=== PATIENT | female | born 1950 | race Hispanic/Latino ===

== ENCOUNTER 2017-12-08 22:44 | Observation (INO) | payer MEDICARE ==
--- OUTSIDE RECORDS SUMMARY | 2017-12-08 22:46 | XMS REPORT ---
:1950 Author Organization [employer] Care Team Providers Name Role Phone LamMathew Provider Role Unavailable Allergies, Adverse Reactions, Alerts Substance Reaction Event Type N.K.D.A. Info Not Available Non Drug Allergy Problems Problem Type Condition Code Onset Dates Condition Status Assessment Primary osteoarthritis of left knee M17.12 Active Assessment Primary osteoarthritis of right M17.11 Active knee Problem Pain, joint, knee, left M25.562 Active Problem Pain, joint, knee, right M25.561 Active Problem Sciatica of left side M54.32 Active Problem Primary osteoarthritis of right M17.11 Active knee Problem Body mass index (BMI) of 40.0-44.9 Z68.41 Active in adult Problem Morbid (severe) obesity due to E66.01 Active excess calories Problem Primary osteoarthritis of left knee M17.12 Active Assessment Morbid (severe) obesity due to E66.01 Active excess calories Assessment Pain, joint, knee, left M25.562 Active Assessment Pain, joint, knee, right M25.561 Active Assessment Body mass index (BMI) of 40.0-44.9 Z68.41 Active in adult Assessment Sciatica of left side M54.32 Active Medications Medication Code Code Instructions Start End Status Dosage System Date Date atorvastatin [facility] 75309716368 20mg Active 1 tablet by mouth at bedtime Metoprolol [facility] 07072266307 50 MG Orally Active 1 tablet Tartrate Twice a day with food Lisinopril [facility] 89594184055 20 MG Orally Active 1 tablet Once a day Co Q 10 [facility] 15703343976 100 MG Orally Active 1 capsule Once a day with a meal Metformin HCl [facility] 16229118949 500 MG Orally Active 1 tablet Once a day with a meal Y26-Hbxeay [facility] 25661425998 1 MG Orally Active as directed Results No Known Results Summary Purpose eClinicalWorks Submission
[2017-12-08] MEDS ORDERED: cloNIDine HCl 0.1 MG TAB ONE (23:18)
[2017-12-08 23:46] LABS: Absolute Monocytes 0.1 K/uL (0.1-1.3); Absolute Neutrophil 9.7 K/uL (1.8-8.0); Basophils % 0.6 % (0-1.3); Hematocrit 40.5 % (36.0-45.0); Lymphocytes % 16.7 % (15.3-44.8); MCH 29.6 pg (27.0-35.0); MCV 88.9 fL (80-100); MPV 9.4 fL (7.6-11.3); Monocytes % 0.6 % (3.3-12.3); RBC Red Blood Cell Count 4.56 M/uL (3.86-4.86)
[2017-12-08 23:55] LABS: BUN Blood Urea Nitrogen 23 mg/dL (7-18); Bicarbonate 25 mmol/L (21-32); Glucose Level 198 mg/dL (74-106); NT PRO-BNP 827 pg/mL (<125); Potassium 3.9 mmol/L (3.5-5.1); Sodium Level 135 mmol/L (136-145); Troponin (Emerg Dept Use Only) < 0.02 ng/mL (0.0-0.045)
[2017-12-09 00:10] LABS: Protime INR 0.94
--- NOTE | 2017-12-09 00:36 | EDPHYS ---
Physician Documentation [facility] Name: Josette Pimentel Age: 67 yrs Sex: Female : 1950 Arrival Date: 12/08/2017 Time: 22:50 Bed 17 Private MD: Fredrick Torres ED Physician Alex Mae HPI: 12/08 23:35 This 67 yrs old Female presents to ER via Wheelchair with complaints of rn Breathing Difficulty, Palpitations. 23:35 The patient has shortness of breath at rest. rn 23:35 Onset: The symptoms/episode began/occurred 1 hour(s) ago. Duration: The symptoms are rn continuous, but are steadily getting better. The patient's shortness of breath is aggravated by nothing, is alleviated by nothing. Associated signs and symptoms: Pertinent positives: chest pain, Pertinent negatives: non-productive cough, productive cough, diaphoresis, dizziness, fever, hemoptysis, loss of consciousness, vomiting. Severity of symptoms: At their worst the symptoms were moderate in the emergency department the symptoms have improved. The patient has not experienced similar symptoms in the past. Reports going to sleep, felt heart pounding, + chest pain that radiates to back, + headache, reports feeling chest tight like can't take deep breath, no cough, felt fine prior to going to sleep.. Historical: - Allergies: 23:29 Bees; lp1 - Home Meds: 23:29 metformin 500 mg Oral tab 1 tab 2 times per day [Active]; atorvastatin 20 mg oral tab 1 lp1 tab once daily [Active]; lisinopril-hydrochlorothiazide 20-12.5 mg Oral tab twice a day [Active]; metoprolol tartrate 50 mg Oral tab 1 tab 2 times per day [Active]; - PMHx: 23:29 Diabetes - NIDDM; Hypertension; lp1 - PSHx: 23:29 Tubal ligation; lp1 - Immunization history:: Adult Immunizations up to date. - Social history:: Smoking status: Patient/guardian denies using tobacco. - Ebola Screening: : No symptoms or risks identified at this time. - Family history:: not pertinent. - Hospitalizations: : No recent hospitalization is reported. ROS: 23:35 Constitutional: Negative for fever, chills, and weight loss, Eyes: Negative for injury, rn pain, redness, and discharge, Neck: Negative for injury, pain, and swelling, Cardiovascular: Negative for edema Respiratory: Negative for cough, wheezing Abdomen/GI: Negative for abdominal pain, nausea, vomiting, diarrhea, and constipation, MS/Extremity: Negative for injury and deformity, Skin: Negative for injury, rash, and discoloration, Neuro: Negative for weakness, numbness, tingling, and seizure. Exam: 23:35 Constitutional: This is a well developed, well nourished patient who is awake, alert, rn appears anxious Head/Face: Normocephalic, atraumatic. Eyes: Pupils equal round and reactive to light, extra-ocular motions intact. Lids and lashes normal. Conjunctiva and sclera are non-icteric and not injected. Cornea within normal limits. Periorbital areas with no swelling, redness, or edema. Neck: Trachea midline, no thyromegaly or masses palpated, and no cervical lymphadenopathy. Supple, full range of motion without nuchal rigidity, or vertebral point tenderness. No Meningismus. Cardiovascular: Regular rate and rhythm with a normal S1 and S2. No gallops, murmurs, or rubs. Normal PMI, no JVD. No pulse deficits. Respiratory: Lungs have equal breath sounds bilaterally, clear to auscultation and percussion. No rales, rhonchi or wheezes noted. No increased work of breathing, no retractions or nasal flaring. Abdomen/GI: Soft, non-tender MS/ Extremity: Pulses equal, no cyanosis. Neurovascular intact. Full, normal range of motion. Equal circumference. Neuro: Awake and alert, GCS 15, oriented to person, place, time, and situation. Cranial nerves II-XII grossly intact. Motor strength 5/5 in all extremities. Sensory grossly intact. Cerebellar exam normal. Normal gait. Vital Signs: 23:11 BP 217 / 90; Pulse 97; Resp 18; Temp 98.3(O); Pulse Ox 97% on R/A; Weight 99.79 kg; lp1 Height 5 ft. 1 in. (154.94 cm); Pain 4/10; 23:25 BP 183 / 78; Pulse 87; Resp 18; Pulse Ox 95% on R/A; lp1 23:53 BP 172 / 64; Pulse 82; Resp 20; Pulse Ox 95% on R/A; lp1 09/05 00:11 BP 141 / 54; Pulse 74; Resp 21; Pulse Ox 95% on R/A; lp1 01:05 BP 131 / 50; Pulse 72; Resp 19; Pulse Ox 97% on R/A; lp1 01:27 BP 126 / 48; Pulse 75; Resp 21; Pulse Ox 95% on R/A; lp1 12/08 23:11 Body Mass Index 41.57 (99.79 kg, 154.94 cm) lp1 MDM: 12/08 22:52 Patient medically screened. rn 12/09 00:34 Differential diagnosis: CHF exacerbation, Myocardial Infarction pneumonia, Pneumothorax rn pulmonary edema. Data reviewed: vital signs, nurses notes, lab test result(s), EKG, radiologic studies, plain films, and as a result, I will admit patient. Counseling: I had a detailed discussion with the patient and/or guardian regarding: the historical points, exam findings, and any diagnostic results supporting the discharge/admit diagnosis, the presence of at least one elevated blood pressure reading (>120/80) during this emergency department visit, lab results, radiology results, the need for further work-up and treatment in the hospital. Admission orders: after a detailed discussion of the patient's condition and case, the admit orders are written by me. 00:34 ED course: Admitted to Dr. Carrillo for chest pain/sob of acute onset and unclear rn etiology, improved with clonidine and BP control. . 12/08 23:08 Order name: Blood Culture Adult (2) rn 12/08 23:08 Order name: BMP rn 12/08 23:08 Order name: CBC with Diff; Complete Time: 00:09 rn 12/08 23:08 Order name: NT PRO-BNP; Complete Time: 23:58 rn 12/08 23:08 Order name: PT-INR; Complete Time: 00:24 rn 12/08 23:08 Order name: Ptt, Activated; Complete Time: 00:24 rn 12/08 23:08 Order name: XRAY Chest Pa And Lat (2 Views) rn 12/08 23:08 Order name: Troponin (emerg Dept Use Only); Complete Time: 23:58 rn 12/08 23:08 Order name: EKG; Complete Time: 23:09 rn 12/08 23:08 Order name: Cardiac monitoring; Complete Time: 23:33 rn 12/08 23:08 Order name: EKG - Nurse/Tech; Complete Time: 23:33 rn 12/08 23:08 Order name: Blood Culture EDPA 12/08 23:08 Order name: Basic Metabolic Panel; Complete Time: 23:58 EDPA 12/08 23:08 Order name: IV Saline Lock; Complete Time: 23:32 rn 12/08 23:08 Order name: Labs collected and sent; Complete Time: 23:33 rn 12/08 23:08 Order name: O2 Per Protocol; Complete Time: 23:33 rn 12/08 23:08 Order name: O2 Sat Monitoring; Complete Time: 23:33 rn Administered Medications: 12/08 23:19 Drug: cloNIDine 0.1 mg Route: PO; lp1 12/09 00:30 Follow up: Response: Blood pressure is lowered lp1 Disposition: 12/09/17 00:36 Hospitalization ordered by Nisreen Negro for Observation. Preliminary diagnosis are Chest pain, unspecified, Dyspnea, unspecified. - Bed requested for Telemetry/MedSurg (observation). - Status is Observation. lp1 - Condition is Stable. - Problem is new. - Symptoms have improved. UTI on Admission? No Signatures: Dispatcher [employer] [facility] Little Barrientos RN RN Alex Mae MD MD rn Pena, Laura, RN RN lp1 Corrections: (The following items were deleted from the chart) 01:22 00:36 Hospitalization Ordered by Nisreen Negro MD for Observation. Preliminary mw diagnosis is Chest pain, unspecified; Dyspnea, unspecified. Bed requested for Telemetry/MedSurg (observation). Status is Observation. Condition is Stable. Problem is new. Symptoms have improved. UTI on Admission? No. rn 01:42 01:22 12/09/2017 00:36 Hospitalization Ordered by Nisreen Negro MD for Observation. lp1 Preliminary diagnosis is Chest pain, unspecified; Dyspnea, unspecified. Bed requested for Telemetry/MedSurg (observation). Status is Observation. Condition is Stable. Problem is new. Symptoms have improved. UTI on Admission? No. mw
--- NOTE | 2017-12-09 00:36 | ER ---
Nurse's Notes [facility] Name: Josette Pimentel Age: 67 yrs Sex: Female : 1950 Arrival Date: 12/08/2017 Time: 22:50 Bed 17 Private MD: Fredrick Torres Diagnosis: Chest pain, unspecified;Dyspnea, unspecified Presentation: 12/08 23:10 Presenting complaint: Patient states: Mid sternal chest pain that began an hour ago, lp1 patient states she has had a headache since 1330 today; Has began to feel palpitations and like she can't take a deep breath. Transition of care: patient was not received from another setting of care. Onset of symptoms was December 08, 2017. Risk Assessment: Do you want to hurt yourself or someone else? Patient reports no desire to harm self or others. Initial Sepsis Screen: Does the patient meet any 2 criteria? No. Patient's initial sepsis screen is negative. Does the patient have a suspected source of infection? No. Patient's initial sepsis screen is negative. Care prior to arrival: None. 23:10 Method Of Arrival: Wheelchair lp1 23:10 Acuity: BARAK 3 lp1 Historical: - Allergies: 23:29 Bees; lp1 - Home Meds: 23:29 metformin 500 mg Oral tab 1 tab 2 times per day [Active]; atorvastatin 20 mg oral tab 1 lp1 tab once daily [Active]; lisinopril-hydrochlorothiazide 20-12.5 mg Oral tab twice a day [Active]; metoprolol tartrate 50 mg Oral tab 1 tab 2 times per day [Active]; - PMHx: 23:29 Diabetes - NIDDM; Hypertension; lp1 - PSHx: 23:29 Tubal ligation; lp1 - Immunization history:: Adult Immunizations up to date. - Social history:: Smoking status: Patient/guardian denies using tobacco. - Ebola Screening: : No symptoms or risks identified at this time. - Family history:: not pertinent. - Hospitalizations: : No recent hospitalization is reported. Screenin:27 Abuse screen: Denies threats or abuse. Denies injuries from another. Nutritional lp1 screening: No deficits noted. Tuberculosis screening: No symptoms or risk factors identified. Fall Risk None identified. Assessment: 23:25 General: Appears uncomfortable, Behavior is calm, cooperative, appropriate for age. lp1 Pain: Complains of pain in chest Pain currently is 4 out of 10 on a pain scale. Quality of pain is described as "heaviness". Neuro: Level of Consciousness is awake, alert, obeys commands, Oriented to person, place, time, situation, Gait is steady. Cardiovascular: Patient's skin is warm and dry. Rhythm is sinus rhythm. Respiratory: Reports pain with respiration Airway is patent Respiratory effort is even, unlabored, Respiratory pattern is regular, Breath sounds are clear bilaterally. Onset: The symptoms/episode began/occurred just prior to arrival, the patient has mild shortness of breath. GI: Abdomen is non-distended. : No deficits noted. EENT: No deficits noted. Derm: Skin is pink, warm \\T\\ dry. Musculoskeletal: Circulation, motion, and sensation intact. 12/09 00:30 Reassessment: Patient is alert, oriented x 3, equal unlabored respirations, skin lp1 warm/dry/pink. patient states headache continued, but better Patient states feeling better. 01:06 Reassessment: Dr. Carrillo at bedside. lp1 Vital Signs: 12/08 23:11 BP 217 / 90; Pulse 97; Resp 18; Temp 98.3(O); Pulse Ox 97% on R/A; Weight 99.79 kg; lp1 Height 5 ft. 1 in. (154.94 cm); Pain 4/10; 23:25 BP 183 / 78; Pulse 87; Resp 18; Pulse Ox 95% on R/A; lp1 23:53 BP 172 / 64; Pulse 82; Resp 20; Pulse Ox 95% on R/A; lp1 12/09 00:11 BP 141 / 54; Pulse 74; Resp 21; Pulse Ox 95% on R/A; lp1 01:05 BP 131 / 50; Pulse 72; Resp 19; Pulse Ox 97% on R/A; lp1 01:27 BP 126 / 48; Pulse 75; Resp 21; Pulse Ox 95% on R/A; lp1 12/08 23:11 Body Mass Index 41.57 (99.79 kg, 154.94 cm) lp1 ED Course: 12/08 22:50 Patient arrived in ED. es 22:51 Fredrick Torres MD is Private Physician. es 22:52 Alex Mae MD is Attending Physician. rn 23:09 Amara Aquino, RN is Primary Nurse. lp1 23:11 Triage completed. lp1 23:11 Arm band placed on right wrist. lp1 23:15 Inserted saline lock: 20 gauge in right forearm, using aseptic technique. Blood lp1 collected. By Sindhu Mai. 23:30 Patient has correct armband on for positive identification. Placed in gown. Bed in low lp1 position. Call light in reach. carbide tool die maker on. Pulse ox on. NIBP on. 12/09 00:18 X-ray completed. Patient tolerated procedure well. az 00:20 XRAY Chest Pa And Lat (2 Views) In Process Unspecified. EDMS 00:35 Nisreen Negro MD is Hospitalizing Provider. rn 01:07 No provider procedures requiring assistance completed. Patient admitted, IV remains in lp1 place. Administered Medications: 12/08 23:19 Drug: cloNIDine 0.1 mg Route: PO; lp1 12/09 00:30 Follow up: Response: Blood pressure is lowered lp1 Outcome: 00:36 Decision to Hospitalize by Provider. rn 01:07 Condition: stable lp1 01:07 Instructed on the need for admit. 01:33 Admitted to Tele accompanied by sindhu, via wheelchair, room 410, with chart, Report lp1 called to Bonnie Benitez RN 01:42 Patient left the ED. lp1 Signatures: Dispatcher [employer] Varsha Edwards Roman, MD MD rn Pena, Laura, RN RN lp1 Lisa Stroud Corrections: (The following items were deleted from the chart) 12/08 23:30 23:11 BP 217 / 90; Pulse 97bpm; Resp 18bpm; Pulse Ox 97% RA; 99.79 kg; Height 5 ft. 1 lp1 in.; BMI: 41.5; Pain 4/10; lp1 23:30 23:25 Respiratory: Airway is patent Respiratory effort is even, unlabored, Respiratory lp1 pattern is regular, Breath sounds are clear bilaterally. lp1 23:31 23:25 Respiratory: Airway is patent Respiratory effort is even, unlabored, Respiratory lp1 pattern is regular, Breath sounds are clear bilaterally. the patient has mild shortness of breath lp1
[2017-12-09] MEDS ORDERED: FUROSEMIDE 40 MG/4 ML VIAL IV ONE (01:18)
[2017-12-09] MEDS ORDERED: HYDRALAZINE HCL 20 MG/ML VIAL IV PRN (01:37)
[2017-12-09] MEDS ORDERED: ACETAMINOPHEN 500 MG TAB PO PRN (01:37)
[2017-12-09] MEDS ORDERED: ONDANSETRON 4 MG/2 ML VIAL IV PRN (01:37)
--- NOTE | 2017-12-09 01:46 | P.HP ---
Certification for Inpatient Patient admitted to: Observation With expected LOS: <2 Midnights Practitioner: I am a practitioner with admitting privileges, knowledge of patient current condition, hospital course, and medical plan of care. Services: Services provided to patient in accordance with Admission requirements found in Title 42 Section 412.3 of the Code of Federal Regulations Patient History Date of Service: 12/09/17 Reason for admission: Chest pain History of Present Illness: ms Pimentel is a 67-year-old woman with history of diabetes mellitus, hypertension , chronic diastolic CHF, last echocardiogram done in April of 2016 showing normal LV function with EF about 72%, abnormal relaxation pattern. The patient came to the ER complaining of chest pain. Today the patient had shot in both of her knees, I believe steroids, after she started complaining of headache. Then she started feeling a pressure-like chest pain, substernal, without radiation, lasting for a few min, associated with palpitation and shortness of breath. She denied any nausea, vomiting, dizziness or diaphoresis episode. At arrival, the patient was hypertensive, 217 / 90, she was treated with clonidine , and gradually her blood pressure decreased. At the time of my examination, she was pain free. Laboratory work remarkable for elevated BNP, troponin I is negative, chest-x-ray venous congestion, EKG sinus rhythm with nonspecific ST depression. Allergies No Known Allergies Allergy (Verified 04/19/16 07:58) Home medications list reviewed: Yes Home Medications: Lisinopril/Hydrochlorothiazide [Lisinopril-Hctz 20-12.5 mg Tab] 1 each PO BID Metoprolol Succinate [Toprol Xl*] 50 mg PO BID 04/18/16 Atorvastatin Calcium [Lipitor] 20 mg PO DAILY 12/09/17 Metformin ER [Glucophage ER] 500 mg PO BID 12/09/17 - Past Medical/Surgical History Diabetic: Yes -: Diabetes -: Hypertension -: Hypothyroidism -: VTL - Family History Father -: Cancer - Social History Smoking Status: Never smoker Alcohol use: No CD- Drugs: No Caffeine use: No Place of Residence: Home Review of Systems 10-point ROS is otherwise unremarkable Physical Examination - Physical Exam General: Alert, In no apparent distress HEENT: Atraumatic, PERRLA, Mucous membr. moist/pink, EOMI, Sclerae nonicteric Neck: Supple, 2+ carotid pulse no bruit, No LAD, Without JVD or thyroid abnormality Respiratory: Clear to auscultation bilaterally, Normal air movement Cardiovascular: Regular rate/rhythm, Normal S1 S2 Gastrointestinal: Normal bowel sounds, No tenderness Musculoskeletal: No tenderness, Swelling (Bilateral lower extremity edema 1+) Integumentary: No rashes Neurological: Normal speech, Normal strength at 5/5 x4 extr, Normal tone, Normal affect Lymphatics: No axilla or inguinal lymphadenopathy - Studies Laboratory Data (last 24 hrs) 12/08/17 23:15: PT 11.1, INR 0.94, APTT 34.5 12/08/17 23:15: WBC 11.8 H, Hgb 13.5, Hct 40.5, Plt Count 224 12/08/17 23:15: Sodium 135 L, Potassium 3.9, BUN 23 H, Creatinine 1.10, Glucose 198 H Assessment and Plan - Problems (Diagnosis) (1) Chest pain Current Visit: Yes Status: Acute Qualifiers: Chest pain type: precordial pain Qualified Code(s): R07.2 - Precordial pain (2) Hypertension Onset Date: 04/21/16 Current Visit: No Status: Acute Qualifiers: Hypertension type: essential hypertension Qualified Code(s): I10 - Essential (primary) hypertension (3) Non-insulin dependent type 2 diabetes mellitus Onset Date: 04/21/16 Current Visit: No Status: Acute (4) SOB (shortness of breath) Onset Date: 04/21/16 Current Visit: No Status: Acute (5) Acute on chronic diastolic CHF (congestive heart failure) Current Visit: Yes Status: Acute - Plan Patient will be admitted to the hospital due to chest pain. Initial troponin I is negative, EKG shows nonspecific ST depression, in context of elevated blood pressure. Her BP right now is better controlled and her symptoms resolved. Will monitor serial cardiac enzymes and EKG. Consult Cardiology team, will repeat echo in a.m. S the last was done more than 1 year ago. - Advance Directives Does patient have a Living Will: No Does patient have a Durable POA for Healthcare: No - Code Status/Comfort Care Code Status Assessed: Yes Code Status: Full Code
[2017-12-09 02:06] VITALS: O2SAT 95
[2017-12-09 03:18] VITALS: BMI 41.5
[2017-12-09] MEDS ORDERED: METOPROLOL TAR 25 MG TAB PO SCH (06:00)
[2017-12-09] MEDS: INSULIN -REGULAR HUMAN 50 UNIT/0.5 ML ML SQ SCH ×3 (06:00→18:00)
[2017-12-09] MEDS ORDERED: REGADENOSON 0.4 MG/5 ML SYR IV ONE (07:58)
--- NOTE | 2017-12-09 08:39 | RAD REPORT ---
EXAM DESCRIPTION: Taiwo Xiao (2 Views)12/09/2017 12:20 am CLINICAL HISTORY: Chest pain COMPARISON: April 2016 FINDINGS: The lungs appear clear of acute infiltrate. The heart is normal size IMPRESSION: No acute abnormalities displayed
[2017-12-09] MEDS ORDERED: ENOXAPARIN 40 MG/0.4 ML SQ SCH (09:00)
[2017-12-09 12:44] VITALS: TEMP 97
--- NOTE | 2017-12-09 14:06 | RAD REPORT ---
EXAM DESCRIPTION: NM - Rest Stress Cardiac Imaging - 12/09/2017 2:00 pm CLINICAL HISTORY: CP Chest pain. COMPARISON: No comparisons TECHNIQUE: The patient was administered approximately 10mCi of Tc 99m Sestamibi prior to resting SPE CT imaging of the heart. The patient was then administered approximately 30 mCi of Tc 99m Sestamibi f ollowing exercise or pharmacologic stress. Multiplanar SPECT images were reviewed. FINDINGS: No stress induced ischemic defect is seen to suggest stress induced ischemia. No fixed def ect is seen to suggest hibernating myocardium or scarred myocardium. The end diastolic volume is 72 ml, the end systolic volume is 15 ml, and the ejection fraction is 79 %. IMPRESSION: No stress induced ischemia.
--- NOTE | 2017-12-09 17:54 | EKG ---
Test Date: 2017-12-08 Test Time: 23:02:59 Airworthiness Safety Inspector: ANNALISE MEASUREMENT RESULTS: Intervals: Rate: 93 CA: 196 QRSD: 94 QT: 366 QTc: 455 [place]: P: 75 CA: 196 QRS: 70 T: 47 INTERPRETIVE STATEMENTS: Normal sinus rhythm Nonspecific ST abnormality Abnormal ECG Compared to ECG 04/18/2016 10:44:46 No significant changes Electronically Signed On 12-09-17 17:51:02 CDT by Jovany Sweet
[2017-12-09 18:12] VITALS: BP 164/70
[2017-12-09] MEDS ORDERED: hydroCHLOROthiazide 12.5 MG CAP PO SCH (21:00)
[2017-12-09] MEDS ORDERED: ATORVASTATIN 40 MG TAB PO SCH (21:00)
[2017-12-09] MEDS ORDERED: LISINOPRIL 20 MG TAB PO SCH (21:00)
[2017-12-09] MEDS ORDERED: METOPROLOL TAR 50 MG TAB PO SCH (21:00)
[2017-12-09] MEDS ORDERED: HOME MED 1 EA UNK (Lisinopril/Hydrochlorothiazide [Lisinopril-Hctz 20-12.5 Mg Tab] 1 EACH) PO SCH (21:00)
--- NOTE | 2017-12-10 05:20 | CON ---
Date of Consultation: 12/09/2017 Reason For Consultation: Palpitation, chest pain, and shortness of breath. History Of Present Illness: The patient is a 67-year-old woman who has a history of diabetes and hyp ertension. No previous cardiac history, really came in mostly with palpitation than anything else. She has what she describes as very little chest pain in the left lateral chest that was sharp, worse with breathing. No nausea, vomiting, diaphoresis, PND, orthopnea, pedal edema, or syncope. Allergies: SHE IS ALLERGIC TO BEES. Past Medical History: Includes hypertension and diabetes. Review of Systems: Negative. Social History: Negative. Family History: Negative. Medications: At home include Lipitor, metformin, metoprolol, CoQ10, lisinopril with hydrochlorothiaz rufino. Physical Examination: Vital Signs: She was hypertensive at 187/71. HEENT: Negative. Neck: Supple. No bruit. Chest: Clear. Cardiac: Examination revealed regular rhythm and rate without any murmurs, gallops, or rubs. Abdomen: Benign. Extremities: Revealed no clubbing, cyanosis, or edema. Diagnostic Data: Showed white count of 11.8. Glucose 198. BNP is 827. She has an HDL of 79. EKG was normal. Chest x-ray was normal. Impression And Plan: The patient's symptoms are more secondary to palpation than actual chest pain. Chest pain appears to be more pleuritic. She does have some dyspnea on exertion. Hypertension that is poorly controlled. Diabetes that is well controlled. She is now having a lot of leg cramps prob ably because of the Lasix. I would definitely discontinue her Lasix. I do not think she has congest aguilar heart failure. I would continue her present regimen, maybe increase her metoprolol to control he r blood pressure and palpitation. I will get an echocardiogram and a Lexiscan before she leaves. NB/MODL Voice ID: [id number] Report ID: [id number]
--- NOTE | 2017-12-10 08:50 | ECHO ---
HEIGHT: 5 ft 1 in WEIGHT: 219 lb 12.8 oz DATE OF STUDY: 12/09/[address]: Nisreen Carrillo MD 2-DIMENSIONAL: YES M.MODE: YES DOPPLER: YES COLOR FLOW: YES TDS: NO PORTABLE: NO DEFINITY: NO BUBBLE STUDY: NO DIAGNOSIS: CHEST PAIN CARDIAC HISTORY: CATHERIZATION: NO SURGERY: NO PROSTHETIC VALVE: NO PACEMAKER: NO MEASUREMENTS (cm) DIASTOLIC (NORMALS) SYSTOLIC (NORMALS) IVSd 1.3 (0.6-1.2) LA Diam 3.5 (1.9-4.0) LVEF 71% LVIDd 3.5 (3.5-5.7) LVIDs 2.1 (2.0-3.5) %FS 40% LVPWd 1.3 (0.6-1.2) Ao Diam 2.5 (2.0-3.7) 2 DIMENSIONAL ASSESSMENT: RIGHT ATRIUM: NORMAL LEFT ATRIUM: NORMAL RIGHT VENTRICLE: NORMAL LEFT VENTRICLE: LEFT VENTRICULAR HYPERTROPHY TRICUSPID VALVE: NORMAL MITRAL VALVE: NORMAL PULMONIC VALVE: NORMAL AORTIC VALVE: NORMAL PERICARDIAL EFFUSION: NONE AORTIC ROOT: NORMAL LEFT VENTRICULAR WALL MOTION: NORMAL DOPPLER/COLOR FLOW: MILD TRICUSPID REGURGITATION. COMMENTS: MILD TRICUSPID REGURGITATION. NORMAL RIGHT VENTRICULAR SYSTOLIC PRESSURE. MILD CONCENTRIC LEFT VENTRICULAR HYPERTROPHY. NORMAL LEFT VENTRICULAR EJECTION FRACTION. NO WALL MOTIONABNORMALITY. TECHNOLOGIST: Tashi BURKS
[2017-12-10] MEDS ORDERED: CYANOCOBALAMIN 1,000 MCG TAB PO SCH (09:00)
--- NOTE | 2017-12-10 09:35 | TREADPHA ---
DX: CHEST PAIN Date of Study: Ht: 5 1 Wt: 219 lb 12.8 oz Consulting Physician: NICOLE MEDICATIONS: TYLENOL, LIPITOR, LOVENOX, APRESOLINE, NOVOLIN-R, LOPRESSOR, ZOFRAN HISTORY: 67 YEAR OLD FEMALE WITH COMPLAINTS OF CHEST PAIN. HISOTRY OF DIABETES MELLITUS, HYPERTENSION PHYSICIAL EXAMINATION: RESTING B.P.: 167/56 RESTING H.R.: 78 RESTING EKG: NORMAL PROTOCOL: LEXISCAN EXERCISE TIME: 3:30 B.P. AT PEAK STRESS: 141/47 IMPRESSION: LEXISCAN INJECTED, CARDIOLITE INJECTED PER PROTOCOL. SEE NUCLEAR MEDICINE REPORT. NO CHEST PAIN. PREMATURE VENTRICULAR COMPLEXES NOTED DURING TEST AND RECOVERY. NO VENTRICULAR TACHYCARDIA. NO SUPRA VENTRICULAR TACHCYARDIA.
== END 2017-12-09 17:57 | disposition home or self-care (01) ==
LOC: ER 22:44 → ERHOLD 12-09 00:37 → 4TH 12-09 01:34
PROVIDERS: ADMIT Internal Medicine; ATTEND Internal Medicine
DX: R07.9 Chest pain, unspecified (principal); E11.9 Type 2 diabetes mellitus without complications; E03.9 Hypothyroidism, unspecified; I11.0 Hypertensive heart disease with heart failure; I50.32 Chronic diastolic (congestive) heart failure; Z91.030 Bee allergy status
CPT/HCPCS: 36415; 71046; 78452; 80048; 80061; 82962 ×2; 83880; 84484 ×3; 85025; 85610; 85730; 87040 ×2; 93005; 93017; 93306; 99285; A9500; G0378 ×2; J0360; J2785

== ENCOUNTER 2018-11-10 20:11 | Emergency (ER) | payer OTHER, MEDICARE ==
--- OUTSIDE RECORDS SUMMARY | 2018-11-10 20:14 | XMS REPORT ---
:1950 Author Organization eClinicalWorks Care Team Providers Name Role Phone Mathew Lam Provider Role Unavailable Allergies, Adverse Reactions, Alerts Substance Reaction Event Type N.K.D.A. Info Not Available Non Drug Allergy Problems Problem Type Condition Code Onset Dates Condition Status Assessment Pain, joint, knee, left M25.562 Active Assessment Pain, joint, knee, right M25.561 Active Assessment Sciatica of left side M54.32 Active Assessment Primary osteoarthritis of right M17.11 Active knee Assessment Primary osteoarthritis of left knee M17.12 Active Problem Pain, joint, knee, left M25.562 Active Problem Pain, joint, knee, right M25.561 Active Problem Sciatica of left side M54.32 Active Problem Primary osteoarthritis of right M17.11 Active knee Problem Body mass index (BMI) of 40.0-44.9 Z68.41 Active in adult Problem Morbid (severe) obesity due to E66.01 Active excess calories Problem Primary osteoarthritis of left knee M17.12 Active Medications Medication Code Code Instructions Start End Status Dosage System Date Date [id number]-[id number] [facility] 40681185387 1 MG Orally Active as directed Co Q [address] [facility] 79383993883 100 MG Orally Active 1 capsule Once a day with a meal Lisinopril ND 28400924188 20 MG Orally Active 1 tablet Once a day Metoprolol [facility] 08883035005 50 MG Orally Active 1 tablet Tartrate Twice a day with food atorvastatin [facility] 98394070457 20mg Active 1 tablet by mouth at bedtime Metformin HCl ND 70473449632 500 MG Orally Active 1 tablet Once a day with a meal Results No Known Results Summary Purpose eClinicalWorks Submission
--- OUTSIDE RECORDS SUMMARY | 2018-11-10 20:14 | XMS REPORT ---
[...] End Status Dosage System Date Date atorvastatin [facility] 66507131706 20mg Active 1 tablet by mouth at bedtime Metoprolol [facility] 65127063619 50 MG Orally Active 1 tablet Tartrate Twice a day with food Lisinopril [facility] 61036945643 20 MG Orally Active 1 tablet Once a day Co Q [address] [facility] 26412497652 100 MG Orally Active 1 capsule Once a day with a meal Metformin HCl [facility] 69024429771 500 MG Orally Active 1 tablet Once a day with a meal Q83-Qiwnqr [facility] 26866525326 1 MG Orally Active as directed Results No Known Results Summary Purpose eClinicalWorks Submission
--- OUTSIDE RECORDS SUMMARY | 2018-11-10 20:14 | XMS REPORT ---
:1950 Author Organization eClinicalWorks Care Team Providers Name Role Phone Lam Mathew Provider Role Unavailable Allergies, Adverse Reactions, Alerts Substance Reaction Event Type N.K.D.A. Info Not Available Non Drug Allergy Problems Problem Type Condition Code Onset Dates Condition Status Assessment Pain, joint, knee, left M25.562 Active Assessment Pain, joint, knee, right M25.561 Active Problem Pain, joint, knee, left M25.562 [...] due to E66.01 Active excess calories Assessment Sciatica of left side M54.32 Active Assessment Primary osteoarthritis of left knee M17.12 Active Assessment Body mass index (BMI) of 40.0-44.9 Z68.41 Active in adult Assessment Primary osteoarthritis of right M17.11 Active knee Medications Medication Code Code Instructions Start End Status Dosage System Date Date Co Q 10 [facility] 40631482158 100 MG Orally Active 1 capsule Once a day with a meal Lisinopril [facility] 64468194876 20 MG Orally Active 1 tablet Once a day [id number]-Djibio [facility] 77882503639 1 MG Orally Active as directed atorvastatin ND 06692729542 20mg Active 1 tablet by mouth at bedtime Metoprolol [facility] 13478318660 50 MG Orally Active 1 tablet Tartrate Twice a day with food Metformin HCl [facility] 89077089318 500 MG Orally Active 1 tablet Once a day with a meal Results No Known Results Summary Purpose eClinicalWorks Submission
--- OUTSIDE RECORDS SUMMARY | 2018-11-10 20:14 | XMS REPORT ---
:1950 [facility] Address [address] [place] [address] Dr. [address] [place] [id number] Care Team Providers Name Role Phone Unavailable Unavailable Unavailable Problems This patient has no known problems. Allergies, Adverse Reactions, Alerts This patient has no known allergies or adverse reactions. Medications This patient has no known medications.
[2018-11-10] MEDS ORDERED: NA CHLORIDE 0.9% 1,000 ML ONE (20:28)
[2018-11-10] MEDS ORDERED: ACETAMINOPHEN 325 MG TABLET ONE (21:40)
[2018-11-10 22:17] LABS: Absolute Lymphocytes (CBC) 2.2 K/uL (0.7-4.9); Basophils % 0.4 % (0-1.3); Hematocrit 41.7 % (36.0-45.0); Lymphocytes % 22.9 % (15.3-44.8); MPV 8.9 fL (7.6-11.3)
[2018-11-10 22:37] LABS: Albumin 3.6 g/dL (3.4-5.0); Bilirubin Direct 0.2 mg/dL (0-0.2); Bilirubin Total 0.6 mg/dL (0.2-1.0); Potassium 4.2 mmol/L (3.5-5.1)
[2018-11-10 23:26] LABS: Urine Culture Reflex Order NOT NEEDED
[2018-11-10 23:29] LABS: Urine Bacteria >50 /HPF (<20)
[2018-11-10 23:30] LABS: Urine Blood 1+ (NEG); Urine Glucose NEGATIVE (NEG); Urine Protein 1+ (NEG); Urine pH 6.5 (5.0-7.0)
[2018-11-10] MEDS ORDERED: CEFTRIAXONE/SWI 1gm 1 GM/10 ML SYR ONE (23:51)
--- NOTE | 2018-11-11 01:09 | ER ---
Nurse's Notes [facility] Name: Josette Pimentel Age: 68 yrs Sex: Female : 1950 Arrival Date: 11/10/2018 Time: 20:14 Bed 15 Private MD: Diagnosis: Urinary tract infection, site not specified;Dehydration Presentation: 11/10 20:16 Presenting complaint: Patient states: She is having on and off fever since Thursday wh accompanied by weakness, headache and nausea. Pt is also C/O pain R shoulder blade. Transition of care: patient was not received from another setting of care. Onset of symptoms was November 08, 2018. Risk Assessment: Do you want to hurt yourself or someone else? Patient reports no desire to harm self or others. Initial Sepsis Screen: Does the patient meet any 2 criteria? No. Patient's initial sepsis screen is negative. Does the patient have a suspected source of infection? Yes: Other: Unknown. Care prior to arrival: None. 20:16 Method Of Arrival: [facility] 20:16 Acuity: BARAK 3 Historical: - Allergies: 20:38 Bees; - Home Meds: 20:38 metoprolol tartrate 50 mg Oral tab 1 tab 2 times per day [Active]; metformin 500 mg wh Oral tab 1 tab 2 times per day [Active]; lisinopril-hydrochlorothiazide 20-12.5 mg Oral tab twice a day [Active]; levothyroxine 75 mcg tab 1 tab once daily [Active]; - PMHx: 20:38 Diabetes - NIDDM; Hypertension; - Immunization history:: Adult Immunizations up to date. - Social history:: Smoking status: Patient/guardian denies using tobacco, Smoking status: Patient/guardian denies using tobacco. - Ebola Screening: : Patient negative for fever greater than or equal to 101.5 degrees Fahrenheit, and additional compatible Ebola Virus Disease symptoms Patient denies exposure to infectious person. - Family history:: not pertinent. - Hospitalizations: : No recent hospitalization is reported. Screenin:20 Abuse screen: Denies threats or abuse. Denies injuries from another. Nutritional screening: No deficits noted. Tuberculosis screening: No symptoms or risk factors identified. Fall Risk None identified. Assessment: 20:32 General: Appears in no apparent distress. Behavior is calm, cooperative, appropriate wh for age. Pain: Complains of pain in right shoulder Pain does not radiate. Pain currently is 5 out of 10 on a pain scale. Quality of pain is described as burning, Pain began 3 hours ago. Neuro: Level of Consciousness is awake, alert, obeys commands, Oriented to person, place, time, situation, Appropriate for age Track Leader are equal bilaterally Reports headache since today. Cardiovascular: Heart tones S1 S2. Respiratory: Airway is patent Respiratory effort is even, unlabored, Respiratory pattern is regular, symmetrical. GI: Abdomen is flat, Abd is soft and non tender X 4 quads. Reports nausea. : No signs and/or symptoms were reported regarding the genitourinary system. EENT: No signs and/or symptoms were reported regarding the EENT system. Derm: Skin is intact, is healthy with good turgor, Skin is pink, warm \T\ dry. normal. Musculoskeletal: Range of motion: intact in all extremities. 21:25 Reassessment: Patient appears in no apparent distress at this time. Patient and/or wh family updated on plan of care and expected duration. Pain level reassessed. Patient is alert, oriented x 3, equal unlabored respirations, skin warm/dry/pink. 22:41 Reassessment: Patient appears in no apparent distress at this time. Patient and/or wh family updated on plan of care and expected duration. Pain level reassessed. Patient is alert, oriented x 3, equal unlabored respirations, skin warm/dry/pink. 23:47 Reassessment: Patient appears in no apparent distress at this time. Patient and/or wh family updated on plan of care and expected duration. Pain level reassessed. Patient is alert, oriented x 3, equal unlabored respirations, skin warm/dry/pink. Patient denies pain at this time. Patient states feeling better. 11/11 00:49 Reassessment: Patient appears in no apparent distress at this time. Patient and/or wh family updated on plan of care and expected duration. Pain level reassessed. Patient is alert, oriented x 3, equal unlabored respirations, skin warm/dry/pink. Patient denies pain at this time. Patient states feeling better. 01:38 Reassessment: Patient appears in no apparent distress at this time. Patient and/or wh family updated on plan of care and expected duration. Pain level reassessed. Patient is alert, oriented x 3, equal unlabored respirations, skin warm/dry/pink. Patient denies pain at this time. Patient states feeling better. Vital Signs: 11/10 20:22 BP 152 / 58; Pulse 82; Resp 18; Temp 101.7; Pulse Ox 100% 2 lpm ; 21:30 BP 131 / 51; Pulse 84; Resp 18; Pulse Ox 100% ; 22:30 BP 143 / 66; Pulse 83; Resp 18; Pulse Ox 100% on R/A; 23:30 BP 131 / 48; Pulse 81; Resp 18; Pulse Ox 100% on R/A; 11/11 00:30 BP 120 / 57; Pulse 78; Resp 18; Temp 99.1; Pulse Ox 100% on R/A; ED Course: 11/10 20:14 Patient arrived in ED. am2 20:15 Alex Mae MD is Attending Physician. rn 20:15 Erika Renee is Primary Nurse. 20:20 Triage completed. 20:20 Arm band placed on right wrist. 20:22 Patient has correct armband on for positive identification. Bed in low position. Call light in reach. Side rails up X 1. Pulse ox on. NIBP on. 20:29 Maintain EMS IV. Dressing intact. Good blood return noted. Site clean \T\ dry. 20:54 Radiology exam delayed due to IV insertion attempt and/or patient not having nj appropriate IV at this time. nurse to call when ready. 21:30 Missed attempt(s): 22 gauge in left forearm. Bleeding controlled, band aid applied, oe catheter tip intact. 21:32 Radiology exam delayed due to lab results not completed at this time. (BUN/Creatinine) 2 IV insertion attempt and/or patient not having appropriate IV at this time. 21:35 Missed attempt(s): 22 gauge in left hand. Bleeding controlled, band aid applied, oe catheter tip intact. 21:50 Inserted saline lock: 22 gauge in left hand, using aseptic technique. Blood collected. oe 21:54 Radiology exam delayed due to lab results not completed at this time. (BUN/Creatinine). vm2 22:14 Radiology exam delayed due to lab results not completed at this time. (BUN/Creatinine). 2 22:24 Radiology exam delayed due to lab results not completed at this time. (BUN/Creatinine). [facility] 22:37 Radiology exam delayed due to lab results not completed at this time. (BUN/Creatinine). 2 23:13 CT Head Brain wo Cont In Process Unspecified. EDMS 23:19 CT Abd/Pelvis - IV Contrast Only In Process Unspecified. EDUT 11/11 01:40 No provider procedures requiring assistance completed. IV discontinued, intact, bleeding controlled, No redness/swelling at site. Administered Medications: 11/10 21:46 Drug: NS 0.9% 1000 ml Route: IV; Rate: 1000 ml; Site: left wrist; 11/11 01:47 Follow up: IV Status: Completed infusion 01:48 Follow up: IV Status: Completed infusion 11/10 21:46 Drug: Tylenol 650 mg Route: PO; 11/11 01:40 Follow up: Response: No adverse reaction 11/10 23:57 Drug: Rocephin - (cefTRIAXone) 1 grams Route: IVPB; Infused Over: 30 mins; Site: left wrist; 11/11 01:39 Follow up: Response: No adverse reaction; IV Status: Completed infusion Outcome: 01:04 Discharge ordered by MD. rn 01:40 Discharged to home ambulatory, with family. 01:40 Condition: improved 01:40 Discharge instructions given to patient, family, Instructed on discharge instructions, follow up and referral plans. medication usage, POC UTI Demonstrated understanding of instructions, follow-up care, medications, POC Prescriptions given X 2. 01:46 Patient left the ED. Addendum: 11/14/2018 17:56 Addendum: Culture Results: Positive urine culture. No further action required. Bacteria i w sensitive to prescribed antibiotic. Signatures: Dispatcher [employer] EDUT Xiomy Perez RN RN iw Nieto, Roman, MD MD rn Jordan, Nathan ms Tian Vila Amanda am2 McGuire, Victoria [facility] Erika Renee Corrections: (The following items were deleted from the chart) 11/10 20:54 20:53 Patient moved to [facility] 21:55 21:54 Missed attempt(s): 22 gauge in left hand. Bleeding controlled, band aid applied, oe catheter tip intact. oe 21:57 21:30 Missed attempt(s): 22 gauge in left hand. Bleeding controlled, band aid applied, oe catheter tip intact. oe 11/11 01:44 11/10 22:30 BP 131 / 48; Pulse 81bpm; Resp 18bpm; Pulse Ox 100% RA; wh wh
--- NOTE | 2018-11-11 01:10 | EDPHYS ---
Physician Documentation [facility] Name: Josette Pimentel Age: 68 yrs Sex: Female : 1950 Arrival Date: 11/10/2018 Time: 20:14 Bed 15 Private MD: ED Physician Alex Mae HPI: 11/10 21:30 This 68 yrs old Female presents to ER via EMS with complaints of Nausea, fever.rn 21:30 This 68 yrs old Female presents to ER via EMS with complaints of Nausea. rn 21:30 The patient presents to the emergency department with nausea. Onset: The rn symptoms/episode began/occurred 3 day(s) ago. Possible causes: unknown. The symptoms are aggravated by nothing. The symptoms are alleviated by nothing. Severity of symptoms: At their worst the symptoms were mild in the emergency department the symptoms are unchanged. The patient has not experienced similar symptoms in the past. Reports fever for 3 days, nausea, headache, fatigue and general weakness. . Historical: - Allergies: 20:38 Bees; wh - Home Meds: 20:38 metoprolol tartrate 50 mg Oral tab 1 tab 2 times per day [Active]; metformin 500 mg wh Oral tab 1 tab 2 times per day [Active]; lisinopril-hydrochlorothiazide 20-12.5 mg Oral tab twice a day [Active]; levothyroxine 75 mcg tab 1 tab once daily [Active]; - PMHx: 20:38 Diabetes - NIDDM; Hypertension; wh - Immunization history:: Adult Immunizations up to date. - Social history:: Smoking status: Patient/guardian denies using tobacco, Smoking status: Patient/guardian denies using tobacco. - Ebola Screening: : Patient negative for fever greater than or equal to 101.5 degrees Fahrenheit, and additional compatible Ebola Virus Disease symptoms Patient denies exposure to infectious person. - Family history:: not pertinent. - Hospitalizations: : No recent hospitalization is reported. 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 Head/Face: Normocephalic, atraumatic. Eyes: Pupils equal round and reactive to light, extra-ocular motions intact. Lids and lashes normal. Conjunctiva and sclera are non-icteric and not injected. Cornea within normal limits. Periorbital areas with no swelling, redness, or edema. ENT: dry MM Neck: Trachea midline, no thyromegaly or masses palpated, and no cervical lymphadenopathy. Supple, full range of motion without nuchal rigidity, or vertebral point tenderness. No Meningismus. Cardiovascular: Regular rate and rhythm. No pulse deficits. Respiratory: Lungs have equal breath sounds bilaterally, clear to auscultation. No increased work of breathing, no retractions or nasal flaring. Abdomen/GI: soft, mild epigastric tenderness, no rebound Skin: Warm, dry, and no evidence of cellulitis. MS/ Extremity: Pulses equal, no cyanosis. Neurovascular intact. Full, normal range of motion. Equal circumference. Neuro: Awake and alert, GCS 15, oriented to person, place, time, and situation. Cranial nerves II-XII grossly intact. Motor strength 5/5 in all extremities. Sensory grossly intact. Cerebellar exam normal. Vital Signs: 20:22 BP 152 / 58; Pulse 82; Resp 18; Temp 101.7; Pulse Ox 100% 2 lpm ; wh 21:30 BP 131 / 51; Pulse 84; Resp 18; Pulse Ox 100% ; wh 22:30 BP 143 / 66; Pulse 83; Resp 18; Pulse Ox 100% on R/A; wh 23:30 BP 131 / 48; Pulse 81; Resp 18; Pulse Ox 100% on R/A; wh 11/11 00:30 BP 120 / 57; Pulse 78; Resp 18; Temp 99.1; Pulse Ox 100% on R/A; MDM: 11/10 20:15 Patient medically screened. rn 11/11 01:00 Differential diagnosis: UTI, dehydration, flu, strep, mono, viral syndrome, rn cholecystitis. Data reviewed: vital signs, nurses notes, lab test result(s), radiologic studies, CT scan, and as a result, I will discharge patient. Counseling: I had a detailed discussion with the patient and/or guardian regarding: the historical points, exam findings, and any diagnostic results supporting the discharge/admit diagnosis, lab results, radiology results, the need for outpatient follow up, to return to the emergency department if symptoms worsen or persist or if there are any questions or concerns that arise at home. Response to treatment: the patient's symptoms have markedly improved after treatment, and as a result, I will discharge patient. Special discussion: I discussed with the patient/guardian in detail that at this point there is no indication for admission to the hospital. It is understood, however, that if the symptoms persist or worsen the patient needs to return immediately for re-evaluation. ED course: Patient markedly improved, ct no acute findings, + UTI, rocephin given, now more alert and feels fine, wants to go home, will dc home with abx and Dr. Torres f/uSheryl . 11/10 20:18 Order name: CBC with Diff; Complete Time: 22:43 11/10 20:18 Order name: Urine Microscopic Only; Complete Time: 23:38 11/10 20:18 Order name: Flu; Complete Time: 23:38 11/10 20:18 Order name: Strep; Complete Time: 23:38 11/10 20:18 Order name: [place] Screen Profile; Complete Time: 22:43 11/10 20:18 Order name: Blood Culture Adult (2) 11/10 20:18 Order name: Procalcitonin; Complete Time: 23:38 11/10 20:18 Order name: Urine Culture 11/10 21:30 Order name: LFT's; Complete Time: 22:43 11/10 21:30 Order name: Lipase; Complete Time: 22:43 11/10 22:14 Order name: Basic Metabolic Panel; Complete Time: 22:43 [facility] 11/10 23:19 Order name: Urine Dipstick--Ancillary (enter results); Complete Time: 23:38 ag4 11/10 23:20 Order name: Throat Culture [facility] 11/10 20:18 Order name: IV Start; Complete Time: 20:39 11/10 20:18 Order name: Urine Dipstick-Ancillary (obtain specimen); Complete Time: 23:35 rn 11/10 20:18 Order name: CT Head Brain wo Cont rn 11/10 21:29 Order name: CT Abd/Pelvis - IV Contrast Only rn Administered Medications: 11/10 21:46 Drug: NS 0.9% 1000 ml Route: IV; Rate: 1000 ml; Site: left wrist; 11/11 01:47 Follow up: IV Status: Completed infusion 01:48 Follow up: IV Status: Completed infusion 11/10 21:46 Drug: Tylenol 650 mg Route: PO; 11/11 01:40 Follow up: Response: No adverse reaction 11/10 23:57 Drug: Rocephin - (cefTRIAXone) 1 grams Route: IVPB; Infused Over: 30 mins; Site: left wrist; 11/11 01:39 Follow up: Response: No adverse reaction; IV Status: Completed infusion Disposition: 11/11/18 01:04 Discharged to Home. Impression: Urinary tract infection, site not specified, Dehydration. - Condition is Stable. - Discharge Instructions: Dehydration, Adult, Urinary Tract Infection, Adult. - Prescriptions for Zofran ODT 4 mg Oral tablet,disintegrating - place 1 tablet by TRANSLINGUAL route every 8 hours As needed; 20 tablet. cefpodoxime 100 mg Oral Tablet - take 2 tablet by ORAL route every 12 hours for 10 days take with food; 40 tablet. - Medication Reconciliation Form, Thank You Letter, Antibiotic Education, Prescription Opioid Use form. - Follow up: Private Physician; When: As needed; Reason: Recheck today's complaints, Re-evaluation by your physician. - Problem is new. - Symptoms have improved. Signatures: Dispatcher [employer] [facility] Alex Mae MD MD rn Habalo, Winsy Corrections: (The following items were deleted from the chart) 11/10 22:14 20:19 BASIC METABOLIC PANEL+C.LAB.BRZ ordered. [facility] 11/11 01:46 01:04 11/11/2018 01:04 Discharged to Home. Impression: Urinary tract infection, site wh not specified; Dehydration. Condition is Stable. Forms are Medication Reconciliation Form, Thank You Letter, Antibiotic Education, Prescription Opioid Use. Follow up: Private Physician; When: As needed; Reason: Recheck today's complaints, Re-evaluation by your physician. Problem is new. Symptoms have improved. rn
[2018-11-11 03:04] VITALS: O2SAT 100
[2018-11-11 03:08] VITALS: BP 120/57; TEMP 99.1
--- NOTE | 2018-11-11 10:34 | RAD REPORT ---
EXAM DESCRIPTION: CT - Abdomen Pelvis W Contrast - 11/11/2018 5:38 am CLINICAL HISTORY: Nausea. Vomiting. Fever. FINDINGS: CT scan of the abdomen and pelvis was performed with intravenous contrast. 5 mm arterial phase axial images of the abdomen were obtained, 5 mm venous phase axial images of the abdomen and pelvis were obtained along with coronal and sagitta l reformatted images.. DOSE OPTIMIZATION: This facility uses dose optimization techniques as appropriate to perform exams, including at least one of the following techniques: 1. Automated exposure control. 2. Adjustment of the mA and/or kV according to patient size (this includes techniques or standardized protocols for targeted exams where dose is matched to the indication/reason for exam, i.e. extremiti es or head). 3. Use of iterative reconstructive technique. INTRAVENOUS CONTRAST: Not documented. Please refer to medical record. ORAL CONTRAST: None. COMPARISON: None. FINDINGS: Lung Bases: There are no active infiltrates. There are calcified granulomas in the lung bases bilaterally. Liver: Normal. Spleen: Normal. Pancreas: Normal. Gallbladder: Normal. Adrenal Glands: There are bilateral adrenal masses. On the right mass measures 1.8 x 1.6 cm. On the left the mass measures 1.1 x 1.6 cm. Kidneys: Normal. Retroperitoneal Structures: There is moderately severe atherosclerotic disease about the abdominal ao rta. Bowel Survey: There is a moderate amount residual stool within the ascending and transverse colon. There is severe diverticulosis of the descending and sigmoid colon. The distal ileum is unremarkable. The appendix is unremarkable. Uterus and Adnexa: Normal. Urinary Bladder: Normal. Peritoneal Cavity: Normal. Mesenteric Structures: Normal. Abdominal Wall: No hernia. Bony Structures: No suspicious lesions. IMPRESSION: 1. Moderate amount residual stool within the ascending and transverse colon. 2. Severe diverticulosis of the descending and sigmoid colon. 3. Small bilateral adrenal masses. Further assessment with a nonemergent CT Adrenal Washout examinati on recommended. Electronically signed by: Valeriano Pardo MD 11/10/2018 11:34 PM CDT Due to temporary technical issues with the PACS/Fluency reporting system, reports are being signed by the in house radiologist as a courtesy to ensure prompt reporting. The interpreting radiologist is f ully responsible for the content of the report.
--- NOTE | 2018-11-11 10:37 | RAD REPORT ---
EXAM DESCRIPTION: CT - Head Brain Wo Cont - 11/11/2018 5:38 am CLINICAL HISTORY: 68 years Female, HEADACHE TECHNIQUE: 5 mm axial images were obtained along with 3 mm reformatted coronal and sagittal images. This exam was performed according to our departmental dose-optimization program, which includes autom ated exposure control, adjustment of the mA and/or kV according to patient size and/or use of iterati ve reconstruction technique. COMPARISON: None. FINDINGS: No acute abnormal extracerebral fluid collections are demonstrated. The cortical sulci, ventricles, and cisterns are within normal limits. There are no areas of altered attenuation identified to suggest acute hemorrhage, infarction, or mass lesion. The visualized portions of the paranasal sinuses and mastoid air cells are clear. Note is made of an old left orbital floor blowout fracture which contains herniated intraorbital fat and a portion of inferior rectus muscle. IMPRESSION: 1. No acute intracranial abnormality. 2. Old left orbital floor blowout fracture which contains herniated fat and a portion of the inferior rectus muscle. Electronically signed by: Valeriano Pardo MD 11/10/2018 11:19 PM CDT Due to temporary technical issues with the PACS/Fluency reporting system, reports are being signed by the in house radiologist as a courtesy to ensure prompt reporting. The interpreting radiologist is f ully responsible for the content of the report.
== END 2018-11-11 01:46 | disposition home or self-care (01) ==
LOC: ER 20:11
DX: N39.0 Urinary tract infection, site not specified (principal); E86.0 Dehydration; I10 Essential (primary) hypertension; E11.9 Type 2 diabetes mellitus without complications; Z91.030 Bee allergy status
CPT/HCPCS: 96365; 96361; 87040 ×2; 87070; 87088; 85025; 87086; 80048; 36415; 86308; 87205 ×4; 80076; 87081; 87077 ×3; 87186 ×3; 83690; 84145; 87804 ×2; 70450; 74177; 99284; 96366; Q9967; J0696; J7030; 81003; 81015

== ENCOUNTER 2019-03-18 12:09 | Emergency (ER) | payer OTHER ==
--- OUTSIDE RECORDS SUMMARY | 2019-03-18 12:11 | XMS REPORT ---
[...] Dosage System Date Date Co Q 10 [facility] 31635445582 100 MG Orally Active 1 capsule Once a day with a meal Lisinopril [facility] 21002305116 20 MG Orally Active 1 tablet Once a day [id number]-Xlknlw [facility] 19561366398 1 MG Orally Active as directed atorvastatin ND 89200718775 20mg Active 1 tablet by mouth at bedtime Metoprolol [facility] 04198646814 50 MG Orally Active 1 tablet Tartrate Twice a day with food Metformin HCl [facility] 22656259206 500 MG Orally Active 1 tablet Once a day with a meal Results No Known Results Summary Purpose eClinicalWorks Submission
--- OUTSIDE RECORDS SUMMARY | 2019-03-18 12:11 | XMS REPORT ---
[...] Start End Status Dosage System Date Date V83-Ckjeah [facility] 01899364432 1 MG Orally Active as directed Co Q [address] [facility] 42026157833 100 MG Orally Active 1 capsule Once a day with a meal Lisinopril ND 29662926962 20 MG Orally Active 1 tablet Once a day Metoprolol [facility] 60243216061 50 MG Orally Active 1 tablet Tartrate Twice a day with food atorvastatin [facility] 85429744202 20mg Active 1 tablet by mouth at bedtime Metformin HCl ND 63351562354 500 MG Orally Active 1 tablet Once a day with a meal Results No Known Results Summary Purpose eClinicalWorks Submission
--- OUTSIDE RECORDS SUMMARY | 2019-03-18 12:11 | XMS REPORT ---
:1950 [facility] Address [address] [place] [address] Dr. Villa [address] [place] [id number] Care Team Providers Name Role Phone Unavailable Unavailable Unavailable Problems This patient has no known problems. Allergies, Adverse Reactions, Alerts This patient has no known allergies or adverse reactions. Medications This patient has no known medications.
--- OUTSIDE RECORDS SUMMARY | 2019-03-18 12:11 | XMS REPORT ---
[...] End Status Dosage System Date Date atorvastatin [facility] 38883774422 20mg Active 1 tablet by mouth at bedtime Metoprolol [facility] 69163087876 50 MG Orally Active 1 tablet Tartrate Twice a day with food Lisinopril [facility] 52160349628 20 MG Orally Active 1 tablet Once a day Co Q 10 [facility] 52278383611 100 MG Orally Active 1 capsule Once a day with a meal Metformin HCl [facility] 54843974666 500 MG Orally Active 1 tablet Once a day with a meal P92-Bjgpub [facility] 84940496419 1 MG Orally Active as directed Results No Known Results Summary Purpose eClinicalWorks Submission
[2019-03-18] MEDS ORDERED: HYDROCODONE/APAP 7.5/325 MG TAB ONE (13:05)
--- NOTE | 2019-03-18 13:25 | RAD REPORT ---
EXAM DESCRIPTION: CT - Head C Spine Mpr Wo Con - 03/18/2019 1:09 pm CLINICAL HISTORY: Head and neck injury status post fall. Head and neck pain COMPARISON: None. TECHNIQUE: Computed axial tomography of the head and cervical spine was obtained. Sagittal and coronal reconstruction was performed. All CT scans are performed using dose optimization technique as appropriate and may include automated exposure control or mA/KV adjustment according to patient size. FINDINGS: An intracranial bleed is not seen. The ventricles are normal in caliber. An extra-axial fl uid collection is not noted.Fluid within the visualized sinuses and mastoids is not seen A cervical fracture is not visualized. No dislocation is noted. IMPRESSION: No acute intracranial abnormality is seen. A cervical fracture is not visualized. If the patient continues to have symptoms to suggest intracra nial /spinal cord pathology then MRI would be recommended
--- NOTE | 2019-03-18 13:28 | RAD REPORT ---
EXAM DESCRIPTION: CT - Thorax Wo Con - 03/18/2019 1:09 pm CLINICAL HISTORY: Chest pain status post fall COMPARISON: None TECHNIQUE: Computed axial tomography of the chest was obtained. Contrast was not requested. All CT scans are performed using dose optimization technique as appropriate and may include automated exposure control or mA/KV adjustment according to patient size. FINDINGS: The evaluation of mediastinum, yusra and vessels is limited secondary to lack of IV contras t administration. A mediastinal hematoma is not seen. A pulmonary contusion is not noted A pleural effusion is not present. A pericardial effusion is not seen IMPRESSION: No acute traumatic injury involving the chest seen
--- NOTE | 2019-03-18 14:06 | EDPHYS ---
Physician Documentation [facility] Name: Josette Pimentel Age: 68 yrs Sex: Female : 1950 Arrival Date: 03/18/2019 Time: 12:11 Bed 26 Private MD: ED Physician Yair Marinelli HPI: 03/18 12:50 This 68 yrs old Female presents to ER via Wheelchair with complaints of Fall pkl Injury, Neck and Upper Back Pain. 12:50 Details of fall: The patient fell from seated position, out of a chair. Onset: The pkl symptoms/episode began/occurred just prior to arrival. Associated injuries: The patient sustained injury to the head, neck injury, upper back injury, contusion. Historical: - Allergies: 12:27 Bees; jl7 - Home Meds: 12:27 levothyroxine 75 mcg tab 1 tab once daily [Active]; lisinopril-hydrochlorothiazide jl7 20-12.5 mg Oral tab twice a day [Active]; metformin 500 mg Oral tab 1 tab 2 times per day [Active]; metoprolol tartrate 50 mg Oral tab 1 tab 2 times per day [Active]; - PMHx: 12:27 Diabetes - NIDDM; Hypertension; jl7 - Immunization history:: Adult Immunizations not up to date. - Social history:: Smoking status: Patient/guardian denies using tobacco. - Ebola Screening: : No symptoms or risks identified at this time. ROS: 12:50 Eyes: Negative for injury, pain, redness, and discharge, ENT: Negative for injury, pkl pain, and discharge. 12:50 Neck: Positive for pain at rest. 12:50 Cardiovascular: Negative for chest pain. 12:50 Respiratory: Negative for shortness of breath. 12:50 Abdomen/GI: Negative for abdominal pain, nausea, vomiting, and diarrhea. 12:50 Back: Positive for pain with movement, of the upper back. 12:50 : Negative for urinary symptoms. 12:50 MS/extremity: Negative for acute changes. 12:50 Skin: Negative for rash. 12:50 Neuro: Positive for loss of consciousness, Negative for altered mental status. Exam: 12:50 Head/Face: Normocephalic, atraumatic. Eyes: Pupils equal round and reactive to light, pkl extra-ocular motions intact. Lids and lashes normal. Conjunctiva and sclera are non-icteric and not injected. Cornea within normal limits. Periorbital areas with no swelling, redness, or edema. ENT: Nares patent. No nasal discharge, no septal abnormalities noted. Tympanic membranes are normal and external auditory canals are clear. Oropharynx with no redness, swelling, or masses, exudates, or evidence of obstruction, uvula midline. Mucous membranes moist. 12:50 Neck: C-collar in place. 12:50 Chest/axilla: Exam negative for acute changes. 12:50 Cardiovascular: Rate: normal, Rhythm: regular. 12:50 ECG was reviewed by the Attending Physician. 12:50 Respiratory: the patient does not display signs of respiratory distress, Respirations: normal, Breath sounds: are clear throughout. 12:50 Abdomen/GI: Bowel sounds: normal, Palpation: abdomen is soft and non-tender, in all quadrants. 12:50 Back: Exam negative for acute changes. 12:50 : Exam negative for acute changes. 12:50 Musculoskeletal/extremity: Exam is negative for acute changes. 12:50 Skin: Exam negative for rash. 12:50 Neuro: Orientation: is normal, Mentation: is normal, Cranial nerves: grossly normal, Motor: is normal. Vital Signs: 12:27 BP 165 / 66; Pulse 67; Resp 18; Temp 98.6; Pulse Ox 95% ; Weight 97.52 kg; Height 5 ft. jl7 1 in. (154.94 cm); Pain 5/10; 13:28 BP 165 / 74; Pulse 65; Resp 18; Pulse Ox 97% on R/A; mg2 14:28 BP 155 / 80; Pulse 65; Resp 18; Temp 98; Pulse Ox 100% on R/A; Pain 1/10; mg2 12:27 Body Mass Index 40.62 (97.52 kg, 154.94 cm) jl7 MDM: 12:40 Patient medically screened. pkl 14:02 Data reviewed: vital signs, nurses notes, radiologic studies, CT scan. ED course: pkl Discussed CT scans results with patient. Advised to follow up with PCP next week. Patient understood instructions.. 03/18 12:49 Order name: CT Head C Spine; Complete Time: 13:58 pkl 03/18 12:49 Order name: CT Chest Wo Con; Complete Time: 13:58 pkl Administered Medications: 13:24 Drug: [place] (7.5 mg-325 mg) 1 tabs Route: PO; mg2 14:28 Follow up: Response: No adverse reaction; Marked relief of symptoms; RASS: Alert and mg2 Calm (0) Disposition: 03/18/19 14:05 Discharged to Home. Impression: Contusions head, neck and upper back. - Condition is Stable. - Prescriptions for Ultram 50 mg Oral Tablet - take 1 tablet by ORAL route every 8 hours As needed; 12 tablet. Cyclobenzaprine 10 mg Oral Tablet - take 1 tablet by ORAL route 2 times per day As needed; 14 tablet. - Work release form, Medication Reconciliation Form, Thank You Letter, Antibiotic Education, Prescription Opioid Use form. - Follow up: Private Physician; When: 2 - 3 days; Reason: Re-evaluation by your physician. - Problem is new. - Symptoms have improved. Signatures: Dispatcher [employer] EDMS Yair Marinelli MD MD pkl Kaleigh Murillo RN RN jl7 Saroj Womack RN RN mg2 Corrections: (The following items were deleted from the chart) 14:31 14:05 03/18/2019 14:05 Discharged to Home. Impression: Contusions head, neck and upper mg2 back. Condition is Stable. Forms are Medication Reconciliation Form, Thank You Letter, Antibiotic Education, Prescription Opioid Use. Follow up: Private Physician; When: 2 - 3 days; Reason: Re-evaluation by your physician. Problem is new. Symptoms have improved. pkl
--- NOTE | 2019-03-18 14:06 | ER ---
Nurse's Notes [facility] Name: Josette Pimentel Age: 68 yrs Sex: Female : 1950 Arrival Date: 03/18/2019 Time: 12:11 Bed 26 Private MD: Diagnosis: Contusions head, neck and upper back Presentation: 03/18 12:16 Presenting complaint: Child states: went to sit in rolling chair and it slipped from jl7 under her and she fell on her butt and hit the back of her head on the floor, denies LOC, does not take blood thinners. Care prior to arrival: None. Mechanism of Injury: Fall out of chair. Trauma event details: Injury occurred in the [facility], Injury occurred: at home. Injury occurred: March 18, 2019 Injury occurred at: 11:00. 12:16 Acuity: BARAK 3 jl7 12:16 Method Of Arrival: Wheelchair jl7 12:16 Presenting complaint: Patient states: Reports chest pressure started 30 minutes ago and jl7 pt appeared to grasp at chest during triage assessment, EKG done. 12:27 Transition of care: patient was not received from another setting of care. Onset of jl7 symptoms was March 18, 2019 at 11:00. Risk Assessment: Do you want to hurt yourself or someone else? Patient reports no desire to harm self or others. Initial Sepsis Screen: Does the patient meet any 2 criteria? No. Patient's initial sepsis screen is negative. Does the patient have a suspected source of infection? No. Patient's initial sepsis screen is negative. Trauma Activation: Not Applicable Physician: ED Physician; Name: ; Notified At: ; Arrived At: Physician: General Surgeon; Name: ; Notified At: ; Arrived At: Physician: Radiology; Name: ; Notified At: ; Arrived At: Physician: Respiratory; Name: ; Notified At: ; Arrived At: Physician: Lab; Name: ; Notified At: ; Arrived At: Historical: - Allergies: 12:27 Bees; jl7 - Home Meds: 12:27 levothyroxine 75 mcg tab 1 tab once daily [Active]; lisinopril-hydrochlorothiazide jl7 20-12.5 mg Oral tab twice a day [Active]; metformin 500 mg Oral tab 1 tab 2 times per day [Active]; metoprolol tartrate 50 mg Oral tab 1 tab 2 times per day [Active]; - PMHx: 12:27 Diabetes - NIDDM; Hypertension; jl7 - Immunization history:: Adult Immunizations not up to date. - Social history:: Smoking status: Patient/guardian denies using tobacco. - Ebola Screening: : No symptoms or risks identified at this time. Screenin:28 Abuse screen: Denies threats or abuse. Denies injuries from another. Nutritional mg2 screening: No deficits noted. Tuberculosis screening: No symptoms or risk factors identified. Fall Risk Fall in past 12 months (25 points). Primary Survey: 13:26 NO uncontrolled hemorrhage observed. A: A: The patient is alert. Breathing/Chest: mg2 Respiratory pattern: regular, Respiratory effort: spontaneous, unlabored. Circulation: Skin color: pink. Disability Alert. Assessment: 13:24 General: Appears in no apparent distress. comfortable, Behavior is calm, cooperative. mg2 Pain: Complains of pain in back of the neck and head. Neuro: Level of Consciousness is awake, alert, obeys commands, Oriented to person, place, time, situation. EENT: No signs and/or symptoms were reported regarding the EENT system. Cardiovascular: Capillary refill < 3 seconds Patient's skin is warm and dry. Respiratory: Airway is patent Respiratory effort is even, unlabored, Respiratory pattern is regular, symmetrical. GI: No signs and/or symptoms were reported involving the gastrointestinal system. : No signs and/or symptoms were reported regarding the genitourinary system. Derm: Skin is intact, is healthy with good turgor, Skin is pink, warm \T\ dry. normal. Musculoskeletal: Circulation, motion, and sensation intact. Capillary refill < 3 seconds. 14:27 Reassessment: pain decreased. c collar removed. mg2 Vital Signs: 12:27 BP 165 / 66; Pulse 67; Resp 18; Temp 98.6; Pulse Ox 95% ; Weight 97.52 kg; Height 5 ft. jl7 1 in. (154.94 cm); Pain 5/10; 13:28 BP 165 / 74; Pulse 65; Resp 18; Pulse Ox 97% on R/A; mg2 14:28 BP 155 / 80; Pulse 65; Resp 18; Temp 98; Pulse Ox 100% on R/A; Pain 1/10; mg2 12:27 Body Mass Index 40.62 (97.52 kg, 154.94 cm) jl7 ED Course: 12:11 Patient arrived in ED. as 12:18 Triage completed. jl7 12:27 Arm band placed on right wrist. jl7 12:29 EKG completed in triage. Results shown to MD. jl7 12:39 Yair Marinelli MD is Attending Physician. pkl 12:54 Saroj Womack, RN is Primary Nurse. mg2 13:11 CT Head C Spine In Process Unspecified. EDMS 13:11 CT Chest Wo Con In Process Unspecified. EDMS 13:28 Patient has correct armband on for positive identification. mg2 13:28 No provider procedures requiring assistance completed. Patient did not have IV access mg2 during this emergency room visit. Rigid cervical collar applied. Administered Medications: 13:24 Drug: [place] (7.5 mg-325 mg) 1 tabs Route: PO; mg2 14:28 Follow up: Response: No adverse reaction; Marked relief of symptoms; RASS: Alert and mg2 Calm (0) Outcome: 14:05 Discharge ordered by . pkl 14:29 Discharged to home via wheelchair, with family. mg2 14:29 Condition: stable 14:29 Discharge instructions given to patient, family, Instructed on discharge instructions, follow up and referral plans. Demonstrated understanding of instructions, follow-up care, medications, Prescriptions given X 2. 14:31 Patient left the ED. mg2 Signatures: Dispatcher [employer] Yair Rodriguez MD MD pkMaritza Alcala Jahala RN RN jl7 Saroj Womack, RN RN mg2
[2019-03-18 14:40] VITALS: BP 155/80; TEMP 98; O2SAT 100
--- NOTE | 2019-03-18 15:32 | EKG ---
Test Date: 2019-03-18 Test Time: 12:24:29 Communication Specialist: BRENDON MEASUREMENT RESULTS: Intervals: Rate: 67 RI: 184 QRSD: 92 QT: 402 QTc: 424 [place]: P: 21 RI: 184 QRS: 41 T: 23 INTERPRETIVE STATEMENTS: Normal sinus rhythm Normal ECG Compared to ECG 12/08/2017 23:02:59 ST (T wave) deviation no longer present Electronically Signed On 03-18-19 15:30:56 HUMAN [employer]CTORS ENGINEER by Jovany Sweet
== END 2019-03-18 14:31 | disposition home or self-care (01) ==
LOC: ER 12:09
DX: S20.229A Contusion of unspecified back wall of thorax, initial encounter (principal); S00.93XA Contusion of unspecified part of head, initial encounter; S10.93XA Contusion of unspecified part of neck, initial encounter; W07.XXXA Fall from chair, initial encounter; Y93.9 Activity, unspecified; Y92.9 Unspecified place or not applicable; I10 Essential (primary) hypertension; E11.9 Type 2 diabetes mellitus without complications; Z91.030 Bee allergy status
CPT/HCPCS: 70450; 71250; 72125; 93005; 99284

== ENCOUNTER 2019-05-23 22:56 | Emergency (ER) | payer OTHER ==
--- OUTSIDE RECORDS SUMMARY | 2019-05-23 22:58 | XMS REPORT ---
[...] End Status Dosage System Date Date atorvastatin [facility] 01485538760 20mg Active 1 tablet by mouth at bedtime Metoprolol [facility] 67612239550 50 MG Orally Active 1 tablet Tartrate Twice a day with food Lisinopril [facility] 40782061112 20 MG Orally Active 1 tablet Once a day Co Q 10 [facility] 11496464072 100 MG Orally Active 1 capsule Once a day with a meal Metformin HCl [facility] 82473676116 500 MG Orally Active 1 tablet Once a day with a meal V19-Xcurnt [facility] 13325219234 1 MG Orally Active as directed Results No Known Results Summary Purpose eClinicalWorks Submission
--- OUTSIDE RECORDS SUMMARY | 2019-05-23 22:58 | XMS REPORT ---
[...] Dosage System Date Date Co Q 10 [facility] 68684207243 100 MG Orally Active 1 capsule Once a day with a meal Lisinopril [facility] 35388076252 20 MG Orally Active 1 tablet Once a day J33-Oixrsa [facility] 09490435833 1 MG Orally Active as directed atorvastatin ND 92818727769 20mg Active 1 tablet by mouth at bedtime Metoprolol [facility] 00600526205 50 MG Orally Active 1 tablet Tartrate Twice a day with food Metformin HCl [facility] 39698394462 500 MG Orally Active 1 tablet Once a day with a meal Results No Known Results Summary Purpose eClinicalWorks Submission
--- OUTSIDE RECORDS SUMMARY | 2019-05-23 22:58 | XMS REPORT ---
[...] Start End Status Dosage System Date Date R96-Ebsoke [facility] 55932628383 1 MG Orally Active as directed Co Q [address] [facility] 01260743280 100 MG Orally Active 1 capsule Once a day with a meal Lisinopril ND 65261678456 20 MG Orally Active 1 tablet Once a day Metoprolol [facility] 61923706565 50 MG Orally Active 1 tablet Tartrate Twice a day with food atorvastatin [facility] 72695350403 20mg Active 1 tablet by mouth at bedtime Metformin HCl ND 66169201598 500 MG Orally Active 1 tablet Once a day with a meal Results No Known Results Summary Purpose eClinicalWorks Submission
--- OUTSIDE RECORDS SUMMARY | 2019-05-23 22:58 | XMS REPORT ---
:1950 [facility] Address [address] [place] [address] Dr. Villa [address] [place] [address] Care Team Providers Name Role Phone Unavailable Unavailable Unavailable Problems This patient has no known problems. Allergies, Adverse Reactions, Alerts This patient has no known allergies or adverse reactions. Medications This patient has no known medications.
[2019-05-24 00:55] LABS: Basophils % 1.3 % (0-1.3); Hematocrit 41.7 % (36.0-45.0); Lymphocytes % 42.4 % (15.3-44.8); MPV 8.6 fL (7.6-11.3); RBC Red Blood Cell Count 4.65 M/uL (3.86-4.86)
[2019-05-24 00:56] LABS: Protime INR 0.96
[2019-05-24] MEDS ORDERED: ONDANSETRON 4 MG/2 ML VIAL ONE (00:56)
[2019-05-24] MEDS ORDERED: MORPHINE 4 MG/ML SYR ONE (00:56)
[2019-05-24 02:06] LABS: ALT/SGPT 17 U/L (12-78); AST/SGOT 16 U/L (15-37); Albumin 3.6 g/dL (3.4-5.0); Alkaline Phosphatase 97 U/L (45-117); BUN Blood Urea Nitrogen 23 mg/dL (7-18); Bicarbonate 28 mmol/L (21-32); Bilirubin Direct 0.2 mg/dL (0-0.2); Bilirubin Total 0.7 mg/dL (0.2-1.0); Glucose Level 97 mg/dL (74-106); Magnesium 2.3 mg/dL (1.8-2.4); NT PRO-BNP 94 pg/mL (<125); Potassium 3.8 mmol/L (3.5-5.1); Protein, Total 7.7 g/dL (6.4-8.2); Sodium Level 131 mmol/L (136-145); Troponin (Emerg Dept Use Only) < 0.02 ng/mL (0.0-0.045)
--- NOTE | 2019-05-24 02:42 | ER ---
Nurse's Notes [facility] Name: Josette Pimentel Age: 68 yrs Sex: Female : 1950 Arrival Date: 05/23/2019 Time: 22:58 Bed 20 Private MD: Diagnosis: Cough;Chest pain, unspecified;Thoracic back pain Presentation: 05/23 23:18 Presenting complaint: Patient states: Reports back pain since yesterday, reports she ea saw her PCP and was diagnosed with upper respiratory infection. Pt states "the pain in my back has not gone away, it antonio and it feels like it's cramping". Transition of care: patient was not received from another setting of care. Onset of symptoms was May 23, 2019. Risk Assessment: Do you want to hurt yourself or someone else? Patient reports no desire to harm self or others. Initial Sepsis Screen: Does the patient meet any 2 criteria? No. Patient's initial sepsis screen is negative. Does the patient have a suspected source of infection? No. Patient's initial sepsis screen is negative. Care prior to arrival: None. 23:18 Method Of Arrival: Ambulatory ea 23:18 Acuity: BARAK 3 ea Triage Assessment: 23:24 General: Appears uncomfortable, Behavior is restless. Pain: Complains of pain in mid ea back area. Musculoskeletal: Circulation, motion, and sensation intact. Historical: - Allergies: 23:23 Bees; ea - Home Meds: 23:23 metoprolol tartrate 50 mg Oral tab 1 tab 2 times per day [Active]; metformin 500 mg ea Oral tab 1 tab 2 times per day [Active]; lisinopril-hydrochlorothiazide 20-12.5 mg Oral tab twice a day [Active]; levothyroxine 75 mcg tab 1 tab once daily [Active]; albuterol sulfate inhalation Inhl [Active]; Amoxicillin Oral [Active]; - PMHx: 23:23 Hypertension; Diabetes - NIDDM; ea - PSHx: 23:23 Tubal ligation; ea - Immunization history:: Adult Immunizations up to date. - Coronavirus screen:: The patient has NOT traveled to [place] in the past 14 days. - Social history:: Smoking status: Patient denies any tobacco usage or history of. - Ebola Screening: : No symptoms or risks identified at this time. Screenin:21 Abuse screen: Denies threats or abuse. Nutritional screening: No deficits noted. ea Tuberculosis screening: No symptoms or risk factors identified. Fall Risk None identified. Assessment: 23:30 General: Appears in no apparent distress. Behavior is calm, cooperative, appropriate wh for age. Pain: Complains of pain in mid back area Pain radiates to diaphragm Pain currently is 6 out of 10 on a pain scale. Quality of pain is described as crampy. Neuro: Level of Consciousness is awake, alert, obeys commands, Oriented to person, place, time, situation, Appropriate for age. Cardiovascular: Heart tones S1 S2 Rhythm is regular. Respiratory: Airway is patent Respiratory effort is even, unlabored, Respiratory pattern is regular, symmetrical, Breath sounds are clear bilaterally. GI: Abdomen is flat, non-distended, Abd is soft and non tender X 4 quads. : No signs and/or symptoms were reported regarding the genitourinary system. EENT: Throat is pink. Derm: Skin is intact, is healthy with good turgor, Skin is pink, warm \\T\\ dry. normal. Musculoskeletal: Circulation, motion, and sensation intact. 05/24 01:00 Reassessment: Patient appears in no apparent distress at this time. No changes from previously documented assessment. Patient and/or family updated on plan of care and expected duration. Pain level reassessed. Patient is alert, oriented x 3, equal unlabored respirations, skin warm/dry/pink. 02:34 Reassessment: Patient appears in no apparent distress at this time. No changes from previously documented assessment. Patient and/or family updated on plan of care and expected duration. Pain level reassessed. Patient is alert, oriented x 3, equal unlabored respirations, skin warm/dry/pink. Patient states feeling better. Patient states symptoms have improved. Vital Signs: 05/23 23:20 BP 163 / 58; Pulse 64; Resp 18; Temp 97.2; Pulse Ox 98% on R/A; Weight 97.52 kg; Height ea 5 ft. 1 in. (154.94 cm); Pain 10/10; 05/24 01:00 BP 156 / 62; Pulse 63; Resp 18; Pulse Ox 97% on R/A; wh 02:30 BP 129 / 50; Pulse 72; Resp 18; Pulse Ox 94% on R/A; wh 0217 23:20 Body Mass Index 40.62 (97.52 kg, 154.94 cm) ea ED Course: 05/23 22:58 Patient arrived in ED. ag3 23:20 Triage completed. ea 23:22 Arm band placed on right wrist. Patient placed in an exam room, on a stretcher, on ea pulse oximetry. 23:24 Patient has correct armband on for positive identification. Bed in low position. Call ea light in reach. 23:28 Sarmad Cooper NP is PHCP. pm1 23:28 Nettie Bermudez MD is Attending Physician. pm1 23:29 Erika Renee is Primary Nurse. 05/24 00:30 Inserted saline lock: 20 gauge in right forearm, using aseptic technique. Blood wh collected. 01:08 XRAY Chest (1 view) In Process Unspecified. EDMS 03:03 No provider procedures requiring assistance completed. IV discontinued, intact, wh bleeding controlled, No redness/swelling at site. Administered Medications: 00:54 Drug: morphine 4 mg Route: IVP; Site: right forearm; 02:14 Follow up: Response: No adverse reaction; Pain is decreased; RASS: Alert and Calm (0) 00:56 Drug: Zofran 4 mg Route: IVP; Site: right forearm; 02:14 Follow up: Response: No adverse reaction; Nausea is decreased 02:55 Drug: Rocephin 1 grams Route: IV; Rate: calculated rate; Site: right forearm; ea 03:04 Follow up: Response: No adverse reaction; IV Status: Completed infusion Outcome: 02:41 Discharge ordered by MD. pm1 03:04 Discharged to home ambulatory, with family. 03:04 Condition: stable 03:04 Discharge instructions given to patient, family, Instructed on discharge instructions, follow up and referral plans. medication usage, POC Demonstrated understanding of instructions, follow-up care, medications, POC Prescriptions given X 2. 03:04 Patient left the ED. Signatures: Dispatcher [employer] EDMS Sarmad Cooper NP ACTIVITIES COUNSELOR pm1 Melanie Gary RN RN Erika Rae Martha Aguilar ag3 Corrections: (The following items were deleted from the chart) 02:35 00:00 Inserted saline lock: 20 gauge in right forearm, using aseptic technique. Blood wh collected. wh
--- NOTE | 2019-05-24 02:43 | EDPHYS ---
Physician Documentation [facility] Name: Josette Pimentel Age: 68 yrs Sex: Female : 1950 Arrival Date: 05/23/2019 Time: 22:58 Bed 20 Private MD: ED Physician Nettie Bermudez HPI: 05/24 00:19 This 68 yrs old Female presents to ER via Ambulatory with complaints of Back pm1 Pain. 00:19 The patient presents with pain that is acute. The symptoms are located in the left pm1 subscapular area and right subscapular area. Onset: The symptoms/episode began/occurred yesterday. Location: radiation to both breasts. Associated signs and symptoms: Pertinent positives: cough, Pertinent negatives: fever, shortness of breath. The problem was sustained possibly from coughing. Modifying factors: The patient symptoms are alleviated by nothing, the patient symptoms are aggravated by coughing. Severity of symptoms: in the emergency department the symptoms are actually worse. The patient has been recently seen by a physician: the patient's primary care provider, with similar presenting complaints, and apparently given a diagnosis of URI and had chest X-ray about 6 days ago but her symptoms are worse with back pain. Historical: - Allergies: 05/23 23:23 Bees; ea - Home Meds: 23:23 metoprolol tartrate 50 mg Oral tab 1 tab 2 times per day [Active]; metformin 500 mg ea Oral tab 1 tab 2 times per day [Active]; lisinopril-hydrochlorothiazide 20-12.5 mg Oral tab twice a day [Active]; levothyroxine 75 mcg tab 1 tab once daily [Active]; albuterol sulfate inhalation Inhl [Active]; Amoxicillin Oral [Active]; - PMHx: 23:23 Hypertension; Diabetes - NIDDM; ea - PSHx: 23:23 Tubal ligation; ea - Immunization history:: Adult Immunizations up to date. - Coronavirus screen:: The patient has NOT traveled to [place] in the past 14 days. - Social history:: Smoking status: Patient denies any tobacco usage or history of. - Ebola Screening: : No symptoms or risks identified at this time. ROS: 05/24 00:19 Constitutional: Negative for fever, chills, and weight loss, Eyes: Negative for injury, pm1 pain, redness, and discharge, ENT: Negative for injury, pain, and discharge, Neck: Negative for injury, pain, and swelling. Abdomen/GI: Negative for abdominal pain, nausea, vomiting, diarrhea, and constipation. : Negative for injury, bleeding, discharge, and swelling, MS/Extremity: Negative for injury and deformity, Skin: Negative for injury, rash, and discoloration, Neuro: Negative for headache, weakness, numbness, tingling, and seizure. Cardiovascular: Positive for chest pain, Negative for edema, orthopnea, palpitations. Respiratory: Positive for cough, Negative for shortness of breath, sputum production, wheezing. Back: Positive for of the left subscapular area and right subscapular area, pain, Negative for injury or acute deformity. Exam: 00:19 Constitutional: This is a well developed, well nourished patient who is awake, alert, pm1 and in no acute distress. Head/Face: Normocephalic, atraumatic. Neck: Trachea midline, no thyromegaly or masses palpated, and no cervical lymphadenopathy. Supple, full range of motion without nuchal rigidity, or vertebral point tenderness. No Meningismus. Chest/axilla: Normal chest wall appearance and motion. Nontender with no deformity. No lesions are appreciated. Cardiovascular: Regular rate and rhythm with a normal S1 and S2. No gallops, murmurs, or rubs. Normal PMI, no JVD. No pulse deficits. Respiratory: Lungs have equal breath sounds bilaterally, clear to auscultation and percussion. No rales, rhonchi or wheezes noted. No increased work of breathing, no retractions or nasal flaring. Abdomen/GI: Soft, non-tender, with normal bowel sounds. No distension or tympany. No guarding or rebound. No evidence of tenderness throughout. 00:19 Skin: Warm, dry with normal turgor. Normal color with no rashes, no lesions, and no evidence of cellulitis. MS/ Extremity: Pulses equal, no cyanosis. Neurovascular intact. Full, normal range of motion. 00:19 Back: normal spinal alignment noted, vertebral tenderness, is not appreciated, muscle spasm, is appreciated in the left subscapular area and right subscapular area. 00:19 Neuro: Orientation: is normal, Mentation: is normal, Motor: is normal, moves all fours. Vital Signs: 05/23 23:20 BP 163 / 58; Pulse 64; Resp 18; Temp 97.2; Pulse Ox 98% on R/A; Weight 97.52 kg; Height ea 5 ft. 1 in. (154.94 cm); Pain 01/13; 05/24 01:00 BP 156 / 62; Pulse 63; Resp 18; Pulse Ox 97% on R/A; wh 02:30 BP 129 / 50; Pulse 72; Resp 18; Pulse Ox 94% on R/A; wh 05/23 23:20 Body Mass Index 40.62 (97.52 kg, 154.94 cm) ea MDM: 05/23 23:28 Patient medically screened. pm1 05/24 02:35 Data reviewed: vital signs. Data interpreted: Pulse oximetry: on room air is 98 %. pm1 Interpretation: normal. Counseling: I had a detailed discussion with the patient and/or guardian regarding: the historical points, exam findings, and any diagnostic results supporting the discharge/admit diagnosis, lab results, radiology results, the need for outpatient follow up, to return to the emergency department if symptoms worsen or persist or if there are any questions or concerns that arise at home. 05/24 00:10 Order name: Basic Metabolic Panel; Complete Time: 02:14 pm05/24 00:10 Order name: CBC with Diff; Complete Time: 01:12 pm05/24 00:10 Order name: LFT's; Complete Time: 02:14 pm05/24 00:10 Order name: Magnesium; Complete Time: 02:14 pm05/24 00:10 Order name: NT PRO-BNP; Complete Time: 02:14 pm05/24 00:10 Order name: PT-INR; Complete Time: 01:12 pm05/24 00:10 Order name: Troponin (emerg Dept Use Only); Complete Time: 02:14 pm05/24 00:10 Order name: XRAY Chest (1 view) pm1 05/24 00:10 Order name: Procalcitonin; Complete Time: :29 pm05/24 00:10 Order name: Lactate; Complete Time: :29 pm05/24 00:10 Order name: Flu; Complete Time: : pm05/24 00:10 Order name: EKG; Complete Time: 00:17 pm1 05/24 00:10 Order name: Cardiac monitoring; Complete Time: 00:39 pm1 05/24 00:10 Order name: EKG - Nurse/Tech; Complete Time: 00:39 pm1 05/24 00:10 Order name: IV Saline Lock; Complete Time: 00:39 pm1 05/24 00:10 Order name: Labs collected and sent; Complete Time: 00:40 pm1 05/24 00:10 Order name: O2 Per Protocol; Complete Time: 00:40 pm1 05/24 00:10 Order name: O2 Sat Monitoring; Complete Time: 00:40 pm1 Administered Medications: 00:54 Drug: morphine 4 mg Route: IVP; Site: right forearm; 02:14 Follow up: Response: No adverse reaction; Pain is decreased; RASS: Alert and Calm (0) 00:56 Drug: Zofran 4 mg Route: IVP; Site: right forearm; 02:14 Follow up: Response: No adverse reaction; Nausea is decreased 02:55 Drug: Rocephin 1 grams Route: IV; Rate: calculated rate; Site: right forearm; ea 03:04 Follow up: Response: No adverse reaction; IV Status: Completed infusion Disposition: 05/24/19 02:41 Discharged to Home. Impression: Cough, Chest pain, unspecified, Thoracic back pain. - Condition is Stable. - Discharge Instructions: Nonspecific Chest Pain, Chest Wall Pain, Cough, Adult. - Prescriptions for Zithromax Z- Abilio 250 mg Oral Tablet - take 1 tablet by ORAL route as directed for 5 days Day 1 - take two (2) tablets one time. Day 2, 3, 4 , 5 take one (1) tablet once daily.; 6 tablet. Guaifenesin AC 10- 100 mg/5 mL Oral Liquid - take 10 milliliter by ORAL route every 4 hours As needed; 240 milliliter. - Medication Reconciliation Form, Thank You Letter, Antibiotic Education, Prescription Opioid Use, Work release form form. - Follow up: Emergency Department; When: As needed; Reason: Worsening of condition. Follow up: Private Physician; When: 2 - 3 days; Reason: Recheck today's complaints, Continuance of care, Re-evaluation by your physician. - Problem is new. - Symptoms have improved. Addendum: 05/30/2019 16:31 Co-signature as Attending Physician, Nettie Bermudez MD. m a2 Signatures: Dispatcher [employer] EDSarmad Conti, HOMOGENIZER OPERATOR HOMOGENIZER OPERATOR pm1 Melanie Gary, RN RN Erika Rae, MD JUAN FRANCISCO [place] ma2 Corrections: (The following items were deleted from the chart) 05/24 03:04 02:41 05/24/2019 02:41 Discharged to Home. Impression: Cough; Chest pain, unspecified; wh Thoracic back pain. Condition is Stable. Forms are Medication Reconciliation Form, Thank You Letter, Antibiotic Education, Prescription Opioid Use. Follow up: Emergency Department; When: As needed; Reason: Worsening of condition. Follow up: Private Physician; When: 2 - 3 days; Reason: Recheck today's complaints, Continuance of care, Re-evaluation by your physician. Problem is new. Symptoms have improved. pm1
[2019-05-24] MEDS ORDERED: CEFTRIAXONE/SWI 1gm 1 GM/10 ML SYR ONE (02:53)
[2019-05-24 04:09] VITALS: TEMP 97.2
[2019-05-24 04:15] VITALS: BP 129/50; O2SAT 94
--- NOTE | 2019-05-24 06:49 | RAD REPORT ---
EXAM DESCRIPTION: RAD - Chest Single View - 05/24/2019 12:48 am CLINICAL HISTORY: COUGH Chest pain. COMPARISON: Chest Pa And Lat (2 Views) dated 05/18/2019; Chest Pa And Lat (2 Views) dated 12/08/2017; C hest Pa And Lat (2 Views) dated 04/19/2016; Chest Single View dated 04/18/2016 FINDINGS: Portable technique limits examination quality. The lungs are grossly clear. The heart is upper limit normal in size. No displaced fractures. IMPRESSION: No acute intrathoracic process suspected.
--- NOTE | 2019-05-24 10:00 | EKG ---
Test Date: 2019-05-24 Test Time: 00:33:17 Tire Adjuster: KAMILAH MEASUREMENT RESULTS: Intervals: Rate: 67 IN: 186 QRSD: 100 QT: 414 QTc: 437 Stuart: P: 73 IN: 186 QRS: 68 T: 37 INTERPRETIVE STATEMENTS: Normal sinus rhythm Normal ECG Compared to ECG 03/18/2019 12:24:29 No significant changes Electronically Signed On 05-24-19 10:00:20 BARYTES GRINDER by Jovany Sweet
== END 2019-05-24 03:04 | disposition home or self-care (01) ==
LOC: ER 22:56
DX: R05 Cough (principal); R07.9 Chest pain, unspecified; I10 Essential (primary) hypertension; E11.9 Type 2 diabetes mellitus without complications; Z91.030 Bee allergy status
CPT/HCPCS: 93005; 85025; 80048; 36415; 83735; 85610; 80076; 83605; 84484; 84145; 83880; 87804 ×2; 71045; 96375; 96374; 99284; J0696; J2405

== ENCOUNTER 2019-12-03 06:02 | Emergency (ER) | payer OTHER ==
--- OUTSIDE RECORDS SUMMARY | 2019-12-03 06:04 | XMS REPORT | Continuity of Care Document ---
:1950 Author Organization [facility] t Address [address] [place] [address] Care Team Providers Name Role Phone Unavailable Unavailable Unavailable Problems Condition Condition Condition Status Onset Resolution Last Treating Co mments Source Name Details Category Date Date Treatment Clinician Date Primary Primary Problem Active [facility] osteoarthr osteoarthr Priya kes - [facility] knee [facility] knee [facility] Primary Primary Problem Active [facility] osteoarthr osteoarthr Priya kes - [facility] right knee right knee l [facility] Pain, Pain, Problem Active [facility], left knee, left Me moria l [facility] Pain, Pain, Problem Active [facility], knee, [facility] right right l [facility] Sciatica Sciatica Problem [facility] left [facility] side side [facility] Body mass Body mass Problem Active [facility] index index [facility] - (BMI) of (BMI) of [facility] 40.0-44.9 40.0-44.9 l in adult in adult Outpat i ent Clinics Morbid Morbid Problem Active [facility] (severe) (severe) [facility] - obesity obesity [facility] due to due to l excess excess Outpati calories calories ent Clinics Allergies, Adverse Reactions, Alerts This patient has no known allergies or adverse reactions. Medications Ordered Filled Start Stop Current Ordering Indication Dosage Frequency Signature Comments Components Source Medication Medication Date Date Medication? Clinician (SIG) Name Name atorvastati atorvastati Yes Ashish [address] [facility] [place] by mouth [facility] - at bedtime [facility] [id number] Yes Ashish as [facility] [place] directed [facility] Co Q 10 Co Q 10 Yes Ashish [address] [place] with a [facility] - meal [facility] Lisinopril Lisinopril Yes Ashish [address] [facility] [place] [facility] Metoprolol Metoprolol Yes Ashish [address] [facility] Tartrate Tartrate [place] with food Priya kes - [facility] Metformin Metformin Yes Ashish [address] [facility] HCl HCl [place] with a [facility] - meal [facility] Procedures This patient has no known procedures. Encounters Start End Encounter Admission Attending Care Care Encounter Source Date/Time Date/Time Type Type Clinicians Facility Department ID 2019-08-23 2019-08-23 [facility] [id number] [facility] 13:26:00 13:26:00 [facility] 2019-06-15 2019-06-15 [facility] [id number] [facility] 12:32:00 12:32:00 [facility] 2019-05-19 2019-05-19 [facility] [id number] [facility] 11:00:00 11:00:00 t [facility] 2018-07-27 2018-07-27 [facility] [id number] [facility] 10:[facility]:00 10:00:00 [facility] 2017-12-08 2017-12-08 [facility] [id number] [facility] 08:30:00 08:30:00 t [facility] 2017-11-30 2017-11-30 [facility] [id number] [facility] 09:30:00 09:30:00 [facility] Results This patient has no known results.
[2019-12-03 06:48] LABS: Absolute Lymphocytes (CBC) 2.3 K/uL (0.7-4.9); Basophils % 1.2 % (0-1.3); Hematocrit 37.4 % (36.0-45.0); Lymphocytes % 36.5 % (15.3-44.8); MPV 9.2 fL (7.6-11.3); RBC Red Blood Cell Count 4.24 M/uL (3.86-4.86)
[2019-12-03] MEDS ORDERED: ONDANSETRON 4 MG/2 ML VIAL ONE (06:50)
[2019-12-03] MEDS ORDERED: FOLIC ACID 5 MG/ML VIAL ONE (06:50)
[2019-12-03 06:52] LABS: Protime INR 0.85
[2019-12-03 07:03] LABS: Potassium 3.8 mmol/L (3.5-5.1)
--- NOTE | 2019-12-03 08:06 | RAD REPORT ---
EXAM DESCRIPTION: CT - Head angio - 12/03/2019 7:52 am CLINICAL HISTORY: DIZZINESS, stroke-like symptoms, left arm weakness, headache TECHNIQUE: During dynamic enhancement using nonionic IV contrast, axial 1 millimeter thick images of the head were obtained. Sagittal and axial reconstruction images were generated using MIP technique and reviewed. All CT scans are performed using dose optimization technique as appropriate and may include automated exposure control or mA/KV adjustment according to patient size. FINDINGS: No aneurysm or vascular malformation identified. Major venous sinuses are patent. No significant stenosis, named branch occlusion, vasculitis or other significant vascular finding rufino ntifiable. IMPRESSION: Negative CT angio head examination.
--- NOTE | 2019-12-03 08:09 | RAD REPORT ---
EXAM DESCRIPTION: CT - Neck Angio - 12/03/2019 7:52 am CLINICAL HISTORY: NUMBNESS, left arm weakness, headache TECHNIQUE: During dynamic enhancement using nonionic IV contrast, axial 2 mm thick images of the nec k were obtained. Sagittal and axial reconstruction images were generated using MIP technique and revi ewed. All CT scans are performed using dose optimization technique as appropriate and may include automated exposure control or mA/KV adjustment according to patient size. COMPARISON: CT head same date, CT angio head same date FINDINGS: No aneurysm or vascular malformation identified. No carotid or vertebral dissection. No aortic arch or great vessel origin abnormality seen. Vertebral artery origins unremarkable as well . Left carotid atherosclerotic changes are seen as wall thickening in the left bulb and proximal ICA. This causes approximately 25% stenosis. No other significant carotid disease identifiable. No vascul itis findings. No focal abnormality of either vertebral artery. Basilar artery is normal. IMPRESSION: Atherosclerotic changes of the left carotid bulb and proximal left ICA cause approximat dahiana 25% stenosis. The remainder of the CTA neck examination shows no significant finding.
--- NOTE | 2019-12-03 08:11 | EDPHYS ---
Physician Documentation [facility] Name: Josette Pimentel Age: 69 yrs Sex: Female : 1950 Arrival Date: 12/03/2019 Time: 06:02 Bed 5 Private MD: MALCOM Physician Jc Lancaster HPI: 12/02 06:30 This 69 yrs old Female presents to ER via Wheelchair with complaints of Left cp Side Weakness. 06:30 The patient's problem is reported as weakness, in the left upper extremity, in the left cp lower extremity. Onset: The symptoms/episode began/occurred this morning, at 04:00, upon awakening. Duration: The episode is continuous. Associated signs and symptoms: Pertinent positives: dizziness, headache, nausea. 06:30 Patient reports she awoke this morning at approximately 0400 and felt dizzy. While cp walking to restroom, she felt unsteady and like she wanted to fall to her left. She returned to bed and noticed dizziness was worse and nausea. Patient reported she called her daughter, who arrived to her home around 0500, and noticed her left arm was weak. Historical: - Allergies: 06:25 Bees; bb - Home Meds: 06:25 metformin 500 mg Oral tab 1 tab 2 times per day [Active]; bb lisinopril-hydrochlorothiazide 20-12.5 mg Oral tab twice a day [Active]; metoprolol tartrate 50 mg Oral tab 1 tab 2 times per day [Active]; Livalo 2 mg oral tab 1 tab once daily [Active]; oxybutynin chloride 5 mg Oral tab 1 tab daily [Active]; - PMHx: 06:25 Diabetes - NIDDM; Hypertension; bb - PSHx: 06:25 Tubal ligation; bb - Immunization history:: Adult Immunizations up to date. - Social history:: Smoking status: Patient denies any tobacco usage or history of. Patient/guardian denies using alcohol, street drugs. ROS: 06:35 Constitutional: Negative for body aches, chills, fever, poor PO intake. cp 06:35 Eyes: Negative for injury, pain, redness, and discharge. cp 06:35 ENT: Negative for ear pain, sore throat, difficulty swallowing, difficulty handling secretions. 06:35 Cardiovascular: Negative for chest pain, palpitations. 06:35 Respiratory: Negative for cough, shortness of breath, wheezing. 06:35 Abdomen/GI: Negative for abdominal pain, nausea, vomiting, and diarrhea. 06:35 Neuro: Positive for dizziness, weakness, of the left arm and left leg, Negative for altered mental status, speech changes. 06:35 All other systems are negative. Exam: 06:36 Radiologist reports: no acute findings cp 06:36 Constitutional: The patient appears in no acute distress, alert, awake, cp non-diaphoretic, non-toxic, well developed, well nourished. 06:36 Head/Face: Normocephalic, atraumatic. cp 06:36 Eyes: Periorbital structures: appear normal, Pupils: equal, round, and reactive to light and accomodation, Extraocular movements: intact throughout, Conjunctiva: normal, no exudate, no injection, Sclera: no appreciated abnormality, Lids and lashes: appear normal, bilaterally. 06:36 ENT: External ear(s): are unremarkable, Nose: is normal, Mouth: Lips: moist, Oral mucosa: pink and intact, moist, Posterior pharynx: Airway: no evidence of obstruction, patent. 06:36 Neck: ROM/movement: is normal, is supple, without pain, no range of motions limitations, no nuchal rigidity. 06:36 Chest/axilla: Inspection: normal, Palpation: is normal, no crepitus, no tenderness. 06:36 Cardiovascular: Rate: normal, Rhythm: regular, Heart sounds: murmur, not appreciated, Edema: is not appreciated, JVD: is not appreciated. 06:36 Respiratory: the patient does not display signs of respiratory distress, Respirations: normal, no use of accessory muscles, no retractions, labored breathing, is not present, Breath sounds: are clear throughout, no decreased breath sounds. 06:36 Abdomen/GI: Inspection: abdomen appears normal, Palpation: abdomen is soft and non-tender, in all quadrants. 06:36 Skin: no rash present. 06:36 Neuro: Orientation: to person, place \T\ time. Mentation: is normal, Cerebellar function: Romberg testing is abnormal, mild drift noted left arm, dysmetria is noted on the left, noted difficulty performing left heel to right meeks, Motor: moves all fours, strength is 5/5 in the right arm and right leg, strength is 4/5 in the left arm and left leg, Sensation: no obvious gross deficits. 06:52 ECG was reviewed by the Attending Physician. Vital Signs: 06:21 BP 167 / 63; Pulse 75; Resp 16 S; Pulse Ox 98% on R/A; Weight 97.07 kg (R); Height 5 bb ft. 1 in. (154.94 cm) (R); Pain 4/10; 06:58 BP 140 / 69; Pulse 64; Resp 18; Temp 98; Pulse Ox 96% ; ea 08:38 BP 110 / 40; Pulse 66; Resp 16; Pulse Ox 97% ; sv 09:44 BP 127 / 63; Pulse 68; Resp 16; Pulse Ox 95% ; sv 10:15 BP 121 / 61; Pulse 66; Resp 17; Pulse Ox 97% on R/A; hb 06:21 Body Mass Index 40.43 (97.07 kg, 154.94 cm) bb NIH Stroke Scale Scores: 06:10 NIHSS Score: 7 ea 06:36 NIHSS Score: 5 cp MDM: 06:31 Patient medically screened. cp 06:38 ED course: Patient is not a candidate for tpa as symptoms were observed upon awakening cp this morning. 07:25 Physician consultation: was contacted at 07:20, regarding consult, patient's condition, would like further tests performed, CTA of head and neck, DR Martin, neurologist \T\[facility], does not recommend tpa at this time and request transfer to ED for reevaluation. 07:30 Data reviewed: vital signs, nurses notes, EKG, radiologic studies, CT scan, I have cp discussed the patient's presentation/case with the attending Emergency Department Physician;. 07:30 Test interpretation: by ED physician or midlevel provider: ECG. 08:15 Physician consultation: was contacted at 08:10, regarding regarding transfer, to [facility]. accepting physician is DR Pepe Argueta. 12/02 06:11 Order name: Basic Metabolic Panel; Complete Time: 07:11 bb 12/02 07:11 Interpretation: Normal except: GLUC 110; BUN 22; GFR 58. 12/02 06:11 Order name: CBC with Diff; Complete Time: 07:11 bb 12/02 06:11 Order name: Protime (+inr); Complete Time: 07:11 bb 12/02 06:11 Order name: Ptt, Activated; Complete Time: 07:11 bb 12/02 07:02 Order name: Glucose, Ancillary Testing; Complete Time: 07:11 EDMS 12/02 08:46 Order name: Troponin I; Complete Time: 09:47 cp 12/02 09:47 Interpretation: Reviewed. cp 12/02 06:11 Order name: CT Stroke Brain w/o Contrast bb 12/02 06:11 Order name: Stroke CXR 1 View; Complete Time: 09:47 bb 12/02 07:25 Order name: CT Head Angio; Complete Time: 08:09 eb 12/02 07:32 Order name: CT Neck Angio; Complete Time: 08:11 eb 12/02 06:11 Order name: EKG; Complete Time: 06:12 bb 12/02 06:11 Order name: Accucheck; Complete Time: 06:49 bb 12/02 06:11 Order name: Cardiac monitoring; Complete Time: 06:49 bb 12/02 06:11 Order name: EKG - Nurse/Tech; Complete Time: 06:49 bb 12/02 06:11 Order name: IV Saline Lock; Complete Time: 06:49 bb 12/02 06:11 Order name: Labs collected and sent; Complete Time: 06:49 bb 12/02 06:11 Order name: NPO; Complete Time: 06:49 bb 12/02 06:11 Order name: O2 Per Protocol; Complete Time: 06:50 bb 12/02 06:11 Order name: O2 Sat Monitoring; Complete Time: 06:50 bb 12/02 06:11 Order name: Stroke Swallow Screen; Complete Time: 06:50 bb EC:52 Rate is 69 beats/min. Rhythm is regular. DC interval is normal. QRS interval is normal. cp QT interval is normal. T waves are Inverted in lead III. Interpreted by me. Reviewed by me. Administered Medications: 06:34 Drug: Zofran (Ondansetron) 4 mg Route: IVP; Site: right antecubital; ea 07:30 Follow up: Response: No adverse reaction sv 06:34 Drug: foLIC Acid 1 mg Route: IVPB; Site: right antecubital; ea 06:47 Not Given (pt failed bedside swallow screening): Aspirin Chewable Tablet 324 mg PO bb once; 81 mg tablets x 4 08:25 Drug: Aspirin Suppository 300 mg Route: DC; sv 09:25 Follow up: Response: No adverse reaction sv Disposition: 12/03 08:46 Co-signature as Attending Physician, Jc Lancaster MD I agree with the assessment and heriberto plan of care. Disposition: 12/03/19 08:[address] [facility]. Diagnosis are Weakness - left arm and left leg, Dizziness and giddiness. - Reason for transfer: Higher level of care. - Accepting physician is DR Pepe Argueta. - Condition is Stable. - Problem is new. - Symptoms have improved. NIH Stroke Scale - NIH Stroke Score Date: 12/03/2019 Time: 06:10 Total Score = 7 1a. Level of Consciousness (LOC) - 0(Alert) 1b. Level of Consciousness (LOC) (Year \T\ Age) - 0(Both) 1c. LOC Commands (Open \T\ Closes Eyes/Global Logistics Manager) - 0(Both) 2. Best Gaze (Lateral Gaze Paresis) - 0(Normal) 3. Visual Field Loss - 0(No visual loss) 4. Facial Palsy - 1(Minor Paralysis) 5a. Left Arm: Motor (10-second hold) - 2(Drift, some effort against gravity) 5b. Right Arm: Motor (10-second hold) - 0(No drift) 6a. Left Leg: Motor (5-second hold - always test supine) - 2(Drift, some effort against gravity) 6b. Right Leg: Motor (5-second hold - always test supine) - 0(No drift) 7. Limb Ataxia (finger/nose \T\ heel/meeks - test with eyes open) - 1(Present in one limb) 8. Sensory Loss (pinprick arms/legs/face) - 1(Mild to moderate loss) 9. Best Language: Aphasia (description/naming/reading) - 0(No aphasia) 10. Dysarthria (speech clarity - read or repeat words) - 0(Normal) 11. Extinction and Inattention (visual/tactile/auditory/spatial/personal) - 0(No abnormality) Initials: ea NIH Stroke Scale - NIH Stroke Score Date: 12/03/2019 Time: 06:36 Total Score = 5 1a. Level of Consciousness (LOC) - 0(Alert) 1b. Level of Consciousness (LOC) (Year \T\ Age) - 0(Both) 1c. LOC Commands (Open \T\ Closes Eyes/Global Logistics Manager) - 0(Both) 2. Best Gaze (Lateral Gaze Paresis) - 0(Normal) 3. Visual Field Loss - 0(No visual loss) 4. Facial Palsy - 0(Normal) 5a. Left Arm: Motor (10-second hold) - 1(Drift) 5b. Right Arm: Motor (10-second hold) - 0(No drift) 6a. Left Leg: Motor (5-second hold - always test supine) - 1(Drift) 6b. Right Leg: Motor (5-second hold - always test supine) - 0(No drift) 7. Limb Ataxia (finger/nose \T\ heel/meeks - test with eyes open) - 2(Present in two limbs) 8. Sensory Loss (pinprick arms/legs/face) - 1(Mild to moderate loss) 9. Best Language: Aphasia (description/naming/reading) - 0(No aphasia) 10. Dysarthria (speech clarity - read or repeat words) - 0(Normal) 11. Extinction and Inattention (visual/tactile/auditory/spatial/personal) - 0(No abnormality) Initials: cp Signatures: Dispatcher [employer] EDOK Lacey Durán RN RN sv Anderson, Corey, MD MD cha Ballard, Brenda, RN RN Jc Mcintyre PA PA cp Melanie Gary RN RN ea Corrections: (The following items were deleted from the chart) 12/02 06:27 06:12 CT-STROKE BRAIN W/O CONTRAST+CT.RAD.BRZ ordered. [facility] EDOK 06:33 06:31 This 69 yrs old Female presents to ER via Wheelchair with cp complaints of Left Side Weakness. cp 08:24 08:10 12/03/2019 08:10 Transfer ordered to [facility]. Diagnosis is Weakness - left arm and left leg; Dizziness and giddiness. Reason for transfer: Higher level of care. Accepting physician is Doctor. Condition is Stable. Problem is new. Symptoms have improved. cp 08:36 08:24 12/03/2019 08:10 Transfer ordered to [facility]. Diagnosis is Weakness - left arm and left leg; Dizziness and giddiness. Reason for transfer: Higher level of care. Accepting physician is DR Argueta. Condition is Stable. Problem is new. Symptoms have improved. cp 10:20 08:36 12/03/2019 08:10 Transfer ordered to [facility]. Diagnosis is Weakness - left arm and left leg; Dizziness and giddiness. Reason for transfer: Higher level of care. Accepting physician is DR Pepe Argueta. Condition is Stable. Problem is new. Symptoms have improved. cp
--- NOTE | 2019-12-03 08:11 | ER ---
Nurse's Notes [facility] Name: Josette Pimentel Age: 69 yrs Sex: Female : 1950 Arrival Date: 12/03/2019 Time: 06:02 Bed 5 Private MD: Diagnosis: Weakness-left arm and left leg;Dizziness and giddiness Presentation: 12/02 06:12 Chief complaint: Patient states: Reports she started having weakness to the left arm, ea dizziness and headache that started at 4 AM. Ebola Screen: No symptoms or risks identified at this time. Onset of symptoms was December 03, 2019 at 04:00. 06:12 Method Of Arrival: Wheelchair ea 06:21 Coronavirus screen: At this time, the client does not indicate any symptoms associated bb with coronavirus-19. Initial Sepsis Screen: Does the patient meet any 2 criteria? No. Patient's initial sepsis screen is negative. Does the patient have a suspected source of infection? No. Patient's initial sepsis screen is negative. Risk Assessment: Do you want to hurt yourself or someone else? Patient reports no desire to harm self or others. 06:21 Acuity: BARAK 2 bb Triage Assessment: 06:10 General: Appears uncomfortable, Behavior is appropriate for age. Respiratory: Airway is ea patent Respiratory effort is even, unlabored, Respiratory pattern is regular, symmetrical. Derm: Skin is pink, warm \T\ dry. 06:26 Pain: Complains of pain in left arm Pain currently is 4 out of 10 on a pain scale. bb Historical: - Allergies: 06:25 Bees; bb - Home Meds: 06:25 metformin 500 mg Oral tab 1 tab 2 times per day [Active]; bb lisinopril-hydrochlorothiazide 20-12.5 mg Oral tab twice a day [Active]; metoprolol tartrate 50 mg Oral tab 1 tab 2 times per day [Active]; Livalo 2 mg oral tab 1 tab once daily [Active]; oxybutynin chloride 5 mg Oral tab 1 tab daily [Active]; - PMHx: 06:25 Diabetes - NIDDM; Hypertension; bb - PSHx: 06:25 Tubal ligation; bb - Immunization history:: Adult Immunizations up to date. - Social history:: Smoking status: Patient denies any tobacco usage or history of. Patient/guardian denies using alcohol, street drugs. Screenin:12 Abuse screen: Denies threats or abuse. Nutritional screening: No deficits noted. ea Tuberculosis screening: No symptoms or risk factors identified. 06:30 The patient has not been NPO before screening. The patient is alert, able to follow ea commands. The patient does not exhibit slurred or garbled speech The patient is not exhibiting difficulty speaking. The patient does not exhibit difficulty understanding words. The patient is able to swallow own secretions with no drooling or need for suction. Patient tolerated one teaspoon of water. No drooling, immediate coughing, gurgling, or clearing of the throat was noted. The patient did not tolerate 90mL of water. Drooling, immediate coughing, gurgling, or clearing of the throat was noted. Bedside swallow screening discontinued. Patient kept NPO until cleared by Speech Therapy or Physician. The patient failed the bedside swallow screening. The patient will be kept NPO until cleared by Speech Therapy or Physician. Provider notified of bedside swallow screening results: Jc BRYAN. 06:58 Fall Risk IV access (20 points). ea Assessment: 06:10 Neuro: Level of Consciousness is awake, alert, obeys commands, Oriented to person, ea place, time, situation, Agricultural Production Engineer are weak on left Weakness hand(s) leg(s) Speech is normal, Facial droop on left. 06:14 Reassessment: Pt at CT. ea 07:20 Reassessment: Patient appears in no apparent distress at this time. No changes from sv previously documented assessment. Patient and/or family updated on plan of care and expected duration. Pain level reassessed. Patient is alert, oriented x 3, equal unlabored respirations, skin warm/dry/pink. 08:56 Reassessment: Attempted to call report, nurse unavailable. Will call back. sv 09:25 Reassessment: Patient appears in no apparent distress at this time. No changes from sv previously documented assessment. Patient and/or family updated on plan of care and expected duration. Pain level reassessed. Patient is alert, oriented x 3, equal unlabored respirations, skin warm/dry/pink. 10:00 Reassessment: Patient appears in no apparent distress at this time. Patient and/or hb family updated on plan of care and expected duration. Pain level reassessed. Patient is alert, oriented x 3, equal unlabored respirations, skin warm/dry/pink. Awaiting transport at this time. 10:11 Reassessment: [facility] at bedside for transport. hb 10:20 Reassessment: Report given to Mary from EMS. sv Vital Signs: 06:21 BP 167 / 63; Pulse 75; Resp 16 S; Pulse Ox 98% on R/A; Weight 97.07 kg (R); Height 5 bb ft. 1 in. (154.94 cm) (R); Pain 4/10; 06:58 BP 140 / 69; Pulse 64; Resp 18; Temp 98; Pulse Ox 96% ; ea 08:38 BP 110 / 40; Pulse 66; Resp 16; Pulse Ox 97% ; sv 09:44 BP 127 / 63; Pulse 68; Resp 16; Pulse Ox 95% ; sv 10:15 BP 121 / 61; Pulse 66; Resp 17; Pulse Ox 97% on R/A; hb 06:21 Body Mass Index 40.43 (97.07 kg, 154.94 cm) bb NIH Stroke Scale Scores: 06:10 NIHSS Score: 7 ea 06:36 NIHSS Score: 5 cp ED Course: 06:02 Patient arrived in ED. cf2 06:10 Arm band placed on Patient placed in an exam room, on a stretcher, on pulse oximetry. bb 06:21 Jc Carver PA is PHCP. cp 06:21 Jc Lancaster MD is Attending Physician. cp 06:24 Triage completed. bb 06:25 CT Stroke Brain w/o Contrast In Process Unspecified. EDMS 06:27 Patient has correct armband on for positive identification. Bed in low position. Call bb light in reach. Side rails up X 1. Adult w/ patient. scada technician on. Pulse ox on. NIBP on. 06:30 Stroke CXR 1 View In Process Unspecified. EDMS 06:30 Inserted saline lock: 20 gauge in right antecubital area, using aseptic technique. ea Blood collected. 06:36 initiated a transfer with Tari from the [facility] [place]. eb 07:15 called to check on the status of the transfer / per Yunior Moyer is paging the neuro eb carbon lamp cleaner. 07:21 connected the neurologist carbon lamp cleaner for [facility] with Jc Bryan for patient transfer eb consultation. 07:31 per Comfort the neurologist from [facility] is requesting CTA of the neck and head eb and we are to call back once we got the results. 07:40 Lacey Durán, RN is Primary Nurse. sv 07:51 CT Neck Angio In Process Unspecified. EDMS 07:52 CT Head Angio In Process Unspecified. EDMS 08:09 notified Comfort from the [facility] that the CTA was negative. eb 08:[address] Argueta the emergency room doctor carbon lamp cleaner for [facility] with Jc narvaez for patient transfer consultation. 08:27 administrative approval given by Comfort Feldman Rn/ patient has been accepted to [facility] ER/ Dr. Pepe Argueta has accepted the patient in transfer/ Dr. Martin has accepted the patient in consult/ report to be called to [phone]. 08:57 No provider procedures requiring assistance completed. Patient transferred, IV remains sv in place. intact. 08:58 Troponin I Sent. dh3 09:42 transfer transportation to receiving facility. sv Administered Medications: 06:34 Drug: Zofran (Ondansetron) 4 mg Route: IVP; Site: right antecubital; ea 07:30 Follow up: Response: No adverse reaction sv 06:34 Drug: foLIC Acid 1 mg Route: IVPB; Site: right antecubital; ea 06:47 Not Given (pt failed bedside swallow screening): Aspirin Chewable Tablet 324 mg PO bb once; 81 mg tablets x 4 08:25 Drug: Aspirin Suppository 300 mg Route: [place]; sv 09:25 Follow up: Response: No adverse reaction sv Output: 10:00 Urine: 200ml (Voided); Total: 200ml. sv Outcome: 08:10 ER care complete, transfer ordered by MD. muro 09:20 Transferred by ground EMS to [facility], Transfer form completed. sv X-rays sent w/ patient. Note: Report given to Elaina at [facility] 09:20 Condition: stable 09:20 Instructed on the need for transfer. 10:20 Patient left the ED. sv NIH Stroke Scale - NIH Stroke Score Date: 12/03/2019 Time: 06:10 Total Score = 7 1a. Level of Consciousness (LOC) - 0(Alert) 1b. Level of Consciousness (LOC) (Year \T\ Age) - 0(Both) 1c. LOC Commands (Open \T\ Closes Eyes/Utilization Review Nurse) - 0(Both) 2. Best Gaze (Lateral Gaze Paresis) - 0(Normal) 3. Visual Field Loss - 0(No visual loss) 4. Facial Palsy - 1(Minor Paralysis) 5a. Left Arm: Motor (10-second hold) - 2(Drift, some effort against gravity) 5b. Right Arm: Motor (10-second hold) - 0(No drift) 6a. Left Leg: Motor (5-second hold - always test supine) - 2(Drift, some effort against gravity) 6b. Right Leg: Motor (5-second hold - always test supine) - 0(No drift) 7. Limb Ataxia (finger/nose \T\ heel/meeks - test with eyes open) - 1(Present in one limb) 8. Sensory Loss (pinprick arms/legs/face) - 1(Mild to moderate loss) 9. Best Language: Aphasia (description/naming/reading) - 0(No aphasia) 10. Dysarthria (speech clarity - read or repeat words) - 0(Normal) 11. Extinction and Inattention (visual/tactile/auditory/spatial/personal) - 0(No abnormality) Initials: NIH Stroke Scale - NIH Stroke Score Date: 12/03/2019 Time: 06:36 Total Score = 5 1a. Level of Consciousness (LOC) - 0(Alert) 1b. Level of Consciousness (LOC) (Year \T\ Age) - 0(Both) 1c. LOC Commands (Open \T\ Closes Eyes/Utilization Review Nurse) - 0(Both) 2. Best Gaze (Lateral Gaze Paresis) - 0(Normal) 3. Visual Field Loss - 0(No visual loss) 4. Facial Palsy - 0(Normal) 5a. Left Arm: Motor (10-second hold) - 1(Drift) 5b. Right Arm: Motor (10-second hold) - 0(No drift) 6a. Left Leg: Motor (5-second hold - always test supine) - 1(Drift) 6b. Right Leg: Motor (5-second hold - always test supine) - 0(No drift) 7. Limb Ataxia (finger/nose \T\ heel/meeks - test with eyes open) - 2(Present in two limbs) 8. Sensory Loss (pinprick arms/legs/face) - 1(Mild to moderate loss) 9. Best Language: Aphasia (description/naming/reading) - 0(No aphasia) 10. Dysarthria (speech clarity - read or repeat words) - 0(Normal) 11. Extinction and Inattention (visual/tactile/auditory/spatial/personal) - 0(No abnormality) Initials: cp Signatures: Dispatcher [employer] Lacey De Santiago, RN Jessica Liriano RN RN bb Page, Corey, RIVAS PA cp Megha Witt, RN RN Quin Goodman [facility] Melanie Gary RN Gina Jacobo ea, [place] 2
[2019-12-03] MEDS ORDERED: ASPIRIN 600 MG/SUPP PR ONE (08:27)
--- NOTE | 2019-12-03 09:46 | RAD REPORT ---
EXAM DESCRIPTION: RAD - Chest Single View - 12/03/2019 6:29 am CLINICAL HISTORY: weakness, shortness of breath COMPARISON: Portable May 2019 TECHNIQUE: AP portable chest image was obtained 12/03/2019 6:29 am . FINDINGS: Lung volumes are low. This accentuates a baseline interstitial pattern that is not clearly different from comparison. No peripheral mass or consolidation. Trachea is midline. Heart and vascul ature are normal. No measurable pleural effusion and no pneumothorax. No acute bony abnormality seen. No acute aortic findings suspected. IMPRESSION: No acute cardiopulmonary process. Limited study is not clearly different from comparison.
--- NOTE | 2019-12-03 13:29 | RAD REPORT ---
EXAM DESCRIPTION: CT - Ct Stroke Brain Wo Cont - 12/03/2019 6:43 am ARSENIO ESCALANTE [id number] - Ct Stroke Brain Wo Cont ADDENDUM #1 THIS REPORT CONTAINS FINDINGS THAT MAY BE CRITICAL TO PATIENT CARE: The findings were verbally discussed via telephone conference with PA. Jc Lancaster by Dr. Kristina Boland on 6:35 AM CDT .The results were acknowledged and understood. Recommend further evaluation with a CTA of the head and neck. Electronically signed by: Ember Boland MD 12/03/2019 6:36 AM CDT End of Addendum EXAM DESCRIPTION: CT Head Without Intravenous Contrast CLINICAL HISTORY: The patient is 69 years old and is Female; WEAKNESS TECHNIQUE: Axial computed tomography images of the head/brain without intravenous contrast. Sagitt al and coronal reformatted images were created and reviewed. This CT exam was performed using one o r more of the following dose reduction techniques: automated exposure control, adjustment of the mA and/or kV according to patient size, and/or use of iterative reconstruction technique. COMPARISON: No relevant prior studies available. FINDINGS: BRAIN: Unremarkable. The bolivar-white matter differentiation is preserved . No hemorrhag e. No significant white matter disease. No edema. No extra-axial fluid collections. VENTRICLES: Unremarkable. No ventriculomegaly. BONES/JOINTS: No acute fracture. SOFT TISSUES: Unremarkable. SINUSES: Unremarkable as visualized. No acute sinusitis. MASTOID AIR CELLS: Unremarkable as visualized. No mastoid effusion. ORBITS: Unremarkable as visualized. IMPRESSION: No acute intracranial findings. Electronically signed by: Ember Boland MD 12/03/2019 6:32 AM CDT Due to temporary technical issues with the PACS/Fluency reporting system, reports are being signed by the in house radiologist without review as a courtesy to ensure prompt reporting. The interpreting r adiologist is fully responsible for the content of the report.
[2019-12-06 22:06] VITALS: TEMP 98
[2019-12-06 22:10] VITALS: BP 121/61; O2SAT 97
== END 2019-12-03 10:20 | disposition short-term general hospital (02) ==
LOC: ER 06:02
DX: R53.1 Weakness (principal); I10 Essential (primary) hypertension; E11.9 Type 2 diabetes mellitus without complications; Z91.030 Bee allergy status
CPT/HCPCS: 93005; 85025; 80048; 36415; 85610; 82947; 85730; 84484; 70496; 70498; 70450; 71045; 96375; 96374; 99285; J2405

== ENCOUNTER 2020-03-07 08:17 | Inpatient (IN) | payer OTHER ==
[2020-02-29 09:24] LABS: Absolute Lymphocytes (CBC) 3.2 K/uL (0.7-4.9); Basophils % 1.4 % (0-1.3); Hematocrit 37.7 % (36.0-45.0); Lymphocytes % 44.8 % (15.3-44.8); MPV 9.1 fL (7.6-11.3); RBC Red Blood Cell Count 4.23 M/uL (3.86-4.86)
[2020-02-29 09:27] LABS: Protime INR 0.91
[2020-02-29 09:34] LABS: Potassium 4.4 mmol/L (3.5-5.1)
--- NOTE | 2020-02-29 09:51 | RAD REPORT ---
EXAM DESCRIPTION: Taiwo Xiao (2 Views)02/29/2020 9:38 am CLINICAL HISTORY: Preop COMPARISON: November 2019 FINDINGS: The lungs appear clear of acute infiltrate. The heart is normal size IMPRESSION: No acute abnormalities displayed
[~2020-03-07 08:17] MED LIST: TRANEXAMIC ACID 1,000 MG in NA CHLORIDE 0.9% 50 ML IV SCH
--- OUTSIDE RECORDS SUMMARY | 2020-03-07 08:42 | XMS REPORT | Clinical Summary ---
:1950 Author Organization [facility] Address [address] [place] [address] Care Team Providers Name Role Phone Unavailable Primary Care Provider Unavailable Allergies Active Allergy Reactions Severity Noted Date Comments Varicella-Zoster Swelling, Other (See 12/03/2019 Lui, FEVER, rash [id number] (Pf) Comments) Medications Medication Sig Dispensed Refills Start Date End Date Status coenzyme 1 capsule 0 Active [id number] (CO with a meal Q-10, WITH VIT E,) 100-5 mg-unit Cap oxybutynin Take 5 mg by 0 11/25/2019 Activ e (DITROPAN-XL) 5 MG mouth daily. 24 hr tablet metoprolol Take 50 mg by 0 09/15/2019 Acti ve tartrate mouth 2 (two) (LOPRESSOR) 50 MG times daily. tablet lisinopril-hydroCH Take 1 tablet 0 11/28/2019 Active LOROthiazide by mouth 2 (PRINZIDE,ZESTORET (two) times IC) 20-12.5 mg per daily. tablet metFORMIN Take 500 mg 0 09/20/2019 Active (GLUCOPHAGE) 500 by mouth 2 MG tablet (two) times daily. mecobalamin, as directed 0 Activ e vitamin B12, (B12 ACTIVE) 1,000 mcg Chew aspirin 81 MG Take 81 mg by 0 Ac tive chewable tablet mouth. albuterol HFA Inhale 2 0 Active (VENTOLIN HFA) 90 puffs by mcg/actuation mouth via inhaler inhaler. levothyroxine Take 75 mcg 0 09/15/2019 Act aguilar (SYNTHROID, by mouth LEVOTHROID) 75 MCG daily. tablet cholecalciferol, Take 2,100 0 Ac tive vitamin D3, 50 mcg Units by (2,000 unit) Cap mouth once every 2 weeks. ascorbic acid, Take 500 mg 0 Act aguilar vitamin C, by mouth (ASCORBIC ACID daily. WITH NITA HIPS) 500 MG tablet atorvastatin Take 1 tablet 30 tablet 11 12/04/2019 Ac tive (LIPITOR) 40 MG (40 mg total) 1 tablet by mouth nightly. LIVALO 2 mg Tab Take by mouth 0 09/19/2019 Discontinued tablet daily. 0 (Stop Taki ng at Discharge) ibuprofen Take 800 mg 0 08/26/2019 Discont inued (ADVIL,MOTRIN) 800 by mouth 3 0 (Stop Taking at MG tablet (three) times Discha rge) daily. Active Problems Problem Noted Date TIA (transient ischemic attack) 12/04/2019 Cerebral infarction, unspecified mechanism 12/03/2019 Encounters Date Type Specialty Care Team Description 12/03/2019 - Hospital Encounter General Internal Young, Pepe chun infarction, unspecified mechanism (HCC) (Primary Dx); 12/04/2019 Medicine José Luis IRENE, DO TIA (transient ischemic attack); Dwain Fernández Vertigo MD 12/03/2019 Travel after 03/07/2019 Family History Medical History Relation Name Comments Diabetes Father Hypertension Mother Stroke Sister Relation Name Status Comments Father Mother Sister Social History Tobacco Use Types Packs/Day Years Used Date Never Smoker Smokeless Tobacco: Never Used Alcohol Use Drinks/Week oz/Week Comments No Alcohol Habits Answer Date Recorded How often do you have a drink containing alcohol? Never 12/03/2019 How many drinks containing alcohol do you have on a typical Not asked day when you are drinking? How often do you have six or more drinks on one occasion? No t asked Sex Assigned at Date Recorded Not on file Last Filed Vital Signs Vital Sign Reading Time Taken Comments Blood Pressure 151/63 12/04/2019 10:38 AM CDT Pulse 62 12/04/2019 10:38 AM CDT Temperature 35.9 C (96.7 F) 12/04/2019 10:34 AM CDT Respiratory Rate 16 12/04/2019 10:34 AM CDT Oxygen Saturation 96% 12/04/2019 10:34 AM CDT Inhaled Oxygen Concentration - - Weight 97.1 kg (214 lb) 12/03/2019 11:49 AM CDT Height 154.9 cm (5' 1") 12/03/2019 11:49 AM CDT Body Mass Index 40.43 12/03/2019 11:49 AM CDT Plan of Treatment Health Maintenance Due Date Last Done Comments BREAST CANCER SCREENING 1950 COLON CANCER SCREENING COLONOSCOPY 1950 PNEUMOCOCCAL 65+ YRS (1 of 1 - [id number]) 09/26/2016 MEDICARE ANNUAL WELLNESS (YEAR 2 or FIRST YEAR if no 04/07/2019 IPPE) INFLUENZA VACCINE (#1) 2019 Procedures Procedure Name Priority Date/Time Associated Comments Diagnosis REPORT OF PROCEDURE - 12/16/2019 3:20 ENDOSCOPY SCAN PM CDT RHYTHM STRIP - SCAN 12/05/2019 2:04 PM CDT REPORT OF PROCEDURE - 12/05/2019 2:04 ENDOSCOPY SCAN PM CDT 2D ECHO W/ DOPPLER Routine 12/04/2019 9:07 Resul ts for this (CW/PW/COLOR) AM CDT procedure are in the results section. POCT-GLUCOSE METER Routine 12/04/2019 8:34 Resul ts for this AM CDT procedure are i n the results section. CBC W/PLT COUNT & AUTO Routine 12/04/2019 5:30 R esults for this DIFFERENTIAL AM CDT procedure are i n the results section. TSH/FREE T4 IF Routine 12/04/2019 5:30 Results f or this INDICATED AM CDT procedure are i n the results section. BASIC METABOLIC PANEL Routine 12/04/2019 5:30 Re sults for this (7) AM CDT procedure are i n the results section. HEMOGLOBIN A1C Routine 12/04/2019 5:30 Results f or this AM CDT procedure are i n the results section. CBC W/PLT COUNT & AUTO Routine 12/04/2019 5:30 R esults for this DIFFERENTIAL AM CDT procedure are i n the results section. LIPID PANEL Routine 12/04/2019 5:30 Results for this AM CDT procedure are i n the results section. POCT-GLUCOSE METER Routine 12/03/2019 9:38 Resul ts for this PM CDT procedure are i n the results section. MR BRAIN WITHOUT IV STAT 12/03/2019 6:50 Resu lts for this CONTRAST PM CDT procedure are i n the results section. CBC W/PLT COUNT & AUTO STAT 12/03/2019 12:23 R esults for this DIFFERENTIAL PM CDT procedure are i n the results section. COMPREHENSIVE STAT 12/03/2019 12:23 Results fo r this METABOLIC PANEL PM CDT procedure ar e in the results section. PT/APTT STAT 12/03/2019 12:23 Results for this PM CDT procedure are i n the results section. CBC W/PLT COUNT & AUTO STAT 12/03/2019 12:23 R esults for this DIFFERENTIAL PM CDT procedure are i n the results section. SARS-COV2/RT-PCR ([facility] STAT 12/03/2019 12:23 R esults for this & REF LABS) PM CDT procedure are i n the results section. after 03/07/2019 Results EKG-SCANNED (12/16/2019 3:20 PM CDT)Only the most recent of2 resultswithin the time period is included. Narrative Performed At This result has an attachment that is no t available. RHYTHM STRIP - SCAN (12/05/2019 2:04 PM CDT) Narrative Performed At This result has an attachment that is no t available. 2D Echo W/Doppler(CW/PW/Color) (12/04/2019 9:07 AM CDT) Pathologist Sig nature Ejection Fraction ssment is normal [facility] (55-60% [facility] Specimen Narrative Performed At Transthoracic Echocardiography Report (T TE) [facility] Demographics Patient Name PIMENTEL, Date of Study 12/04/2019 ARSENIO Gender Female Visit Number [id number] Race Unknown Room Number 2242 Number Date of 1950 Referring Physician Dwain Fernández Age 69 year(s) Multimedia Authoring Specialist Fredrick Carrasco [facility] Interpreting Lacey grullon Physician Procedure Type of Study TTE procedure:2DECHO W DOPPLER(CW/PW/COLOR) (Routine) Indications:Suspected cardiac source of emboli. Clinical History Diabetes Hyperlipidemia Hypertension Thyroid disease HGB 12 HCT 38.8 % Contrast Medium: Definity. Amount - 2 ml Height: 61 inches Weight: 97.07 kg (214 lbs) BSA: 1.94 m^2 BMI: 40.43 kg/m^2 HR: 57 bpm BP: 149/63 mmHg Summary 1. Normal LV size and function. All segments contract normally. LVEF 55-60% 2. The right ventricular chamber size and systolic function are within normal limits. 3. Estimated peak systolic PA pressure is 35-40 mmHg (borderline criteria for pulmonary hypertension) 4. Grade 1 diastolic dysfunction (impaired relaxation and low-normal LA pressure). 5. IV saline contrast injection was negative for, demostrates a PFO (patent foramen ovale) at rest and post Valsalva Previous Study No prior studies available for comparis on. Signature Findings Rhythm/BP Regular sinus rhythm during the exam. Left The left ventricle is chamber size (by vol index) is normal Ventricle (female - LVED vol - 29-61ml/m2). All of the LV segments contract normally . Global LV systolic function normal . Estimated LVEF by qualitative assessment is normal (55-60%) . Grade 1 diastolic dysfunction (impaired relaxation and low-normal LA press ure). Left Atrium LA size is normal (16-34 ml/m2) . Right The right ventricular chamber size and systolic function are Ventricle within normal limits. Right Atrium RA size is normal. Atrial IV saline contrast injection was negative for, demostrates a Septum PFO (patent foramen ovale) at rest and post Valsalva . Aortic Valve Normal AoV structure and f unction. Mild aortic regurgi tation. Mitral Valve Normal MV structure. Trace mitral regurg itation. Tricuspid TV structure is normal. Valve A trace of tricuspid regurgitation. Estimated peak systolic PA pressure is 35-40 mmHg (borderline criteria for pulmonary hypertension) . Pulmonic Normal PV structure and function by limited views and Valve Doppler. Aorta Aortic root size (SInus of Valsalva diameter) is normal . Proximal ascending aorta size is normal . Pericardium No significant pericardial effusion is visualized. Chambers/Structures Left Atrium LA Volume: 61 ml LA Vol. Index: 31 ml/m^2 Left Ventricle LVIDd: 4.18 cm LVEDV:77.89 m l LV Septum Diastolic: 1.01 cm LV PW Diastolic: 0.66 cm LVOT Diameter: 1.71 cm Doppler/Quantitative Measurements LVOT LVOT Diameter: 1.71 cm LVOT Area: 2.3 cm^2 Procedure Note Interface, External Ris In - 12/04/2019 4:50 PM CDT Transthoracic Echocardiography Report (TTE) Demographics Patient Name PIMENTEL, Date of S tudy 12/04/2019 ARSENIO Gender Female Visit Number [id number] Race Unknown Room Numb er 2242 Number Date of 1950 Referring Physician Dwain Fernández Age 69 year(s) Sonograph er Fredrick Carrasco [facility] Interpret ing Physician JUAN FRANCISCO Barakat Procedure Type of Study TTE procedure:2DECHO W DOPPLE R(CW/PW/COLOR) (Routine) Indications:Suspected cardiac source of emboli. Clinical History Diabetes Hyperlipidemia Hypertension Thyroid disease HGB 12 HCT 38.8 % Contrast Medium: Definity. Amount - 2 ml Height: 61 inches Weight: 97.07 kg (214 lbs) BSA: 1.94 m^2 BMI: 40.43 kg/m^2 HR: 57 bpm BP: 149/63 mmHg Summary 1. Normal LV size and function. All seg ments contract normally. LVEF 55-60% 2. The right ventricular chamber size a nd systolic function are within normal limits. 3. Estimated peak systolic PA pressure is 35-40 mmHg (borderline criteria for pulmonary hypertension) 4. Grade 1 diastolic dysfunction (impai red relaxation and low-normal LA pressure). 5. IV saline contrast injection was neg ative for, demostrates a PFO (patent foramen ovale) at rest and post Valsalva Previous Study No prior studies available for comparis on. Signature Findings Rhythm/BP Regular sinus rhythm durin g the exam. Left The left ventricle is teresa purvi size (by vol index) is normal Ventricle (female - LVED vol - 29-61 ml/m2). All of the LV segments contract normally . Global LV systolic function normal . Estimated LVEF by qualitat aguilar assessment is normal (55-60%) . Grade 1 diastolic dysfunct ion (impaired relaxation and low-normal LA pressure). Left Atrium LA size is normal (16-34 m l/m2) . Right The right ventricular teresa purvi size and systolic function are Ventricle within normal limits. Right Atrium RA size is normal. Atrial IV saline contrast injecti on was negative for, demostrates a Septum PFO (patent foramen ovale) at rest and post Valsalva . Aortic Valve Normal AoV structure and f unction. Mild aortic regurgitation. Mitral Valve Normal MV structure. Trace mitral regurgitation . Tricuspid TV structure is normal. Valve A trace of tricuspid regur gitation. Estimated peak systolic PA pressure is 35-40 mmHg (borderline criteria for pulmonary hyp ertension) . Pulmonic Normal PV structure and fu nction by limited views and Valve Doppler. Aorta Aortic root size (SInus of Valsalva diameter) is normal . Proximal ascending aorta s ize is normal . Pericardium No significant pericardial effusion is visualized. Chambers/Structures Left Atrium LA Volume: 61 ml LA Vol. Index: 31 ml/m^2 Left Ventricle LVIDd: 4.18 cm LVEDV:77.89 ml LV Septum Diastolic: 1.01 cm LV PW Diastolic: 0.66 cm LVOT Diameter: 1.71 cm Doppler/Quantitative Measurements LVOT LVOT Diameter: 1.71 cm LVOT Area: 2.3 cm^2 Performing Organization Address City/State/Zipcode Phone Number [facility] POC-Glucose meter (12/04/2019 8:34 AM CDT)Only the most recent of2 results within the time period is included. POC-Glucose Meter 113 (H)Comment: 70 - 110 mg/dL [facility] : TESTED AT [facility] [address] [facility], [address]: Red Leader/Technic marilu ID = [id number] for Yaquelin Hoyt Specimen Blood Performing Organization Address [facility]/Zipcode Phone Number [facility] [address], [place] [phone] CENTER TSH/Free T4 If Indicated (12/04/2019 5:30 AM CDT) Pathologist Sig nature TSH 0.547 0.350 - 4.940 uIU/mL [facility] Specimen Blood Narrative Performed At Red Leader ID - PIAYA L [facility] Performing Organization Address City/[facility]/Zipcode Phone Number [address] [address] CENTER CBC with platelet count + automated diff (12/04/2019 5:30 AM CDT)Only the most recent of2 resultswithin the time period is included. Pathologist Sig nature WBC 5.3 3.5 - 10.5 [facility] K/L [facility] RBC 4.17 3.93 - 5.22 [facility] M/L [facility] Hemoglobin 12.0 11.2 - 15.7 [facility] GM/DL [facility] Hematocrit 38.8 34.1 - 44.9 % [facility] MCV 93.0 79.4 - 94.8 fL [facility] MCH 28.8 25.6 - 32.2 pg [facility] MCHC 30.9 (L) 32.2 - 35.5 [facility] GM/DL [facility] RDW 13.9 11.7 - 14.4 % [facility] Platelets 165 150 - 450 K/CU [facility] MPV 10.9 9.4 - 12.3 fL [facility] nRBC 0 0 - 0 /100 WBC [facility] % Neutros 39 % [facility] % Lymphs 52 % [facility] % Monos 6 % [facility] % Eos 2 % [facility] % Baso 0 % [facility] # Neutros 2.09 1.56 - 6.13 [facility]/ON LICENSE OF [facility] # Lymphs 2.74 1.18 - 3.74 [facility]/ON LICENSE OF [facility] # Monos 0.32 0.24 - 0.36 [facility] # Eos 0.13 0.04 - 0.36 [facility]/ON LICENSE OF [facility] # Baso 0.02 0.01 - 0.08 [facility]/ON LICENSE OF [facility] Immature 0 0 - 1 % [facility] Specimen Blood Performing Organization Address City/[facility]/Zipcode Phone Number [address] [address] [place] Hemoglobin A1c - Fasting (12/04/2019 5:30 AM CDT) Pathologist Sig nature Hemoglobin A1C 6.1 4.3 - 6.1 % [facility] Specimen Blood Narrative Performed At Fasting [facility] Performing Organization Address City/[facility]/Zipcode Phone Number [address] [address] [place] Fasting lipid panel (12/04/2019 5:30 AM CDT) Pathologist Sig nature Triglycerides 77 mg/dL [facility] Cholesterol 162 mg/dL [facility] [place] HDL 48 mg/dL [facility] [place] LDL Calculated 99 mg/dL [facility] Specimen Blood Narrative Performed At Triglyceride Reference Range: [facility] Low Risk <150 Borderline 150-199 High Risk 200-499 Very High Risk >=500 Cholesterol Reference Range: Low Risk <200 Borderline 200-239 High Risk >240 HDL Cholesterol Reference Range: Low Risk >=60 High Risk <40 LDL Cholesterol Reference Range: Optimal <100 Near Optimal 100-129 Borderline 130-159 High 160-189 Very High >=190 Red Leader ID - ELEN L Performing Organization Address [facility] Phone Number [facility] [address] [place] [address] [place] Basic Metabolic Panel (12/04/2019 5:30 AM CDT) Sodium 136 136 - 145 [facility] meq/L [facility] Potassium 4.2 3.5 - 5.1 [facility] meq/ON LICENSE OF [facility] Chloride 102 98 - 107 meq/L [facility] CO2 27 22 - 29 meq/L [facility] BUN 15 7 - 21 mg/dL [facility] Creatinine 0.87 0.57 - 1.25 [facility] mg/dL [facility] Glucose 112 (H) 70 - 105 mg/dL [facility] Calcium 9.5 8.4 - 10.2 [facility] mg/dL [facility] EGFR Comment: INSUFFICIENT [facility] CLINICAL DATA TO [facility] ESTIMATED CENTER GFR. Specimen Blood Narrative Performed At Red Leader ID - PIAYA L [facility] Performing Organization Address City/[facility] Cliniccomo Phone Number [address] [address] [place] MR brain without IV contrast (12/03/2019 6:50 PM CDT) Specimen Narrative Performed At FINAL REPORT [facility] EXAM: MR, BRAIN, WITHOUT CONTRAST CLINICAL INDICATION: Stroke. TECHNIQUE: Sagittal and coronal T1-w and axial T2-FLAIR, GRE, fat-saturated T2-w, and diffusion-w imag es of the brain with ADC maps. COMPARISON: None. FINDINGS: Parenchyma: No infarction on DWI. No hem orrhage. No mass or mass effect. Scattered foci of T2 hyperintens ity are present in the cerebral white matter that are nonspecif ic but compatible with mild chronic microvascular ischemic changes. Extra-axial Collection: None Ventricular System: Normal Major Intracranial Flow Voids: Normal Osseous Structures: Expected marrow si gnal. Included Orbits: Normal Paranasal Sinuses: Predominantly clear Tympanomastoid Cavities: Normal IMPRESSION: 1. No acute intracranial infarction, hem orrhage, or mass. 2. Mild chronic small vessel ischemic ch anges. Signed: Khang Baron MD Report Verified Date/Time: 12/03/2019 19:10:12 Procedure Note Interface, External Ris In - 12/03/2019 7:13 PM CDT FINAL REPORT EXAM: MR, BRAIN, WITHOUT CONTRAST CLINICAL INDICATION: Stroke. TECHNIQUE: Sagittal and coronal T1-w and axial T2-FLAIR, GRE, fat-saturated T2-w, and diffusion-w imag es of the brain with ADC maps. COMPARISON: None. FINDINGS: Parenchyma: No infarction on DWI. No hem orrhage. No mass or mass effect. Scattered foci of T2 hyperintens ity are present in the cerebral white matter that are nonspecif ic but compatible with mild chronic microvascular ischemic changes. Extra-axial Collection: None Ventricular System: Normal Major Intracranial Flow Voids: Normal Osseous Structures: Expected marrow sig nal. Included Orbits: Normal Paranasal Sinuses: Predominantly clear Tympanomastoid Cavities: Normal IMPRESSION: 1. No acute intracranial infarction, hem orrhage, or mass. 2. Mild chronic small vessel ischemic ch anges. Signed: Khang Baron MD Report Verified Date/Time: 12/03/2019 1 9:10:12 Performing Organization Address City/State/Zipcode Phone Number [facility] SARS-CoV2/RT-PCR (Asymptomatic ONLY) (12/03/2019 12:23 PM CDT) SARS-COV2/RT-PCR Negative Not Detected, [facility] Negative, See [facility] external report CENTER for linked test SARS-COV-2 [facility] ADÁN [facility] PERFORMING LAB [facility] Specimen Other - Nasopharyngeal wall structure (b cyrus structure) Narrative Performed At Negative result for this test determines that [facility] SARS-CoV-2 RNA was not present in the specimen above the Limit of Detection (LOD). However, Negative results do not preclude SARS-CoV-2 infection and should not be used as the sole basis for treatment or patient management decisions. Negative results must be combined with clinical observations, patient history, and epidemiological information. A false negative result may occur if a specimen is improperly collected, transported or handled. A false negative result should be considered if patient's recent exposures or clinical presentation indicate that COVID-19 (SARS-CoV-2) is likely and diagnostic tests for other causes of illness are negative. Re-testing should be considered in cases of suspected false negatives. The limit of detection for this assay is 800 copies/mL. This SARS CoV-2 test is a real-time RT-PCR test intended for the qualitative detection of nucleic acid from SARS-CoV-2 in a nasopharyngeal swab specimen collected from individuals suspected of COVID-19 by their healthcare provider. This test has not been Food and Drug Administration (FDA) cleared or approved. This is a modified version of an approved Emergency Use Authorization (EUA) and is in the process of review by the FDA. Once authorized by the FDA, the issued EUA will be effective until the declaration that circumstances exist justifying the authorization of the emergency use of in vitro diagnostic tests for detection and/or diagnosis of COVID-19 is terminated under Section 564(b)(2) of the Act or the EUA is revoked under Section 564(g) of the Act. Fact Sheet for Healthcare Providers: https://www.mDialog.com/sites/default/files/pro duct/documents/Fact_Sheet_HC_Providers_Lyra_SA RS-CoV-2.pdf Fact Sheet for Healthcare Patients: https://www.mDialog.com/sites/default/files/pro duct/documents/Fact_Sheet_Patients_Lyra_SARS-C oV-2.pdf Performing Laboratory: [facility] [address] [place] [address] Performing Organization Address City/State/Zipcode Phone Number [facility] [address] [place] [address] CENTER PT/aPTT (12/03/2019 12:23 PM CDT) Pathologist Sig nature Protime 13.2 11.9 - 14.2 seconds [facility] INR 1.03 <=5.90 [facility] PTT 29.1 22.5 - 36.0 seconds [facility] Specimen Blood Narrative Performed At Effective 09/01/2018: PT Reference Range [facility] Change New: 11.9-14.2 Previous: 11.7-14.7 RECOMMENDED COUMADIN/WARFARIN INR THERAPY RANGES STANDARD DOSE: 2.0-3.0 Includes: PROPHYLAXIS for venous thrombosis, systemic embolization; TREATMENT for venous thrombosis and/or pulmonary embolus. HIGH RISK: Target INR is 2.5-3.5 for patients wiht mechanical heart valves. Performing Organization Address [facility]/Zipcode Phone Number [facility] [address] [place] [address] [place] Comprehensive metabolic panel (12/03/2019 12:23 PM CDT) Protein, Total 7.4 6.0 - 8.3 [facility] gm/dL [facility] Albumin 4.0 3.5 - 5.0 [facility] g/dL [facility] Alkaline 96 40 - 150 U/L [facility] Phosphatase [facility] Total Bilirubin 0.5 0.2 - 1.2 [facility] mg/dL [facility] Sodium 136 136 - 145 [facility] meq/L [facility] Potassium 4.0 3.5 - 5.1 [facility] meq/L [facility] Chloride 102 98 - 107 [facility] meq/L [facility] CO2 27 22 - 29 [facility] meq/L [facility] BUN 17 7 - 21 mg/dL [facility] Creatinine 0.83 0.57 - 1.25 [facility] mg/dL [facility] Glucose 96 70 - 105 [facility] mg/dL [facility] Calcium 9.5 8.4 - 10.2 [facility] mg/dL [facility] AST 12 5 - 34 U/L [facility] ALT 13 6 - 55 U/L [facility] EGFR Comment: [facility] CLINICAL DATA TO MEDICAL CENTER CALCULATE ESTIMATED GFR. Specimen Blood Narrative Performed At [facility] Performing Organization Address City/State/Zipcode Phone Number [facility] [address] [place] [address] CENTER after 03/07/2019 Insurance Payer Benefit Plan / Subscriber ID Effective Phone Address T ype Group Dates CIGNA CIGNA [id number] 2018-Pre [facility] ALL sent Contracted Advance Directives For more information, please contact: [phone] Code Status Date Activated Date Inactivated Comments Full Code 12/03/2019 12:21 PM 12/04/2019 3:35 PM This code status was determined by: Patient
--- OUTSIDE RECORDS SUMMARY | 2020-03-07 08:42 | XMS REPORT ---
:1950 Author Organization [facility] Address [address] [place] [address] Care Team Providers Name Role Phone Ashish Del Angel Unavailable [phone] PROBLEMS Type Condition ICD9-CM [id number] Onset Condition SNOMED Code Notes Code Code Dates Status Problem Body mass index Z68.41 Active 819177423 (BMI) of 40.0-44.9 in adult Problem Pain, joint, M25.562 Active 02240436 knee, left Problem Sciatica of left M54.32 Active 83293375 side Problem Primary M17.11 Active 652465952000589 osteoarthritis of right knee Problem Primary M17.12 Active 695670619327952 osteoarthritis of left knee Problem Morbid (severe) E66.01 Active 071555687 obesity due to excess calories Problem Pain, joint, M25.561 Active 27055657 knee, right ALLERGIES No Known Allergies ENCOUNTERS from 1950 to 2020-01-18 Encounter Location Date Provider Diagnosis [facility] [address] Jan, [place] [facility] [place] [address] IMMUNIZATIONS Vaccine Route Administration Date Status Hyalgan 20 mg Unknown September 09, 2018 Administered Hyalgan 20 mg Unknown September 09, 2018 Administered Bupivicaine [place] Unknown Dec 08, 2017 Administered Bupivicaine [place] Unknown Dec 08, 2017 Administered Hyalgan 20 mg Unknown August 26, 2018 Administered Hyalgan 20 mg Unknown September 02, 2018 Administered Hyalgan 20 mg Unknown September 02, 2018 Administered LIDOCAINE HCL 10MG/ML Unknown August 26, 2018 Administer ed Hyalgan 20 mg Unknown August 26, 2018 Administered Depo Medrol (40mg) Unknown Dec 08, 2017 Administered Depo Medrol (40mg) Unknown Dec 08, 2017 Administered LIDOCAINE HCL 10MG/ML Unknown September 09, 2018 Administer ed LIDOCAINE HCL 10MG/ML Unknown September 09, 2018 Administer ed LIDOCAINE HCL 10MG/ML Unknown September 02, 2018 Administer ed LIDOCAINE HCL 10MG/ML Unknown September 02, 2018 Administer ed LIDOCAINE HCL 10MG/ML Unknown August 26, 2018 Administer ed SOCIAL HISTORY Tobacco Use: Social History Observation Description Date Details (start date - stop date) Never Smoker Sex Assigned At : Social History Observation Description Sex Assigned At Unknown Alcohol Screen Question Answer Notes Did you have a drink containing alcohol in the past year? No Points 0 Interpretation Negative Tobacco Use/Smoking Question Answer Notes Are you a never smoker Additional Findings: Tobacco Non-User Current non-smoker REASON FOR REFERRAL No Information VITAL SIGNS No information MEDICATIONS Medication SIG (Take, Route, Frequency, Start Date End Date Status Duration) Co Q 10 100 MG 1 capsule with a meal Orally Active Once a day for 30 day(s) Metformin HCl 500 MG 1 tablet with a meal Orally Once Active a day for 30 day(s) Metoprolol Tartrate 50 MG 1 tablet with food Orally Twice Active a day for 30 day(s) atorvastatin 20mg 1 tablet by mouth at bedtime Active L76-Klzhfu 1 MG as directed Orally Active Lisinopril 20 MG 1 tablet Orally Once a day for Active 30 day(s) PROCEDURES No Information RESULTS No Results REASON FOR VISIT MRI-TKA MEDICAL (GENERAL) HISTORY Type Description Date Medical History blood thinner Medical History diabetes Medical History HBP Surgical History hand Surgical History tubal Surgical History wrist-cyst removed Hospitalization History No Hospitalization history informati on Goals Section No Information Health Concerns No Information MEDICAL EQUIPMENT No Information MENTAL STATUS No Information FUNCTIONAL STATUS No Information ASSESSMENTS No Information PLAN OF TREATMENT No Information Insurance Providers Payer Name Payer Payer Insured Patient Coverage Coverage End Address Phone Name Relationship to Start Date [place] e Insured [employer] [phone] [place] [id number] [employer] [facility] [place] Replace [id number]
--- OUTSIDE RECORDS SUMMARY | 2020-03-07 08:42 | XMS REPORT | Continuity of Care Document ---
:1950 Author Organization [facility] t Address [address] [place] [address] Care Team Providers Name Role Phone Marybeth Argueta DO Attending Clinician Prerna CHICAS Attending Clinician MARYBETH ARGUETA Attending Clinician Unavailable PRERNA Admitting Clinician Unavailable Payers Payer Name Policy Type Policy Effective Date Expiration Date Sour ce Number CIGNA [id number] 2018 [facility] FargoSPRINGCIGNA 00:00:00 - Medic [facility] [id number] 2018-Pr esentMaps Contracted Problems Condition Condition Condition Status Onset Resolution Last Treating Co mments Source Name Details Category Date Date Treatment Clinician Date TIA TIA Disease Active [facility] (transient (transient 12-03 Priya kes - ischemic ischemic 00:00: Medica l attack) attack) 00 Center Cerebral Cerebral Disease Active [facility] infarction infarction 8 Priya kes - , , 00:00: Medical unspecifie unspecifie 00 Ce nter d d mechanism mechanism Allergies, Adverse Reactions, Alerts Allergy Allergy Status Severity Reaction(s) Onset Inactive Treating Comm ents Source Name Type Date Date Clinician Varicell Propensi Active Swelling, Lui, [facility] a-Zoster ty to Other (See 12-02 FEVER, [place] s - Ge-As01b adverse Comments) 00:00: rash Medi isaías (Pf) reaction 00 Center s Family History Family Member Diagnosis Comments Start Date Stop Date Source Natural father Diabetes [facility] Natural [facility] Natural sister Stroke [facility] Social History Social Habit Start Date Stop Date Quantity Comments Source History SDOH [facility] - Alcohol Std Drinks Medica l Center History SDOH [facility] - Alcohol Binge Medical Luis ter Sex Assigned At [facility] [place] Tobacco use and 2019-12-03 2019-12-03 Never used [facility] kes - exposure 00:00:00 00:00:00 Medical Center Alcohol intake 2019-12-03 2019-12-03 Current [facility] - 00:00:00 00:00:00 non-drinker of Medical Ce nter alcohol (finding) History SDCA 2019-12-03 2019-12-[address] [facility] - Alcohol Frequency 00:00:00 00:00:00 [facility] Smoking Status Start Date Stop Date Source Never smoker [facility] M edical [place] Medications Ordered Filled Start Stop Current Ordering Indication Dosage Frequency Signature Comments Components Source Medication Medication Date Date Medication? Clinician (SIG) Name Name coenzyme 2020-0 Yes [address] [address] [id number] 8-30 with a [facility]ukes - E (CO Q-10, 13:35: meal Medica l WITH VIT 53 Center E,) 100-5 mg-unit Cap mecobalamin 2020-[address] , vitamin 8-30 directed Lukes - B12, (B12 13:35: Medical ACTIVE) 53 Center 1,000 mcg Chew aspirin 81 2020-0 Yes 81mg Take [address] MG chewable 8-30 by mouth. Norbert es - tablet 13:35: Medical 53 Center albuterol 2020-0 Yes 2{puff} Inhale [address] HFA 8-30 puffs by [facility]ukes - (VENTOLIN 13:35: mouth via Med ical HFA) 90 53 inhaler. Center mcg/actuati on inhaler cholecalcif 2020-0 Yes 2100U Take 2,[address] barber, 8-30 Units by Lukes - vitamin D3, 13:35: mouth once Medical 50 mcg 53 every 2 Center (2,000 weeks. unit) Cap ascorbic 2020-0 Yes 500mg QD Take [address] acid, 8-30 mg by Lukes - vitamin C, 13:35: mouth Medica l (ASCORBIC 53 daily. Center ACID WITH NITA HIPS) 500 MG tablet atorvastati 2020- No 40mg QD Take [address] n (LIPITOR) 8-30 08-30 tablet (40 L ukes - 40 MG 00:00: 23:59 mg total) Medica l tablet 00 :00 by mouth Center nightly. lisinopril- Yes 1{tbl} Q.5D Take [address] hydroCHLORO 8-24 tablet by Norbert es - thiazide 00:00: mouth 2 Medica l (PRINZIDE,Z 00 (two) Center ESTORETIC) times 20-12.5 mg daily. per tablet oxybutynin Yes 5mg QD Take [address] (DITROPAN-X 8-21 by mouth Luke s - L) 5 MG 24 00:00: daily. Medic al hr tablet 00 Center metFORMIN Yes 500mg Q.5D Take [address] (GLUCOPHAGE 6-16 mg by Lukes - ) 500 MG 00:00: mouth 2 Medica l tablet 00 (two) Center times daily. LIVALO 2 mg 2019- No QD Take by [facility] Tab tablet 6-15 -30 mouth Lukes - 00:00: 00:00 daily. Medical 00 :00 Center metoprolol Yes 50mg Q.5D Take [address] tartrate 6-11 by mouth 2 Lukes - (LOPRESSOR) 00:00: (two) Medic al 50 MG 00 times Center tablet daily. levothyroxi 0 Yes 75ug QD Take [address] ne 6-11 mcg by Lukes - (SYNTHROID, 00:00: mouth Medic al LEVOTHROID) 00 daily. Center 75 MCG tablet ibuprofen 2019- No 800mg Q.[id number] Take [address] (ADVIL,MOTR 5-22 08-30 [id number] mg by Lukes - IN) 800 MG 00:00: 00:00 3D mouth 3 Med ical tablet 00 :00 (three) Center times daily. atorvastati atorvastati Yes Ashish [address] [facility] n [place] by mouth [facility] - at bedtime [facility] [id number] Yes Ashish as [facility] [place] directed [facility] Co Q 10 Co Q 10 Yes Ashish [address] [place] with a [facility]ukes - meal [facility] Lisinopril Lisinopril Yes Ashish [address] [facility] [place] [facility] Metoprolol Metoprolol Yes Ashish [address] Tartrate Tartrate [place] with food Priya s [facility] Metformin Metformin Yes Ashish [address] HCl HCl [place] with a [facility]ukes - meal [facility] Vital Signs Vital Name Observation Time Observation Value Comments Source Systolic blood 2019-12-04 10:38:00 151 mm[Hg] [facility] Diastolic blood 2019-12-04 10:38:00 63 mm[Hg] [facility] Heart rate 2019-12-04 10:38:00 62 /min [facility] Body temperature 2019-12-04 10:34:00 35.94 Yara [facility] Respiratory rate 2019-12-04 10:34:00 16 /min [facility] Oxygen saturation in 2019-12-04 10:34:00 96 /min [facility] Arterial blood by Medical Ce nter Pulse oximetry Body height 2019-12-03 11:49:00 154.9 cm [facility] Body weight 2019-12-03 11:49:00 97.07 kg [facility] BMI 2019-12-03 11:49:00 40.43 kg/m2 [facility] Procedures Procedure Date / Time Performed Performing Clinician [facility] REPORT OF PROCEDURE - 2019-12-16 15:20:14 Provider, Default [facility] ENDOSCOPY SCAN Scanning [facility] RHYTHM STRIP - SCAN 2019-12-05 14:04:10 Provider, Default [facility] REPORT OF PROCEDURE - 2019-12-05 14:04:07 Provider, Default [facility] ENDOSCOPY SCAN [facility] 2D ECHO W/ DOPPLER 2019-12-04 09:07:19 Dwain Fernández [facility] (CW/PW/COLOR) [facility] POCT-GLUCOSE METER 2019-12-04 08:34:00 Prerna [facility] LIPID PANEL 2019-12-04 05:30:00 Prerna [facility] HEMOGLOBIN A1C 2019-12-04 05:30:00 Prerna [facility] BASIC METABOLIC PANEL (7) 2019-12-04 05:30:00 Dwain Fernández I [facility] TSH/FREE T4 IF INDICATED 2019-12-04 05:30:00 Prerna [facility] CBC W/PLT COUNT & AUTO 2019-12-04 05:30:00 Prerna [facility] POCT-GLUCOSE METER 2019-12-03 21:38:00 Prerna [facility] MR BRAIN WITHOUT IV 2019-12-03 18:50:00 Prerna [facility] SARS-COV2/RT-PCR ([facility] & 2019-12-03 12:23:00 Pepe Argueta [facility] - REF LABS) [facility] PT/APTT 2019-12-03 12:23:00 [place] [facility] COMPREHENSIVE METABOLIC 2019-12-03 12:23:00 Pepe Argueta [facility] CBC W/PLT COUNT & AUTO 2019-12-03 12:23:00 [place] [facility] Plan of Care Planned Activity Planned Date Details Comments Source Future Scheduled 2019-12-06 INFLUENZA VACCINE (#1) [facility] 00:00:00 [code = INFLUENZA Medical Ce nter VACCINE (#1)] Future Scheduled 2019-04-[address] [facility] - Test 00:00:00 WELLNESS (YEAR 2 or Medical Center FIRST YEAR if no IPPE) [code = MEDICARE ANNUAL WELLNESS (YEAR 2 or FIRST YEAR if no IPPE)] Future Scheduled 2016-09-26 PNEUMOCOCCAL 65+ [facility] - Test 00:00:00 (1 of 1 - Medical Center [id number] PCV13) [code = PNEUMOCOCCAL 65+ YRS (1 of 1 - [id number] PCV13)] Future Scheduled [address] [facility] - Test 00:00:00 malignant [facility] breast (procedure) [code = 513615426] Future Scheduled [address] [facility] - Test 00:00:00 malignant neoplasm of [facility] colon (procedure) [code = 165872793] Encounters Start End Encounter Admission Attending Care Care Encounter Source Date/Time Date/Time Type Type Clinicians Facility Department ID 2020-02-28 2020-02-28 Outpatient [facility] [id number] [facility] 2020-01-12 2020-01-12 Outpatient [facility] [id number] [facility] 2019-08-23 2019-08-23 [facility] [id number] 13:26:00 13:26:00 [facility] 2019-06-15 2019-06-15 [facility] [id number] 12:32:00 12:32:00 [facility] 2019-05-19 2019-05-19 [facility] [id number] 11:00:00 11:00:00 [facility] 2018-07-27 2018-07-27 [facility] [id number] 10:00:00 10:00:00 [facility] 2017-12-08 2017-12-08 [facility] [id number] 08:30:00 08:30:00 [facility] 2017-11-30 2017-11-30 [facility] [id number] 09:30:00 09:30:00 t [facility] Clinics Results Test Description Test Time Test Comments Results Result Comments Source 2D Echo W/Doppler(CW/PW/Color) 2019-12-04 16:49:51 Test Item Value Reference Range Interpretation Comme nts Ejection Fraction (test code = ssment is normal (55-60% 2574) PXN (test code = PXN) Interface, External Ris In - 12/04/2019 4:50 PM CDTTransthoracic Echocardiography Report (TTE) Demographics Patient Name ESCALANTE, Date of Study 12/04/2019 ARSENIO Gender Female Visit Number [id number] Race Unknown Room Number 2242 Number Date of 1950 Referring Physician Dwain Fernández Age 69 year(s) [employer] Supervisor Fredrick Carrasco [facility] Interpreting Lacey Pitt Physician Procedure Type of Study TTE procedure:2DECHO W DOPPLER(CW/PW/COLOR) (Routine) Indications:Suspected cardiac source of emboli.Clinical HistoryDiabetesHyperlipidemiaHypertensionThyroid diseaseHGB 12HCT 38.8 %Contrast Medium: Definity. Amount - 2 mlHeight: 61 inches Weight: 97.07 kg (214 lbs) BSA: 1.94 m^2 BMI: 40.43 kg/m^2HR: 57 bpm BP: 149/63 mmHg Summary 1. [...] Previous Study No prior studies available for comparison. Signature Findings Rhythm/BP Regular sinus rhythm during the exam. Left The left ventricle is chamber size (by vol index) is normal Ventricle (female - LVED vol - 29-61ml/m2). All of the LV segments contract normally . Global LV systolic function normal . Estimated LVEF by qualitative assessment is normal (55-60%) . Grade 1 diastolic dysfunction (impaired relaxation and low-normal LA pressure). Left Atrium LA size is normal (16-34 ml/m2) . Right The right ventricular chamber size and systolic function are Ventricle within normal limits. Right Atrium RA size is normal. Atrial IV saline contrast injection was negative for, demostrates a Septum PFO (patent foramen ovale) at rest and post Valsalva . Aortic Valve Normal AoV structure and function. Mild aortic regurgitation. Mitral Valve Normal MV structure. Trace mitral regurgitation. Tricuspid TV structure is normal. Valve A [...] Diameter: 1.71 cm LVOT Area: 2.3 cm^2 [facility]-Glucose [id number] 08:45:00 Test Item Value Reference Range Interpretation Comments POC-Glucose Meter (test 113 mg/dL 70-110 H : TE STED AT [facility] code = 1538) [address] [facility], 770 30: [employer]ile[employer] Cr[employer] Operator/Techni krista ID = [id number] for Yaquelin Hoyt Lab Interpretation (test Abnormal code = 85652-6) [facility] [id number] 08:45:00 Test Item Value Reference Range Interpretation Comments POC-GLUCOSE METER 113 mg/dL 70-110 H : [facility] (BEAKER) (test code = CHRISQUENTIN R [facility], 1538) [address]: [employer] Cr[employer] Operator/Techni krista ID = [id number] for Sm Yaquelin lai Hemoglobin A1c - [id number] 07:52:00 Test Item Value Reference Range Interpretation Comments Hemoglobin A1C (test code = 4548-4) 6.1 % 4.3-6.1 REJI (test code = REJI) Fasting Lab Interpretation (test code = Normal 20030-5) [facility]MO[facility] [id number] 07:52:00 Test Item Value Reference Range Interpretation Comments HEMOGLOBIN A1C (BEAKER) (test code = 6.1 % 4.3-6.1 368) FastingTSH/Free T4 If [id number] 06:43:00 Test Item Value Reference Range Interpretation Comments TSH (test code = 0.547 0.350- 4.940 uIU/mL 20776-7) REJI (test code = REJI) [employer] Operator ID - CARLOSAYA L Lab Interpretation (test Normal code = 61468-6) [facility]/FREE T4 IF [id number] 06:43:00 Test Item Value Reference Range Interpretation Comments THYROID STIMULATING HORMONE 0.547 uIU/mL 0.350-4.940 (BEAKER) (test code = 772) [employer] Operator ID - PIAYA LBasic Metabolic [id number] 06:33:00 Test Item Value Reference Range Interpretation Comments Sodium (test code = 136 meq/L 785-848 4584-2) Potassium (test code 4.2 meq/L 3.5-5.1 = 2823-3) Chloride (test code = 102 meq/L 98-107 2075-0) CO2 (test code = 27 meq/L 22-29 8-9) BUN (test code = 15 mg/dL 7-21 3094-0) Creatinine (test code 0.87 mg/dL 0.57-1.25 = 2160-0) Glucose (test code = 112 mg/dL 70-105 H 2345-7) Calcium (test code = 9.5 mg/dL 8.4-10.2 45690-8) EGFR (test code = [place] [address]-7) CLINICAL DATA T O CALCULATE ESTIMATED GFR. REJI (test code = REJI) [employer] Operator ID - PIAYA L Lab Interpretation Abnormal (test code = 09540-9) [facility] METABOLIC [id number] 06:33:00 Test Item Value Reference Range Interpretation Comments SODIUM (BEAKER) (test 136 meq/L 136-145 code = 381) POTASSIUM (BEAKER) 4.2 meq/L 3.5-5.1 (test code = 379) CHLORIDE (BEAKER) 102 meq/L 98-107 (test code = 382) CO2 (BEAKER) (test 27 meq/L 22-29 code = 355) BLOOD UREA NITROGEN 15 mg/dL 7-21 (BEAKER) (test code = 354) CREATININE (BEAKER) 0.87 mg/dL 0.57-1.25 (test code = 358) GLUCOSE RANDOM 112 mg/dL 70-105 H (BEAKER) (test code = 652) CALCIUM (BEAKER) 9.5 mg/dL 8.4-10.2 (test code = 697) EGFR (BEAKER) (test INSUFFIC IENT CLINICAL code = 1092) DATA TO CALCULA TE ESTIMATED GFR. [employer] Operator ID - PIAYA LFasting lipid [id number] 06:31:00 Test Item Value Reference Range Interpretation Comments Triglycerides (test 77 mg/dL code = 2571-8) Cholesterol (test code 162 mg/dL = 2093-3) HDL (test code = 48 mg/dL 5-9) LDL Calculated (test 99 mg/dL code = 50122-4) REJI (test code = REJI) Triglyceride Reference Range: Low Risk <150 Borderline 150-199 High Risk 200-499 Very High Risk >=500 Cholesterol Reference Range: Low Risk <200 Borderline 200-239 High Risk >240 HDL Cholesterol Reference Range: Low Risk >=60 High Risk <40 LDL Cholesterol Reference Range: Optimal <100 Near Optimal 100-129 Borderline 130-159 High 160-189 Very High >=190 [employer]ile[employer] Cr[employer] Operator ID - PIAYA L [facility] [id number] 06:31:00 Test Item Value Reference Range Interpretation Comments TRIGLYCERIDES (BEAKER) (test code = 77 mg/dL 540) CHOLESTEROL (BEAKER) (test code = 162 mg/dL 631) HDL CHOLESTEROL (BEAKER) (test code 48 mg/dL = 976) LDL CHOLESTEROL CALCULATED (BEAKER) 99 mg/dL (test code = 633) Triglyceride Reference Range: Low Risk <150 Borderline 150-199 High Risk 200-499 Very High Risk >=500Cholesterol Reference Range: Low Risk <200 Borderline 200-239 High Risk >240HDL Cholesterol Reference Range: Low Risk >=60 High Risk <40LDL Cholesterol Reference Range: Optimal <100 Near Optimal 100-129 Borderline 130-159 High 160-189 Very High >=190 Cantilever Cr[employer] Operator ID - PIAYALCBC with platelet count + automated diff 2019-12-04 06:25:00 Test Item Value Reference Range Interpretation Comments WBC (test code = 6690-2) 5.3 3.5- 10.5 K/L RBC (test code = 789-8) 4.17 3.93- 5.22 M/L MCHC (test code = 786-4) 30.9 32.2- 35.5 GM/DL L Hematocrit (test code = 4544-3) 38.8 % 34.1-44.9 MCV (test code = 787-2) 93.0 fL 79.4-94.8 MCH (test code = 785-6) 28.8 pg 25.6-32.2 RDW (test code = 788-0) 13.9 % 11.7-14.4 Platelets (test code = 777-3) 165 150- 450 K/CU MM MPV (test code = 83758-0) 10.9 fL 9.4-12.3 nRBC (test code = 413) 0 0- 0 /100 WBC % Neutros (test code = 429) 39 % % Lymphs (test code = 430) 52 % % Monos (test code = 431) 6 % % Eos (test code = 432) 2 % % Baso (test code = 437) 0 % # Neutros (test code = 670) 2.09 1.56- 6.13 K/L # Lymphs (test code = 414) 2.74 1.18- 3.74 K/L # Monos (test code = 415) 0.32 0.24- 0.36 K/L # Eos (test code = 416) 0.13 0.04- 0.36 K/L # Baso (test code = 417) 0.02 0.01- 0.08 K/L Immature Granulocytes-Relative 0 % 0-1 (test code = 2801) Lab Interpretation (test code = Abnormal 21409-9) [facility] W/PLT COUNT & AUTO [id number] 06:25:00 Test Item Value Reference Range Interpretation Comments WHITE BLOOD CELL COUNT (BEAKER) 5.3 K/ L 3.5-10.5 (test code = 775) RED BLOOD CELL COUNT (BEAKER) 4.17 M/ L 3.93-5.22 (test code = 761) HEMOGLOBIN (BEAKER) (test code = 12.0 GM/DL 11.2-15.7 410) HEMATOCRIT (BEAKER) (test code = 38.8 % 34.1-44.9 411) MEAN CORPUSCULAR VOLUME (BEAKER) 93.0 fL 79.4-94.8 (test code = 753) MEAN CORPUSCULAR HEMOGLOBIN 28.8 pg 25.6-32.2 (BEAKER) (test code = 751) MEAN CORPUSCULAR HEMOGLOBIN CONC 30.9 GM/DL 32.2-35.5 L (BEAKER) (test code = 752) RED CELL DISTRIBUTION WIDTH 13.9 % 11.7-14.4 (BEAKER) (test code = 412) PLATELET COUNT (BEAKER) (test 165 K/CU MM 150-450 code = 756) MEAN PLATELET VOLUME (BEAKER) 10.9 fL 9.4-12.3 (test code = 754) NUCLEATED RED BLOOD CELLS 0 /100 WBC 0-0 (BEAKER) (test code = 413) NEUTROPHILS RELATIVE PERCENT 39 % (BEAKER) (test code = 429) LYMPHOCYTES RELATIVE PERCENT 52 % (BEAKER) (test code = 430) MONOCYTES RELATIVE PERCENT 6 % (BEAKER) (test code = 431) EOSINOPHILS RELATIVE PERCENT 2 % (BEAKER) (test code = 432) BASOPHILS RELATIVE PERCENT 0 % (BEAKER) (test code = 437) NEUTROPHILS ABSOLUTE COUNT 2.09 K/ L 1.56-6.13 (BEAKER) (test code = 670) LYMPHOCYTES ABSOLUTE COUNT 2.74 K/ L 1.18-3.74 (BEAKER) (test code = 414) MONOCYTES ABSOLUTE COUNT (BEAKER) 0.32 K/ L 0.24-0.36 (test code = 415) EOSINOPHILS ABSOLUTE COUNT 0.13 K/ L 0.04-0.36 (BEAKER) (test code = 416) BASOPHILS ABSOLUTE COUNT (BEAKER) 0.02 K/ L 0.01-0.08 (test code = 417) IMMATURE GRANULOCYTES-RELATIVE 0 % 0-1 PERCENT (BEAKER) (test code = 2801) POCT-GLUCOSE [id number] 21:50:00 Test Item Value Reference Range Interpretation Comments POC-GLUCOSE METER 108 mg/dL 70-110 : TESTED A T [facility] 6720 (BEAKER) (test code = ANDRES Obrien [facility], 1538) [address]: [employer]ile[employer] Crane Operator/Techni krista ID = [id number] for DE NNIS, NITA MR, BRAIN, WITHOUT [id number] 19:10:00Unlisted Reason for Exam - Click Yes and Enter Reason Below->NoFINAL REPORT EXAM: MR, BRAIN, WITHOUT CONTRAST CLINICAL INDICATION: Stroke. TECHNIQUE: Sagittal and coronal T1-w and axial T2-FLAIR, GRE, fat-saturated T2-w, and diffusion-w images of the brain with ADC maps. COMPARISON: None. FINDINGS:Parenchyma: No infarction on DWI. No hemorrhage. No mass or mass effect. Scattered foci of T2 hyperintensity are present in the cerebral whitematter that are nonspecific but compatible with mild chronic microvascular ischemic changes. Extra-axial Collection: None Ventricular System: Normal Major Intracranial Flow Voids: Normal Osseous Structures: Expected marrow signal. Included Orbits: Normal Paranasal Sinuses: Predominantly clear Tympanomastoid Cavities: Normal IMPRESSION: 1. No acute intracranial infarction, hemorrhage, or mass. 2. Mild chronic small vessel ischemic changes. Signed: Khang Baron MDReport Verified Date/Time: 12/03/2019 19:10:12 MR brain without IV [id number] 19:10:00 Interface, External Ris In - 12/03/2019 7:13 PM CDTFINAL REPORT EXAM: MR, BRAIN, WITHOUT CONTRAST CLINICAL INDICATION: Stroke. TECHNIQUE: Sagittal and coronal T1-w and axial T2-FLAIR, GRE, fat-saturated T2- w, and diffusion-w images of the brain with ADC maps. COMPARISON: None. FINDINGS:Parenchyma: No infarction on DWI. No hemorrhage. No mass or mass effect. Scattered foci ofT2 hyperintensity are present in the cerebral white matter that are nonspecific but compatible with mild chronic microvascular ischemic changes. Extra-axial Collection: None Ventricular System: Normal Major Intracranial Flow Voids: Normal Osseous Structures: Expected marrow signal. Included Orbits:Normal Paranasal Sinuses: Predominantly clear Tympanomastoid Cavities: Normal IMPRESSION: 1. No acute intracranial infarction, hemorrhage, or mass. 2. Mild chronic small vessel ischemic changes. Signed: Khang Baron MDReport Verified Date/Time: 12/03/2019 19:10:[facility]2019-12-03 18:50:00 Test Item Value Reference Range Interpretation Comments SARS-COV2/RT-PCR Negative Not Detected, (test code = Negative, See 40845-2) external report for linked test SARS-COV-2 [facility] PERFORM[facility] (test code = 07435-2) REJI (test code = Negative result for this REJI) test determines that SARS-CoV-2 RNA was not present in the [...] of the Act. Fact Sheet for Healthcare Providers:https://www.[employer]/sites/default/f ender/product/documents/F act_Sheet_HC_Providers_L quo_AJPY-EfV-2.pdf Fact Sheet for Healthcare Patients:https://www.[employer]/sites/default/fi les/product/documents/Fa ct_Sheet_Patients_Lyra_S ARS-CoV-2.pdf Performing Laboratory:[place] [address] [address]/RT-PCR ([facility])2019-12-03 18:50:00 Test Item Value Reference Range Interpretation Comments SARS-COV2/RT-PCR (test Negative Not Detected, Negative, code = 0382542) See external report for linked test SARS-COV-[address] [facility] (test code = 0535908) Negative result for this test determines that SARS-CoV-2 RNA was not present in the specimen above the Limit of Detection (LOD). However, Negative results do not preclude SARS-CoV-2 infection and should not be used as the sole basis for treatment or patient management decisions. Negative results mustbe combined with clinical observations, patient history, and epidemiological information. A false negative result may occur if a specimen is improperly collected, transported or handled. A false negative result should be considered if patient's recent exposures or clinical presentation indicate that COVID-19 (SARS-CoV-2) is likely and diagnostic tests for other causes of illness are negative. Re-testing should be considered in cases of suspected false negatives.The limit of detection for this assay is 800 copies/mL.This SARS CoV-2 test is a real-time RT-PCR test intended for the qualitative detection of nucleic acid from SARS-CoV-2 in a nasopharyngeal swab specimen collected from individuals susp ected of COVID-19 by their healthcare provider.This test has not been Food and Drug [...] is revoked under Section 564(g) of the Act.Fact Sheet for Healthcare Providers:https://www.Priori Data/sites/default/files/product/documents/Fact_Shee z_KX_Xdsnooyqc_Zfgi_VPBD-WnU-4.pdfFact Sheet for Healthcare Patients:https://www.Priori Data/sites/default/files/product/ documents/Hlke_Utkbl_Wqdudbuc_Zbfl_GDHN-VlH-8.pdfPerforming Laboratory:[facility].[place], [place] [address]Cphnkgrolizgx metabolic [id number] 12:58:00 Test Item Value Reference Range Interpretation Comments Protein, Total 7.4 6.0- 8.3 gm/dL (test code = 2885-2) Albumin (test code 4.0 g/dL 3.5-5 = 40383-3) Alkaline 96 U/L 40-150 Phosphatase (test code = 6768-6) Total Bilirubin 0.5 mg/dL 0.2-1.2 (test code = 1975-2) Sodium (test code = 136 meq/L 875-027 1941-2) Potassium (test 4.0 meq/L 3.5-5.1 code = 2823-3) Chloride (test code 102 meq/L 98-107 = 2075-0) CO2 (test code = 27 meq/L -2027-9) BUN (test code = 17 mg/dL 7- 3094-0) Creatinine (test 0.83 mg/dL 0.57-1.25 code = 2160-0) Glucose (test code 96 mg/dL 70-105 = 2345-7) Calcium (test code 9.5 mg/dL 8.4-10.2 = 38929-0) AST (test code = 12 U/L 5-34 1920-8) ALT (test code = 13 U/L 6-55 1742-6) EGFR (test code = [place] [address]-3) CLINICAL DATA T O CALCULATE ESTIM ATED GFR. REJI (test code = Cantilever Crane Operator ID - REJI) ALEX Dinh [facility] VistaCOMPREHENSIVE METABOLIC [id number] 12:58:00 Test Item Value Reference Range Interpretation Comments TOTAL PROTEIN 7.4 gm/dL 6.0-8.3 (BEAKER) (test code = 770) ALBUMIN (BEAKER) 4.0 g/dL 3.5-5.0 (test code = 1145) ALKALINE PHOSPHATASE 96 U/L 40-150 (BEAKER) (test code = 346) BILIRUBIN TOTAL 0.5 mg/dL 0.2-1.2 (BEAKER) (test code = 377) SODIUM (BEAKER) (test 136 meq/L 136-145 code = 381) POTASSIUM (BEAKER) 4.0 meq/L 3.5-5.1 (test code = 379) CHLORIDE (BEAKER) 102 meq/L 98-107 (test code = 382) CO2 (BEAKER) (test 27 meq/L code = 355) BLOOD UREA NITROGEN 17 mg/dL - (BEAKER) (test code = 354) CREATININE (BEAKER) 0.83 mg/dL 0.57-1.25 (test code = 358) GLUCOSE RANDOM 96 mg/dL 70-105 (BEAKER) (test code = 652) CALCIUM (BEAKER) 9.5 mg/dL 8.4-10.2 (test code = 697) AST (SGOT) (BEAKER) 12 U/L 5-34 (test code = 353) ALT (SGPT) (BEAKER) 13 U/L 6-55 (test code = 347) EGFR (BEAKER) (test INSUFFIC IENT CLINICAL code = 1092) DATA TO CALCULA TE ESTIMATED GFR. Cantilever Crane Operator ID - APR CCBC W/PLT COUNT & AUTO [id number] 12:46:00 Test Item Value Reference Range Interpretation Comments WHITE BLOOD CELL COUNT (BEAKER) 7.0 K/ L 3.5-10.5 (test code = 775) RED BLOOD CELL COUNT (BEAKER) 4.16 M/ L 3.93-5.22 (test code = 761) HEMOGLOBIN (BEAKER) (test code = 12.0 GM/DL 11.2-15.7 410) HEMATOCRIT (BEAKER) (test code = 37.7 % 34.1-44.9 411) MEAN CORPUSCULAR VOLUME (BEAKER) 90.6 fL 79.4-94.8 (test code = 753) MEAN CORPUSCULAR HEMOGLOBIN 28.8 pg 25.6-32.2 (BEAKER) (test code = 751) MEAN CORPUSCULAR HEMOGLOBIN CONC 31.8 GM/DL 32.2-35.5 L (BEAKER) (test code = 752) RED CELL DISTRIBUTION WIDTH 13.8 % 11.7-14.4 (BEAKER) (test code = 412) PLATELET COUNT (BEAKER) (test 177 K/CU MM 150-450 code = 756) MEAN PLATELET VOLUME (BEAKER) 10.4 fL 9.4-12.3 (test code = 754) NUCLEATED RED BLOOD CELLS 0 /100 WBC 0-0 (BEAKER) (test code = 413) NEUTROPHILS RELATIVE PERCENT 47 % (BEAKER) (test code = 429) LYMPHOCYTES RELATIVE PERCENT 46 % (BEAKER) (test code = 430) MONOCYTES RELATIVE PERCENT 6 % (BEAKER) (test code = 431) EOSINOPHILS RELATIVE PERCENT 1 % (BEAKER) (test code = 432) BASOPHILS RELATIVE PERCENT 0 % (BEAKER) (test code = 437) NEUTROPHILS ABSOLUTE COUNT 3.24 K/ L 1.56-6.13 (BEAKER) (test code = 670) LYMPHOCYTES ABSOLUTE COUNT 3.23 K/ L 1.18-3.74 (BEAKER) (test code = 414) MONOCYTES ABSOLUTE COUNT (BEAKER) 0.39 K/ L 0.24-0.36 H (test code = 415) EOSINOPHILS ABSOLUTE COUNT 0.06 K/ L 0.04-0.36 (BEAKER) (test code = 416) BASOPHILS ABSOLUTE COUNT (BEAKER) 0.02 K/ L 0.01-0.08 (test code = 417) IMMATURE GRANULOCYTES-RELATIVE 0 % 0-1 PERCENT (BEAKER) (test code = 2801) [id number] 12:42:00 Test Item Value Reference Range Interpretation Comments Protime (test code = 13.2 11.9- 14.2 5902-2) seconds INR (test code = 1.03 <=5.90 6301-6) PTT (test code = 29.1 22.5- 36.0 39275-4) seconds REJI (test code = REJI) Effective 09/01/2018: PT Reference Range ChangeNew: 11.9-14.2 Previous: 11.7-14.7 RECOMMENDED COUMADIN/WARFARIN INR THERAPY RANGESSTANDARD DOSE: 2.0-3.0 Includes: PROPHYLAXIS for venous thrombosis, systemic embolization; TREATMENT for venous thrombosis and/or pulmonary embolus.HIGH RISK: Target INR is 2.5-3.5 for patients wiht mechanical heart valves. Lab Interpretation Normal (test code = 18137-2) [facility] VistaPT/[id number] 12:42:00 Test Item Value Reference Range Interpretation Comments PROTIME (BEAKER) (test code = 13.2 seconds 11.9-14.2 759) INR (BEAKER) (test code = 370) 1.03 <=5.90 PARTIAL THROMBOPLASTIN TIME 29.1 seconds 22.5-36.0 (BEAKER) (test code = 760) Effective 09/01/2018: PT Reference Range ChangeNew: 11.9-14.2 Previous: 11.7- 14.7RECOMMENDED COUMADIN/WARFARIN INR THERAPY RANGESSTANDARD DOSE: 2.0-3.0 Includes: PROPHYLAXIS for venous thrombosis, systemic embolization; TREATMENT for venous thrombosis and/or pulmonary embolus.HIGH RISK: Target INR is2.5-3.5 for patients wiht mechanical heart valves.
--- OUTSIDE RECORDS SUMMARY | 2020-03-07 08:42 | XMS REPORT ---
:1950 Author Organization [facility] Address [address] [place] [address] Care Team Providers Name Role Phone Ashish Del Angel Unavailable [phone] PROBLEMS Type Condition ICD9-CM [id number] Onset Condition SNOMED Code Notes Code Code Dates Status Problem Body mass index Z68.41 Active 185450054 (BMI) of 40.0-44.9 in adult Problem Pain, joint, M25.562 Active 08082507 knee, left Problem Sciatica of left M54.32 Active 02132045 side Problem Primary M17.11 Active 724298900668245 osteoarthritis of right knee Problem Primary M17.12 Active 330069524664108 osteoarthritis of left knee Problem Morbid (severe) E66.01 Active 707163326 obesity due to excess calories Problem Pain, joint, M25.561 Active 14521242 knee, right ALLERGIES No Known Allergies ENCOUNTERS from 1950 to 2020-03-05 Encounter Location Date Provider Diagnosis [facility] [address] Feb, Ashish Del Angel Pain in joint of left [facility] [address] knee M25.562 and [place], [place] Primary osteoar thritis [address] of left knee M1 7.12 IMMUNIZATIONS Vaccine Route Administration Date Status Hyalgan 20 mg Unknown September 09, 2018 Administered Hyalgan 20 mg Unknown September 09, 2018 Administered Bupivicaine [place] Unknown Dec 08, 2017 Administered Bupivicaine [place] Unknown Dec 08, 2017 Administered Hyalgan 20 [...] REASON FOR REFERRAL No Information VITAL SIGNS Height 60 in Feb, Weight 212 lbs Feb, Temperature 97.3 degrees Fahrenheit Feb, BMI 41.4 kg/m2 Feb, Blood pressure systolic 142 mm Hg Feb, Blood pressure diastolic 82 mm Hg Feb, MEDICATIONS Medication SIG (Take, Route, Notes Start Date End Date Status Frequency, Duration) Metoprolol Tartrate 50 MG 1 tablet with food Active Orally Twice a day for 30 day(s) Albuterol Sulfate HFA Not -Taking Metformin HCl 500 MG 1 tablet with a Active meal Orally Once a day for 30 day(s) [place] 7.5-325 MG 1 PO Q Orally 4-6 Feb, Active HRS PRN PAIN MethylPREDNISolone Not-Ta rad Tramadol HCl Not-Taking Fluticasone Propionate No t-Taking Co Q 10 100 MG 1 capsule with a Acti ve meal Orally Once a day for 30 day(s) Lisinopril 20 MG 1 tablet Orally Act aguilar Once a day for 30 day(s) T94-Watgty 1 MG as directed Orally A ctive Amoxicillin Not-Taking Euthyrox Not-Taking Livalo Not-Taking Eamtxzmzb-Ggtlipke-JM Not -Taking Ibuprofen Not-Taking Cyclobenzaprine HCl Not-T aking Levothyroxine Sodium Acti ve Xarelto 10 MG 1 tablet Orally Feb, Acti ve Once a day for 11 days Methocarbamol Not-Taking atorvastatin 20mg 1 tablet by mouth Active at bedtime Oxybutynin Chloride ER No t-Taking Amoxicillin-Pot Clavulanate Not-Taking PROCEDURES No Information RESULTS No Results REASON FOR VISIT f/u lt knee- discuss tka for 03/07/2020 MEDICAL (GENERAL) HISTORY Type Description Date Medical History blood thinner Medical History diabetes Medical History HBP Medical History hypothyroidism Surgical History hand Surgical History tubal Surgical History wrist-cyst removed Hospitalization History No know Hospitalization history Goals Section No Information Health Concerns No Information MEDICAL EQUIPMENT No Information MENTAL STATUS No Information FUNCTIONAL STATUS No Information ASSESSMENTS Encounter Date Diagnosis Assessment Notes Treatment Notes Treatm ent Clinical Notes Feb, Pain in joint of left knee (ICD-10 - M25.562) Feb, Primary I discussed with the osteoarthritis of patient at length left knee (ICD-10 - her diagnosis and M17.12) treatment plan and she expressed understanding. She has failed conservative treatment measures including corticosteroid/visco supplementation injections, NSAIDs, home exercise program and physical therapy. Her pain causes difficulty with ADLs. We will proceed with a left knee total arthroplasty. I discussed with the patient risks and benefits associated with the procedure at length as well as postoperative rehabilitation and she expressed understanding. PLAN OF TREATMENT Medication Medication Name Sig Start Date Stop Date Xarelto 10 MG 1 tablet Orally Once a day for 11 days Feb, [place] 7.5-325 MG 1 PO Q Orally 4-6 HRS PRN PAIN Feb, Treatment Notes Assessment Notes Clinical Notes Primary osteoarthritis of left knee I discussed with the pat ient at length her diagnosis and treatment plan and she expressed understanding. She has failed conservative treatment measures including corticosteroid/viscosupplementation injections, NSAIDs, home exercise program and physical therapy. Her pain causes difficulty with ADLs.We will proceed with a left knee total arthroplasty. I discussed with the patient risks and benefits associated with the procedure at length as well as postoperative rehabilitation and she expressed understanding. Next Appt Details 2 Weeks Reason:post op Provider Name:Ashish Del Angel, 2020-03-22 1 0:30:00 AM, [address], [place], [address], Follow Up:2 Weekspost op Insurance Providers Payer Name Payer Payer Insured Patient Coverage Coverage End Address Phone Name Relationship to Start Date [employer] [phone] MARION ESCALANTE self [id number] [facility] [place] Replace [phone]
[2020-03-07] MEDS ORDERED: CEFAZOLIN/SWI 2gm 2 GM/20 ML SYR ONE (08:57)
[2020-03-07] MEDS ORDERED: NA CHLORIDE 0.9% 1,000 ML ONE ×2 (08:57→13:44)
[2020-03-07] MEDS ORDERED: FENTANYL CITR 100 MCG/2 ML ONE (09:00)
[2020-03-07] MEDS ORDERED: KETOROLAC 30 MG/ML INJ ONE (09:00)
[2020-03-07] MEDS ORDERED: LIDOCAINE 2% MPF 5 ML VIAL ONE (09:00)
[2020-03-07] MEDS ORDERED: MIDAZOLAM HCL 2 MG/2 ML INJ ONE (09:00)
[2020-03-07] MEDS ORDERED: propofoL 200 MG/20 ML VIAL IV ONE (09:00)
[2020-03-07] MEDS ORDERED: dexAMETHasone 10 MG/ML VIAL ONE (09:00)
[2020-03-07] MEDS ORDERED: NS 0.9% VIAL 20 ML ONE (09:00)
[2020-03-07] MEDS ORDERED: KETAMINE HCL 500 MG/5 ML VIAL ONE (09:01)
[2020-03-07] MEDS ORDERED: ONDANSETRON 4 MG/2 ML VIAL ONE (09:01)
[2020-03-07] MEDS ORDERED: BUPIVACAINE 0.25% PF 10 ML VIAL ONE (09:01)
[2020-03-07] MEDS ORDERED: HYDROMORPHONE HCL 1 MG/ML INJ ONE (11:05)
[2020-03-07] MEDS ORDERED: dexAMETHasone 4 MG/ML VIAL ONE (11:32)
[2020-03-07] MEDS: BUPIVACA 0.5%/EPI 0.0005%/PF 30 ML VIAL ONE ×2 (11:32→13:15)
[2020-03-07] MEDS ORDERED: EPHEDRINE SULF 50 MG/ML VIAL ONE (11:44)
--- NOTE | 2020-03-07 13:55 | P.BOP ---
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
[2020-03-07] MEDS ORDERED: DOCUSATE NA 100 MG CAP PO PRN (13:56)
[2020-03-07] MEDS ORDERED: ONDANSETRON 4 MG/2 ML VIAL IV PRN (13:56)
[2020-03-07] MEDS ORDERED: TRAMADOL HCL 50 MG TAB PO PRN (13:59)
[2020-03-07 14:48] LABS: Hematocrit 37.5 % (36.0-45.0)
--- NOTE | 2020-03-07 14:54 | RAD REPORT ---
EXAM DESCRIPTION: RAD - Knee Left 2 View - 03/07/2020 2:38 pm CLINICAL HISTORY: Post Op, left total knee replacement COMPARISON: Knee MRI Left Wo Cont dated 01/27/2020 FINDINGS: Left total knee prosthesis has been placed. No bone or implant suspicious finding. Skin st aples are present anterior midline. No suspicious or unexpected finding. IMPRESSION: Postop left total knee replacement with no suspicious or unexpected finding.
[2020-03-07] MEDS ORDERED: MORPHINE 2 MG/ML SYR IV PRN (16:24)
[2020-03-07 17:11] VITALS: BMI 40.0
[2020-03-07] MEDS: METFORMIN HCL 500 MG TAB PO SCH (17:16)
[2020-03-07] MEDS: CEFAZOLIN/SWI 2gm 2 GM/20 ML SYR IVP SCH (17:16)
[2020-03-07] MEDS ORDERED: PNEUMOCOCCAL VACCINE 0.5 ML IMVAC ONE (18:00)
[2020-03-07] MEDS ORDERED: HOME MED 1 EA UNK (Lisinopril/Hydrochlorothiazide [Lisinopril-Hctz 20-12.5 Mg Tab] 1 EACH) PO SCH (21:00)
[2020-03-07] MEDS: HYDROCODONE/APAP 7.5/325 MG TAB PO PRN (21:41)
[2020-03-07] MEDS: METOPROLOL TAR 50 MG TAB PO SCH (21:42)
[2020-03-08] MEDS: CEFAZOLIN/SWI 2gm 2 GM/20 ML SYR IVP SCH ×2 (00:20→08:36)
[2020-03-08] MEDS: HYDROCODONE/APAP 7.5/325 MG TAB PO PRN ×4 (04:21→19:50)
[2020-03-08] MEDS: ENOXAPARIN 30 MG/0.3 ML SQ SCH ×3 (05:51→17:11)
[2020-03-08 06:01] LABS: Absolute Lymphocytes (CBC) 2.1 K/uL (0.7-4.9); Basophils % 0.4 % (0-1.3); Hematocrit 36.9 % (36.0-45.0); Lymphocytes % 15.1 % (15.3-44.8); MPV 9.2 fL (7.6-11.3)
[2020-03-08 06:04] LABS: Potassium 4.7 mmol/L (3.5-5.1)
[2020-03-08] MEDS: METFORMIN HCL 500 MG TAB PO SCH ×2 (08:36→16:51)
[2020-03-08] MEDS: ATORVASTATIN 20 MG TAB PO SCH (08:36)
[2020-03-08] MEDS: CELECOXIB 100 MG CAPSULE PO SCH (08:36)
[2020-03-08] MEDS: lisinopriL 20 MG TAB PO SCH (08:36)
[2020-03-08] MEDS: METOPROLOL TAR 50 MG TAB PO SCH ×2 (08:37→19:50)
[2020-03-08] MEDS: hydroCHLOROthiazide 12.5 MG CAP PO SCH (08:42)
[2020-03-08 09:00] LABS: Blood Morphology Comment NOT SEEN (NOT SEEN); Platelet Estimate ADEQ; White Blood Cell Scan OK (OK)
[2020-03-08 11:17] VITALS: O2SAT 95
--- NOTE | 2020-03-08 12:51 | P.PN ---
Subjective Date of Service: 03/08/20 Chief Complaint: s/p L TKA Subjective: Ambulating, Improving, Working w/ PT pain controlled; ambulated with PT Physical Examination - Vital Signs Temperature: 976 F Blood Pressure: 126/58 Pulse: 70 Respirations: 18 Pulse Ox (%): 98 - Physical Exam General: Alert Musculoskeletal: Other (LLE: dressing c/d/i; +EHL/FHL/GSC/TA; sensation grossly intact distally; no significant swelling) - Studies Laboratory Data (last 24 hrs) 03/08/20 05:13: Sodium 136, Potassium 4.7, BUN 22 H, Creatinine 1.16, Glucose 144 H 03/08/20 05:13: WBC 13.7 H D, Hgb 11.9 L, Hct 36.9, Plt Count 208 03/07/20 14:23: Hgb 12.1, Hct 37.5 Assessment And Plan - Plan Josette is a 69 yo female s/p L TKA POD#1 -continue to mobilize with PT; -WBAT LLE -lovenox for DVT prophylaxis -d/c bruna today -likely d/c home tomorrow
--- NOTE | 2020-03-08 16:40 | P.OP ---
Preoperative diagnosis: left knee osteoarthritis Postoperative diagnosis: same Primary procedure: left total knee arthroplasty Secondary procedure: none Anesthesia: general Estimated blood loss: 20 cc Specimen: left knee bone remnants Findings: see dictation Operative Technique: Indication For Procedure: Josette is a 69 year-old female presenting to my clinic with signs, symptoms and x-ray findings consistent with a severe left knee osteoarthritis. I discussed with the patient at length risks and benefits associated with operative and nonoperative treatment. She had failed conservative treatment measures and had significant difficulties with ADLs secondary to her pain. We discussed operative treatment and elected to proceed with left total knee arthroplasty. She expressed understanding and elected to proceed with operative treatment. Description Of Procedure: After informed consent was obtained, the patient was identified in the preoperative holding area. The left lower extremity was marked. The patient was then taken to the PACU where she underwent a left lower extremity adductor canal block performed by Anesthesia. She was then taken to the operating room, transferred to the operating table in supine fashion, and placed under general anesthesia. Her left lower extremity was then prepped and draped in usual sterile fashion. A time-out was initiated. The correct patient and procedure were confirmed and identified. The patient did receive her preoperative prophylactic antibiotics. The left lower extremity was then exsanguinated and tourniquet was inflated to 300 mmHg. Approximately 15 cm longitudinal incision was made centered over the anterior aspect of the left knee. Dissection was then taken to the extensor mechanism and a medial parapatellar arthrotomy was performed. The patella was everted and dislocated laterally and the knee was flexed in the fat pad. Medial lateral meniscus and ACL were all excised exposing the distal femur. Excess hypertrophic synovium was also excised within the suprapatellar pouch. The patient had an MRI of her left knee preoperatively for surgical planning and creation of cutting blocks. The cutting block was then placed over the distal femur and pins were then placed. The distal femoral cutting block was then placed over the pins. Knee joint was then used to ensure proper depth cut and the distal femur was then cut. The chamfer cutting guide was then placed over the distal end of the femur. Anterior, posterior cuts as well as anterior and posterior chamfer cuts were then made again confirming proper depth of the cut using an Camilo wing. Excess bone remnants were then sent to pathology for further evaluation. Next, attention was taken to the proximal tibia. A tibial jig and tibial cutting block was then placed on proximal aspect of the lef tibia and locked into position. Pins were then placed and alignment guide was then used to confirm p rian alignment of the cut and then coronal and sagittal planes. Once this was confirmed, the cutting jig was placed over the pins and the proximal tibia was cut. Sizing trays were then selected and size 10 mm spacer was used and there was good overall balance in flexion and extension. Next, the trial implants were then placed using the size 6 standard CR femur and a size E tibia with a 10 mm poly. There was overall good range of motion and mild instability with valgus stress. Trial implants were then removed. The wound was then irrigated thoroughly with normal saline and the knee was then injected with 30 cc of 0.5% Marcaine with epinephrine both in the posterior capsule and mediallateral gutters as well as quadriceps tendon and periosteum. The tibia was then punched. The femur was drilled. The cement was then prepared on the back table. Cement was then placed first on the tibial surface followed by size E tibia. Excess cement was removed with Sanford elevators. Size 6 standard CR femur was then placed on the distal femur after cement was placed on the distal femur. Excess cement was then removed and a size 11 mm trial MC poly was then placed. The knee was held in extension as the cement hardened. Undersurface of the patella was prepared debriding osteophytes using rongeurs as well as osteophytes had been debrided off the proximal tibia with rongeurs and osteoto mes to aid with the medial tightness. Cement was placed on the undersurface of the patella after it was cut and a size 29 patella was placed. Once the cement was hardened, the knee was ranged, there was good overall stability both in flexion, extension and as well as mild instability with varus and valgus stresses. Trial poly was then removed and a size 11 mm MC poly was then placed and locked into position. The knee was then ranged again. There was good overall range of motion both for flexion and extension with good stability. The wound was then irrigated again thoroughly with normal saline using pulse lavage. Tourniquet was let down. Hemostasis was achieved using Bovie electrocautery. Extensor mechanism was then approximated using a #1 Vicryl bothin interrupted and running fashion. The fascia was then approximated using 0 Vicryl. Subcutaneous tissue was approximated with a 2-0 Vicryl. Skin was approximated using tanika. Sterile dressings were applied. The patient was awakened and transferred back in stable condition Complications: None Drain(s): Urinary catheter Implants: Biomet Vladimir Persona 6 STD femur, E tibia, 29 patella, 11 mm MC poly Fluids & blood products: per anesthesia record; 90 mins @ 300 mmHg Condition: Good
[2020-03-09] MEDS: HYDROCODONE/APAP 7.5/325 MG TAB PO PRN ×3 (01:41→11:17)
[2020-03-09] MEDS: ENOXAPARIN 30 MG/0.3 ML SQ SCH (06:08)
[2020-03-09] MEDS: lisinopriL 20 MG TAB PO SCH (09:51)
[2020-03-09] MEDS: CELECOXIB 100 MG CAPSULE PO SCH (09:51)
[2020-03-09] MEDS: ATORVASTATIN 20 MG TAB PO SCH (09:51)
[2020-03-09] MEDS: hydroCHLOROthiazide 12.5 MG CAP PO SCH (09:52)
[2020-03-09] MEDS: METFORMIN HCL 500 MG TAB PO SCH (09:52)
[2020-03-09] MEDS: METOPROLOL TAR 50 MG TAB PO SCH (09:52)
[2020-03-09 13:08] VITALS: BP 164/73; TEMP 97.6
--- NOTE | 2020-04-19 16:43 | P.DS ---
Admission Date: 03/07/20 Discharge Date: 03/09/20 Disposition: DC HOME/HOME HEALTH CARE Discharge Condition: GOOD Reason for Admission: s/p L TKA Procedures: left total knee arthroplasty Brief History of Present Illness: Josette is a 69 yo female s/p left total knee arthroplasty on 03/07/2020 and admitted to the floor postoperatively in stable condition. Hospital Course: Josette was admitted on 03/07/20 in stable condition after left TKA. PT was consulted to aid with mobilization and the patient was started on lovenox for DVT prophylaxis. She was discharged on 03/09/2020 in stable condition and will followup in 2 weeks for wound check and staple removal. Vital Signs/Physical Exam: Temp Pulse Resp BP Pulse Ox 97.6 F 69 18 164/73 H 97 03/09/20 12:00 03/09/20 12:00 03/09/20 12:17 03/09/20 12:00 03/09/20 12:17 Laboratory Data at Discharge: WBC 13.7 K/uL (4.3-10.9) H D 03/08/20 05:13 Hgb 11.9 g/dL (12.0-15.0) L 03/08/20 05:13 Hct 36.9 % (36.0-45.0) 03/08/20 05:13 Plt Count 208 K/uL (152-406) 03/08/20 05:13 PT 10.8 SECONDS (9.5-12.5) 02/29/20 09:09 INR 0.91 02/29/20 09:09 APTT 30.9 SECONDS (24.3-36.9) 02/29/20 09:09 Sodium 136 mmol/L (136-145) 03/08/20 05:13 Potassium 4.7 mmol/L (3.5-5.1) 03/08/20 05:13 BUN 22 mg/dL (7-18) H 03/08/20 05:13 Creatinine 1.16 mg/dL (0.55-1.3) 03/08/20 05:13 Glucose 144 mg/dL (74-106) H 03/08/20 05:13 Home Medications: Lisinopril/Hydrochlorothiazide [Lisinopril-Hctz 20-12.5 mg Tab] 1 each PO BID 04/18/16 Atorvastatin Calcium [Lipitor*] 20 mg PO DAILY 12/09/17 Cyanocobalamin (Vitamin B-12) [Vitamin B-12] 1 tab PO DAILY 12/09/17 Metformin HCl 500 mg PO BID 12/09/17 Metoprolol Tartrate [Lopressor] 50 mg PO BID 12/09/17 Ubidecarenone [Co Q-10] 400 mg PO DAILY 12/09/17 Hydrocodone 7.5/APAP 325 [[place] 7.5/325 mg*] 1 tab PO Q4H PRN tab 03/09/20 Patient Discharge Instructions: keep dressing clean and dry; begin taking Xarelto tomorrow 03/10/2020 in the AM; f/u with Dr. Del Angel in 2 weeks for staple removal Diet: ADA Activity: Weight bearing as tolerated Followup: Ashish Del Angel MD [ACTIVE - CAN ADMIT] - 1-2 Weeks (Call to make an appointment. )
== END 2020-03-09 15:28 | disposition home health service (06) | DRG 470 ==
LOC: OR 08:17 → 2ND 13:56 → UNDOADMIN 16:14 → 2ND 16:14
PROVIDERS: ADMIT Orthopaedic Surgery Sports Medicine; ATTEND Orthopaedic Surgery Sports Medicine
PROC: 0SRD0J9 Replacement of Left Knee Joint with Synthetic Substitute, Cemented, Open Approach (ICD-10-PCS; principal; 2020-03-07 10:30)
DX: M17.12 Unilateral primary osteoarthritis, left knee (principal); Z68.41 Body mass index [BMI] 40.0-44.9, adult; E66.01 Morbid (severe) obesity due to excess calories; E03.9 Hypothyroidism, unspecified; E11.9 Type 2 diabetes mellitus without complications; Z79.84 Long term (current) use of oral hypoglycemic drugs; Z79.890 Hormone replacement therapy; Z79.899 Other long term (current) drug therapy; Z20.828 Contact with and (suspected) exposure to other viral communicable diseases
CPT/HCPCS: 36415; 71046; 80048; 82947; 85014; 85018; 85025; 85610; 85730; 88304; 88305; 88311; 93005; 94010; 97110; 97116; 97139; 97161; 97530; J0690; J1100; J1170; J1650; J2250; J2270; J2405; J2704; J3010; J7030; U0002

== ENCOUNTER 2020-10-10 05:52 | Observation (INO) | payer OTHER ==
[2020-10-05 09:41] LABS: Potassium 4.5 mmol/L (3.5-5.1)
[2020-10-05 10:07] LABS: Absolute Lymphocytes (CBC) 2.8 K/uL (0.7-4.9); Basophils % 0.6 % (0-1.3); Lymphocytes % 40.7 % (15.3-44.8); RBC Red Blood Cell Count 4.19 M/uL (3.86-4.86)
[2020-10-05 10:15] LABS: Protime INR 0.91
--- NOTE | 2020-10-05 10:16 | RAD REPORT ---
EXAM DESCRIPTION: RAD - Chest Pa And Lat (2 Views) - 10/05/2020 9:28 am CLINICAL HISTORY: preop Chest pain. COMPARISON: Chest Pa And Lat (2 Views) dated 02/29/2020; Chest Single View dated 12/03/2019; Chest Si ngle View dated 05/24/2019; Chest Pa And Lat (2 Views) dated 05/18/2019 FINDINGS: The lungs are clear. The heart is upper limit of normal in size. No displaced fractures.
[~2020-10-10 05:52] MED LIST changes: +CEFAZOLIN/SWI 2gm 2 GM/20 ML SYR IVP SCH; -TRANEXAMIC ACID 1,000 MG in NA CHLORIDE 0.9% 50 ML IV SCH
[2020-10-10] MEDS ORDERED: NA CHLORIDE 0.9% 1,000 ML ONE ×2 (06:28→07:45)
[2020-10-10] MEDS ORDERED: CEFAZOLIN/SWI 2gm 0 GM/0 ML SYR ONE (06:28)
[2020-10-10] MEDS ORDERED: MIDAZOLAM HCL 2 MG/2 ML INJ ONE (06:37)
[2020-10-10] MEDS ORDERED: FENTANYL CITR 100 MCG/2 ML ONE (06:37)
[2020-10-10] MEDS ORDERED: propofoL 200 MG/20 ML VIAL IV ONE (06:37)
[2020-10-10] MEDS ORDERED: LIDOCAINE 2% MPF 5 ML VIAL ONE (06:38)
[2020-10-10] MEDS ORDERED: methocarbamoL 500 MG TAB ONE (06:42)
[2020-10-10] MEDS ORDERED: CELECOXIB 100 MG CAPSULE ONE (06:42)
[2020-10-10] MEDS ORDERED: ACETAMINOPHEN 500 MG TAB ONE (06:42)
[2020-10-10] MEDS ORDERED: LIDOCAINE 1% MPF 5 ML VIAL ONE (06:45)
[2020-10-10] MEDS ORDERED: NS 0.9% VIAL 10 ML ONE (06:45)
[2020-10-10] MEDS ORDERED: dexAMETHasone 10 MG/ML VIAL ONE (06:45)
[2020-10-10] MEDS ORDERED: BUPIVACAINE 0.25% PF 30 ML VIAL ONE ×2 (06:46→07:23)
[2020-10-10] MEDS ORDERED: CEFAZOLIN/SWI 2gm 2 GM/20 ML SYR IVP SCH (07:00)
[2020-10-10] MEDS ORDERED: Ringers Lactate 0 ML IV ONE (07:23)
[2020-10-10] MEDS ORDERED: HYDROMORPHONE HCL 1 MG/ML INJ ONE (07:49)
[2020-10-10] MEDS ORDERED: TRANEXAMIC ACID 1,000 MG in NA CHLORIDE 0.9% 50 ML IV SCH (08:00)
[2020-10-10] MEDS ORDERED: EPHEDRINE SULF 50 MG/ML VIAL ONE (08:04)
[2020-10-10] MEDS ORDERED: KETAMINE HCL 500 MG/5 ML VIAL ONE (08:08)
[2020-10-10] MEDS ORDERED: ONDANSETRON 4 MG/2 ML VIAL ONE (09:20)
[2020-10-10] MEDS ORDERED: KETOROLAC 30 MG/ML INJ ONE (10:04)
--- NOTE | 2020-10-10 10:32 | P.BOP ---
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
[2020-10-10] MEDS ORDERED: DOCUSATE NA 100 MG CAP PO PRN (10:37)
[2020-10-10] MEDS ORDERED: TRAMADOL HCL 50 MG TAB PO PRN (10:40)
[2020-10-10] MEDS: MORPHINE 4 MG/ML SYR IV PRN ×2 (10:57→11:07)
[2020-10-10 11:23] LABS: Hematocrit 37.4 % (36.0-45.0)
--- NOTE | 2020-10-10 11:41 | RAD REPORT ---
EXAM DESCRIPTION: RAD - Knee Right 2 View - 10/10/2020 10:56 am CLINICAL HISTORY: Postop right knee COMPARISON: 05/17/2020 FINDINGS: Immediate postoperative changes from right knee arthroplasty. No definite evidence of imme diate hardware complications. A small osseous fragment is noted along the lateral tibial plateau whic h is likely postsurgical. Small volume of gas within the knee joint which is not unexpected. Nonaggre ssive appearing lesion in the distal femoral metadiaphysis is unchanged. IMPRESSION: Immediate postoperative changes from right knee arthroplasty. No hardware complications identified.
[2020-10-10 11:55] VITALS: BMI 40.4
[2020-10-10] MEDS ORDERED: MORPHINE 2 MG/ML SYR IV PRN (12:00)
[2020-10-10] MEDS: HYDROCODONE/APAP 7.5/325 MG TAB PO PRN ×2 (14:27→20:44)
--- OUTSIDE RECORDS SUMMARY | 2020-10-10 15:27 | XMS REPORT | Continuity of Care Document ---
:1950 Author Organization [facility] t Address [address] [place] [address] [place] [id number] Care Team Providers Name Role Phone Marybeth Argueta DO Attending Clinician Prerna CHICAS Attending Clinician MARYBETH ARGUETA Attending Clinician Unavailable PRERNA Admitting Clinician Unavailable Payers Payer Name Policy Type Policy Effective Date Expiration Date Sour ce Number [facility]IG[facility] [id number] [facility] TWMqjqc74320/04/2018-Pr esentMaps Contracted Problems Condition Condition Condition Status [...] a-Zoster ty to Other (See 12-02 FEVER, Luke s - Ge-As01b adverse Comments) 00:00: rash Medi isaías (Pf) reaction 00 Center s Family History Family Member Diagnosis Comments Start Date Stop Date Source Natural father Diabetes [facility] Natural mother Hypertension [facility] Natural sister Stroke [facility] Social History Social Habit Start Date Stop Date Quantity Comments Source History SDOH [facility] - Alcohol Std Drinks [facility] Center History SDOH [facility] St kes - Alcohol Binge Medical Luis ter Sex Assigned At [facility] Tobacco use and 2019-12-03 2019-12-03 Never used [facility] - exposure 00:00:00 00:00:00 [facility] Center Alcohol intake 2019-12-03 2019-12-03 Current [facility] 00:00:00 00:00:00 non-drinker of Medical Ce nter alcohol (finding) History SDOH 2019-12-03 2019-12-03 [address] [facility] [address] katie - Alcohol Frequency 00:00:00 00:00:00 [facility] Smoking Status Start Date Stop Date Source Never smoker [facility] Medications Ordered Filled Start Stop Current Ordering Indication Dosage Frequency Signature Comments Components Source Medication Medication Date Date Medication? Clinician (SIG) Name Name cholecalcif 2020-0 Yes 2100U Take 2,[address] barber, 8-30 Units by [facility] - vitamin D3, 13:35: mouth once Medical 50 mcg 53 every 2 Center (2,000 weeks. unit) Cap ascorbic 2020-0 Yes 500mg QD Take [address] acid, 8-30 mg by [facility] - vitamin C, 13:35: mouth Medica l (ASCORBIC 53 daily. Center ACID WITH NITA HIPS) 500 MG tablet coenzyme 2020-0 Yes [address] T63-jgjcozd 8-30 with a [facility] - E (CO [...] 90 53 inhaler. Center mcg/actuati on inhaler atorvastati 2020- No 40mg QD Take 1 [...] by [facility] I [facility] Tab tablet 6-15 08-30 mouth [facility] - 00:00: 00:00 daily. Medical 00 :00 Center metoprolol Yes 50mg Q.5D Take [address] tartrate 6-11 by mouth 2 [facility] - (LOPRESSOR) 00:00: (two) Medic al 50 MG 00 times Center tablet daily. levothyroxi Yes 75ug QD Take [address] ne 6-11 mcg by [facility]ukes - (SYNTHROID, 00:00: mouth Medic al LEVOTHROID) 00 daily. [facility] 75 MCG tablet ibuprofen 2019- No 800mg Q.[id number] Take [address] (ADVIL,MOTR 5-22 08-30 [id number] mg by [facility]ukes - IN) 800 MG 00:00: 00:00 3D mouth 3 Med ical tablet 00 :00 (three) Center times daily. atorvastati atorvastati Yes Ashish [address] [facility] n [place] by mouth [facility] - at bedtime [facility] F97-Guikoy K81-Qmwoaj Yes Ashish as [facility] [place] directed [facility] Co Q 10 Co Q 10 Yes Ashish [address] [place] with a [facility] - meal [facility] Lisinopril Lisinopril Yes Ashish [address] [place] [facility] Metoprolol Metoprolol Yes Ashish [address] Tartrate Tartrate [place] with food Priya kes - [facility] Metformin Metformin Yes Ashish [address] HCl HCl [place] with a [facility] - meal [facility] Vital Signs Vital Name Observation Time Observation Value Comments Source Systolic blood 2019-12-04 10:38:00 151 mm[Hg] [facility] Diastolic blood 2019-12-04 10:38:00 63 mm[Hg] [facility] Heart rate 2019-12-04 10:38:00 62 /min [facility] Body temperature 2019-12-04 10:34:00 35.94 Yara [facility] Respiratory rate 2019-12-04 10:34:00 16 /min [facility] Oxygen saturation in 2019-12-04 10:34:00 96 /min [facility] Arterial blood by Medical Ce nter Pulse oximetry Body height 2019-12-03 11:49:00 154.9 cm [facility] Body weight 2019-12-03 11:49:00 97.07 kg [facility] BMI 2019-12-03 11:49:00 40.43 kg/m2 [facility] Procedures Procedure Date / Time Performed Performing Clinician [facility] e REPORT OF PROCEDURE - 2019-12-16 15:20:14 Provider, Default [facility] ENDOSCOPY SCAN Scanning [facility] RHYTHM STRIP - SCAN 2019-12-05 14:04:10 Provider, Default [facility] REPORT OF PROCEDURE - 2019-12-05 14:04:07 Provider, Default [facility] ENDOSCOPY SCAN Scanning [facility] 2D ECHO W/ DOPPLER 2019-12-04 09:07:19 Prerna, [facility] (CW/PW/COLOR) [facility] POCT-GLUCOSE METER 2019-12-04 08:34:00 Prerna [facility] LIPID PANEL 2019-12-04 05:30:00 Prerna [facility] CBC W/PLT COUNT & AUTO 2019-12-04 05:30:00 Prerna [facility] HEMOGLOBIN A1C 2019-12-04 05:30:00 Prerna [facility] BASIC METABOLIC PANEL (7) 2019-12-04 05:30:00 Prerna [facility] TSH/FREE T4 IF INDICATED 2019-12-04 05:30:00 Prerna [facility] POCT-GLUCOSE METER 2019-12-03 21:38:00 Prerna [facility] MR BRAIN WITHOUT IV 2019-12-03 18:50:00 Prerna [facility] Satellite CONTRAST [facility] SARS-COV2/RT-PCR ([facility] & 2019-12-03 12:23:00 Pepe Argueta [facility] - REF LABS) [facility] CBC W/PLT COUNT & AUTO 2019-12-03 12:23:00 Pepe Argueta [facility] PT/APTT 2019-12-03 12:23:00 OnekamaPepe [facility] COMPREHENSIVE METABOLIC 2019-12-03 12:23:00 Pepe Argueta [facility] Plan [facility] Care Planned Activity Planned Date Details Comments Source Future Scheduled 2020-04-[address] [facility] - Test 00:00:00 (12+) [code = Medical Center DEPRESSION SCREENING (12+)] Future Scheduled 2019-12-06 INFLUENZA VACCINE (#1) C [...] 00:00:00 (1 of 1 - Medical Center [id number] PCV13) [code = PNEUMOCOCCAL 65+ YRS (1 of 1 - CFQI18_Kxhtrhi PCV13)] Future Scheduled 1969-09-26 HEPATITIS C SCREENING [facility] - Test 00:00:00 [code = HEPATITIS C Medical Center SCREENING] Future Scheduled 1958-09-26 DTAP/TDAP/TD VACCINES [facility] - Test 00:00:00 (1 - Tdap) [code = Medical C enter DTAP/TDAP/TD VACCINES (1 - Tdap)] Future Scheduled [address] [facility] - Test 00:00[facility]00 [facility] [code = 583504344] Future Scheduled [address] [facility] - Test 00:00:[facility] colon (procedure) [code = 037977951] Encounters Start End Encounter Admission Attending Care Care Encounter Source Date/Time Date/Time Type Type Clinicians Facility Department ID 2020-10-05 2020-10-[facility] [id number] 2020-10-04 2020-10-[facility] [id number] [facility] 2020-09-25 2020-09-[facility] [id number] [facility] 2020-09-05 2020-09-[facility] [id number] [facility] 2020-08-14 2020-08-14 [facility] [id number] [facility] 2020-08-10 2020-08-[facility] [id number] [facility] 2020-08-08 2020-08-08 Outpatient [facility] [id number] [facility] 2020-08-02 2020-08-02 Outpatient [facility] [id number] [facility] 2020-07-30 2020-07-30 Outpatient [facility] [id number] [facility] 2020-05-31 2020-05-31 Outpatient [facility] [id number] [facility] 2020-05-14 2020-05-14 Outpatient [facility] [id number] [facility] 2020-05-04 2020-05-04 Outpatient [facility] [id number] [facility] 2020-04-30 2020-04-30 Outpatient [facility] [id number] [facility] 2020-04-24 2020-04-24 Outpatient [facility] [id number] [facility] 2020-04-19 2020-04-19 Outpatient [facility] [id number] [facility] 2020-03-22 2020-03-22 Outpatient [facility] [id number] [facility] 2020-03-22 2020-03-22 Outpatient [facility] [id number] [facility] 2020-03-09 2020-03-[address] [id number] [facility] 2020-02-28 2020-02-28 [facility] [id number] [facility] 2020-01-12 2020-01-12 [facility] [id number] [facility] 2019-08-23 2019-08-23 [facility] [id number] 13:26:00 13:26:00 [facility] 2019-06-15 2019-06-15 [facility] [id number] 12:32:00 12:32:00 [facility] 2019-05-19 2019-05-19 [facility] [id number] 11:00:00 11:00:00 [facility] 2018-07-27 2018-07-27 [facility] [id number] 10:00:00 10:00:00 [facility] 2017-12-08 2017-12-08 [facility] [id number] 08:30:00 08:30:00 [facility] 2017-11-30 2017-11-30 [facility] [id number] 09:30:00 09:30:00 [facility] Results Test Description Test Time Test Comments Results Result Comments Source 2D Echo W/Doppler(CW/PW/Color) 2019-12-04 16:49:51 Test Item Value Reference Range Interpretation Comme nts Ejection Fraction (test code = ssment is normal (55-60% 2574) PXN (test code = PXN) Interface, External Ris In - 12/04/2019 4:50 PM CDTTransthoracic Echocardiography Report (TTE) Demographics Patient Name MARGARITO, Date of Study 12/04/2019 ARSENIO Gender Female Visit Number [id number] Race Unknown Room Number 2242 Number Date of 1950 Referring Physician Dwain Fernández Age 69 year(s) Personal Insurance Advisor Fredrick Carrasco [facility] Interpreting Physician JUAN FRANCISCO Barakat Procedure Type of [...] Diameter: 1.71 cm LVOT Area: 2.3 cm^2 [facility]-Glucose [id number] 08:45:00 Test Item Value Reference Range Interpretation Comments POC-Glucose Meter (test 113 mg/dL 70-110 H : TE STED AT [facility] code = 1538) [facility] [facility] 30: Vice President Process/Techni krista ID = [id number] for Yaquelin Hoyt Lab Interpretation (test Abnormal code = 48902-0) [facility]-GLUCOSE [id number] 08:45:00 Test Item Value Reference Range Interpretation Comments POC-GLUCOSE METER 113 mg/dL 70-110 H : TESTED A T [facility] 6720 (BEAKER) (test code = [place], 1538) [address]: Vice President Process/Techni krista ID = [id number] for Yaquelin Granados Hemoglobin A1c - [id number] 07:52:00 Test Item Value Reference Range Interpretation Comments Hemoglobin A1C (test code = 4548-4) 6.1 % 4.3-6.1 REJI (test code = REJI) Fasting Lab Interpretation (test code = Normal 61275-6) [facility] [id number] 07:52:00 Test Item Value Reference Range Interpretation Comments HEMOGLOBIN A1C (BEAKER) (test code = 6.1 % 4.3-6.1 368) FastingTSH/Free T4 If [id number] 06:43:00 Test Item Value Reference Range Interpretation Comments TSH (test code = 0.547 See_Comment [Automated 11400-3) message] The system which generated this result transmit briseida reference range : 0.350 - 4.940 uIU/mL. The reference range was not used to interpret this result as normal/abnormal . REJI (test code = REJI) Vice President Process ID - ELEN L Lab Interpretation Normal (test code = 59260-3) [facility] Center[facility]FREE T4 IF [id number] 06:43:00 Test Item Value Reference Range Interpretation Comments THYROID STIMULATING HORMONE 0.547 uIU/mL 0.350-4.940 (BEAKER) (test code = 772) Vice President Process ID - ELEN LBasic Metabolic [id number] 06:33:00 Test Item Value Reference Range Interpretation Comments Sodium (test code = 136 meq/L 089-061 4407-2) Potassium (test code 4.2 meq/L 3.5-5.1 = 2823-3) Chloride (test code = 102 meq/L 98-107 5-0) CO2 (test code = 27 meq/L -29 8-9) BUN (test code = 15 mg/dL 7- 3094-0) Creatinine (test code 0.87 mg/dL 0.57-1.25 = 2160-0) Glucose (test code = 112 mg/dL 70-105 H 2345-7) Calcium (test code = 9.5 mg/dL 8.4-10.2 52287-9) EGFR (test code = [place] [address]-6) CLINICAL DATA T O CALCULATE ESTIMATED GFR. REJI (test code = REJI) Vice President Process BERTO MYRICK Robbi Lab Interpretation Abnormal (test code = 50518-4) [facility] CenterBASIC METABOLIC [id number] 06:33:00 Test Item Value Reference Range Interpretation [...] 1092) DATA TO CALCULA TE ESTIMATED GFR. Vice President Process BERTO Norma MYRICK Mathieusting lipid [id number] 06:31:00 Test Item Value Reference Range Interpretation Comments Triglycerides (test 77 mg/dL code = 2571-8) Cholesterol (test code 162 mg/dL = 2093-3) HDL (test code = 48 mg/dL 5-9) LDL Calculated (test 99 mg/dL code = 52917-6) REJI (test code = REJI) Triglyceride Reference Range: Low Risk <150 Borderline 150-199 High Risk 200-499 Very High Risk >=500 Cholesterol Reference Range: Low Risk <200 Borderline 200-239 High Risk >240 HDL Cholesterol Reference Range: Low Risk >=60 High Risk <40 LDL Cholesterol Reference Range: Optimal <100 Near Optimal 100-129 Borderline 130-159 High 160-189 Very High >=190 Vice President Process BERTO Culp [facility] CenterLIPID [id number] 06:31:00 Test Item Value Reference Range Interpretation Comments TRIGLYCERIDES (BEAKER) (test code = 77 mg/dL 540) CHOLESTEROL (BEAKER) (test code = 162 mg/dL 631) HDL CHOLESTEROL (BEAKER) (test code 48 mg/dL = 976) LDL CHOLESTEROL CALCULATED (Double Blue Sports AnalyticsAKER) 99 mg/dL (test code = 633) Triglyceride Reference Range: Low Risk <150 Borderline 150-199 High Risk 200-499 Very High Risk >=500Cholesterol Reference Range: Low Risk <200 Borderline 200-239 High Risk >240HDL Cholesterol Reference Range: Low Risk >=60 High Risk <40LDL Cholesterol Reference Range: Optimal <100 Near Optimal 100-129 Borderline 130-159 High 160-189 Very High >=190 Vice President Process ID - PIAYALCBC with platelet count + automated diff 2019-12-04 06:25:00 Test Item Value Reference Range Interpretation Comments WBC (test code = 6690-2) 5.3 See_Comment [A utomated message] The system Nixon generated this result transmitted ref erence range: 3.5 - 10 .5 K/L. The refe rence range was not u sed to interpret this result as normal/abnor mal. RBC (test code = 789-8) 4.17 See_Comment [Au tomated message] The system Nixon generated this result transmitted ref erence range: 3.93 - 5 .22 M/L. The refe rence range was not u sed to interpret this result as normal/abnor mal. MCHC (test code = 786-4) 30.9 See_Comment L [A utomated message] The system Nixon generated this result transmitted ref erence range: 32.2 - 3 5.5 GM/DL. The refe rence range was not u sed to interpret this result as normal/abnor mal. Hematocrit (test code = 38.8 % 34.1-44.9 4544-3) MCV (test code = 787-2) 93.0 fL 79.4-94.8 MCH (test code = 785-6) 28.8 pg 25.6-32.2 RDW (test code = 788-0) 13.9 % 11.7-14.4 Platelets (test code = 165 See_Comment [Aut omated message] 807-3) The system Nixon generated this result transmitted ref erence range: 150 - 45 0 K/CU MM. The referen ce range was not u sed to interpret this result as normal/abnor mal. MPV (test code = 10.9 fL 9.4-12.3 05836-6) nRBC (test code = 413) 0 See_Comment [Aut omated message] The system Nixon generated this result transmitted ref erence range: 0 - 0 /1 00 WBC. The refere nce range was not u sed to interpret this result as normal/abnor mal. % Neutros (test code = 39 % 429) % Lymphs (test code = 52 % 430) % Monos (test code = 6 % 431) % Eos (test code = 432) 2 % % Baso (test code = 437) 0 % # Neutros (test code = 2.09 See_Comment [Aut omated message] 670) The system Nixon generated this result transmitted ref erence range: 1.56 - 6 .13 K/L. The refe rence range was not u sed to interpret this result as normal/abnor mal. # Lymphs (test code = 2.74 See_Comment [Auto mated message] 414) The system Nixon generated this result transmitted ref erence range: 1.18 - 3 .74 K/L. The refe rence range was not u sed to interpret this result as normal/abnor mal. # Monos (test code = 0.32 See_Comment [Autom ated message] 415) The system Nixon generated this result transmitted ref erence range: 0.24 - 0 .36 K/L. The refe rence range was not u sed to interpret this result as normal/abnor mal. # Eos (test code = 416) 0.13 See_Comment [Au tomated message] The system Nixon generated this result transmitted ref erence range: 0.04 - 0 .36 K/L. The refe rence range was not u sed to interpret this result as normal/abnor mal. # Baso (test code = 417) 0.02 See_Comment [A utomated message] The system Nixon generated this result transmitted ref erence range: 0.01 - 0 .08 K/L. The refe rence range was not u sed to interpret this result as normal/abnor mal. Immature 0 % 0-1 Granulocytes-Relative (test code = 2801) Lab Interpretation (test Abnormal code = 35197-1) [facility] W/PLT COUNT & AUTO [id number] 06:25:00 Test Item Value Reference Range Interpretation [...] PERCENT (BEAKER) (test code = 2801) POCT-GLUCOSE [id number] 21:50:00 Test Item Value Reference Range Interpretation Comments POC-GLUCOSE METER 108 mg/dL 70-110 : [facility] (BEAKER) (test code = [place], 1538) [address]: Vice President Process/Techni krista ID = [id number] for DE NNIS, NITA MR, BRAIN, WITHOUT [id number] 19:10:00Unlisted Reason for Exam - Click Yes [...] Date/Time: 12/03/2019 19:10:12 MR brain without IV [id number] 19:10:00 Interface, External Ris In - 12/03/2019 [...] Khang Baron MDReport Verified Date/Time: 12/03/2019 19:10:12 [facility]2019-12-03 18:50:00 Test Item Value Reference Range Interpretation Comments SARS-COV2/RT-PCR Negative Not Detected, (test code = Negative, See 78533-1) external report for linked test SARS-COV-2 [facility] PERFORMING LAB (test code = 68391-5) REJI (test code = Negative result for [...] of the Act. Fact Sheet for Healthcare Providers:https://www.[employer]/sites/default/f ender/product/documents/F act_Sheet_HC_Providers_L apy_ZIXO-FsY-2.pdf Fact Sheet for Healthcare Patients:https://www.c-LEcta/sites/default/fi les/product/documents/Fa ct_Sheet_Patients_Lyra_S ARS-CoV-2.pdf Performing Laboratory:[facility], [place] [address] [place], [place] [address]ARS-COV2/RT-PCR ([facility] & REF LABS)2019-12-03 18:50:00 Test Item Value Reference Range Interpretation Comments SARS-COV2/RT-PCR (test Negative Not Detected, Negative, code = 2907649) See external report for linked test SARS-COV-2 PERFORMING LAB [facility] (test code = 7450702) Negative result for this test determines that [...] 564(g) of the Act.Fact Sheet for Healthcare Providers:https://www.[employer]uba/sites/default/files/product/documents/Fact_Shee a_GN_Znvrfjnrj_Zutw_PAPL-FfE-9.pdfFact Sheet for Healthcare Patients:https://www.[employer]uba/sites/default/files/product/ documents/Ecxh_Waabv_[place]_Ktld_UTOX-TtU-8.pdfPerforming Laboratory:[facility] [facility].[place], [place] [address]Bmgyganaolrgg metabolic [id number] 12:58:00 Test Item Value Reference Range Interpretation Comments Protein, Total 7.4 See_Comment [Automated (test code = message] The sy stem 2885-2) which generated this result transmitted reference range : 6.0 - 8.3 gm/dL . The reference r dmitriy was not used to interpret this result as normal/abnormal . Albumin (test code 4.0 g/dL 3.5-5 = 62993-5) Alkaline 96 U/L 40-150 Phosphatase (test code = 6768-6) Total Bilirubin 0.5 mg/dL 0.2-1.2 (test code = 1975-2) Sodium (test code = 136 meq/L 040-391 4358-2) Potassium (test 4.0 meq/L 3.5-5.1 code = 2823-3) Chloride (test code 102 meq/L 98-107 = 2075-0) CO2 (test code = 27 meq/L -29 2027-9) BUN (test code = 17 mg/dL 7- 3094-0) Creatinine (test 0.83 mg/dL 0.57-1.25 code = 2160-0) Glucose (test code 96 mg/dL 70-105 = 2345-7) Calcium (test code 9.5 mg/dL 8.4-10.2 = 32074-7) AST (test code = 12 U/L 5-34 1920-8) ALT (test code = 13 U/L 6-55 1742-6) EGFR (test code = [place] [address]-4) CLINICAL DATA T O CALCULATE ESTIM ATED GFR. REJI (test code = Vice President Process ID - REJI) ALEX Dinh [facility] [id number] 12:58:00 Test Item Value Reference Range Interpretation [...] 22-29 code = 355) BLOOD UREA NITROGEN 17 mg/dL 7-21 (BEAKER) (test code = 354) [...] 1092) DATA TO CALCULA TE ESTIMATED GFR. Vice President Process ID - ALEX CCBC W/PLT COUNT & AUTO [id number] 12:46:00 Test Item Value Reference Range Interpretation [...] 0-1 PERCENT (BEAKER) (test code = 2801) [id number] 12:42:00 Test Item Value Reference Interpretation Comments Range Protime (test code = 13.2 See_Comment [Autom ated 5902-2) message] The system which generated this result transmitted reference range : 11.9 - 14.2 seconds. The reference range was not used to interpret this result as normal/abnormal . INR (test code = 1.03 See_Comment [Automated 0441-6) message] The system which generated this result transmitted reference range : <=5.90. The reference range was not used to interpret this result as normal/abnormal . PTT (test code = 29.1 See_Comment [Automated 92991-3) message] The system which generated this result transmitted reference range : 22.5 - 36.0 seconds. The reference range was not used to interpret this result as normal/abnormal . REJI (test code = Effective 09/01/2018: REJI) PT Reference Range ChangeNew: 11.9-14.2 Previous: 11.7-14.7 RECOMMENDED COUMADIN/WARFARIN INR THERAPY RANGESSTANDARD DOSE: 2.0-3.0 Includes: PROPHYLAXIS for venous thrombosis, systemic embolization; TREATMENT for venous thrombosis and/or pulmonary embolus.HIGH RISK: Target INR is 2.5-3.5 for patients wiht mechanical heart valves. Lab Interpretation Normal (test code = 19931-0) [id number] 12:42:00 Test Item Value Reference Range Interpretation [...]
[2020-10-10] MEDS ORDERED: CEFAZOLIN 2 GM in NA CHLORIDE 0.9% 100 ML IVPB SCH (17:00)
[2020-10-10] MEDS: ONDANSETRON 4 MG/2 ML VIAL IV PRN (17:17)
[2020-10-10] MEDS: METFORMIN HCL 500 MG TAB PO SCH (17:18)
[2020-10-10] MEDS: CEFAZOLIN/SWI 2gm 2 GM/20 ML SYR IV SCH (17:18)
[2020-10-10] MEDS: lisinopriL 20 MG TAB PO SCH ×2 (20:11→20:18)
[2020-10-10] MEDS: hydroCHLOROthiazide 12.5 MG CAP PO SCH ×2 (20:11→20:20)
[2020-10-10] MEDS: METOPROLOL TAR 50 MG TAB PO SCH (20:11)
[2020-10-10] MEDS ORDERED: HOME MED 1 EA UNK (Lisinopril/Hydrochlorothiazide [Lisinopril-Hctz 20-12.5 Mg Tab] Tablet) PO SCH (21:00)
[2020-10-11] MEDS: CEFAZOLIN/SWI 2gm 2 GM/20 ML SYR IV SCH ×2 (01:05→09:14)
[2020-10-11] MEDS: HYDROCODONE/APAP 7.5/325 MG TAB PO PRN (02:18)
[2020-10-11] MEDS ORDERED: ENOXAPARIN 30 MG/0.3 ML SQ SCH (06:00)
[2020-10-11] MEDS ORDERED: LEVOTHYROXINE SOD 0.075 MG TAB PO SCH (06:00)
[2020-10-11 06:11] LABS: Hematocrit 33.9 % (36.0-45.0)
[2020-10-11] MEDS ORDERED: CELECOXIB 100 MG CAPSULE PO SCH (09:00)
[2020-10-11] MEDS: lisinopriL 20 MG TAB PO SCH (09:14)
[2020-10-11] MEDS: METFORMIN HCL 500 MG TAB PO SCH (09:15)
[2020-10-11] MEDS: METOPROLOL TAR 50 MG TAB PO SCH (09:15)
[2020-10-11] MEDS: hydroCHLOROthiazide 12.5 MG CAP PO SCH (09:15)
[2020-10-11 10:10] VITALS: O2SAT 94
[2020-10-11] MEDS: ONDANSETRON 4 MG/2 ML VIAL IV PRN (11:27)
--- NOTE | 2020-10-11 12:29 | P.DS ---
Admission Date: 10/10/20 Discharge Date: 10/11/20 Disposition: DC HOME/HOME HEALTH CARE Discharge Condition: GOOD Reason for Admission: s/p right total knee arthroplasty Procedures: right total knee arthroplasty 10/10/2020 Brief History of Present Illness: Josette was admitted postop after right TKA on 10/10/20 Hospital Course: Josette was admitted postoperatively in stable condition. Physical therapy was consulted and the patient mobilized safely with a walker. She was given lovenox while admitted for DVT prophylaxis and was discharged with Xarelto. She will followup in 2 weeks for staple removal. Vital Signs/Physical Exam: Temp Pulse Resp BP Pulse Ox 97.0 F 67 15 147/65 H 96 10/11/20 08:00 10/11/20 09:15 10/11/20 10:14 10/11/20 09:15 10/11/20 10:14 Laboratory Data at Discharge: WBC 6.80 K/uL (4.3-10.9) 10/05/20 09:19 Hgb 10.9 g/dL (12.0-15.0) L 10/11/20 05:52 Hct 33.9 % (36.0-45.0) L 10/11/20 05:52 Plt Count 201 K/uL (152-406) 10/05/20 09:19 PT 10.5 SECONDS (9.5-12.5) 10/05/20 09:19 INR 0.91 10/05/20 09:19 APTT 30.3 SECONDS (24.3-36.9) 10/05/20 09:19 Sodium 137 mmol/L (136-145) 10/05/20 09:19 Potassium 4.5 mmol/L (3.5-5.1) 10/05/20 09:19 BUN 19 mg/dL (7-18) H 10/05/20 09:19 Creatinine 0.83 mg/dL (0.55-1.3) 10/05/20 09:19 Glucose 102 mg/dL (74-106) 10/05/20 09:19 Home Medications: Lisinopril/Hydrochlorothiazide [Lisinopril-Hctz 20-12.5 mg Tab] 1 each PO BID 04/18/16 Cyanocobalamin (Vitamin B-12) [Vitamin B-12] 1 tab PO DAILY 12/09/17 Metformin HCl 500 mg PO BID 12/09/17 Metoprolol Tartrate [Lopressor] 50 mg PO BID 12/09/17 Ascorbic Acid [Vitamin C*] 500 mg PO DAILY 10/05/20 Aspirin [Aspirin EC 81 MG] 81 mg PO DAILY 10/05/20 Cholecalciferol (Vitamin D3) [Vitamin D 5,000 IU Cap*] 5,000 unit PO DAILY 10/05/20 Levothyroxine [Synthroid*] 75 mcg PO [id number] 10/05/20 Zinc 50 mg PO DAILY 10/05/20 Hydrocodone 7.5/APAP 325 [[place] 7.5/325 mg*] 1 tab PO Q4H PRN tab 10/11/20 Physician Discharge Instructions: keep dressing clean and dry; use ZI hose for 2 weeks to aid with swelling; WBAT RLE; begin Xarelto tomorrow, 10/12/2020, with breakfast and take once daily Diet: ADA Activity: Weight bearing as tolerated Followup: Patricio Jones, [Primary Care Provider] - Ashish Del Angel MD [ACTIVE - CAN ADMIT] - 1-2 Weeks
[2020-10-11 13:56] VITALS: BP 171/73; TEMP 97.4
--- NOTE | 2020-10-11 17:17 | P.OP ---
Preoperative diagnosis: right knee osteoarthritis Postoperative diagnosis: same Primary procedure: right total knee arthroplasty Anesthesia: general Estimated blood loss: 20 cc Specimen: right knee bone remnants Findings: see dictation Operative Technique: Indication For Procedure: Josette is a 70 year-old female presenting to my clinic with signs, symptoms and x-ray findings consistent with severe right knee osteoarthritis. I discussed with the patient at length risks and benefits associated with operative and nonoperative treatment. She had failed conservative treatment measures and had significant difficulties with ADLs secondary to her pain. We discussed operative treatment and elected to proceed with right total knee arthroplasty. She expressed understanding and elected to proceed with operative treatment. Description Of Procedure: After informed consent was obtained, the patient was identified in the preoperative holding area. The right lower extremity was marked. The patient was then taken to the PACU where she underwent a right lower extremity adductor canal block performed by Anesthesia. She was then taken to the operating room, transferred to the operating table in supine fashion, and placed under general anesthesia. Her right lower extremity was then prepped and draped in usual sterile fashion. A time-out was initiated. The correct patient and procedure were confirmed and identified. The patient did receive her preoperative prophylactic antibiotics. The right lower extremity was then exsanguinated and tourniquet was inflated to 300 mmHg. Approximately 15 cm longitudinal incision was made centered over the anterior aspect of the right knee. Dissection was then taken to the extensor mechanism and a medial parapatellar arthrotomy was performed. The patella was everted and dislocated laterally and the knee was flexed in the fat pad. Medial meniscus, lateral meniscus and ACL were all excised exposing the distal femur. Excess hypertrophic synovium was also excised within the suprapatellar pouch. The patient had an MRI of her right knee preoperatively for surgical planning and creation of cutting blocks. The cutting block was then placed over the distal femur and pins were then placed. The distal femoral cutting block was then placed over the pins. Knee joint was then used to ensure proper depth cut and t he distal femur was then cut. The chamfer cutting guide was then placed over the distal end of the femur. Anterior, posterior cuts as well as anterior and posterior chamfer cuts were then made again confirming proper depth of the cut using an Camilo wing. Excess bone remnants were then sent to pathology for further evaluation. Next, attention was taken to the proximal tibia. A tibial jig and tibial cutting block was then placed on proximal aspect of the right tibia and locked into position. Pins were then placed and alignment guide was then used to confirm proper alignment of the cut and then coronal and sagittal planes. Once this was confirmed, the cutting jig was placed over the pins and the proximal tibia was cut. Sizing trays were then selected and size 10 mm spacer was used and there was good overall balance in flexion and extension and was just a little loose and a size 11 poly was selected. Next, the trial implants were then placed using the size 6 standard CR femur and a size D tibia with an 11 mm poly. There was overall good range of motion and good stability trial implants were then removed. The wound was then irrigated thoroughly with normal saline and the knee was then injected with 30 cc of 0.5% Marcaine both in the posterior capsule and medial and lateral gutters as well as quadriceps tendon and periosteum. The tibia was then punched. The femur was drilled. The cement was then prepared on the back table. Cement was then placed first on the tibial surface followed by size D tibia. Excess cement was removed with Norton elevators. Size 6 standard CR femur was then placed on the distal femur after cement was placed on the distal femur. Excess cement was then removed and a size 11 mm trial poly was then placed. The knee was held in extension as the cement hardened. Undersurface of the patella was prepared debriding osteophytes using rongeurs as well as osteophytes had been debrided off the proximal tibia with rongeurs and osteotomes to aid with the medial tightness. Cement was placed on the undersurface of the patella after it was cut and a size 29 patella was placed. Once the cement was hardened, the knee was ranged, there was good overall stability both in flexion, extension and as well as stability with varus and valgus stresses. Trial poly was then removed and a size 10 mm CR poly was then placed and locked into position. The knee was then ranged again. There was good overall range of motion both for flexion and extension with good stability. The wound was then irrigated again thoroughly with normal saline using pulse lavage. Tourniquet was let down. Hemostasis was achieved using Bovie electrocautery. Extensor mechanism was then approximated using a #1 Vicryl both in interrupted and running fashion. The fascia was then approximated using 0 Vicryl. Subcutaneous tissue was approximated with a 2-0 Vicryl. Skin was approximated using tanika. Sterile dressings were applied. The patient was awakened and transferred back in stable condition Complications: None Drain(s): Urinary catheter Implants: Biomet Vladimir Persona 6 CR femur, D tibia, 11 mm CR poly, 29 patella Fluids & blood products: per anesthesia record: TT: 79 mins @ 300 mmHg Transferred to: Recovery Room Condition: Good
== END 2020-10-11 13:18 | disposition home health service (06) ==
LOC: OR 05:52 → 2ND 10:37
PROVIDERS: ADMIT Orthopaedic Surgery Sports Medicine; ATTEND Orthopaedic Surgery Sports Medicine
PROC: 0SRC0J9 Replacement of Right Knee Joint with Synthetic Substitute, Cemented, Open Approach (ICD-10-PCS; principal; 2020-10-10 07:30)
DX: M17.11 Unilateral primary osteoarthritis, right knee (principal); Z96.652 Presence of left artificial knee joint; E11.9 Type 2 diabetes mellitus without complications; I10 Essential (primary) hypertension; E03.9 Hypothyroidism, unspecified; Z79.84 Long term (current) use of oral hypoglycemic drugs; E66.9 Obesity, unspecified
CPT/HCPCS: 27447; 85025; 80048; 36415 ×3; 85610; 82947 ×6; 88304; 88311; 85730; 85018 ×2; 85014 ×2; 71046; 73560; 97110; 97116 ×2; 97139; 97161; 97530; 94010; J2704; J1650; J2250; J3010; J1100; J1170; J0690 ×2; J7030 ×2; J2405 ×3; G0379; G0378 ×2; 88305; J7120

== ENCOUNTER 2021-01-08 12:11 | Emergency (ER) | payer OTHER ==
[2021-01-08 12:58] LABS: Absolute Lymphocytes (CBC) 2.4 K/uL (0.7-4.9); Hematocrit 37.8 % (36.0-45.0); Lymphocytes % 32.5 % (15.3-44.8); MPV 8.8 fL (7.6-11.3); RBC Red Blood Cell Count 4.26 M/uL (3.86-4.86)
[2021-01-08] MEDS ORDERED: MECLIZINE HCL 12.5 MG TAB ONE (12:58)
[2021-01-08] MEDS ORDERED: NA CHLORIDE 0.9% 1,000 ML ONE (12:58)
[2021-01-08 12:59] LABS: Protime INR 0.94
--- NOTE | 2021-01-08 12:59 | RAD REPORT ---
EXAM DESCRIPTION: CT - Head Brain Wo Cont - 01/08/2021 12:43 pm CLINICAL HISTORY: DIZZINESS COMPARISON: Head angio dated 12/03/2019; Ct Stroke Brain Wo Cont dated 12/03/2019 TECHNIQUE: Axial 5 mm thick images of the head were obtained without IV contrast. All CT scans are performed using dose optimization technique as appropriate and may include automated exposure control or mA/KV adjustment according to patient size. FINDINGS: No intracranial hemorrhage, mass, edema or shift of mid-line structures. No acute cortical infarction. No cortical edema or sulcal effacement. No measurable atrophy changes are present. Ventr icles are normal. Cerebral chronic ischemic changes are present but appear mild. Intracranial finding s are similar to the 2019 comparison. Mastoid air cells and visualized portions of the paranasal sinuses are clear. No acute bony findings. IMPRESSION: Negative non-contrast CT head examination for acute finding. No significant change from comparison.
--- NOTE | 2021-01-08 14:31 | RAD REPORT ---
EXAM DESCRIPTION: RAD - Chest Single View - 01/08/2021 2:08 pm CLINICAL HISTORY: CHEST PAIN COMPARISON: Two view chest October 2020 TECHNIQUE: AP portable chest image was obtained 01/08/2021 2:08 pm . FINDINGS: Lung volumes are low but not substantially different from comparison. Interstitial pattern is prominent mostly or entirely due to low lung volume, under penetrated portable technique and larg e body habitus. No peripheral mass or consolidations seen. Heart and vasculature are normal. No measurable pleural effusion and no pneumothorax. No acute bony abnormality seen. No acute aortic findings suspected. IMPRESSION: No peripheral mass or consolidation. Prominent interstitial pattern mostly due to large body habitus, under penetrated portable technique and shallow inspiration. Mild interstitial edema or infiltrate still possible.
[2021-01-08 15:19] LABS: BUN Blood Urea Nitrogen 17 mg/dL (7-18); Bicarbonate 25 mmol/L (21-32); Glucose Level 86 mg/dL (74-106); NT PRO-BNP 296 pg/mL (<125); Sodium Level 136 mmol/L (136-145); Troponin (Emerg Dept Use Only) < 0.02 ng/mL (0.0-0.045)
[2021-01-08 15:28] LABS: Potassium 3.7 mmol/L (3.5-5.1)
--- NOTE | 2021-01-08 17:31 | ER ---
Nurse's Notes [facility] Name: Josette Pimentel Age: 70 yrs Sex: Female : 1950 Arrival Date: 01/08/2021 Time: 12:13 Bed 18 Private MD: Diagnosis: Other peripheral vertigo;Chest pain, unspecified;Dizziness and giddiness Presentation: 01/08 12:13 Chief complaint: EMS states: Patient began having chest pain while she was getting a ap3 knee xray. Patient states she began feeling nauseous and dizzy, then her chest got tight. Coronavirus screen: At this time, the client does not indicate any symptoms associated with coronavirus-19. Ebola Screen: No symptoms or risks identified at this time. Initial Sepsis Screen: Does the patient meet any 2 criteria? No. Patient's initial sepsis screen is negative. Does the patient have a suspected source of infection? No. Patient's initial sepsis screen is negative. Risk Assessment: Do you want to hurt yourself or someone else? Patient reports no desire to harm self or others. Onset of symptoms was January 08, 2021. Care prior to arrival: Medication(s) given: ASA, 325 mg, Nitroglycerin, 0.4 mg SL IV initiated. 20 GA, in the right wrist. 12:13 Method Of Arrival: EMS: [facility] ap3 12:13 Acuity: BARAK 3 ap3 Triage Assessment: 12:17 General: Appears comfortable, Behavior is cooperative. Pain: Complains of pain in chest ap3 Pain does not radiate. Quality of pain is described as tightness Pain began suddenly, Also complains of nausea. EENT: No signs and/or symptoms were reported regarding the EENT system. Neuro: Level of Consciousness is awake, alert, obeys commands, Oriented to person, place, time, situation, Door Tender are equal bilaterally Speech is normal, Reports dizziness, headache. Cardiovascular: Reports chest pain, Capillary refill < 3 seconds Patient's skin is warm and dry. Respiratory: Airway is patent Respiratory effort is even, unlabored, Respiratory pattern is regular, symmetrical. GI: Reports nausea. Historical: - Allergies: 12:15 Bees; ap3 - Home Meds: 12:15 metformin 500 mg Oral tab 1 tab 2 times per day [Active]; metoprolol tartrate 50 mg ap3 Oral tab 1 tab 2 times per day [Active]; lisinopril-hydrochlorothiazide 20-12.5 mg Oral tab twice a day [Active]; - PMHx: 12:15 Diabetes - NIDDM; Hypertension; ap3 - Immunization history:: Client reports receiving the Vlad \T\ Vlad single-dose vaccine. Date received June 2020. - Social history:: Smoking status: Patient denies any tobacco usage or history of. Patient/guardian denies using alcohol, street drugs. - Family history:: not pertinent. - Hospitalizations: : No recent hospitalization is reported. Screenin:18 Abuse screen: Denies threats or abuse. Nutritional screening: No deficits noted. ap3 Tuberculosis screening: No symptoms or risk factors identified. Fall Risk No fall in past 12 months (0 pts). No secondary diagnosis (0 pts). IV access (20 points). Ambulatory Aid- None/Bed Rest/Nurse Assist (0 pts). Gait- Normal/Bed Rest/Wheelchair (0 pts) Mental Status- Oriented to own ability (0 pts). Total Mitchell Fall Scale indicates No Risk (0-24 pts). Assessment: 13:56 Reassessment: Patient and/or family updated on plan of care and expected duration. Pain ap3 level reassessed. Patient is alert, oriented x 3, equal unlabored respirations, skin warm/dry/pink. 16:11 Reassessment: Patient and/or family updated on plan of care and expected duration. Pain ap3 level reassessed. Patient is alert, oriented x 3, equal unlabored respirations, skin warm/dry/pink. 16:57 Reassessment: Patient and/or family updated on plan of care and expected duration. Pain ap3 level reassessed. Patient is alert, oriented x 3, equal unlabored respirations, skin warm/dry/pink. daughter left the patients bedside, left phone number with nurses. Stacy [phone]. 17:32 Reassessment: daughter notified of patients pending discharge. ap3 Vital Signs: 12:13 BP 161 / 65; Pulse 68; Resp 18; Pulse Ox 99% on R/A; Weight 97.07 kg; Height 5 ft. 4 ap3 in. (162.56 cm); 13:56 BP 167 / 57; Pulse 70; Resp 17; Pulse Ox 100% ; ap3 15:07 BP 164 / 53; Pulse 66; Pulse Ox 98% on R/A; ap3 16:11 BP 143 / 58; Pulse 70; Pulse Ox 98% on R/A; ap3 12:13 Body Mass Index 36.73 (97.07 kg, 162.56 cm) ap3 ED Course: 12:13 Patient arrived in ED. ap3 12:13 Benita Bourgeois, JAYLIN is Primary Nurse. ap3 12:15 Triage completed. ap3 12:19 Arm band placed on right wrist. EKG done per protocol. Performed by ED Staff. Shown to ap3 ED physician. 12:19 Bed in low position. Call light in reach. Side rails up X2. nuclear monitoring technician on. Pulse ap3 ox on. NIBP on. Door closed. Noise minimized. 12:21 Alex Mae MD is Attending Physician. rn 12:42 CT Head Brain wo Cont In Process Unspecified. EDMS 14:08 XRAY Chest (1 view) In Process Unspecified. EDMS 17:29 Ned Vallejo MD is Referral Physician. rn 17:38 No provider procedures requiring assistance completed. IV discontinued, intact, ap3 bleeding controlled, No redness/swelling at site. Pressure dressing applied. Administered Medications: 12:37 Drug: Meclizine 50 mg Route: PO; ap3 17:32 Follow up: Response: No adverse reaction ap3 12:47 Drug: NS 0.9% 1000 ml Route: IV; Rate: 1000 ml; Site: right hand; ap3 17:32 Follow up: IV Status: Completed infusion; IV Intake: 1000ml ap3 Intake: 17:32 IV: 1000ml; Total: 1000ml. ap3 Outcome: 17:30 Discharge ordered by . rn 17:38 Discharged to home ambulatory, with family. ap3 17:38 Condition: good 17:38 Discharge instructions given to patient, family, Instructed on discharge instructions, follow up and referral plans. medication usage, Demonstrated understanding of instructions, follow-up care, medications, Prescriptions given X 1. 17:56 Patient left the ED. ap3 Signatures: Dispatcher [employer] EDMS Alex Mae MD MD rn Prokisch, Amanda, RN RN ap3
--- NOTE | 2021-01-08 17:31 | EDPHYS ---
Physician Documentation [facility] Name: Josette Pimentel Age: 70 yrs Sex: Female : 1950 Arrival Date: 01/08/2021 Time: 12:13 Bed 18 Private MD: ED Physician Alex Mae HPI: 01/08 13:23 This 70 yrs old Female presents to ER via EMS with complaints of Dizziness, rn chest pain. 13:23 The patient or guardian reports chest pain that is located primarily in the substernal rn area. Onset: just prior to arrival. The pain does not radiate. Associated signs and symptoms: Pertinent positives: dizziness, nausea, Pertinent negatives: palpitations, shortness of breath, syncope, vomiting. The chest pain is described as aching, a heaviness. Duration: The patient or guardian reports a single episode, that is now resolved. Modifying factors: The symptoms are alleviated by nothing. the symptoms are aggravated by nothing. Severity of pain: At its worst the pain was moderate in the emergency department the pain has improved. The patient has not experienced similar symptoms in the past. Patient reports getting an x-ray of the knee when stood up, began to feel dizzy and lightheaded, felt like the room was spinning, then proceeded to have chest pain that felt heavy and squeezing. Denies any recent illness or fever. No cough or shortness of breath. Feels much better now. States had an episode of vertigo about a week ago but got better on its own.. Historical: - Allergies: 12:15 Bees; ap3 - Home Meds: 12:15 metformin 500 mg Oral tab 1 tab 2 times per day [Active]; metoprolol tartrate 50 mg ap3 Oral tab 1 tab 2 times per day [Active]; lisinopril-hydrochlorothiazide 20-12.5 mg Oral tab twice a day [Active]; - PMHx: 12:15 Diabetes - NIDDM; Hypertension; ap3 - Immunization history:: Client reports receiving the Vlad \T\ Vlad single-dose vaccine. Date received June 2020. - Social history:: Smoking status: Patient denies any tobacco usage or history of. Patient/guardian denies using alcohol, street drugs. - Family history:: not pertinent. - Hospitalizations: : No recent hospitalization is reported. ROS: 13:23 Constitutional: Negative for fever, chills, and weight loss, Eyes: Negative for injury, rn pain, redness, and discharge, ENT: Negative for injury, pain, and discharge, Neck: Negative for injury, pain, and swelling, Cardiovascular: Negative for palpitations, and edema, Respiratory: Negative for shortness of breath, cough, wheezing, and pleuritic chest pain, Abdomen/GI: Negative for abdominal pain, vomiting, diarrhea, and constipation, Back: Negative for injury and pain, : Negative for injury, bleeding, discharge, and swelling, MS/Extremity: Negative for injury and deformity, Skin: Negative for injury, rash, and discoloration, Neuro: Negative for headache, weakness, numbness, tingling, and seizure. Exam: 13:23 Constitutional: This is a well developed, well nourished patient who is awake, alert, rn and in no acute distress. Head/Face: Normocephalic, atraumatic. Eyes: Periorbital areas with no swelling, redness, or edema. Cardiovascular: Regular rate and rhythm. No pulse deficits. Respiratory: No increased work of breathing, no retractions or nasal flaring. Abdomen/GI: Soft, non-tender Skin: Warm, dry MS/ Extremity: Pulses equal, no cyanosis. Neurovascular intact. Full, normal range of motion. Equal circumference. Neuro: Awake and alert, GCS 15, oriented to person, place, time, and situation. Cranial nerves II-XII grossly intact. Motor strength 5/5 in all extremities. Sensory grossly intact. Cerebellar exam normal. 17:27 ECG was reviewed by the Attending Physician. rn Vital Signs: 12:13 BP 161 / 65; Pulse 68; Resp 18; Pulse Ox 99% on R/A; Weight 97.07 kg; Height 5 ft. 4 ap3 in. (162.56 cm); 13:56 BP 167 / 57; Pulse 70; Resp 17; Pulse Ox 100% ; ap3 15:07 BP 164 / 53; Pulse 66; Pulse Ox 98% on R/A; ap3 16:11 BP 143 / 58; Pulse 70; Pulse Ox 98% on R/A; ap3 12:13 Body Mass Index 36.73 (97.07 kg, 162.56 cm) ap3 MDM: 12:21 Patient medically screened. rn 17:27 Differential diagnosis: acute myocardial infarction, acute pericarditis, anxiety, rn coronary artery disease costochondritis, esophagitis, gastroesophageal reflux disease (GERD), pleurisy, pneumothorax, vertigo. Data reviewed: vital signs, nurses notes, lab test result(s), EKG, radiologic studies, CT scan, plain films, and as a result, I will discharge patient. Data interpreted: mailmaster: rate is 70 beats/min, rhythm is normal sinus rhythm, regular, with no ectopy, Interpretation: normal rate, normal rhythm, Pulse oximetry: on room air is 98 %. Interpretation: normal. Test interpretation: by ED physician or midlevel provider: ECG, plain radiologic studies, Chest x-ray negative for pneumonia or pneumothorax. Counseling: I had a detailed discussion with the patient and/or guardian regarding: the historical points, exam findings, and any diagnostic results supporting the discharge/admit diagnosis, lab results, radiology results, the need for outpatient follow up, to return to the emergency department if symptoms worsen or persist or if there are any questions or concerns that arise at home. 17:27 Response to treatment: the patient's symptoms have markedly improved after treatment, rn the patient's symptoms have resolved after treatment, the patient's condition has returned to base line, the patient is now symptom free, and as a result, I will discharge patient. Special discussion: Based on the patient's history, exam, and Dx evaluation, there is no indication for emergent intervention or inpatient Tx. It is understood by the patient/guardian that if the Sx's persist or worsen they need to return immediately for re-evaluation. I discussed with the patient/guardian in detail that at this point there is no indication for admission to the hospital. It is understood, however, that if the symptoms persist or worsen the patient needs to return immediately for re-evaluation. Based on the history and exam findings, there is no indication for further emergent testing or inpatient evaluation. I discussed with the patient/guardian the need to see the neurologist for further evaluation of the symptoms. ED course: Patient back to baseline. Resting comfortably. Able to turn head now without vertigo. CT head and chest x-ray no acute findings. Troponin and EKG normal. Patient mainly here for dizziness and vertigo symptoms which she has had in the past but worse today. Improved with meclizine. Will DC home with meclizine. 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 Also recommend cardiology follow-up.. 01/08 12:30 Order name: Basic Metabolic Panel rn 01/08 12:30 Order name: CBC with Diff rn 01/08 12:30 Order name: Magnesium; Complete Time: 17:00 rn 01/08 12:30 Order name: NT PRO-BNP; Complete Time: 17: rn 01/08 12:30 Order name: PT-INR; Complete Time: 15: rn 01/08 12:30 Order name: Troponin (emerg Dept Use Only); Complete Time: 17: rn 01/08 12:30 Order name: XRAY Chest (1 view); Complete Time: 15: rn 01/08 12:30 Order name: EKG; Complete Time: 12: rn 01/08 12:30 Order name: Cardiac monitoring; Complete Time: 12: rn 01/08 12:30 Order name: CT Head Brain wo Cont; Complete Time: 15: rn 01/08 12:31 Order name: Basic Metabolic Panel; Complete Time: 17:00 EDMS 01/08 12:31 Order name: CBC with Automated Diff; Complete Time: 15: EDMS 01/08 12:30 Order name: EKG - Nurse/Tech; Complete Time: 12: rn 01/08 12:30 Order name: IV Saline Lock; Complete Time: 12: rn 01/08 12:30 Order name: Labs collected and sent; Complete Time: 12: rn 01/08 12:30 Order name: O2 Per Protocol; Complete Time: 12: rn 01/08 12:30 Order name: O2 Sat Monitoring; Complete Time: 12: rn 01/08 13:58 Order name: Labs - recollect needed: recollect green tube; Complete Time: 14:23 bd EC:27 Rate is 70 beats/min. Rhythm is regular. QRS [place] is Normal. [place] interval is normal. QRS rn interval is normal. QT interval is normal. No Q waves. T waves are Normal. No ST changes noted. Clinical impression: Normal ECG. Interpreted by me. Reviewed by me. Administered Medications: 12:37 Drug: Meclizine 50 mg Route: PO; ap3 17:32 Follow up: Response: No adverse reaction ap3 12:47 Drug: NS 0.9% 1000 ml Route: IV; Rate: 1000 ml; Site: right hand; ap3 17:32 Follow up: IV Status: Completed infusion; IV Intake: 1000ml ap3 Disposition Summary: 01/08/21 17:30 Discharge Ordered Location: Home rn Problem: new rn Symptoms: have improved rn Condition: Stable rn Diagnosis - Other peripheral vertigo rn - Chest pain, unspecified rn - Dizziness and giddiness rn Followup: rn - With: Ned Vallejo MD - When: As needed - Reason: Recheck today's complaints, Re-evaluation by your physician Discharge Instructions: - Discharge Summary Sheet rn - Nonspecific Chest Pain, Adult rn - Dizziness rn - Vertigo rn Forms: - Medication Reconciliation Form rn - Thank You Letter rn - Antibiotic furniture finisher - Prescription Opioid Use rn Prescriptions: - Meclizine 25 mg Oral Tablet - take 1 tablet by ORAL route every 8 hours As needed; 30 tablet; Refills: 0, rn Product Selection Permitted Signatures: Dispatcher [employer] Michelle James Roman, MD MD rn Benita Bourgeois RN RN ap3
[2021-01-08 18:07] VITALS: O2SAT 98
[2021-01-08 18:08] VITALS: BP 143/58
--- NOTE | 2021-01-09 16:46 | EKG ---
Test Date: 2021-01-08 Test Time: 12:13:53 Rfid Systems Engineer: MEASUREMENT RESULTS: Intervals: Rate: 70 HI: 186 QRSD: 96 QT: 412 QTc: 444 [place]: P: 29 HI: 186 QRS: 54 T: 15 INTERPRETIVE STATEMENTS: Normal sinus rhythm Normal ECG Compared to ECG 02/29/2020 10:30:37 No significant changes Electronically Signed On 01-09-21 16:43:00 CDT by Jovany Sweet
== END 2021-01-08 17:56 | disposition home or self-care (01) ==
LOC: ER 12:11
DX: H81.399 Other peripheral vertigo, unspecified ear (principal); R07.9 Chest pain, unspecified; I10 Essential (primary) hypertension; E11.9 Type 2 diabetes mellitus without complications; Z91.030 Bee allergy status
CPT/HCPCS: 96361; 93005; 85025; 80048; 36415; 83735; 85610; 84484; 83880; 70450; 71045; 96360; 99284; J7030

== ENCOUNTER 2021-07-02 14:33 | Emergency (ER) | payer OTHER ==
[2021-07-02] MEDS ORDERED: MORPHINE 4 MG/ML SYR ONE (15:41)
[2021-07-02] MEDS ORDERED: ONDANSETRON 4 MG/2 ML VIAL ONE (15:41)
[2021-07-02] MEDS ORDERED: NA CHLORIDE 0.9% 500 ML ONE (15:41)
[2021-07-02 15:48] LABS: Hematocrit 39.4 % (36.0-45.0); Lymphocytes % 22.5 % (15.3-44.8); MPV 8.9 fL (7.6-11.3); RBC Red Blood Cell Count 4.58 M/uL (3.86-4.86)
[2021-07-02 16:03] LABS: Albumin 3.6 g/dL (3.4-5.0); Bilirubin Total 0.7 mg/dL (0.2-1.0); Potassium 3.6 mmol/L (3.5-5.1); Protein, Total 7.9 g/dL (6.4-8.2)
[2021-07-02] MEDS ORDERED: PROMETHAZINE INJ 25 MG/ML AMP ONE (16:33)
--- NOTE | 2021-07-02 17:03 | RAD REPORT ---
EXAM DESCRIPTION: CTAbdomen Pelvis W Contrast - 07/02/2021 4:52 pm CLINICAL HISTORY: Abdominal pain. ABD PAIN COMPARISON: Abdomen Pelvis W Contrast dated 11/10/2018 TECHNIQUE: Biphasic CT imaging of the abdomen and pelvis was performed with 100 ml non-ionic IV cont rast. All CT scans are performed using dose optimization technique as appropriate and may include automated exposure control or mA/KV adjustment according to patient size. FINDINGS: The lung bases are clear. Mild diffuse fatty liver is present. The spleen, pancreas and kidneys are within normal limits. Bilat eral adrenal nodules are present. No bowel obstruction, free air, intra-abdominal free fluid or abscess. Sigmoid diverticulosis is pres ent without diverticulitis. Mild pelvic free fluid is present with a thickened appearance to the endo metrium. The appendix is normal. No evidence of significant lymphadenopathy. Moderate lumbar degenerative changes. IMPRESSION: Thickened endometrial stripe may be present with mild pelvic free fluid. Recommend follo w-up pelvic ultrasound for further evaluation. Diffuse fatty liver infiltration is noted. Bilateral adrenal nodules are present, without suspicious interval change since 2019 comparative stud y.
--- NOTE | 2021-07-02 17:52 | EDPHYS ---
Physician Documentation [facility] Name: Josette Pimentel Age: 70 yrs Sex: Female : 1950 Arrival Date: 07/02/2021 Time: 14:36 Bed 5 Private MD: ED Physician Ever Ocampo HPI: 07/02 16:49 This 70 yrs old Female presents to ER via Wheelchair with complaints of jr8 Nausea, Abdominal Pain. 16:49 The patient presents to the emergency department with nausea, vomiting, abdominal pain, jr8 of the right upper quadrant and left upper quadrant. Onset: The symptoms/episode began/occurred gradually. Possible causes: unknown. The symptoms are aggravated by nothing. The symptoms are alleviated by nothing. Associated signs and symptoms: The patient has no apparent associated signs or symptoms. Severity of symptoms: At their worst the symptoms were moderate in the emergency department the symptoms are unchanged. The patient has experienced similar episodes in the past, a few times. The patient has been recently seen by a physician:. This is a 70-year-old female patient that presented to the emergency room with continued onset abdominal pain. Patient was seen at [facility] and admitted this past week and transferred for further evaluation in which she had a HIDA scan completed along with ultrasound of her gallbladder. Biliary studies were completed at that time although they did find mild elevation in her AST and ALT. Patient stated she was discharged home to follow-up with gastroenterology but pain has persisted and continues to vomit and not able to keep anything down. Patient was reseen at [facility] last night and discharged home. Patient came to emergency room here today for further evaluation.. Historical: - Allergies: 14:46 Bees; bp - Home Meds: 14:46 lisinopril-hydrochlorothiazide 20-12.5 mg Oral tab twice a day [Active]; metformin 500 bp mg Oral tab 1 tab 2 times per day [Active]; metoprolol tartrate 50 mg Oral tab 1 tab 2 times per day [Active]; - PMHx: 14:46 Diabetes - NIDDM; Hypertension; bp - Social history:: Smoking status: Patient denies any tobacco usage or history of. ROS: 16:49 Eyes: Negative for injury, pain, redness, and discharge, ENT: Negative for injury, jr8 pain, and discharge, Neck: Negative for injury, pain, and swelling, Cardiovascular: Negative for chest pain, palpitations, and edema, Respiratory: Negative for shortness of breath, cough, wheezing, and pleuritic chest pain, Back: Negative for injury and pain, MS/Extremity: Negative for injury and deformity, Skin: Negative for injury, rash, and discoloration, Neuro: Negative for headache, weakness, numbness, tingling, and seizure. 16:49 Abdomen/GI: Positive for abdominal pain, nausea and vomiting, Negative for diarrhea, hematemesis, black/tarry stool, rectal pain, rectal bleeding, bowel incontinence. Exam: 16:49 Constitutional: This is a well developed, well nourished patient who is awake, alert, jr8 and in no acute distress. Cardiovascular: Regular rate and rhythm with a normal S1 and S2. No gallops, murmurs, or rubs. Normal PMI, no JVD. No pulse deficits. Respiratory: Lungs have equal breath sounds bilaterally, clear to auscultation and percussion. No rales, rhonchi or wheezes noted. No increased work of breathing, no retractions or nasal flaring. Back: No spinal tenderness. No costovertebral tenderness. Full range of motion. Skin: Warm, dry with normal turgor. Normal color with no rashes, no lesions, and no evidence of cellulitis. MS/ Extremity: Pulses equal, no cyanosis. Neurovascular intact. Full, normal range of motion. Neuro: Awake and alert, GCS 15, oriented to person, place, time, and situation. Motor strength 5/5 in all extremities. Sensory grossly intact. 16:49 Abdomen/GI: Inspection: obese Bowel sounds: active, all quadrants, Palpation: soft, in all quadrants, moderate abdominal tenderness, in the right upper quadrant and left upper quadrant and mid abdomen, mass, is not appreciated, rebound tenderness, is not appreciated, voluntary guarding, is not appreciated, involuntary guarding, is not appreciated, no appreciated organomegaly, Indicators: McBurney's point is not tender, Braun's sign is negative, Rovsing's sign is negative, Liver: tenderness, is not appreciated. Vital Signs: 14:46 BP 142 / 56; Pulse 57; Resp 18; Temp 97.1; Pulse Ox 96% ; Weight 99.79 kg; Height 5 ft. bp 1 in. (154.94 cm); 16:34 BP 167 / 77; Pulse 57; Resp 19; Pulse Ox 99% on R/A; ww 18:17 BP 169 / 74; Pulse 51; Resp 16; Pulse Ox 98% ; ww 19:34 BP 158 / 62; Pulse 55; Resp 16 S; Temp 98(TE); Pulse Ox 96% on R/A; bb 14:46 Body Mass Index 41.57 (99.79 kg, 154.94 cm) bp MDM: 15:06 Patient medically screened. jr8 17:49 Data reviewed: vital signs, nurses notes, diagnostic data from outside facility, CBC, jr8 electrolytes, hepatic panel, radiologic studies, ultrasound, HIDA scan, lab test result(s), radiologic studies, CT scan. Data interpreted: Pulse oximetry: on room air is 99 %. Interpretation: normal. 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 Response to treatment: the patient's symptoms have markedly improved after treatment. ED course: Patient resting comfortably in exam room. No acute pain at this time. Labs stable and CT without acute findings pertaining to the bowel or upper abdominal organs. It was noted that patient has a thickened endometrial stripe which was relayed to the family and that she needs to follow-up for ultrasound and gynecology follow-up. Needs to also continue to see gastroenterology for endoscopy as this will be the next step as patient is already had CT with contrast, HIDA scan, ultrasound at this point with no acute findings. Family good with this and will continue to follow-up with gastroenterology and make her a gynecology appointment.. 07/02 15:20 Order name: CBC with Diff; Complete Time: 1607/02 15:20 Order name: CMP; Complete Time: :07/02 15:20 Order name: Lipase; Complete Time: 16:07/02 15:20 Order name: CT Abd/Pelvis - IV Contrast Only; Complete Time: 17:17 07/02 15:20 Order name: IV Saline Lock; Complete Time: 15:35 8 07/02 15:20 Order name: Labs collected and sent; Complete Time: 15:35 jr8 Administered Medications: 15:35 Drug: Zofran (Ondansetron) 4 mg Route: IVP; Site: right antecubital; jb4 16:30 Follow up: Response: No adverse reaction; No change in condition jb4 15:37 Drug: morphine 4 mg Route: IVP; Site: right antecubital; jb4 16:39 Follow up: Response: No adverse reaction; Marked relief of symptoms; Pain is decreased jb4 15:37 Drug: NS 0.9% 500 ml Route: IV; Rate: bolus; Site: right antecubital; jb4 16:38 Follow up: Response: No adverse reaction; IV Status: Completed infusion; IV Intake: jb4 500ml 16:38 Drug: Promethazine 12.5 mg Route: IVP; Site: right antecubital; jb4 Disposition: 21:56 Co-signature as Attending Physician, Ever Ocampo DO I was immediately available on-site ms3 in the Emergency Department for consultation in the care of the patient.. Disposition Summary: 07/02/21 17:51 Discharge Ordered Location: Home jr8 Problem: new jr8 Symptoms: have improved jr8 Condition: Stable jr8 Diagnosis - Upper abdominal pain, unspecified jr8 - Vomiting jr8 Followup: jr8 - With: Private Physician - When: 2 - 3 days - Reason: Recheck today's complaints, Continuance of care, Re-evaluation by your physician Discharge Instructions: - Discharge Summary Sheet jr8 - Abdominal Pain, Adult jr8 - Vomiting, Adult jr8 Forms: - Medication Reconciliation Form jr8 - Thank You Letter jr8 - Antibiotic Education jr8 - Prescription Opioid Use jr8 Signatures: Dispatcher [employer] EDMS Sanjiv Pineda PA PA jr8 Molina Reynoso RN RN jb4 Fredrick Guevara RN RN Ever Muniz DO DO ms3
--- NOTE | 2021-07-02 17:52 | ER ---
Nurse's Notes [facility] Name: Josette Pimentel Age: 70 yrs Sex: Female : 1950 Arrival Date: 07/02/2021 Time: 14:36 Bed 5 Private MD: Diagnosis: Upper abdominal pain, unspecified;Vomiting Presentation: 07/02 14:46 Chief complaint: Patient states: SEEN FOR SAME ON 06/23, TOLD "GALLBLADDER INFLAMED" AND bp ADMITTED, D/C ON 06/26. S/S OF ABDOMINAL DISTENSION, NAUSEA, VOMITING RETURNED ON 06/28. Coronavirus screen: At this time, the client does not indicate any symptoms associated with coronavirus-19. Ebola Screen: No symptoms or risks identified at this time. Initial Sepsis Screen: Does the patient meet any 2 criteria? No. Patient's initial sepsis screen is negative. Does the patient have a suspected source of infection? No. Patient's initial sepsis screen is negative. Risk Assessment: Do you want to hurt yourself or someone else? Patient reports no desire to harm self or others. Onset of symptoms was June 28, 2021. 14:46 Acuity: BARAK 3 bp 14:46 Method Of Arrival: Wheelchair bp Historical: - Allergies: 14:46 Bees; bp - Home Meds: 14:46 lisinopril-hydrochlorothiazide 20-12.5 mg Oral tab twice a day [Active]; metformin 500 bp mg Oral tab 1 tab 2 times per day [Active]; metoprolol tartrate 50 mg Oral tab 1 tab 2 times per day [Active]; - PMHx: 14:46 Diabetes - NIDDM; Hypertension; bp - Social history:: Smoking status: Patient denies any tobacco usage or history of. Screenin:38 Abuse screen: Denies threats or abuse. Denies injuries from another. Nutritional ww screening: No deficits noted. Tuberculosis screening: No symptoms or risk factors identified. Fall Risk None identified. Assessment: 16:31 General: Appears uncomfortable, Behavior is cooperative. Pain: Complains of pain in ww abdomen. Neuro: Level of Consciousness is awake, alert, obeys commands, Oriented to person, time, situation, Speech is slurred. Cardiovascular: Patient's skin is warm and dry. Chest pain is denied. Respiratory: Airway is patent Respiratory effort is even, unlabored, Respiratory pattern is regular, symmetrical. GI: Abdomen is round Abdomen is tender to palpation Reports lower abdominal pain, upper abdominal pain, nausea, vomiting. Derm: Skin is healthy with good turgor. 17:25 Reassessment: Patient appears in no apparent distress at this time. Patient and/or ww family updated on plan of care and expected duration. Pain level reassessed. 18:16 Reassessment: Patient appears in no apparent distress at this time. Patient and/or ww family updated on plan of care and expected duration. Pain level reassessed. patient snoring, family at bedside. 18:57 Reassessment: Pt remains lethargic, responds to repeated verbal stimuli, pt family jl7 requesting to give her a little more time before discharging since she is so tired. 19:34 Reassessment: Patient is alert, oriented x 3, equal unlabored respirations, skin bb warm/dry/pink. pt verbalized understanding of and agrees to plan of care discharge instructions given pt assisted to exit via wheelchair accompanied by family. Vital Signs: 14:46 BP 142 / 56; Pulse 57; Resp 18; Temp 97.1; Pulse Ox 96% ; Weight 99.79 kg; Height 5 ft. bp 1 in. (154.94 cm); 16:34 BP 167 / 77; Pulse 57; Resp 19; Pulse Ox 99% on R/A; ww 18:17 BP 169 / 74; Pulse 51; Resp 16; Pulse Ox 98% ; ww 19:34 BP 158 / 62; Pulse 55; Resp 16 S; Temp 98(TE); Pulse Ox 96% on R/A; bb 14:46 Body Mass Index 41.57 (99.79 kg, 154.94 cm) bp ED Course: 14:36 Patient arrived in ED. ds1 14:46 Arm band placed on right wrist. bp 14:50 Triage completed. bp 15:05 Sanjiv Pineda PA is PHCP. jr8 15:05 Ever Ocampo DO is Attending Physician. jr8 15:38 Patient has correct armband on for positive identification. Bed in low position. Call ww light in reach. Side rails up X2. Adult w/ patient. Pulse ox on. NIBP on. 15:38 Inserted saline lock: 20 gauge in right antecubital area, using aseptic technique. ww Blood collected. 16:31 Wood, Sophia, RN is Primary Nurse. ww 16:53 CT Abd/Pelvis - IV Contrast Only In Process Unspecified. EDMS 19:35 No provider procedures requiring assistance completed. IV discontinued, intact, bb bleeding controlled, No redness/swelling at site. Pressure dressing applied. Administered Medications: 15:35 Drug: Zofran (Ondansetron) 4 mg Route: IVP; Site: right antecubital; jb4 16:30 Follow up: Response: No adverse reaction; No change in condition jb4 15:37 Drug: morphine 4 mg Route: IVP; Site: right antecubital; jb4 16:39 Follow up: Response: No adverse reaction; Marked relief of symptoms; Pain is decreased jb4 15:37 Drug: NS 0.9% 500 ml Route: IV; Rate: bolus; Site: right antecubital; jb4 16:38 Follow up: Response: No adverse reaction; IV Status: Completed infusion; IV Intake: jb4 500ml 16:38 Drug: Promethazine 12.5 mg Route: IVP; Site: right antecubital; jb4 Intake: 16:38 IV: 500ml; Total: 500ml. jb4 Outcome: 17:51 Discharge ordered by . mirna 19:35 Discharged to home via wheelchair, with family. bb 19:35 Condition: stable 19:35 Discharge instructions given to patient, Instructed on discharge instructions, follow up and referral plans. Demonstrated understanding of instructions, follow-up care. 19:35 Patient left the ED. bb Signatures: Dispatcher [employer] EDKY Nataliya Valdez ds1 Jessica Quezada RN RN bb Sanjiv Pineda PA PA jr8 Molina Reynoso RN RN jb4 Kaleigh Murillo RN RN jl7 Fredrick Guevara RN RN bp Sophia Montoya, RN JAYLIN ww
[2021-07-02 19:43] VITALS: BP 158/62; TEMP 98; O2SAT 96
== END 2021-07-02 19:35 | disposition home or self-care (01) ==
LOC: ER 14:33
DX: R10.10 Upper abdominal pain, unspecified (principal); R11.2 Nausea with vomiting, unspecified; E11.9 Type 2 diabetes mellitus without complications; I10 Essential (primary) hypertension; Z91.030 Bee allergy status
CPT/HCPCS: 85025; 36415; 83690; 80053; 74177; Q9967; J2550; J7040; J2405; 96361; 96374; 96375; 99284

== ENCOUNTER 2021-08-18 12:06 | Emergency (ER) | payer OTHER ==
--- OUTSIDE RECORDS SUMMARY | 2021-08-18 12:12 | XMS REPORT | Continuity of Care Document ---
:1950 Author Organization [facility] t Address [address] [place] [address] [address] [place] [address] Care Team Providers Name Role Phone Radha JONES Primary Care Physician Unavailable Radha Jones Attending Clinician Unavailable MARYBETH JAMA Attending Clinician Unavailable HUDSON Attending Clinician Unavailable Mata CANTU Attending Clinician Unavailable Pepe CHICAS S Attending Clinician Aníbal MOSQUEDA, B Attending Clinician Unavailable MARY Attending Clinician Unavailable Pob, Lab Main Attending Clinician Unavailable Hudson CHICAS Attending Clinician Doctor Unassigned, Name Attending Clinician Unavailable Malka PLUNKETT Attending Clinician Unavailable Malka Aranda Attending Clinician Maryan Torres Admitting Clinician Unavailable EVITA HEART Admitting Clinician Unavailable MARY Admitting Clinician Unavailable Malka PLUNKETT Admitting Clinician Unavailable PRERNA Admitting Clinician Unavailable Payers Payer Name Policy Type Policy Number Effective Date Expiration Date Mata [place] [facility] [id number] 2018 ALL 00:00:[address] [facility] [id number] 2021 00:00:00 Problems Condition Condition Condition Status Onset Resolution Last Treating Co mments Source Name Details Category Date Date Treatment Clinician Date Cholecysti Cholecysti Disease Active U nivers tis tis 3-21 ity of 00:00: [place] 00 Medical Branch Diverticul Diverticul Disease Active U nivers itis large itis large 6- it y of intestine intestine 00[place] Morbid Morbid Disease Active [facility] obesity obesity 602 ity of with body with body [place] mass index mass index 00 Me dical of of Branch 40.0-49.9 40.0-49.9 Morbid Morbid Disease Active Univers obesity obesity 09-05 ity of with body with body 00:[place] mass index mass index 00 Me dical of 50 or of 50 or Branch higher higher Allergies, Adverse Reactions, Alerts Allergy Allergy Status Severity Reaction(s) Onset Inactive Treating Comm ents Source Name Type Date Date Clinician BEE DRUG Active Anaphylaxis Unive rs STING / INGREDI 3-08 ity of VENOM 00:00: [place] [facility] Bee Propensi Active Anaphylaxis Uni vers Sting / ty to 3-08 ity of [place] adverse 00:00: [place] reaction 00 [facility] VARICELL Allergy Active Swelling [facility] [id number]-[id number] 00:00: Medical (PF) 00 Center NO KNOWN Drug Active Univers ALLERGIE Class ity of S [facility] NO KNOWN Allergy Active [facility] ALLERGIE S Social History Social Habit Start Date Stop Date Quantity Comments Source Exposure to Yes [facility] SARS-CoV-2 [place] Medical (event) Branch Alcohol intake 2021-07-02 2021-07-02 Current University of 00:00:00 00:00:00 non-drinker of [facility] alcohol Branch (finding) Tobacco use and 2016-09-05 2016-09-05 Never used Universit y of exposure 00:00:00 00:00:00 [facility] Sex [birth year] Universit y of 00:00:00 00:00:00 [facility] Smoking Status Start Date Stop Date Source Never smoker [facility] Medical Branch Medications Ordered Filled Start Stop Current Ordering Indication Dosage Frequency Signature Comments Components Source Medication Medication Date Date Medication? Clinician (SIG) Name Name ketorolac 2021- No 15mg 15 mg, Unive rs (TORADOL) 07-02 Slow IV ity of injection 09:30: 08:41 Push, [place] 15 mg 00 :00 ONCE, 1 Medical dose, On Branch e 07/02/21 at 0430, Routine
human resources team member approving Restricted medication : MELIDA CANTU ondansetron 2021- No 4mg 4 mg, Slow Univers (ZOFRAN 07-02 IV Push, ity of (PF)) 08:00: 07:04 ONCE, 1 [place] injection 4 00 :00 dose, On Medi isaías mg e Branch 07/02/21 at 0300, PINA morpHINE 2021- No 4mg 4 mg, Slow Un bryce injection 4 07-02 IV Push, ity of mg 08:00: 07:04 ONCE, 1 [place] 00 :00 dose, On Medical Tue Branch 07/02/21 at 0300, STAT pantoprazol 2021- No 40mg 40 mg, Uni vers e 07-02 Slow IV ity of (PROTONIX) 08:00: 07:02 Push, [place] injection 00 :00 ONCE, 1 Medical 40 mg dose, On Branch 07/02/21 at 0300 traMADoL 2021- Yes [id number] 50mg Take 1 Univers (ULTRAM) 50 3-29 tablet by ity of mg tablet 00:00: mouth [place] 00 every 6 Medical (six) Branch hours as needed for Pain (scale 7-10). Indication s: acute pain ondansetron Yes [id number] 4mg Take 1 Univers (ZOFRAN) 4 3-29 tablet by ity of mg tablet 00:00: mouth [place] 00 every 8 Medical (eight) Branch hours as needed for Nausea and Vomiting (N/V). UBIDECARENO Yes Take by Un bryce NE (COQ-10 3-23 mouth. ity of ORAL) 16:32: [place] 50 Medical Branch metFORMIN 0 Yes 500mg Take 500 Uni vers 500 mg 3-23 mg by ity of tablet 16:32: mouth [place] 50 daily. Medical Branch albuterol Yes 2{puff} Inhale 2 U nivers 90 3-23 Puffs ity of mcg/actuati 16:32: every 6 [place] as on inhaler 50 (six) Medical hours as Branch needed for Wheezing or Shortness of Breath. aspirin 81 0 Yes 81mg Take 81 mg U nivers mg chewable 3-23 by mouth ity of tablet 16:32: daily. [place] [address] Medical Branch lisinopril- Yes 1{tbl} Take 1 Un bryce hydrochloro 3-23 tablet by ity of thiazide 16:32: mouth [place] 20-12.5 mg 50 before Medical per tablet meals and Bran ch at bedtime. metoprolol 0 Yes 50mg Take 50 mg U nivers succinate 3-23 by mouth 2 ity of XL 50 mg 24 16:32: (two) [place] hr tablet 50 times Medical daily. Branch levothyroxi Yes 521 75ug Take 75 Uni vers ne 75 mcg 3-23 mcg by ity of tablet 16:32: mouth [place] 50 every Medical morning. Branch Indication s: HYPOTHYROI DISM UBIDECARENO Yes Take by Un bryce NE (COQ-10 3-23 mouth. ity of ORAL) 16:32: [place] 50 Medical Branch metFORMIN 0 Yes 500mg Take 500 Uni vers 500 mg 3-23 mg by ity of tablet 16:32: mouth [place] 50 daily. Medical Branch albuterol Yes 2{puff} Inhale 2 U nivers 90 3-23 Puffs ity of mcg/actuati 16:32: every 6 [place] on inhaler 50 (six) Medical hours as Branch needed for Wheezing or Shortness of Breath. aspirin 81 0 Yes 81mg Take 81 mg U nivers mg chewable 3-23 by mouth ity of tablet 16:32: daily. [place] [address] Medical Branch lisinopril- 0 Yes 1{tbl} Take 1 Un bryce hydrochloro 3-23 tablet by ity of thiazide 16:32: mouth [place] 20-12.5 mg 50 before Medical per tablet meals and Bran ch at bedtime. metoprolol 2022-0 Yes 50mg Take 50 mg U nivers succinate 3-23 by mouth 2 ity of XL 50 mg 24 16:32: (two) [place] hr tablet 50 times Medical daily. Branch levothyroxi Yes 521 75ug Take 75 Uni vers ne 75 mcg 3-23 mcg by ity of tablet 16:32: mouth [place] 50 every Medical morning. Branch Indication s: HYPOTHYROI DISM UBIDECARENO Yes Take by Un bryce NE (COQ-10 3-23 mouth. ity of ORAL) 16:32: [place] 50 Medical Branch metFORMIN 0 Yes 500mg Take 500 Uni vers 500 mg 3-23 mg by ity of tablet 16:32: mouth [place] 50 daily. Medical Branch albuterol Yes 2{puff} Inhale 2 U nivers 90 3-23 Puffs ity of mcg/actuati 16:32: every 6 [place] on inhaler 50 (six) Medical hours as Branch needed for Wheezing or Shortness of Breath. aspirin 81 0 Yes 81mg Take 81 mg U nivers mg chewable 3-23 by mouth ity of tablet 16:32: daily. [place] [address] Medical Branch lisinopril- 0 Yes 1{tbl} Take 1 Un bryce hydrochloro 3-23 tablet by ity of thiazide 16:32: mouth [place] 20-12.5 mg 50 before Medical per tablet meals and Bran ch at bedtime. metoprolol Yes 50mg Take 50 mg U nivers succinate 3-23 by mouth 2 ity of XL 50 mg 24 16:32: (two) [place] hr tablet 50 times Medical daily. Branch levothyroxi Yes 521 75ug Take 75 Uni vers ne 75 mcg 3-23 mcg by ity of tablet 16:32: mouth [place] 50 every Medical morning. Branch Indication s: HYPOTHYROI DISM hydroCHLORO Yes 12.5mg 12.5 mg, Univers thiazide 3-23 Oral, ity of (ESIDRIX) 14:00: DAILY, [place] capsule 00 First dose Medica l 12.5 mg on Thu Branch 06/26/21 at 0900, Until Discontinu ed, Routine lisinopriL Yes 20mg 20 mg, Unive rs (PRINIVIL,Z 3-23 Oral, ity of ESTRIL) 14:00: DAILY, [place] tablet 20 00 First dose Medi isaías mg on Thu Branch 06/26/21 at 0900, Until Discontinu ed, Routine atorvastati 2021- No 20mg Take 20 mg Univers n 20 mg 06-26 by mouth ity of tablet 13:38: 00:00 at [place] 00 :00 bedtime. Medical Branch simvastatin 2021- No 10mg Take 10 mg Univers 10 mg 06-26 by mouth ity of tablet 13:38: 00:00 at [place] 00 :00 bedtime. Medical Branch acetaminoph 2022- Yes [id number] 650mg Take 2 Univers en 325 mg 06-26 tablets by ity of tablet 00:00: 04:59 mouth [place] 00 :00 every 6 Medical (six) Branch hours as needed for Pain (scale 1-3). acetaminoph 2022- Yes [id number] 650mg Take 2 Univers en 325 mg 06-26 tablets by ity of tablet 00:00: 04:59 mouth [place] 00 :00 every 6 Medical (six) Branch hours as needed for Pain (scale 1-3). acetaminoph 2022- Yes [id number] 650mg Take 2 Univers en 325 mg 06-26 tablets by ity of tablet 00:00: 04:59 mouth [place] 00 :00 every 6 Medical (six) Branch hours as needed for Pain (scale 1-3). D5W 0.45% 2021- No IV Univers NaCl 06-25 Infusion, ity of (1/2NS) 1 L 18:00: 14:14 at 100 [place] as + KCL 20 00 :21 mL/hr, Medical mEq CONTINUOUS Branch , Starting on Thu06/25/21 at 1300, Until Thu06/26/21 at 0914, Routine tc 2021- No [id number] 8.68mCi 8.68 Unive rs 99m-mebrofe 06-25 millicurie i ty of deidre 17:45: 17:54 , [place] injection 00 :00 Intravenou Medi isaías 8.68 s, ONCE, 1 Branch millicurie dose, On Thu06/25/21 at 1245, Routine hydrALAZINE 0 Yes 25mg 25 mg, Univ ers (APRESOLINE 06-25 Oral, ity of ) tablet 25 12:10: Q8HPRN, [place] mg 37 Starting Medical on Thu06/25/21 at 0710, Until Discontinu ed, Routine, BP >160/100 levothyroxi 0 Yes 521 75ug 75 mcg, Uni vers ne 06-25 Oral, ity of (SYNTHROID) 11:00: QAM-0600, [place] tablet 75 00 First dose Medi isaías mcg on Thu06/25/21 at 0600, Until Discontinu ed, Routine enoxaparin Yes 40mg 40 mg, Unive rs (LOVENOX) 06-24 Subcutaneo ity of injection 23:00: us, Q24H, [place] 40 mg 00 First dose Medical on Thu06/24/21 at 1800, Until Discontinu ed, Routine glucagon Yes 1mg 1 mg, Univers (GLUCAGEN 06-24 Intramuscu ity of DIAGNOSTIC 22:40: [place], PRN, [place] KIT) 03 Starting Medical injection 1 on Thu [facility] 06/24/21 at 1740, Until Discontinu ed, PINA, Blood Glucose < or = 70 mg/dL and patient is unable to swallow or has mental changes. ketorolac 2021- No 15mg 15 mg, Unive rs (TORADOL) 06-24 Slow IV ity of injection 19:00: 12:10 [place], Q8H, [place] 15 mg 00 :02 4 doses, Medical First dose Branch on Thu06/24/21 at 1400, Last dose on Thu06/25/21 at 1400, Routine metoprolol 2021- No 5mg 5 mg, Slow Univers (LOPRESSOR) 06-24 IV Push, ity of injection 5 17:00: 10:59 Q6H, 3 [place] mg 00 :00 doses, Medical First dose Branch on Thu06/24/21 at 1200, Last dose on Thu06/25/21 at 0000, Routine D5W 0.45% 2021- No 1000mL at 125 Uni vers NaCl 06-24 mL/hr, ity of (1/2NS) IV 14:15: 14:58 1,000 mL, [place] infusion 00 :34 IV Medical 1,000 mL Infusion, Branch CONTINUOUS , Starting on Thu06/24/21 at 0915, Until Thu06/25/21 at 0958, Routine HYDROcodone 2021-0 Yes 1{tbl} 1 tablet, Univers -acetaminop 06-24 Oral, ity of hen (NORCO 14:03: Q4HPRN, [place] 5) 5-325 mg 51 Starting Medi isaías tablet 1 on Thu Branch tablet 06/24/21 at 0903, Until Discontinu ed, Routine, Pain (scale 7-10) acetaminoph 2021-0 Yes 650mg 650 mg, Un bryce en 06-24 Oral, ity of (TYLENOL) 14:03: Q6HPRN, [place] tablet 650 39 Starting Medic al mg on Thu Branch 06/24/21 at 0903, Until Discontinu ed, Routine, Pain (scale 1-3) ondansetron 2021-0 Yes 4mg 4 mg, Slow Univers (ZOFRAN 06-24 IV Push, ity of (PF)) 14:03: Q6HPRN, [place] injection 4 29 Starting Medi isaías mg on Thu Branch 06/24/21 at 0903, Until Discontinu ed, Routine, Nausea and Vomiting (N/V) ondansetron 2021-0 2021- No 4mg 4 mg, Slow Univers (ZOFRAN 06-24 IV Push, ity of (PF)) 10:15: 09:13 ONCE, 1 [place] injection 4 00 :00 dose, On Medi isaías mg Thu Branch 06/24/21 at 0515, PINA FENTanyl PF 2021-0 202- No 50ug 50 mcg, Un bryce (SUBLIMAZE 06-24 Slow IV ity o f (PF)) 10:15: 09:13 Push, [place] injection 00 :00 ONCE, 1 Medical 50 mcg dose, On Branch Thu06/24/21 at 0515, Routine proMETHazin 2021-0 202- No 25mg 25 mg, IV Univers e 06-24 Piggyback, ity of (PHENERGAN) 10:13: 10:17 ONCE, 1 [place] 25 mg in 00 :00 dose, On Medical NaCl 0.9% Mon Branch (NS) 50 mL 06/24/21 at IV 0515, PINA piggyback piperacilli 2021- No 3.375g 3.375 g, Univers n-tazobacta 06-24 IV ity of m (ZOSYN) 10:00: 09:32 Piggyback, [place] 3.375 g in 00 :00 ONCE, 1 Medica l NaCl 0.9% dose, On Branch (NS) 50 mL Mon MINI-BAG 06/24/21 at 0500, Administer over 30 Minutes, 50 mL
R gerry for Anti-Infec tive: Documented Infection< br>Documen briseida Infection Site: Abdominal< br>Duratio n of Therapy: Other (see Comments) iohexol 2021- No [id number] 120mL 120 mL, U nivers (OMNIPAQUE 06-24 Intravenou it y of 350 08:00: 07:52 s, ONCE, 1 [place] BULK-100 00 :00 dose, On Medical mL) Mon Branch injection 06/24/21 at 120 mL 0300, Routine ondansetron 2021- No 4mg 4 mg, Slow Univers (ZOFRAN 06-24 IV Push, ity of (PF)) 07:45: 06:44 ONCE, 1 [place] injection 4 00 :00 dose, On Medi isaías mg Mon Branch 06/24/21 at 0245, PINA FENTanyl PF 2021- No 50ug 50 mcg, Un bryce (SUBLIMAZE 06-24 Slow IV ity o f (PF)) 07:45: 06:44 Push, [place] injection 00 :00 ONCE, 1 Medical 50 mcg dose, On Branch 06/24/21 at 0245, Routine ketorolac 2021- No 30mg 30 mg, Unive rs (TORADOL) 06-12 Slow IV ity of injection 04:45: 03:43 Push, [place] 30 mg 00 :00 ONCE, 1 Medical dose, On Branch 06/11/21 at 2245, PINA metoclopram 2021- No 10mg 10 mg, Uni vers rufino HCl 3-09 03-09 Slow IV ity of (REGLAN) 04:45: 03:44 Push, [place] injection 00 :00 ONCE, 1 Medical 10 mg dose, On Branch 06/11/21 at 2245, PINA metFORMIN 2021-0 Yes 500mg Take 500 Uni vers 500 mg 3-08 mg by ity of tablet 16:19: mouth [place] 17 daily. Medical Branch aspirin 81 0 Yes 81mg Take 81 mg U nivers mg chewable 3-08 by mouth ity of tablet 16:19: daily. [place] [address] Medical Branch atorvastati 0 Yes 20mg Take 20 mg Univers n 20 mg 3-08 by mouth ity of tablet 16:19: at [place] [address] bedtime. Medical Branch lisinopril- Yes 1{tbl} Take 1 Un bryce hydrochloro 3-08 tablet by ity of thiazide 16:19: mouth [place] 20-12.5 mg 17 before Medical per tablet meals and Bran ch at bedtime. metoprolol Yes 50mg Take 50 mg U nivers succinate 3-08 by mouth 2 ity of XL 50 mg 24 16:19: (two) [place] hr tablet 17 times Medical daily. Branch levothyroxi 0 Yes 521 75ug Take 75 Uni vers ne 75 mcg 3-08 mcg by ity of tablet 16:19: mouth [place] 17 every Medical morning. Branch Indication s: HYPOTHYROI DISM simvastatin Yes 10mg Take 10 mg Univers 10 mg 3-08 by mouth ity of tablet 16:19: at [place] [address] bedtime. Medical Branch metFORMIN 0 Yes 500mg Take 500 Uni vers 500 mg 3-08 mg by ity of tablet 16:19: mouth [place] 17 daily. Medical Branch aspirin 81 0 Yes 81mg Take 81 mg U nivers mg chewable 3-08 by mouth ity of tablet 16:19: daily. [place] [address] Medical Branch atorvastati 0 Yes 20mg Take 20 mg Univers n 20 mg 3-08 by mouth ity of tablet 16:19: at [place] [address] bedtime. Medical Branch lisinopril- 2021-0 Yes 1{tbl} Take 1 Un [place] hydrochloro 3-08 tablet by ity of thiazide 16:19: mouth [place] 20-12.5 mg 17 before Medical per tablet meals and Bran ch at bedtime. metoprolol Yes 50mg Take 50 mg U nivers succinate 3-08 by mouth 2 ity of XL 50 mg 24 16:19: (two) [place] hr tablet 17 times Medical daily. Branch levothyroxi Yes 521 75ug Take 75 Uni vers ne 75 mcg 3-08 mcg by ity of tablet 16:19: mouth [place] 17 every Medical morning. Branch Indication s: HYPOTHYROI DISM simvastatin Yes 10mg Take 10 mg Univers 10 mg 3-08 by mouth ity of tablet 16:19: at [place] 17 bedtime. Medical Branch metFORMIN Yes 500mg Take 500 Uni vers 500 mg 3-08 mg by ity of tablet 16:19: mouth [place] 17 daily. Medical Branch aspirin 81 Yes 81mg Take 81 mg U nivers mg chewable 3-08 by mouth ity of tablet 16:19: daily. [place] [address] Medical Branch atorvastati Yes 20mg Take 20 mg Univers n 20 mg 3-08 by mouth ity of tablet 16:19: at [place] 17 bedtime. Medical Branch lisinopril- Yes 1{tbl} Take 1 Un b[place] hydrochloro 3-08 tablet by ity of thiazide 16:19: mouth [place] 20-12.5 mg 17 before Medical per tablet meals and Bran ch at bedtime. metoprolol Yes 50mg Take 50 mg U nivers succinate 3-08 by mouth 2 ity of XL 50 mg 24 16:19: (two) [place] hr tablet 17 times Medical daily. Branch levothyroxi Yes 521 75ug Take 75 Uni vers ne 75 mcg 3-08 mcg by ity of tablet 16:19: mouth [place] 17 every Medical morning. Branch Indication s: HYPOTHYROI DISM simvastatin Yes 10mg Take 10 mg Univers 10 mg 3-08 by mouth ity of tablet 16:19: at [place] 17 bedtime. Medical Branch furosemide 2021- Yes [id number] 40mg Take 2 Univers 20 mg 3-08 03-16 tablets by ity of tablet 00:00: 04:59 mouth [place] 00 :00 daily for Medical 7 days. Branch cephALEXin 2021- Yes [id number] 500mg Take 2 Univers 250 mg 3- 03-07 capsules ity of capsule 00:00: 05:59 by mouth [place] 00 :00 every 12 Medical (twelve) Branch hours for 5 days. cephALEXin 2021- Yes [id number] 500mg Take 2 Univers 250 mg 3- 03-07 capsules ity of capsule 00:00: 05:59 by mouth [place] 00 :00 every 12 Medical (twelve) Branch hours for 5 days. conjugated Yes [id number] .5g Insert 0.5 Univers estrogens 2-01 g into ity of 0.625 00:00: vagina [place] mg/gram 00 SEE-INSTRU Medica l vaginal CTIONS. Branch cream Apply small amount to vaginal opening 2 times a week conjugated Yes [id number] .5g Insert 0.5 Univers estrogens 2-01 g into ity of 0.625 00:00: vagina [place] mg/gram 00 SEE-INSTRU Medica l vaginal CTIONS. Branch cream Apply small amount to vaginal opening 2 times a week conjugated Yes [id number] .5g Insert 0.5 Univers estrogens 2-01 g into ity of 0.625 00:00: vagina [place] mg/gram 00 SEE-INSTRU Medica l vaginal CTIONS. Branch cream Apply small amount to vaginal opening 2 times a week conjugated Yes [id number] .5g Insert 0.5 Univers estrogens 2-01 g into ity of 0.625 00:00: vagina [place] mg/gram 00 SEE-INSTRU Medica l vaginal CTIONS. Branch cream Apply small amount to vaginal opening 2 times a week conjugated Yes [id number] .5g Insert 0.5 Univers estrogens 2-01 g into ity of 0.625 00:00: vagina [place] mg/gram 00 SEE-INSTRU Medica l vaginal CTIONS. Branch cream Apply small amount to vaginal opening 2 times a week conjugated Yes [id number] .5g Insert 0.5 Univers estrogens 2-01 g into ity of 0.625 00:00: vagina [place] mg/gram 00 SEE-INSTRU Medica l vaginal CTIONS. Branch cream Apply small amount to vaginal opening 2 times a week conjugated Yes [id number] .5g Insert 0.5 Univers estrogens 2-01 g into ity of 0.625 00:00: vagina [place] mg/gram 00 SEE-INSTRU Medica l vaginal CTIONS. Branch cream Apply small amount to vaginal opening 2 times a week conjugated 2021-0 Yes [id number] .5g Insert 0.5 Univers estrogens 2-01 g into ity of 0.625 00:00: vagina [place] mg/gram 00 SEE-INSTRU Medica l vaginal CTIONS. Branch cream Apply small amount to vaginal opening 2 times a week conjugated 2021-0 Yes [id number] .5g Insert 0.5 Univers estrogens 2-01 g into ity of 0.625 00:00: vagina [place] mg/gram 00 SEE-INSTRU Medica l vaginal CTIONS. Branch cream Apply small amount to vaginal opening 2 times a week UBIDECARENO 2020-04 Yes Take by Un bryce NE (COQ-10 1-22 mouth. ity of ORAL) 10:30: [place] Medical Branch metFORMIN 2020-04 Yes 500mg Take 500 Uni vers 500 mg 1-22 mg by ity of tablet 10:30: mouth 2 [place] 48 (two) Medical times Branch daily with meals. aspirin 81 2020-04 Yes 81mg Take 81 mg U nivers mg chewable 1-22 by mouth ity of tablet 10:30: daily. [place] [address] Medical Branch atorvastati 2020-04 Yes 20mg Take 20 mg Univers n 20 mg 1-22 by mouth ity of tablet 10:30: at [place] 48 bedtime. Medical Branch lisinopril- 2020-04 Yes 1{tbl} Take 1 Un bryce hydrochloro 1-22 tablet by ity of thiazide 10:30: mouth [place] 20-12.5 mg 48 before Medical per tablet meals and Bran ch at bedtime. metoprolol 2020-04 Yes 50mg Take 50 mg U nivers succinate 1-22 by mouth 2 ity of XL 50 mg 24 10:30: (two) [place] hr tablet 48 times Medical daily. Branch levothyroxi 2020-04 Yes 521 75ug Take 75 Uni vers ne 75 mcg 1-22 mcg by ity of tablet 10:30: mouth [place] 48 every Medical morning. Branch Indication s: HYPOTHYROI DISM simvastatin 2020-04 Yes 10mg Take 10 mg Univers 10 mg 1-22 by mouth ity of tablet 10:30: at [place] [address] bedtime. Medical Branch UBIDECARENO 2020-04 Yes Take by Un bryce NE (COQ-10 1-22 mouth. ity of ORAL) 10:30: [place] [address] Medical Branch metFORMIN 2020-04 Yes 500mg Take 500 Uni vers 500 mg 1-22 mg by ity of tablet 10:30: mouth 2 [place] [address] (two) Medical times Branch daily with meals. aspirin 81 2020-04 Yes 81mg Take 81 mg U nivers mg chewable 1-22 by mouth ity of tablet 10:30: daily. [place] [address] Medical Branch atorvastati 2020-04 Yes 20mg Take 20 mg Univers n 20 mg 1-22 by mouth ity of tablet 10:30: at [place] [address] bedtime. Medical Branch lisinopril- 2020-04 Yes 1{tbl} Take 1 Un bryce hydrochloro 1-22 tablet by ity of thiazide 10:30: mouth [place] 20-12.5 mg 48 before Medical per tablet meals and Bran ch at bedtime. metoprolol 2020-04 Yes 50mg Take 50 mg U nivers succinate 1-22 by mouth 2 ity of XL 50 mg 24 10:30: (two) [facility] tablet 48 times Medical daily. Branch levothyroxi 2020-04 Yes 521 75ug Take 75 Uni vers ne 75 mcg 1-22 mcg by ity of tablet 10:30: mouth [place] 48 every Medical morning. Branch Indication s: HYPOTHYROI DISM simvastatin 2020-04 Yes 10mg Take 10 mg Univers 10 mg 1-22 by mouth ity of tablet 10:30: at [place] [address] bedtime. Medical Branch UBIDECARENO 2020-04 Yes Take by Un bryce NE (COQ-10 1-22 mouth. ity of ORAL) 10:30: [place] [address] Medical Branch metFORMIN 2020-04 Yes 500mg Take 500 Uni vers 500 mg 1-22 mg by ity of tablet 10:30: mouth 2 [place] [address] (two) Medical times Branch daily with meals. aspirin 81 2020-04 Yes 81mg Take 81 mg U nivers mg chewable 1-22 by mouth ity of tablet 10:30: daily. [place] [address] Medical Branch atorvastati 2020-04 Yes 20mg Take 20 mg Univers n 20 mg 1-22 by mouth ity of tablet 10:30: at [place] [address] bedtime. Medical Branch lisinopril- 2020-04 Yes 1{tbl} Take 1 Un [place] hydrochloro 1-22 tablet by ity of thiazide 10:30: mouth [place] 20-12.5 mg 48 before Medical per tablet meals and Bran ch at bedtime. metoprolol 2020-04 Yes 50mg Take 50 mg U nivers succinate 1-22 by mouth 2 ity of XL 50 mg 24 10:30: (two) [place] hr tablet 48 times Medical daily. Branch levothyroxi 2020-04 Yes 521 75ug Take 75 Uni vers ne 75 mcg 1-22 mcg by ity of tablet 10:30: mouth [place] 48 every Medical morning. Branch Indication s: HYPOTHYROI DISM simvastatin 2020-04 Yes 10mg Take 10 mg Univers 10 mg 1-22 by mouth ity of tablet 10:30: at [place] 48 bedtime. Medical Branch UBIDECARENO 2020-04 Yes Take by Un bry[place] NE (COQ-10 1-22 mouth. ity of ORAL) 10:30: [place] [address] Medical Branch UBIDECARENO 2020-04 Yes Take by Un bry[place] NE (COQ-10 1-22 mouth. ity of ORAL) 10:30: [place] [address] Medical Branch UBIDECARENO 2020-04 Yes Take by Un b[place] NE (COQ-10 1-22 mouth. ity of ORAL) 10:30: [place] [address] Medical Branch erythromyci 2020-04 Yes [id number] .5[in_u Place 0.5 Univers n 5 mg/gram 1-22 [id number] s] Inches in i ty of (0.5 %) 00:00: right eye [place] ophthalmic 00 4 (four) Medic al ointment times Branch daily. neomycin-po 2020-04 [address] [id number] 3[drp] Place 3 Univers lymyxin-hyd 1-22 Drops in ity of rocortisone 00:00: right ear [place] otic 00 4 (four) Medical solution times Branch daily. erythromyci 2020-04 Yes [id number] .5[in_u Place 0.5 Univers n 5 mg/gram 1-22 [id number] s] Inches in i ty of (0.5 %) 00:00: right eye [place] ophthalmic 00 4 (four) Medic al ointment times Branch daily. neomycin-po 2020-04 Yes [id number] 3[drp] Place 3 Univers lymyxin-hyd 1-22 Drops in ity of rocortisone 00:00: right ear [place] otic 00 4 (four) Medical solution times Branch daily. erythromyci 2020-04 Yes [id number] .5[in_u Place 0.5 Univers n 5 mg/gram 1-22 [id number] s] Inches in i ty of (0.5 %) 00:00: right eye [place] ophthalmic 00 4 (four) Medic al ointment times Branch daily. neomycin-po 2020-04 Yes [id number] 3[drp] Place 3 Univers lymyxin-hyd 1-22 Drops in ity of rocortisone 00:00: right ear [place] otic 00 4 (four) Medical solution times Branch daily. erythromyci 2020-04 Yes [id number] .5[in_u Place 0.5 Univers n 5 mg/gram 1-22 [id number] s] Inches in i ty of (0.5 %) 00:00: right eye [place] [facility] 00 4 (four) Medic al ointment times Branch daily. neomycin-po 2020-04 Yes [id number] 3[drp] Place 3 Univers lymyxin-hyd 1-22 Drops in ity of rocortisone 00:00: [place] otic 00 4 (four) Medical solution times Branch daily. erythromyci 2020-04 Yes [id number] .5[in_u Place 0.5 Univers n 5 mg/gram 1-22 [id number] s] Inches in i ty of (0.5 %) 00:00: right eye [place] [facility] 00 4 (four) Medic al ointment times Branch daily. neomycin-po 2020-04 Yes [id number] 3[drp] Place 3 Univers lymyxin-hyd 1-22 Drops in ity of rocortisone 00:00: [place] ear [place] otic 00 4 (four) Medical solution times Branch daily. erythromyci 2020-04 Yes [id number] .5[in_u Place 0.5 Univers n 5 mg/gram 1-22 [id number] s] Inches in i ty of (0.5 %) 00:00: right eye [place] [facility] 00 4 (four) Medic al ointment times Branch daily. neomycin-po 2020-04 Yes [id number] 3[drp] Place 3 Univers lymyxin-hyd 1-22 Drops in ity of rocortisone 00:00: right ear [place] otic 00 4 (four) Medical solution times Branch daily. erythromyci 2020-04 Yes [id number] .5[in_u Place 0.5 Univers n 5 mg/gram 1-22 [id number] s] Inches in i ty of (0.5 %) 00:00: right eye [place] [facility] 00 4 (four) Medic al ointment times Branch daily. neomycin-po 2020-04 Yes [id number] 3[drp] Place 3 Univers lymyxin-hyd 1-22 Drops in ity of rocortisone 00:00: right ear [place] otic 00 4 (four) Medical solution times Branch daily. erythromyci 2020-04 Yes [id number] .5[in_u Place 0.5 Univers n 5 mg/gram 1-22 249922 s] Inches in i ty of (0.5 %) 00:00: right eye [place] [facility] 00 4 (four) Medic al ointment times Branch daily. neomycin-po 2020-04 Yes [id number] 3[drp] Place 3 Univers lymyxin-hyd 1-22 Drops in ity of rocortisone 00:00: right [place] otic 00 4 (four) Medical solution times Branch daily. erythromyci 2020-04 Yes [id number] .5[in_u Place 0.5 Univers n 5 mg/gram 1-22 [id number] s] Inches in i ty of (0.5 %) 00:00: right eye [place] [facility] 00 4 (four) Medic al ointment times Branch daily. neomycin-po 2020-04 Yes [id number] 3[drp] Place 3 Univers lymyxin-hyd 1-22 Drops in ity of rocortisone 00:00: [place] otic 00 4 (four) Medical solution times Branch daily. albuterol Yes 2{puff} Inhale 2 U nivers 90 6-04 Puffs ity of mcg/actuati 12:06: every 6 [place] as on inhaler 53 (six) Medical hours as Branch needed for Wheezing or Shortness of Breath. albuterol Yes 2{puff} Inhale 2 U nivers 90 6-04 Puffs ity of mcg/actuati 12:06: every 6 [place] as on inhaler 53 (six) Medical hours as Branch needed for Wheezing or Shortness of Breath. albuterol 2017-0 Yes 2{puff} Inhale 2 U nivers 90 6-04 Puffs ity of mcg/actuati 12:06: every 6 [place] as on inhaler 53 (six) Medical hours as Branch needed for Wheezing or Shortness of Breath. albuterol 2017-0 Yes 2{puff} Inhale 2 U nivers 90 6-04 Puffs ity of mcg/actuati 12:06: every 6 [place] as on inhaler 53 (six) Medical hours as Branch needed for Wheezing or Shortness of Breath. albuterol 2017-0 Yes 2{puff} Inhale 2 U nivers 90 6-04 Puffs ity of mcg/actuati 12:06: every 6 [place] as on inhaler 53 (six) Medical hours as Branch needed for Wheezing or Shortness of Breath. albuterol 2017-0 Yes 2{puff} Inhale 2 U nivers 90 6-04 Puffs ity of mcg/actuati 12:06: every 6 [place] as on inhaler 53 (six) Medical hours as Branch needed for Wheezing or Shortness of Breath. ibuprofen 2016-0 Yes 600mg Take 1 Tab U nivers (MOTRIN) 2-23 by mouth ity of 600 mg 00:00: every 6 [place] tablet 00 (six) Medical hours as Branch needed for Pain (scale 4-6). ibuprofen 2016-0 Yes 600mg Take 1 Tab U nivers (MOTRIN) 2-23 by mouth ity of 600 mg 00:00: every 6 [place] tablet 00 (six) Medical hours as Branch needed for Pain (scale 4-6). ibuprofen 2016-0 Yes 600mg Take 1 Tab U nivers (MOTRIN) 2-23 by mouth ity of 600 mg 00:00: every 6 [place] tablet 00 (six) Medical hours as Branch needed for Pain (scale 4-6). ibuprofen 2016-0 Yes 600mg Take 1 Tab U nivers (MOTRIN) 2-23 by mouth ity of 600 mg 00:00: every 6 [place] tablet 00 (six) Medical hours as Branch needed for Pain (scale 4-6). ibuprofen 2016-0 Yes 600mg Take 1 Tab U nivers (MOTRIN) 2-23 by mouth ity of 600 mg 00:00: every 6 [place] tablet 00 (six) Medical hours as Branch needed for Pain (scale 4-6). ibuprofen 2015-0 Yes 600mg Take 1 Tab U nivers (MOTRIN) 2-23 by mouth ity of 600 mg 00:00: every 6 [place] tablet 00 (six) Medical hours as Branch needed for Pain (scale 4-6). ibuprofen 0 Yes 600mg Take 1 Tab U nivers (MOTRIN) 2-23 by mouth ity of 600 mg 00:00: every 6 [place] tablet 00 (six) Medical hours as Branch needed for Pain (scale 4-6). ibuprofen 2015-0 Yes 600mg Take 1 Tab U nivers (MOTRIN) 2-23 by mouth ity of 600 mg 00:00: every 6 [place] tablet 00 (six) Medical hours as Branch needed for Pain (scale 4-6). ibuprofen 0 Yes 600mg Take 1 Tab U nivers (MOTRIN) 2-23 by mouth ity of 600 mg 00:00: every 6 [place] tablet 00 (six) Medical hours as Branch needed for Pain (scale 4-6). atorvastati atorvastati Yes Ashish 1 tablet Common n n [place] by mouth [facility] at bedtime [facility] [id number]-[id number] Y24-Pzqsgf Yes Ashish as Common [place] directed [facility] Co Q 10 Co Q 10 Yes Ashish 1 capsule C ommon [place] with a [facility] Lisinopril Lisinopril Yes Ashish 1 tablet Common [place] [facility] Metoprolol Metoprolol Yes Ashish 1 tablet Common Tartrate Tartrate [place] with food Sp yasir [facility] Metformin Metformin Yes Ashish 1 tablet Common HCl HCl [place] with a [facility] Immunizations Ordered Filled Immunization Date Status Comments Sour e Immunization Name Name Influenza Virus 2020-01-04 Completed Universit y of Vaccine 00:00:00 [facility] Influenza Virus 2020-01-04 Completed Universit y of Vaccine 00:00:00 [facility] Influenza Virus 2020-01-04 Completed Universit y of Vaccine 00:00:00 [facility] Vital Signs Vital Name Observation Time Observation Value Comments Source HEIGHT 2019-12-03 00:00:00 154.9 cm WEIGHT 2019-12-03 00:00:00 97.07 kg Systolic blood 2021-07-02 08:00:00 153 mm[Hg] Univer sity of pressure [place] [facility] Diastolic blood 2021-07-02 08:00:00 62 mm[Hg] Unive rsity of pressure [place] [facility] [place] Heart rate 2021-07-02 08:00:00 57 /min [facility]i ty [facility] [place] [facility] Respiratory rate 2021-07-02 08:00:00 18 /min Univ ersity of [place] [facility] Oxygen saturation in 2021-07-02 08:00:00 93 /min University of Arterial blood by [place] [employer] isaías Pulse oximetry Branch Body temperature 2021-07-02 06:39:00 36.61 Yara Univ ersity [facility] [place] [facility] Body height 2021-07-02 06:39:00 157.5 cm Universi ty of [place] [facility] [place] Body weight 2021-07-02 06:39:00 103.42 kg [facility] [place] [facility] BMI 2021-07-02 06:39:00 41.70 kg/m2 [facility] [place] [facility] Systolic blood 2021-06-26 17:41:00 166 mm[Hg] Univer sity of pressure [place] [facility] Diastolic blood 2021-06-26 17:41:00 51 mm[Hg] Unive rsity of pressure [place] [facility] Heart rate 2021-06-26 17:41:00 77 /min [facility] [place] [facility] Body temperature 2021-06-26 17:41:00 36.67 Yara Univ ersity [facility] [place] [facility] Respiratory rate 2021-06-26 17:41:00 18 /min Univ ers[facility] [place] [facility] Oxygen saturation in 2021-06-26 17:41:00 100 /min University of Arterial blood by [employer] isaías Pulse oximetry Branch Body weight 2021-06-26 08:20:00 103.5 kg [facility] [place] [facility] BMI 2021-06-26 08:20:00 43.11 kg/m2 [facility] [place] [facility] Body height 2021-06-24 06:08:00 154.9 cm [facility] [place] [facility] Systolic blood 2021-06-12 04:05:00 160 mm[Hg] Univer sity of pressure [facility] Diastolic blood 2021-06-12 04:05:00 76 mm[Hg] [facility] Heart rate 2021-06-12 04:05:00 62 /min [facility] Respiratory rate 2021-06-12 04:05:00 17 /min [facility] Oxygen saturation in 2021-06-12 04:05:00 96 /min [facility] Arterial blood by [facility] Pulse oximetry [place] Body temperature 2021-06-11 22:19:00 36.61 Yara [facility] Body weight 2021-06-11 22:19:00 100.245 kg [facility] BMI 2021-06-11 22:19:00 41.76 kg/m2 [facility] HEIGHT 2019-12-03 00:00:00 154.9 cm WEIGHT 2019-12-03 00:00:00 97.07 kg Procedures Procedure Date / Time Performing Clinician Source Performed COVID-19 (ID NOW RAPID 2021-07-02 07:06:00 Melida Cantu [facility] TESTING) [facility] Branch LIPASE 2021-07-02 06:57:00 Melida Cantu [facility] TROPONIN I 2021-07-02 06:57:00 Melida Cantu [facility] COMP. METABOLIC PANEL 2021-07-02 06:57:00 [facility] ([id number]) [facility] CBC WITH DIFF 2021-07-02 06:57:00 Melida Cantu [facility] NOTICE OF PRIVACY 2021-07-02 06:27:44 Doctor Unassigned, [facility] PRACTICES [place] [facility] CONSENT/REFUSAL FOR 2021-07-02 06:27:00 [facility] DI[facility]IS [facility] TREATMENT [place] [facility] POCT GLUCOSE (AUTOMATED) 2021-06-26 17:43:00 Maegan Treadwell [facility] POCT GLUCOSE (AUTOMATED) 2021-06-26 13:41:00 Maegan Treadwell [facility] COMP. METABOLIC PANEL 2021-06-26 08:54:00 [facility] ([id number]) [facility] POCT GLUCOSE (AUTOMATED) 2021-06-26 01:32:00 Maegan Treadwell [facility] POCT GLUCOSE (AUTOMATED) 2021-06-25 20:27:00 Maeagn Treadwell [facility] NM HEPATOBILIARY 2021-06-25 19:24:33 Shekhar [facility] POCT GLUCOSE (AUTOMATED) 2021-06-25 16:06:00 Maegan Treadwell [facility] XR CHEST 2 VW 2021-06-25 14:13:[address] [facility] PROTHROMBIN TIME / INR 2021-06-25 13:39:00 Candace Hooper [facility] POCT GLUCOSE (AUTOMATED) 2021-06-25 13:07:00 Maegan Treadwell [facility] PHOSPHORUS 2021-06-25 09:20:[address] [facility] MAGNESIUM 2021-06-25 09:20:00 Hicks, [facility] HEPATIC FUNCTION PANEL 2021-06-25 09:20:00 [id number] (ALB,T.PRO,BILI [facility] T,BU/BC,ALT,AST,ALK PHOS) COMP. METABOLIC PANEL 2021-06-25 09:20:00 [facility]eni [facility] ([id number]) [facility] CBC WITH DIFF 2021-06-25 09:20:[address] [facility] GLYCOSYLATED HEMOGLOBIN 2021-06-25 09:20:00 [facility] (A1C) [facility] BASIC METABOLIC PANEL 2021-06-24 14:57:00 [facility] (NA, K, CL, CO2, GLUCOSE, Medica l Branch BUN, CREATININE, CA) HEPATITIS B SURFACE 2021-06-24 14:57:00 [facility] HCV ANTIBODY 2021-06-24 14:57:00 Gwendolyn Hicks [facility] HBC ANTIBODY (IGM & IGG) 2021-06-24 14:57:00 Gwendolyn Hicks [facility] HEPATITIS A VIRUS 2021-06-24 14:57:00 Jaswinder Rios [facility] ANTIBODY IGM [facility] HAV ANTIBODY (IGG AND 2021-06-24 14:57:00 Gwendolyn Hicks [facility] IGM) [facility] HEPATITIS C VIRUS (HCV) 2021-06-24 14:57:00 Gwendolyn Hicks [facility] BY QUANTITATIVE NAAT [facility] US GALL BLADDER 2021-06-24 14:48:50 Gwendolyn Hicks [facility] COVID-19 (ID NOW RAPID 2021-06-24 08:52:00 Melida Cantu [facility] TESTING) Medical Branch LAB ONLY COVID 2021-06-24 08:52:00 Melida Cantu [facility] INTERPRETATION [facility] CT ABDOMEN PELVIS W 2021-06-24 07:58:08 Melida Cantu [facility] CONTRAST [facility] URINALYSIS 2021-06-24 07:03:00 Melida Cantu [facility] HB ECG ROUTINE & RHYTHM 2021-06-24 06:49:42 Melida Cantu [facility] STRIP [facility] LIPASE 2021-06-24 06:47:00 Melida Cantu [facility] BILI UNCONJUGATED/BILI 2021-06-24 06:47:00 Gwendolyn Hicks [facility] TROPONIN I 2021-06-24 06:47:00 Melida Cantu [facility] COMP. METABOLIC PANEL 2021-06-24 06:47:00 [facility] ([id number]) [facility] [place] CBC WITH DIFF 2021-06-24 06:47:00 Melida Cantu [facility] NOTICE OF PRIVACY 2021-06-24 06:04:18 Doctor Unassigned, [facility] PRACTICES [place] [facility] CONSENT/REFUSAL FOR 2021-06-24 06:03:05 Doctor Ray [facility] [place] [facility] DIAGNOSIS AND TREATMENT [place] [facility] [place] ASSIGNMENT OF BENEFITS 2021-06-19 14:04:45 Doctor Meghanssdeborah, Mate[facility] [place] [facility] URINALYSIS 2021-06-12 03:17:00 Karo Plunkett [facility] TROPONIN I 2021-06-12 01:36:00 Karo Plunkett [facility] COMP. METABOLIC PANEL 2021-06-12 01:36:00 Karo Plunkett Un [facility] ([id number]) [facility] CBC WITH DIFF 2021-06-12 01:36:00 Karo Plunkett [facility] N-TERMINAL PRO-BNP 2021-06-12 01:36:00 [facility] (ID NOW RAPID 2021-06-12 01:36:00 [facility] [place] XR CHEST 1 VW 2021-06-12 01:26:00 Karo Plunkett [facility] NOTICE OF PRIVACY 2021-06-11 22:07:40 Doctor Ray, [facility] PRACTICES [place] [facility] CONSENT/REFUSAL FOR 2021-06-11 22:05:21 Doctor Ray [facility] [place] [facility] DIAGNOSIS AND TREATMENT [place] [facility] [place] Encounters Start End Encounter Admission Attending Care Care Encounter Source Date/Time Date/Time Type Type Clinicians Facility Department ID 2021-07-04 Outpatient Jones, S[facility]ELC [facility] [id number] Common 09:55:00 Patricio [facility] 2021-05-27 Outpatient Jones, [facility]C [facility] [id number] Common 08:55:00 Patricio [facility] 2021-05-01 Outpatient Jones, [facility] [id number] Common 14:37:08 Patricio [facility] 2021-05-01 Outpatient Jones, STLMLC STLMLC [id number] Common 14:28:55 Patricio [id number] [facility] 2021-05-01 Outpatient Jones, STLMLC STLMLC [id number] Common 14:18:36 Patricio [id number] [facility] 2021-05-01 Outpatient Jones, STLMLC STLMLC [id number] Common 14:00:23 Patricio [id number] [facility] 2021-05-01 Outpatient Jones, STLMLC STLMLC [id number] Common 13:57:45 Patricio [id number] [facility] 2021-05-01 Outpatient Jones, STLMLC STLMLC [id number] Common 13:34:28 Patricio [id number] [facility] 2021-05-01 Outpatient Jones, STLMLC STLMLC [id number] Common 13:29:12 Patricio 26508 [facility] 2021-05-01 Outpatient Jones, STLMLC STLMLC [id number] Common 12:57:31 Patricio 21486 [facility] 2021-05-01 Outpatient STLMLC STLMLC [id number] Common 12:54:35 [id number] [facility] 2021-05-01 Outpatient STLMLC STLMLC [id number] Common 12:49:25 [id number] [facility] 2021-05-01 Outpatient STLMLC STLMLC [id number] Common 12:48:28 [id number] [facility] 2021-05-01 Outpatient STLMLC STLMLC [id number] Common 12:08:39 [id number] [facility] 2021-01-09 Inpatient ER YOUNG, SLE Neurology [id number] SLE 05:06:57 RADHA 2021-08-29 2021-08-29 Outpatient Micah BRANDT [facility] [id number] Q-[id number] [facility] 11:00:00 11:00:00 DG [id number] [facility] 2021-08-26 2021-08-26 Outpatient Micah BRANDT [facility] [id number] Univers 10:30:00 10:30:00 DG [id number] ity [facility] 2021-08-20 2021-08-20 Outpatient R [facility] [id number] Univers 09:00:00 09:00:00 [id number] ity [facility] 2021-08-20 2021-08-20 Outpatient R [facility] [id number] Univers 09:00:00 09:00:00 ity [facility] 2021-08-19 2021-08-19 Outpatient R [facility] [id number] Univers 09:00:00 09:00:00 [id number] ity [facility] 2021-07-08 2021-07-08 ambulatory STLMLC STLMLC [id number] Common 00:00:00 00:00:00 [facility] 2021-07-04 2021-07-04 ambulatory STLMLC STLMLC [id number] Common 00:00:00 00:00:00 [facility] 2021-07-03 2021-07-03 ambulatory STLMLC STLMLC [id number] Common 00:00:00 00:00:00 [facility] 2021-07-02 2021-07-02 Emergency X LEXIEME [facility] ERT [id number] Univers 01:30:00 04:17:00 WYAMELIE [facility] 2021-07-02 2021-07-02 Emergency [facility] [id number] Univers 01:30:00 04:17:00 Melida August [place] [id number] [facility] [id number] [facility] [phone] [place] [id number] Branch 2021-06-27 2021-06-27 Outpatient R HUDSON [facility] [id number] Univers 09:30:00 09:30:00 DG [id number] ity [facility] 2021-06-27 2021-06-27 [facility] [id number] Univers 09:30:00 09:30:00 DG ity [facility] 2021-06-27 2021-06-27 Transition BARBARA Spangler [id number] Univers 00:00:00 00:00:00 of Care Gladys DIALLO [id number] it y [id number] [phone] [facility] 403 Branch 2021-06-27 2021-06-27 ambulatory STLMLC STLMLC [id number] Common 00:00:00 00:00:00 [facility] 2021-06-24 2021-06-26 [facility] [id number] Univers 01:14:00 16:32:00 MAEGAN lindquist [facility] 2021-06-24 2021-06-26 Emergency Melida Cantu [facility] [id number] [id number] [id number] Univers 01:14:00 16:32:[address] 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 Pamela, [facility] Main [facility] 1.2.8 40.114 [id number] Univers 09:15:00 09:30:00 Visit Dg Brandt [id number] ity [id number] [phone] [address] 2021-06-19 2021-06-19 Outpatient R [facility] [id number] Univers 09:15:00 09:15:00 [id number] ity [facility] 2021-06-19 2021-06-19 [facility] [id number] Univers 09:00:00 09:00:00 DG ity [facility] 2021-06-19 2021-06-19 Orders Doctor RAMIRO [id number] Univers 00:00:00 00:00:00 Only Unassigned, CL[place] [id number] ity of [place] [facility] [id number] Manuel as [phone] [facility] 009 [place] 2021-06-12 2021-06-12 ambulatory STLMLC STLMLC [id number] Common 00:00:00 00:00:00 [facility] 2021-06-11 2021-06-11 Emergency X [facility] ERT [id number] Univers 16:28:00 22:15:00 FOLUSHO ity [facility] 2021-06-11 2021-06-11 Emergency [facility] [id number] Univers 16:28:00 22:15:00 Ricao F JAQUI [id number] ity of [id number] [phone] [facility] 084 Branch 2021-06-11 2021-06-11 Orders Doctor RAMIRO 1.2.840.114 [id number] Univers 00:00:00 00:00:00 Only Unassigned, CL[place] [id number] [facility] [id number] Manuel as [phone] [facility] 009 [place] 2021-06-10 2021-06-10 [facility] [id number] Univers 09:15:00 09:15:00 DG ity [facility] 2021-06-04 2021-06-04 Telephone [facility] [id number] [id number] Univers 00:00:00 00:00:00 Dg [place] [id number] i ty [facility] [id number] [facility] [id number] [address] 2021-05-30 2021-05-30 Telephone [place] [facility] [id number] [id number] Univers 00:00:00 00:00:00 Dg NAILS [id number] i [place] [id number] Edgar COVARRUBIAS [phone] Wa dical [facility] 204 [facility] 2021-05-27 2021-05-27 ambulatory STLMLC STLMLC [id number] Common 00:00:00 00:00:00 [facility] 2021-05-21 2021-05-21 ambulatory STLMLC STLMLC [id number] Common 00:00:00 00:00:00 [facility] 2021-04-23 2021-04-23 ambulatory STLMLC STLMLC [id number] Common 00:00:00 00:00:00 [facility] 2021-04-02 2021-04-02 ambulatory STLMLC STLMLC [id number] Common 00:00:00 00:00:00 [facility] 2021-03-21 2021-03-21 ambulatory STLMLC STLMLC [id number] Common 00:00:00 00:00:00 [facility] 2021-03-18 2021-03-18 ambulatory STLMLC STLMLC [id number] Common 00:00:00 00:00:00 [facility] 2021-02-25 2021-02-25 ambulatory STLMLC STLMLC [id number] Common 00:00:00 00:00:00 [facility] 2021-02-25 2021-02-25 ambulatory STLMLC STLMLC [id number] Common 00:00:00 00:00:00 [facility] 2021-02-18 2021-02-18 ambulatory STLMLC STLMLC [id number] Common 00:00:00 00:00:00 [facility] 2021-02-04 2021-02-04 ambulatory STLMLC STLMLC [id number] Common 00:00:00 00:00:00 [facility] 2021-01-16 2021-01-16 Outpatient STLMLC STLMLC [id number] Common 00:00:00 00:00:00 [facility] 2021-01-08 2021-01-08 Outpatient STLMLC STLMLC [id number] Common 00:00:00 00:00:00 [facility] 2020-12-26 2020-12-26 Outpatient STLMLC STLMLC [id number] Common 00:00:00 00:00:00 [facility] 2020-11-26 2020-11-26 Outpatient STLMLC STLMLC [id number] Common 00:00:00 00:00:00 [facility] 2020-11-08 2020-11-08 Outpatient STLMLC STLMLC [id number] Common 00:00:00 00:00:00 [facility] 2020-11-08 2020-11-08 Outpatient STLMLC STLMLC [id number] Common 00:00:00 00:00:00 [facility] 2020-10-25 2020-10-25 Outpatient STLMLC STLMLC [id number] Common 00:00:00 00:00:00 [facility] 2020-10-25 2020-10-25 Outpatient STLMLC STLMLC [id number] Common 00:00:00 00:00:00 [facility] 2020-10-17 2020-10-17 Outpatient STLMLC STLMLC [id number] Common 00:00:00 00:00:00 [facility] 2020-10-11 2020-10-11 Outpatient STLMLC STLMLC [id number] Common 00:00:00 00:00:00 [facility] 2020-10-05 2020-10-05 Outpatient STLMLC STLMLC [id number] Common 00:00:00 00:00:00 [facility] 2020-10-04 2020-10-04 Outpatient STLMLC STLMLC [id number] Common 00:00:00 00:00:00 [facility] 2020-09-25 2020-09-25 Outpatient STLMLC STLMLC [id number] Common 00:00:00 00:00:00 [facility] 2020-09-05 2020-09-05 Outpatient STLMLC STLMLC [id number] Common 00:00:00 00:00:00 [facility] 2020-08-14 2020-08-14 Outpatient STLMLC STLMLC [id number] Common 00:00:00 00:00:00 [facility] 2020-08-10 2020-08-10 Outpatient STLMLC STLMLC [id number] Common 00:00:00 00:00:00 [facility] 2020-08-08 2020-08-08 Outpatient STLMLC STLMLC [id number] Common 00:00:00 00:00:00 [facility] 2020-08-02 2020-08-02 Outpatient STLMLC STLMLC [id number] Common 00:00:00 00:00:00 [facility] 2020-07-30 2020-07-30 Outpatient STLMLC STLMLC [id number] Common 00:00:00 00:00:00 [facility] 2020-05-31 2020-05-31 Outpatient STLMLC STLMLC [id number] Common 00:00:00 00:00:00 [facility] 2020-05-14 2020-05-14 Outpatient STLMLC STLMLC [id number] Common 00:00:00 00:00:00 [facility] 2020-05-04 2020-05-04 Outpatient STLMLC STLMLC [id number] Common 00:00:00 00:00:00 [facility] 2020-04-30 2020-04-30 Outpatient STLMLC STLMLC [id number] Common 00:00:00 00:00:00 [facility] 2020-04-24 2020-04-24 Outpatient STLMLC STLMLC [id number] Common 00:00:00 00:00:00 [facility] 2020-04-19 2020-04-19 Outpatient STLMLC STLMLC [id number] Common 00:00:00 00:00:00 [facility] 2020-03-22 2020-03-22 Outpatient STLMLC STLMLC [id number] Common 00:00:00 00:00:00 [facility] 2020-03-22 2020-03-22 Outpatient STLMLC STLMLC [id number] Common 00:00:00 00:00:00 [facility] 2020-03-09 2020-03-09 Outpatient STLMLC STLMLC [id number] Common 00:00:00 00:00:00 [facility] 2020-02-28 2020-02-28 Outpatient STLMLC STLMLC [id number] Common 00:00:00 00:00:00 [facility] 2020-01-12 2020-01-12 Outpatient STLMLC STLMLC [id number] Common 00:00:00 00:00:00 [facility] 2019-08-23 2019-08-23 [facility] [id number] Common 13:26:00 13:26:00 [facility] 2019-06-15 2019-06-15 [facility] [id number] Common 12:32:00 12:32:00 [facility] 2019-05-19 2019-05-19 [facility] [id number] Common 11:00:00 11:00:00 t [facility] 2018-07-27 2018-07-27 [facility] [id number] Common 10:00:00 10:00:00 t [facility] Sp[facility] and Joint [facility] 2017-12-08 2017-12-08 [facility] [id number] Common 08:30:00 08:30:00 t [facility] 2017-11-30 2017-11-30 [facility] [id number] Common 09:30:00 09:30:00 t Bone Bone [facility] Spiri t and Joint [facility] Results Test Description Test Time Test Comments Results Result Comments Source TROPONIN I 2021-07-02 07:49:08 Test Item Value Reference Range Interpretation Comme nts TROPONIN I (test code = 0.006 ng/mL See_Comment [Au tomated message] The [id number]) system which ge nerated this result tra nsmitted reference range : <=0.034. The reference r dmitriy was not used to int erpret this result as normal/abnormal . REJI (test code = REJI) Reference (Normal) Range (defined by the 99th percentile reference limit): <= 0.034 ng/mL Note: Cardiac troponin begins to rise 3-4 hours after the onset of ischemia. Repeat in 4-6 hours if the sample was drawn within 3-4 hours of the onset of the symptom and found normal. Diagnosis of myocardial injury is made with acute changes in cTn concentrations with at least one serial sample above the 99th percentile upper reference limit (URL), taken together with the patient's clinical presentation. Biotin has been reported to cause a negative bias, interpret results relative to patient's use of biotin. Lab Interpretation Normal (test code = 85208-7) [facility] [id number] 07:38:06 Test Item Value Reference Range Interpretation Comments NA (test code = 134 mmol/L 135-145 L 3170920019) K (test code = 3.9 mmol/L 3.5-5.0 2928051524) CL (test code = 97 mmol/L 98-108 L 0716958703) CO2 TOTAL (test code = 27 mmol/L 23-31 5304520178) AGAP (test code = 2-16 1663700410) BUN (test code = 22 mg/dL 7-23 5706152936) GLUCOSE (test code = 110 mg/dL 70-110 2600972830) CREATININE (test code = 0.91 mg/dL 0.50-1.04 0991121801) TOTAL BILI (test code = 0.9 mg/dL 0.1-1.1 7181529173) CALCIUM (test code = 9.1 mg/dL 8.6-10.6 2226730238) T PROTEIN (test code = 7.8 g/dL 6.3-8.2 4997485588) ALBUMIN (test code = 4.3 g/dL 3.5-5.0 4213458046) ALK PHOS (test code = 183 U/L 34-122 H 3801842524) ALTv (test code = 28 U/L 5-35 1742-6) AST(SGOT) (test code = 33 U/L 13-40 6950076612) eGFR (test code = mL/min/1.73m2 2924857201) REJI (test code = REJI) Association of Glomerular Filtration Rate (GFR) and Staging of Kidney Disease* + --+ --+ ------+| GFR (mL/min/1.73 m2) ?| With Kidney Damage ?| ?Without Kidney Damage+ --------+ --------+ +| ?>90 ?| ?Stage one ?| ? Normal ?+ ---+ ---+ -------+| ?60-89 ?| ?Stage two ?| ? Decreased GFR ? + --+ --+ ------+| ?30-59 ?| ?Stage three ?| ? Stage three ? + --+ --+ ------+| ?15-29 ?| ?Stage four ? | ? Stage four ?+ ---+ ---+ -------+| ?<15 (or dialysis) ? ?| ?Stage five ? | ? Stage five ?+ ---+ ---+ -------+ *Each stage assumes the associated GFR level has been in effect for at least three months. ?Stages 1 to 5, with or without kidney disease, indicate chronic kidney disease. Notes: Determination of stages one and two (with eGFR >59mL/min/1.73 m2) requires estimation of kidney damage for at least three months as defined by structural or functional abnormalities of the kidney, manifested by either:Pathological abnormalities or Markers of kidney damage (including abnormalities in the composition of the blood or urine or abnormalities in imaging tests). Lab Interpretation Abnormal (test code = 32171-7) [facility] Branch[facility], [id number] 07:37:26 Test Item Value Reference Range Interpretation Comments LIPASE (test code = 5442816866) 66 U/L 0-220 Lab Interpretation (test code = Normal 31135-3) [facility] with [id number] 07:20:43 Test Item Value Reference Range Interpretation Comments WBC (test code = See_Comment [Automated 6690-2) message] The sy stem which generated this result transmitted reference range : 4.30 - 11.10 10*3/?L. The reference range was not used to interpret this result as normal/abnormal . RBC (test code = See_Comment [Automated 789-8) message] The sy stem which generated this result transmitted reference range : 3.93 - 5.25 10*6/?L. The reference range was not used to interpret this result as normal/abnormal . HGB (test code = 12.8 g/dL 11.6-15.0 718-7) HCT (test code = 40.0 % 35.7-45.2 4544-3) MCV (test code = 85.7 fL 80.6-95.5 787-2) MCH (test code = 27.4 pg 25.9-32.8 785-6) MCHC (test code = 32.0 g/dL 31.6-35.1 786-4) RDW-SD (test code = 46.4 fL 39.0-49.9 85259-6) RDW-CV (test code = 14.9 % 12.0-15.5 788-0) PLT (test code = See_Comment [Automated 777-3) message] The sy stem which generated this result transmitted reference range : 166 - 358 10*3/ ?L. The reference r dmitriy was not used to interpret this result as normal/abnormal . MPV (test code = 10.4 fL 9.5-12.9 96323-3) NRBC/100 WBC (test See_Comment [Automat ed code = 9988283576) message] The system which generated this result transmitted reference range : 0.0 - 10.0 /100 WBCs. The refer ence range was not u sed to interpret th is result as normal/abnormal . NRBC x10^3 (test code <0.01 See_Comment [Auto mated = 6307385871) message] The s ystem which generated this result transmitted reference range : 10*3/?L. The reference range was not used to interpret this result as normal/abnormal . GRAN MAT (NEUT) % 64.4 % (test code = 770-8) IMM GRAN % (test code 0.40 % = 6846353526) LYMPH % (test code = 25.0 % 736-9) MONO % (test code = 8.8 % 5905-5) EOS % (test code = 1.2 % 713-8) BASO % (test code = 0.2 % 706-2) GRAN MAT x10^3(ANC) 3.36 10*3/uL 1.88-7.09 (test code = 6887403523) IMM GRAN x10^3 (test <0.03 0.00-0.06 code = 7369871048) LYMPH x10^3 (test code 1.30 10*3/uL 1.32-3.29 L = 731-0) MONO x10^3 (test code 0.46 10*3/uL 0.33-0.92 = 742-7) EOS x10^3 (test code = 0.06 10*3/uL 0.03-0.39 711-2) BASO x10^3 (test code <0.03 0.01-0.07 = 704-7) Lab Interpretation Abnormal (test code = 08860-8) [facility] GLUCOSE (AUTOMATED)2021-06-26 18:24:31 Test Item Value Reference Range Interpretation Comments POCT GLU (test code = 2086086620) 81 mg/dL 70-110 Lab Interpretation (test code = Normal 59482-9) [facility] GLUCOSE (AUTOMATED)2021-06-26 13:49:33 Test Item Value Reference Range Interpretation Comments POCT GLU (test code = 9366831696) 124 mg/dL 70-110 H Lab Interpretation (test code = Abnormal 26127-4) [facility]. METABOLIC PANEL (05910)2021-06-26 09:26:40 Test Item Value Reference Range Interpretation Comments NA (test code = 135 mmol/L 135-145 3992136622) K (test code = 3.8 mmol/L 3.5-5.0 0060623881) CL (test code = 103 mmol/L 98-108 0695918374) CO2 TOTAL (test code = 25 mmol/L 23-31 0758823549) AGAP (test code = 2-16 4064552624) BUN (test code = 18 mg/dL 7-23 2625759071) GLUCOSE (test code = 110 mg/dL 70-110 3563831874) CREATININE (test code = 0.87 mg/dL 0.50-1.04 4429400145) TOTAL BILI (test code = 1.1 mg/dL 0.1-1.8 4428529967) CALCIUM (test code = 9.1 mg/dL 8.6-10.6 2889325751) T PROTEIN (test code = 7.5 g/dL 6.3-8.2 4154914613) ALBUMIN (test code = 4.1 g/dL 3.5-5.0 2483620345) ALK PHOS (test code = 147 U/L 34-122 H 6709260410) ALTv (test code = 51 U/L 5-35 H 1742-6) AST(SGOT) (test code = 37 U/L 13-40 7916508313) eGFR (test code = mL/min/1.73m2 0692967735) REJI (test code = REJI) Association of Glomerular Filtration Rate (GFR) and Staging of Kidney Disease* + --+ --+ ------+| GFR (mL/min/1.73 m2) ?| With Kidney Damage ?| ?Without Kidney Damage+ --------+ --------+ +| ?>90 ?| ?Stage one ?| ? Normal ?+ ---+ ---+ -------+| ?60-89 ?| ?Stage two ?| ? Decreased GFR ? + --+ --+ ------+| ?30-59 ?| ?Stage three ?| ? Stage three ? + --+ --+ ------+| ?15-29 ?| ?Stage four ? | ? Stage four ?+ ---+ ---+ -------+| ?<15 (or dialysis) ? ?| ?Stage five ? | ? Stage five ?+ ---+ ---+ -------+ *Each stage assumes the associated GFR level has been in effect for at least three months. ?Stages 1 to 5, with or without kidney disease, indicate chronic kidney disease. Notes: Determination of stages one and two (with eGFR >59mL/min/1.73 m2) requires estimation of kidney damage for at least three months as defined by structural or functional abnormalities of the kidney, manifested by either:Pathological abnormalities or Markers of kidney damage (including abnormalities in the composition of the blood or urine or abnormalities in imaging tests). Lab Interpretation Abnormal (test code = 31120-5) [facility] GLUCOSE (AUTOMATED)2021-06-26 01:33:48 Test Item Value Reference Range Interpretation Comments POCT GLU (test code = 5903711897) 110 mg/dL 70-110 Lab Interpretation (test code = Normal 70348-7) [facility] (HCV[facility] BY QUANTITATIVE NAAT 2021-06-25 21:33:04 Test Item Value Reference Range Interpretation Comments HCV Quantitative Not Detected Not Detected Interpretation (test code = 5761746162) REJI (test code = REJI) The Aptima HCV Quant Dx assay is an FDA-approved real-time data capture clerk-mediated amplification (TMA) test used for both detection and quantitation of hepatitis C virus (HCV) RNA in human serum and plasma from HCV-infected individuals. ?It is intended for use as an aid in the diagnosis of active HCV infection and the management of HCV-infected patients undergoing HCV antiviral drug therapy. ?It is not approved for use as a screening test for the presence of HCV RNA in blood or blood products. The quantitative range of this assay is 1.00 - 8.00 log IU/mL or 10 - 100,000,000 IU/mL. An interpretation of "Not Detected" does not rule out the presence of inhibitors in the patient specimen or HCV RNA concentration below the level of detection of the test. ?Care should be taken when interpreting any single viral load determination. Detected, not Quantifiable: HCV RNA detected, but at a level below 10 IU/mL (1.0 log IU/mL). ?HCV RNA concentration is below the lower limit of quantitation of the assay. Indeterminate: Error indicated in the generation of the result. ?Please submit a new specimen for repeat testing if clinically indicated. Lab Interpretation Normal (test code = 52148-0) [facility] GLUCOSE (AUTOMATED)2021-06-25 20:35:27 Test Item Value Reference Range Interpretation Comments POCT GLU (test code = 4349646421) 97 mg/dL 70-110 Lab Interpretation (test code = Normal 60359-5) [facility] GLUCOSE (AUTOMATED)2021-06-25 16:25:39 Test Item Value Reference Range Interpretation Comments POCT GLU (test code = 1507456452) 110 mg/dL 70-110 Lab Interpretation (test code = Normal 12334-8) [facility] CenterPROTHROMBIN TIME / [id number] 14:04:17 Test Item Value Reference Range Interpretation Comments PROTIME PATIENT (test See_Comment [Auto mated message] code = 5964-2) The system wh ich generated this result transmitted ref erence range: 10.1 - 1 2.6 Seconds. The re ference range was not u sed to interpret this result as normal/abnor mal. INR (test code = 6301-6) Nor mal INR <1.1; Warfarin Therap eutic range 2.0 to 3. 0 or 2.5 to 3.5, dep ending upon the indica tions. Lab Interpretation (test Normal code = 19200-6) [facility] GLUCOSE (AUTOMATED)2021-06-25 13:11:32 Test Item Value Reference Range Interpretation Comments POCT GLU (test code = 7371713947) 111 mg/dL 70-110 H Lab Interpretation (test code = Abnormal 99767-4) [facility] CenterGLYCOSYLATED HEMOGLOBIN (A1C)2021-06-25 11:50:52 Test Item Value Reference Range Interpretation Comments HGB A1C (test code = 5.9 % 4.0-5.7 H 4548-4) REJI (test code = REJI) Reference RangesNormal: <5.7%Prediabetes: 5.7 - 6.4%Diabetes: > 6.5% Lab Interpretation (test Abnormal code = 57028-5) [facility] CenterCBC with Zjgbhqnglujq6343-88-49 10:55:17 Test Item Value Reference Range Interpretation Comments WBC (test code = See_Comment L [Automated 8815-2) message] The sy stem which generated this result transmitted reference range : 4.30 - 11.10 10*3/?L. The reference range was not used to interpret this result as normal/abnormal . RBC (test code = See_Comment [Automated 929-8) message] The sy stem which generated this result transmitted reference range : 3.93 - 5.25 10*6/?L. The reference range was not used to interpret this result as normal/abnormal . HGB (test code = 11.5 g/dL 11.6-15.0 L 718-7) HCT (test code = 34.7 % 35.7-45.2 L 4544-3) MCV (test code = 87.8 fL 80.6-95.5 787-2) MCH (test code = 29.1 pg 25.9-32.8 785-6) MCHC (test code = 33.1 g/dL 31.6-35.1 786-4) RDW-SD (test code = 49.4 fL 39.0-49.9 60430-7) RDW-CV (test code = 15.4 % 12.0-15.5 788-0) PLT (test code = See_Comment L [Automated 777-3) message] The sy stem which generated this result transmitted reference range : 166 - 358 10*3/ ?L. The reference r dmitriy was not used to interpret this result as normal/abnormal . MPV (test code = 11.2 fL 9.5-12.9 77839-1) NRBC/100 WBC (test See_Comment [Automat ed code = 9775528434) message] The system which generated this result transmitted reference range : 0.0 - 10.0 /100 WBCs. The refer ence range was not u sed to interpret th is result as normal/abnormal . NRBC x10^3 (test code <0.01 See_Comment [Auto mated = 4300909969) message] The s ystem which generated this result transmitted reference range : 10*3/?L. The reference range was not used to interpret this result as normal/abnormal . GRAN MAT (NEUT) % 53.4 % (test code = 770-8) IMM GRAN % (test code 0.30 % = 5955603421) LYMPH % (test code = 31.4 % 736-9) MONO % (test code = 10.8 % 5905-5) EOS % (test code = 3.8 % 713-8) BASO % (test code = 0.3 % 706-2) GRAN MAT x10^3(ANC) 1.97 10*3/uL 1.88-7.09 (test code = 6895593569) IMM GRAN x10^3 (test <0.03 0.00-0.06 code = 6183673112) LYMPH x10^3 (test code 1.16 10*3/uL 1.32-3.29 L = 731-0) MONO x10^3 (test code 0.40 10*3/uL 0.33-0.92 = 742-7) EOS x10^3 (test code = 0.14 10*3/uL 0.03-0.39 711-2) BASO x10^3 (test code <0.03 0.01-0.07 = 704-7) Lab Interpretation Abnormal (test code = 63819-6) [facility] CenterMagnesium [id number] 10:09:48 Test Item Value Reference Range Interpretation Comments MAGNESIUM (test code = 1889362941) 2.1 mg/dL 1.7-2.4 Lab Interpretation (test code = Normal 16379-9) [facility] CenterPhosphorus [id number] 10:09:48 Test Item Value Reference Range Interpretation Comments PHOSPHORUS (test code = 7079887223) 4.0 mg/dL 2.5-5.0 Lab Interpretation (test code = Normal 75838-8) [facility] CenterHepatic Function Panel (ALB, T.PRO, BILI T, BU/BC, ALT, AST, ALK PHOS)2021-06-25 10:09:48 Test Item Value Reference Range Interpretation Comments TOTAL BILI (test code = 1919789379) 1.1 mg/dL 0.1-1.1 BILI UNCON (test code = 3433116551) 0.5 mg/dL 0.1-1.1 BILI CONJ (test code = 0801053040) 0.0 mg/dL 0.0-0.3 T PROTEIN (test code = 2777547777) 7.0 g/dL 6.3-8.2 ALBUMIN (test code = 4573149834) 3.9 g/dL 3.5-5.0 ALK PHOS (test code = 7903883678) 127 U/L 34-122 H ALTv (test code = 1742-6) 61 U/L 5-35 H AST(SGOT) (test code = 4916690717) 53 U/L 13-40 H Lab Interpretation (test code = Abnormal 71089-9) [facility]. METABOLIC PANEL (39905)2021-06-25 10:09:48 Test Item Value Reference Range Interpretation Comments NA (test code = 133 mmol/L 135-145 L 6361397226) K (test code = 3.7 mmol/L 3.5-5.0 6570789411) CL (test code = 97 mmol/L 98-108 L 6069262357) CO2 TOTAL (test code = 28 mmol/L 23-31 4741097255) AGAP (test code = 2-16 9336711487) BUN (test code = 30 mg/dL 7-23 H 0401965046) GLUCOSE (test code = 122 mg/dL 70-110 H 3431335775) CREATININE (test code = 1.15 mg/dL 0.50-1.04 H 8131663541) TOTAL BILI (test code = 1.1 mg/dL 0.1-1.6 5906681153) CALCIUM (test code = 8.5 mg/dL 8.6-10.6 L 4186901685) T PROTEIN (test code = 7.0 g/dL 6.3-8.2 1454385991) ALBUMIN (test code = 3.9 g/dL 3.5-5.0 7718827374) ALK PHOS (test code = 127 U/L 34-122 H 0212892501) ALTv (test code = 61 U/L 5-35 H 1742-6) AST(SGOT) (test code = 53 U/L 13-40 H 5730885385) eGFR (test code = mL/min/1.73m2 5470470938) REJI (test code = REJI) Association of Glomerular Filtration Rate (GFR) and Staging of Kidney Disease* + --+ --+ ------+| GFR (mL/min/1.73 m2) ?| With Kidney Damage ?| ?Without Kidney Damage+ --------+ --------+ +| ?>90 ?| ?Stage one ?| ? Normal ?+ ---+ ---+ -------+| ?60-89 ?| ?Stage two ?| ? Decreased GFR ? + --+ --+ ------+| ?30-59 ?| ?Stage three ?| ? Stage three ? + --+ --+ ------+| ?15-29 ?| ?Stage four ? | ? Stage four ?+ ---+ ---+ -------+| ?<15 (or dialysis) ? ?| ?Stage five ? | ? Stage five ?+ ---+ ---+ -------+ *Each stage assumes the associated GFR level has been in effect for at least three months. ?Stages 1 to 5, with or without kidney disease, indicate chronic kidney disease. Notes: Determination of stages one and two (with eGFR >59mL/min/1.73 m2) requires estimation of kidney damage for at least three months as defined by structural or functional abnormalities of the kidney, manifested by either:Pathological abnormalities or Markers of kidney damage (including abnormalities in the composition of the blood or urine or abnormalities in imaging tests). Lab Interpretation Abnormal (test code = 05111-3) [facility] CenterHEPAT[facility] ANTIBODY [id number] 23:39:53 Test Item Value Reference Range Interpretation Comments HAVM Negative Semi-Quantitative (test code = 24498-8) REJI (test code = HAVAb IgM Interpretative REJI) Information: Reactive greater than or equal to 1.2 Biotin has been reported to cause a negative bias, interpret results relative to patient's use of biotin. [facility] Center[facility] ANTIBODY (IGG AND IGM)2021-06-24 20:51:19 Test Item Value Reference Range Interpretation Comments HAV Total (test code Positive = 1070558465) HAVT Semi-Quantitative (test code = 5946725314) REJI (test code = REJI) Indicates past or present infection with HAV or exposure to HAV due to vaccination. [facility] Center[facility]BC ANTIBODY (IGM & IGG)2021-06-24 20:50:08 Test Item Value Reference Range Interpretation Comments HBC (test code = 6733699111) Negative HBC Semi-Quantitative (test code = 8194268946) [facility] CenterHCV [id number] 20:50:08 Test Item Value Reference Range Interpretation Comments HCV Ab (test code = 42150-7) Negative HCV Semi-Quantitative (test code = 12397-8) [facility] METABOLIC PANEL (NA, K, CL, CO2, GLUCOSE, BUN, CREATININE, CA)2021-06-24 17:49:55 Test Item Value Reference Range Interpretation Comments NA (test code = 134 mmol/L 135-145 L 4584815750) K (test code = 4.7 mmol/L 3.5-5.0 Slight 6339753353) hemolysis CL (test code = 98 mmol/L 98-108 2569982651) CO2 TOTAL (test code 26 mmol/L 23-31 = 7884812487) AGAP (test code = 2-16 6038142152) BUN (test code = 37 mg/dL 7-23 H Slight 9637906428) hemolysis GLUCOSE (test code = 111 mg/dL 70-110 H 7222100569) CREATININE (test code 0.99 mg/dL 0.50-1.04 = 5288397681) CALCIUM (test code = 9.1 mg/dL 8.6-10.6 0722813865) eGFR (test code = mL/min/1.73m2 9375723132) REJI (test code = REJI) Association of Glomerular Filtration Rate (GFR) and Staging of Kidney Disease* + -----+ --------+ +| GFR (mL/min/1.73 m2) ?| With Kidney Damage ?| ?Without Kidney Damage+ +------- +---- --+| ?>90 ?| ?Stage one ?| ? Normal ?+ ------+ ---------+--------- +| ?60-89 ?| ?Stage two ?| ? Decreased GFR ? + -----+ --------+ +| ?30-59 ?| ?Stage three ?| ? Stage three ? + -----+ --------+ +| ?15-29 ?| ?Stage four ? | ? Stage four ?+ ------+ ---------+--------- +| ?<15 (or dialysis) ? ?| ?Stage five ? | ? Stage five ?+ ------+ ---------+--------- + *Each stage assumes the associated GFR level has been in effect for at least three months. ?Stages 1 to 5, with or without kidney disease, indicate chronic kidney disease. Notes: Determination of stages one and two (with eGFR >59mL/min/1.73 m2) requires estimation of kidney damage for at least three months as defined by structural or functional abnormalities of the kidney, manifested by either:Pathological abnormalities or Markers of kidney damage (including abnormalities in the composition of the blood or urine or abnormalities in imaging tests). Lab Interpretation Abnormal (test code = 40138-7) [facility] CenterHEPATITIS B SURFACE [id number] 16:19:24 Test Item Value Reference Range Interpretation Comments HBsAg Semi-Quantitative (test code = Negative Negative 5195-3) [facility] CenterBILI UNCONJUGATED/BILI [id number] 15:36:02 Test Item Value Reference Range Interpretation Comments BILI CONJ (test code = 4177003707) 0.0 mg/dL 0.0-0.3 BILI UNCON (test code = 0230302489) 0.7 mg/dL 0.1-1.1 Lab Interpretation (test code = Normal 05104-7) [facility] CenterTROPONIN [id number] 07:28:01 Test Item Value Reference Interpretation Comments Range TROPONIN I (test <0.012 See_Comment [Automated code = 6850378303) message] The system which generated this result transmitted reference range : <=0.034 ng/mL. The reference range was not used to interpret this result as normal/abnormal . REJI (test code = Reference (Normal) REJI) Range (defined by the 99th percentile reference limit): <= 0.034 ng/mL Note: Cardiac troponin begins to rise 3-4 hours after the onset of ischemia. Repeat in 4-6 hours if the sample was drawn within 3-4 hours of the onset of the symptom and found normal. Diagnosis of myocardial injury is made with acute changes in cTn concentrations with at least one serial sample above the 99th percentile upper reference limit (URL), taken together with the patient's clinical presentation. Biotin has been reported to cause a negative bias, interpret results relative to patient's use of biotin. Lab Interpretation Normal (test code = 44301-5) [facility] CenterLIPASE2022-03-[facility] 07:16:19 Test Item Value Reference Range Interpretation Comments LIPASE (test code = 7634612421) 73 U/L 0-220 Lab Interpretation (test code = Normal 84759-9) [facility] ([id number])2021-06-24 07:16:19 Test Item Value Reference Range Interpretation Comments NA (test code = 136 mmol/L 135-145 5674255657) K (test code = 5.2 mmol/L 3.5-5.0 H 1392712727) CL (test code = 98 mmol/L 98-108 5477057329) CO2 TOTAL (test code = 26 mmol/L 23-31 0993717738) AGAP (test code = 2-16 0353630437) BUN (test code = 38 mg/dL 7-23 H 4073429934) GLUCOSE (test code = 129 mg/dL 70-110 H 8927522730) CREATININE (test code = 1.01 mg/dL 0.50-1.04 6871009726) TOTAL BILI (test code = 1.4 mg/dL 0.1-1.1 H 8956516688) CALCIUM (test code = 9.7 mg/dL 8.6-10.6 3788768283) T PROTEIN (test code = 8.1 g/dL 6.3-8.2 0296716634) ALBUMIN (test code = 4.5 g/dL 3.5-5.0 4856928992) ALK PHOS (test code = 199 U/L 34-122 H 5615085723) ALTv (test code = 74 U/L 5-35 H 1742-6) AST(SGOT) (test code = 95 U/L 13-40 H 0933577287) eGFR (test code = mL/min/1.73m2 0866591201) REJI (test code = REJI) Association of Glomerular Filtration Rate (GFR) and Staging of Kidney Disease* + --+ --+ ------+| GFR (mL/min/1.73 m2) ?| With Kidney Damage ?| ?Without Kidney Damage+ --------+ --------+ +| ?>90 ?| ?Stage one ?| ? Normal ?+ ---+ ---+ -------+| ?60-89 ?| ?Stage two ?| ? Decreased GFR ? + --+ --+ ------+| ?30-59 ?| ?Stage three ?| ? Stage three ? + --+ --+ ------+| ?15-29 ?| ?Stage four ? | ? Stage four ?+ ---+ ---+ -------+| ?<15 (or dialysis) ? ?| ?Stage five ? | ? Stage five ?+ ---+ ---+ -------+ *Each stage assumes the associated GFR level has been in effect for at least three months. ?Stages 1 to 5, with or without kidney disease, indicate chronic kidney disease. Notes: Determination of stages one and two (with eGFR >59mL/min/1.73 m2) requires estimation of kidney damage for at least three months as defined by structural or functional abnormalities of the kidney, manifested by either:Pathological abnormalities or Markers of kidney damage (including abnormalities in the composition of the blood or urine or abnormalities in imaging tests). Lab Interpretation Abnormal (test code = 62186-3) [facility] WITH [id number] 07:02:38 Test Item Value Reference Range Interpretation Comments WBC (test code = See_Comment [Automated 0170-2) message] The sy stem which generated this result transmitted reference range : 4.30 - 11.10 10*3/?L. The reference range was not used to interpret this result as normal/abnormal . RBC (test code = See_Comment [Automated 389-8) message] The sy stem which generated this result transmitted reference range : 3.93 - 5.25 10*6/?L. The reference range was not used to interpret this result as normal/abnormal . HGB (test code = 12.8 g/dL 11.6-15.0 718-7) HCT (test code = 40.7 % 35.7-45.2 4544-3) MCV (test code = 87.3 fL 80.6-95.5 787-2) MCH (test code = 27.5 pg 25.9-32.8 785-6) MCHC (test code = 31.4 g/dL 31.6-35.1 L 786-4) RDW-SD (test code = 48.7 fL 39.0-49.9 45962-7) RDW-CV (test code = 15.5 % 12.0-15.5 788-0) PLT (test code = See_Comment [Automated 957-3) message] The sy stem which generated this result transmitted reference range : 166 - 358 10*3/ ?L. The reference r dmitriy was not used to interpret this result as normal/abnormal . MPV (test code = 11.6 fL 9.5-12.9 71367-2) NRBC/100 WBC (test See_Comment [Automat ed code = 2887580608) message] The system which generated this result transmitted reference range : 0.0 - 10.0 /100 WBCs. The refer ence range was not u sed to interpret th is result as normal/abnormal . NRBC x10^3 (test code <0.01 See_Comment [Auto mated = 2322697919) message] The s ystem which generated this result transmitted reference range : 10*3/?L. The reference range was not used to interpret this result as normal/abnormal . GRAN MAT (NEUT) % 79.8 % (test code = 770-8) IMM GRAN % (test code 0.20 % = 6908714335) LYMPH % (test code = 13.0 % 736-9) MONO % (test code = 6.5 % 5905-5) EOS % (test code = 0.4 % 713-8) BASO % (test code = 0.1 % 706-2) GRAN MAT x10^3(ANC) 6.61 10*3/uL 1.88-7.09 (test code = 6501800233) IMM GRAN x10^3 (test <0.03 0.00-0.06 code = 7526845025) LYMPH x10^3 (test code 1.08 10*3/uL 1.32-3.29 L = 731-0) MONO x10^3 (test code 0.54 10*3/uL 0.33-0.92 = 742-7) EOS x10^3 (test code = 0.03 10*3/uL 0.03-0.39 711-2) BASO x10^3 (test code <0.03 0.01-0.07 = 704-7) Lab Interpretation Abnormal (test code = 06636-5) [facility]. METABOLIC PANEL ([id number])2021-06-12 02:30:09 Test Item Value Reference Range Interpretation Comments NA (test code = 133 mmol/L 135-145 L 6200115568) K (test code = 4.2 mmol/L 3.5-5.0 0586937371) CL (test code = 96 mmol/L 98-108 L 5387589490) CO2 TOTAL (test code = 26 mmol/L 23-31 4494821066) AGAP (test code = 2-16 9317402897) BUN (test code = 26 mg/dL 7-23 H 6812838781) GLUCOSE (test code = 106 mg/dL 70-110 9483150708) CREATININE (test code = 0.91 mg/dL 0.50-1.04 5287793943) TOTAL BILI (test code = 0.8 mg/dL 0.1-1.1 0213015827) CALCIUM (test code = 9.3 mg/dL 8.6-10.6 5085230899) T PROTEIN (test code = 7.8 g/dL 6.3-8.2 0973592559) ALBUMIN (test code = 4.5 g/dL 3.5-5.0 1063504448) ALK PHOS (test code = 180 U/L 34-122 H 7487577582) ALTv (test code = 36 U/L 5-35 H 1742-6) AST(SGOT) (test code = 46 U/L 13-40 H 6046287043) eGFR (test code = mL/min/1.73m2 4589739209) REJI (test code = REJI) Association of Glomerular Filtration Rate (GFR) and Staging of Kidney Disease* + --+ --+ ------+| GFR (mL/min/1.73 m2) ?| With Kidney Damage ?| ?Without Kidney Damage+ --------+ --------+ +| ?>90 ?| ?Stage one ?| ? Normal ?+ ---+ ---+ -------+| ?60-89 ?| ?Stage two ?| ? Decreased GFR ? + --+ --+ ------+| ?30-59 ?| ?Stage three ?| ? Stage three ? + --+ --+ ------+| ?15-29 ?| ?Stage four ? | ? Stage four ?+ ---+ ---+ -------+| ?<15 (or dialysis) ? ?| ?Stage five ? | ? Stage five ?+ ---+ ---+ -------+ *Each stage assumes the associated GFR level has been in effect for at least three months. ?Stages 1 to 5, with or without kidney disease, indicate chronic kidney disease. Notes: Determination of stages one and two (with eGFR >59mL/min/1.73 m2) requires estimation of kidney damage for at least three months as defined by structural or functional abnormalities of the kidney, manifested by either:Pathological abnormalities or Markers of kidney damage (including abnormalities in the composition of the blood or urine or abnormalities in imaging tests). Lab Interpretation Abnormal (test code = 90032-5) [facility] [id number] 02:21:28 Test Item Value Reference Interpretation Comments Range TROPONIN I (test 0.027 ng/mL See_Comment [Automated code = 4727985060) message] The system which generated this result transmitted reference range : <=0.034. The reference range was not used to interpret this result as normal/abnormal . REJI (test code = Reference (Normal) REJI) Range (defined by the 99th percentile reference limit): <= 0.034 ng/mL Note: Cardiac troponin begins to rise 3-4 hours after the onset of ischemia. Repeat in 4-6 hours if the sample was drawn within 3-4 hours of the onset of the symptom and found normal. Diagnosis of myocardial injury is made with acute changes in cTn concentrations with at least one serial sample above the 99th percentile upper reference limit (URL), taken together with the patient's clinical presentation. Biotin has been reported to cause a negative bias, interpret results relative to patient's use of biotin. Lab Interpretation Normal (test code = 42653-7) [facility] [id number] 02:17:53 Test Item Value Reference Range Interpretation Comments NT-proBNP (test code 1700 pg/mL See_Comment H [Autom ated = 1975216328) message] The system which generated this result transmitted reference range : <=125. The reference range was not used to interpret this result as normal/abnormal . REJI (test code = REJI) Biotin has been reported to cause a negative bias, interpret results relative to patient's use of biotin. Lab Interpretation Abnormal (test code = 16915-6) [facility] WITH [id number] 01:55:28 Test Item Value Reference Range Interpretation Comments WBC (test code = See_Comment [Automated 6690-2) message] The sy stem which generated this result transmitted reference range : 4.30 - 11.10 10*3/?L. The reference range was not used to interpret this result as normal/abnormal . RBC (test code = See_Comment [Automated 789-8) message] The sy stem which generated this result transmitted reference range : 3.93 - 5.25 10*6/?L. The reference range was not used to interpret this result as normal/abnormal . HGB (test code = 12.2 g/dL 11.6-15.0 718-7) HCT (test code = 38.0 % 35.7-45.2 4544-3) MCV (test code = 85.6 fL 80.6-95.5 787-2) MCH (test code = 27.5 pg 25.9-32.8 785-6) MCHC (test code = 32.1 g/dL 31.6-35.1 786-4) RDW-SD (test code = 45.4 fL 39.0-49.9 07788-5) RDW-CV (test code = 14.6 % 12.0-15.5 788-0) PLT (test code = See_Comment L [Automated 777-3) message] The sy stem which generated this result transmitted reference range : 166 - 358 10*3/ ?L. The reference r dmitriy was not used to interpret this result as normal/abnormal . MPV (test code = 10.9 fL 9.5-12.9 26652-7) NRBC/100 WBC (test See_Comment [Automat ed code = 5343282242) message] The system which generated this result transmitted reference range : 0.0 - 10.0 /100 WBCs. The refer ence range was not u sed to interpret th is result as normal/abnormal . NRBC x10^3 (test code <0.01 See_Comment [Auto mated = 1133695429) message] The s ystem which generated this result transmitted reference range : 10*3/?L. The reference range was not used to interpret this result as normal/abnormal . GRAN MAT (NEUT) % 59.1 % (test code = 770-8) IMM GRAN % (test code 0.30 % = 9921462173) LYMPH % (test code = 30.5 % 736-9) MONO % (test code = 8.4 % 5905-5) EOS % (test code = 1.4 % 713-8) BASO % (test code = 0.3 % 706-2) GRAN MAT x10^3(ANC) 3.88 10*3/uL 1.88-7.09 (test code = 0082949576) IMM GRAN x10^3 (test <0.03 0.00-0.06 code = 0859947934) LYMPH x10^3 (test code 2.00 10*3/uL 1.32-3.29 = 731-0) MONO x10^3 (test code 0.55 10*3/uL 0.33-0.92 = 742-7) EOS x10^3 (test code = 0.09 10*3/uL 0.03-0.39 711-2) BASO x10^3 (test code <0.03 0.01-0.07 = 704-7) Lab Interpretation Abnormal (test code = 94279-9) [facility] [id number] 08:45:00 Test Item Value Reference Range Interpretation Comments POC-GLUCOSE METER 113 mg/dL 70-110 H : TESTED A T [facility] 6720 (BEAKER) (test code = ANDRES Obrien [facility], 1538) [address]: Auto Body Customizer/Techni krista ID = [id number] for Yaquelin Granados HEMOGLOBIN [id number] 07:52:00 Test Item Value Reference Range Interpretation Comments HEMOGLOBIN A1C (BEAKER) (test code = 6.1 % 4.3-6.1 368) FastingTSH/FREE T4 IF [id number] 06:43:00 Test Item Value Reference Range Interpretation Comments THYROID STIMULATING HORMONE 0.547 uIU/mL 0.350-4.940 (BEAKER) (test code = 772) Auto Body Customizer ID - PIAYA LBASIC METABOLIC [id number] 06:33:00 Test Item Value Reference Range Interpretation [...] 1092) DATA TO CALCULA TE ESTIMATED GFR. Auto Body Customizer ID - PIAYA LLIPID [id number] 06:31:00 Test Item Value Reference Range Interpretation [...] Borderline 130-159 High 160-189 Very High >=190 Auto Body Customizer ID - PIAYALCBC W/PLT COUNT & AUTO [id number] 06:25:00 Test Item Value Reference Range Interpretation [...] PERCENT (BEAKER) (test code = 2801) POCT-GLUCOSE [id number] 21:50:00 Test Item Value Reference Range Interpretation Comments POC-GLUCOSE METER 108 mg/dL 70-110 : TESTED A T [facility] 6720 (BEAKER) (test code = [place], 1538) [address]: Auto Body Customizer/Techni krista ID = [id number] for DE NNIS, NITA MR, BRAIN, WITHOUT [id number] 19:10:00Unlisted Reason for Exam - Click Yes [...] Khang Baron MDReport Verified Date/Time: 12/03/2019 19:10:12 SARS-COV2/RT-PCR ([facility])2019-12-03 18:50:00 Test Item Value Reference Range Interpretation Comments SARS-COV2/RT-PCR (test Negative Not Detected, Negative, code = 7443202) See external report for linked test SARS-COV-2 PERFORMING LAB [facility] (test code = 1326038) Negative result for this test determines that [...] 564(g) of the Act.Fact Sheet for Healthcare Providers:https://www.Hiveoo/sites/default/files/product/documents/Fact_Shee i_AI_Vcgrxttsd_Hhfv_FOSV-UaG-8.pdfFact Sheet for Healthcare Patients:https://www.Hiveoo/sites/default/files/product/ documents/Twup_Bksfd_Vftwdsfo_Xnno_ENFE-MbK-4.pdfPerforming Laboratory:[facility] [place] [address].[place], [place] [address]GTNMUHSSSMNID METABOLIC [id number] 12:58:00 Test Item Value Reference Range Interpretation [...] 1092) DATA TO CALCULA TE ESTIMATED GFR. Auto Body Customizer ID - APR CCBC W/PLT COUNT & AUTO [id number] 12:46:00 Test Item Value Reference Range Interpretation [...] 0-1 PERCENT (BEAKER) (test code = 2801) [id number] 12:42:00 Test Item Value Reference Range Interpretation [...]
[2021-08-18] MEDS ORDERED: IPRATROPIUM BROM 0.5MG/2.5ML ONE (12:47)
[2021-08-18] MEDS ORDERED: ALBUTEROL 2.5 MG/3 ML NEB SOL ONE (12:47)
[2021-08-18] MEDS ORDERED: HYDROCODONE/CHLORPHEN 5 ML/OSYR ONE (12:47)
--- NOTE | 2021-08-18 13:25 | RAD REPORT ---
EXAM DESCRIPTION: Taiwo Bryan And Gela (2 Views)08/18/2021 1:17 pm CLINICAL HISTORY: Cough COMPARISON: 2020 FINDINGS: The lungs appear clear of acute infiltrate. The heart is mildly enlarged IMPRESSION: No acute abnormalities displayed
[2021-08-18 14:30] LABS: Absolute Lymphocytes (CBC) 3.2 K/uL (0.7-4.9); Hematocrit 43.3 % (36.0-45.0); Lymphocytes % 38.8 % (15.3-44.8); MPV 8.7 fL (7.6-11.3); RBC Red Blood Cell Count 5.13 M/uL (3.86-4.86)
[2021-08-18] MEDS ORDERED: KETOROLAC 30 MG/ML INJ ONE (14:31)
[2021-08-18 14:33] LABS: Protime INR 0.96
[2021-08-18 14:44] LABS: Albumin 3.8 g/dL (3.4-5.0); Bilirubin Direct 0.3 mg/dL (0-0.2); Bilirubin Total 0.8 mg/dL (0.2-1.0); Potassium 3.5 mmol/L (3.5-5.1); Protein, Total 8.6 g/dL (6.4-8.2); Troponin High Sensitivity 14.2 pg/mL (<58.9)
[2021-08-18] MEDS ORDERED: ASPIRIN 81 MG CHEWABLE TABLET ONE (15:40)
--- NOTE | 2021-08-18 16:09 | RAD REPORT ---
EXAM DESCRIPTION: USExtrem Venous W Compress Bil08/18/2021 3:32 pm CLINICAL HISTORY: Leg swelling COMPARISON: none FINDINGS: The common femoral, superficial femoral, popliteal and posterior tibial veins bilaterally are compressible and demonstrate augmentation. Doppler demonstrates good flow. Grayscale, color and spectral analysis performed on all vessels IMPRESSION: No evidence of deep venous thrombosis involving either lower extremity.
--- NOTE | 2021-08-18 16:29 | RAD REPORT ---
EXAM DESCRIPTION: CT - Chest For Pe Angio - 08/18/2021 4:06 pm CLINICAL HISTORY: Shortness of breath COMPARISON: 2019 TECHNIQUE: Dynamically enhanced axial 3 mm thick images of the chest were obtained during administra tion of <100> mL Isovue 370 IV contrast. Coronal and oblique reconstruction images were generated and reviewed. Exam utilizes a protocol for optimal evaluation of pulmonary arterial tree. Maximum intensity projections 3D imaging was utilized All CT scans are performed using dose optimization technique as appropriate and may include automated exposure control or mA/KV adjustment according to patient size. FINDINGS: A pulmonary embolus is not seen. A thoracic aortic aneurysm is not noted. A pleural effusion is not seen. A pericardial effusion is not seen. A lung consolidation is not present. Small right adrenal adenoma IMPRESSION: Negative for a pulmonary embolism.
--- NOTE | 2021-08-18 16:50 | EDPHYS ---
Physician Documentation [facility] Name: Josette Pimentel Age: 70 yrs Sex: Female : 1950 Arrival Date: 08/18/2021 Time: 12:07 Bed 3 Private MD: [facility] ED Physician Nettie Bermudez HPI: 08/18 13:00 This 70 yrs old Female presents to ER via Wheelchair with complaints of cp Shortness Of Breath, Chest Pain, Cough, Chest Congestion. 13:00 The patient has shortness of breath at rest. cp 13:00 Onset: The symptoms/episode began/occurred yesterday. Associated signs and symptoms: cp Pertinent positives: chest pain, non-productive cough, Pertinent negatives: diaphoresis, fever, vomiting. Severity of symptoms: in the emergency department the symptoms are unchanged despite home interventions. Historical: - Allergies: 12:30 Bees; iw - Home Meds: 12:30 lisinopril-hydrochlorothiazide 20-25 mg oral tab twice a day [Active]; metoprolol iw tartrate 50 mg Oral tab 1 tab 2 times per day [Active]; metformin 500 mg Oral tab 1 tab daily [Active]; hydralazine 50 mg Oral tab 1 tab 2 times per day [Active]; simvastatin 10 mg Oral tab 1 tab once daily [Active]; levothyroxine oral once daily [Active]; - PMHx: 12:30 Diabetes - NIDDM; Hypertension; Hypercholesterolemia; iw - PSHx: 12:30 tubal ligation; right knee; left knee; Tonsillectomy; iw - Immunization history:: Adult Immunizations unknown. - Social history:: Smoking status: unknown. ROS: 13:05 Constitutional: Negative for fever, poor PO intake. cp 13:05 Cardiovascular: Positive for chest pain, with cough. cp Exam: 13:10 Constitutional: The patient appears in no acute distress, alert, awake, cp non-diaphoretic, non-toxic, well developed, well nourished, uncomfortable. 13:10 Head/Face: Normocephalic, atraumatic. cp 13:10 Eyes: Periorbital structures: appear normal, Conjunctiva: normal, no exudate, no injection, Sclera: no appreciated abnormality, Lids and lashes: appear normal, bilaterally. 13:10 ENT: External ear(s): are unremarkable, Ear canal(s): are normal, clear, TM's: dullness, bilaterally, Nose: is normal, Mouth: Lips: moist, Oral mucosa: pink and intact, moist, Posterior pharynx: Airway: no evidence of obstruction, patent, Tonsils: are normal in appearance, swelling, is not appreciated, erythema, is not appreciated. 13:10 Neck: ROM/movement: is normal, is supple, without pain, no range of motions limitations, no meningismus, Lymph nodes: no appreciated lymphadenopathy. 13:10 Chest/axilla: Inspection: normal. 13:10 Cardiovascular: Rate: normal, Rhythm: regular, Edema: is not appreciated, JVD: is not appreciated. 13:10 Respiratory: the patient does not display signs of respiratory distress, Respirations: labored breathing, is not present, intercostal retractions, are absent, Breath sounds: bronchial sounds, that are mild, are heard diffusely, stridor, is not appreciated, wheezing: is not appreciated. 13:10 Abdomen/GI: Inspection: abdomen appears normal, Palpation: abdomen is soft and non-tender, in all quadrants. 13:10 Back: CVA tenderness, is absent. 13:10 Neuro: Orientation: to person, place \\T\\ time. Mentation: is normal, Motor: moves all fours, strength is normal, Sensation: is normal. 13:57 ECG was reviewed by the Attending Physician. Vital Signs: 12:34 BP 156 / 62; Pulse 76; Resp 18 S; Pulse Ox 96% on R/A; Weight 95.25 kg; Height 5 ft. 1 iw in. (154.94 cm); 13:34 BP 150 / 58; Pulse 86; Resp 15; Pulse Ox 97% ; jl7 17:27 BP 149 / 60; Pulse 79; Resp 15; Pulse Ox 93% ; jl7 12:34 Body Mass Index 39.68 (95.25 kg, 154.94 cm) iw MDM: 12:20 Patient medically screened. cp 16:48 Data reviewed: vital signs, nurses notes, lab test result(s), EKG, radiologic studies, cp CT scan, plain films. 16:48 Antibiotic administration: Not indicated, the patient does not have an appreciated cp infiltrate, the patient has a suspected viral illness. Test interpretation: by ED physician or midlevel provider: ECG, plain radiologic studies. Counseling: I had a detailed discussion with the patient and/or guardian regarding: the historical points, exam findings, and any diagnostic results supporting the discharge/admit diagnosis, lab results, radiology results, to return to the emergency department if symptoms worsen or persist or if there are any questions or concerns that arise at home. 08/18 12:26 Order name: COVID-19 SARS RT PCR (Document "Date of Onset" if Symptomatic); Complete cp Time: 13:51 08/18 13:51 Interpretation: Reviewed. 08/18 12:26 Order name: Strep; Complete Time: 13:28 08/18 12:26 Order name: Influenza Screen (a \\T\\ B); Complete Time: 13:28 08/18 13:22 Order name: Throat Culture [facility] 08/18 13:54 Order name: Basic Metabolic Panel; Complete Time: 14:51 08/18 14:52 Interpretation: Normal except: NA 133; CL 97; GFR 64. 08/18 13:54 Order name: CBC with Diff; Complete Time: 14:41 08/18 14:41 Interpretation: Normal except: RBC 5.13. 08/18 12:26 Order name: XRAY Chest Pa And Lat (2 Views); Complete Time: 13:28 08/18 13:28 Interpretation: Report reviewed. 08/18 13:54 Order name: D-Dimer; Complete Time: 14:51 08/18 13:54 Order name: LFT's; Complete Time: 14:51 08/18 16:38 Interpretation: Normal except: ALK 163; BILID 0.3; TP 8.6; GLOB 4.8; A/G 0.8. 08/18 13:54 Order name: Magnesium; Complete Time: 14:51 08/18 13:54 Order name: NT PRO-BNP; Complete Time: 14:51 cp 08/18 13:54 Order name: PT-INR; Complete Time: 14:51 08/18 14:41 Interpretation: Reviewed. 08/18 13:54 Order name: Troponin HS; Complete Time: 14:51 cp 08/18 14:53 Order name: CT Chest For PE Angio; Complete Time: 16:38 cp 08/18 16:38 Interpretation: Report reviewed. 08/18 13:53 Order name: EKG; Complete Time: 13:53 08/18 13:53 Order name: EKG - Nurse/Tech; Complete Time: 14:18 08/18 13:54 Order name: Cardiac monitoring; Complete Time: 14:18 08/18 13:54 Order name: IV Saline Lock; Complete Time: 14:18 cp 08/18 13:54 Order name: Labs collected and sent; Complete Time: 14:18 08/18 13:54 Order name: O2 Per Protocol; Complete Time: 14:18 08/18 13:54 Order name: O2 Sat Monitoring; Complete Time: 14:18 08/18 14:53 Order name: US Extremity Venous W Compression Saurabh; Complete Time: 16:38 cp EC:57 Rate is 84 beats/min. Rhythm is regular. WA interval is normal. QRS interval is normal. cp QT interval is normal. T waves are Inverted in leads III, aVR, V2. Interpreted by me. Reviewed by me. Administered Medications: 12:46 Drug: Tussionex Pennkinetic ER (chlorpheniramine-hydrocodone) Suspension 5 ml Route: PO;jl7 12:46 Drug: Albuterol - atroVENT (ipratropium) (3:1) (2.5 mg - 0.5 mg) 3 ml Route: Nebulizer; jl7 13:54 CANCELLED (Patient ): fentaNYL (PF) 25 mcg IVP once cp 14:29 Drug: Ketorolac 15 mg Route: IVP; Site: right antecubital; jl7 15:37 Drug: Aspirin Chewable Tablet 324 mg Route: PO; aa5 Disposition Summary: 08/18/21 16:49 Discharge Ordered Location: Home cp Problem: new cp Symptoms: have improved cp Condition: Stable cp Diagnosis - Acute bronchitis, unspecified cp Followup: cp - With: Private Physician - When: 2 - 3 days - Reason: Recheck today's complaints Discharge Instructions: - Discharge Summary Sheet cp - Acute Bronchitis, Adult cp - Viral Respiratory Infection cp Forms: - Medication Reconciliation Form cp - Thank You Letter cp - Antibiotic Education cp - Prescription Opioid Use cp - Work release form jl7 Prescriptions: - Guaifenesin AC 10-100 mg/5 mL Oral Liquid - take 10 milliliters by ORAL route every 6 hours As needed; 200 milliliter; cp Refills: 0, Product Selection Permitted Signatures: Dispatcher [employer] Xiomy Flores RN RN iw Fanny Olson RN RN aa5 Jc Carver PA PA cp Leal, Jahala RN RN jl7 Corrections: (The following items were deleted from the chart) 13:54 13:54 fentaNYL (PF) 25 mcg IVP once ordered. cp cp
--- NOTE | 2021-08-18 16:50 | ER ---
Nurse's Notes [facility] Name: Josette Pimentel Age: 70 yrs Sex: Female : 1950 Arrival Date: 08/18/2021 Time: 12:07 Bed 3 Private MD: Patricio Jones Diagnosis: Acute bronchitis, unspecified Presentation: 08/18 12:28 Chief complaint: Patient states: chest tightness radiating to back, cough, congestion , iw no fever, had COVID in June 2021, s/s started . Coronavirus screen: Client presents with at least one sign or symptom that may indicate coronavirus-19. Ebola Screen: Patient negative for fever greater than or equal to 101.5 degrees Fahrenheit, and additional compatible Ebola Virus Disease symptoms Patient denies exposure to infectious person. Patient denies travel to an Ebola-affected area in the 21 days before illness onset. No symptoms or risks identified at this time. Initial Sepsis Screen: Does the patient meet any 2 criteria? No. Patient's initial sepsis screen is negative. Does the patient have a suspected source of infection? No. Patient's initial sepsis screen is negative. Risk Assessment: Do you want to hurt yourself or someone else? Patient reports no desire to harm self or others. Onset of symptoms was August 15, 2021. 12:28 Method Of Arrival: Wheelchair iw 12:28 Acuity: BARAK 3 iw Historical: - Allergies: 12:30 Bees; iw - Home Meds: 12:30 lisinopril-hydrochlorothiazide 20-25 mg oral tab twice a day [Active]; metoprolol iw tartrate 50 mg Oral tab 1 tab 2 times per day [Active]; metformin 500 mg Oral tab 1 tab daily [Active]; hydralazine 50 mg Oral tab 1 tab 2 times per day [Active]; simvastatin 10 mg Oral tab 1 tab once daily [Active]; levothyroxine oral once daily [Active]; - PMHx: 12:30 Diabetes - NIDDM; Hypertension; Hypercholesterolemia; iw - PSHx: 12:30 tubal ligation; right knee; left knee; Tonsillectomy; iw - Immunization history:: Adult Immunizations unknown. - Social history:: Smoking status: unknown. Screenin:40 Abuse screen: Denies threats or abuse. Denies injuries from another. Nutritional jl7 screening: No deficits noted. Tuberculosis screening: No symptoms or risk factors identified. Fall Risk None identified. Assessment: 12:30 General: Appears in no apparent distress. uncomfortable, Behavior is calm, cooperative, jl7 appropriate for age. Pain: Complains of pain in chest wall. Cardiovascular: Rhythm is regular. Respiratory: Airway is patent Respiratory effort is even, unlabored, Respiratory pattern is regular, symmetrical, Breath sounds with crackles in left posterior lower lobe. Derm: Skin is pink, warm \T\ dry. 13:40 Reassessment: Patient appears in no apparent distress at this time. No changes from jl7 previously documented assessment. Patient and/or family updated on plan of care and expected duration. Pain level reassessed. Patient is alert, oriented x 3, equal unlabored respirations, skin warm/dry/pink. 14:30 Reassessment: Patient appears in no apparent distress at this time. No changes from jl7 previously documented assessment. Patient and/or family updated on plan of care and expected duration. Pain level reassessed. Patient is alert, oriented x 3, equal unlabored respirations, skin warm/dry/pink. 15:37 Reassessment: Patient is alert, oriented x 3, equal unlabored respirations, skin aa5 warm/dry/pink. US completed, awaiting CT chest. Vital Signs: 12:34 BP 156 / 62; Pulse 76; Resp 18 S; Pulse Ox 96% on R/A; Weight 95.25 kg; Height 5 ft. 1 iw in. (154.94 cm); 13:34 BP 150 / 58; Pulse 86; Resp 15; Pulse Ox 97% ; jl7 17:27 BP 149 / 60; Pulse 79; Resp 15; Pulse Ox 93% ; jl7 12:34 Body Mass Index 39.68 (95.25 kg, 154.94 cm) iw ED Course: 12:07 Patient arrived in ED. am2 12:07 Patricio Jones DO is Private Physician. am2 12:17 Jc Carver PA is PHCP. cp 12:17 Nettie Bermudez MD is Attending Physician. cp 12:29 Triage completed. iw 12:30 Patient has correct armband on for positive identification. Placed in gown. Bed in low jl7 position. Call light in reach. Side rails up X 1. 12:30 Pulse ox on. NIBP on. Warm blanket given. jl7 12:31 Kaleigh Murillo, RN is Primary Nurse. jl7 12:33 Arm band placed on. iw 12:46 COVID swab sent to lab. Flu and/or RSV swab sent to lab. Strep swab sent to lab. jl7 13:17 XRAY Chest Pa And Lat (2 Views) In Process Unspecified. EDMS 15:33 US Extremity Venous W Compression Saurabh In Process Unspecified. EDMS 16:08 CT Chest For PE Angio In Process Unspecified. EDMS 17:27 No provider procedures requiring assistance completed. IV discontinued, intact, jl7 bleeding controlled, No redness/swelling at site. Pressure dressing applied. Administered Medications: 12:46 Drug: Tussionex Pennkinetic ER (chlorpheniramine-hydrocodone) Suspension 5 ml Route: PO;jl7 12:46 Drug: Albuterol - atroVENT (ipratropium) (3:1) (2.5 mg - 0.5 mg) 3 ml Route: Nebulizer; jl7 13:54 CANCELLED (Patient ): fentaNYL (PF) 25 mcg IVP once cp 14:29 Drug: Ketorolac 15 mg Route: IVP; Site: right antecubital; jl7 15:37 Drug: Aspirin Chewable Tablet 324 mg Route: PO; aa5 Medication: 13:40 VIS not applicable for this client. jl7 Outcome: 16:49 Discharge ordered by MD. cp 17:27 Discharged to home ambulatory. jl7 17:27 Condition: stable 17:27 Discharge instructions given to patient, family, Instructed on discharge instructions, follow up and referral plans. medication usage, Demonstrated understanding of instructions, follow-up care, medications, Prescriptions given X 1. 17:28 Patient left the ED. jl7 Signatures: Dispatcher [employer] EDMS Xiomy Perez RN RN iw Fanny Olson RN RN aa5 Jc Carver PA PA cp Kaleigh Murillo, JAYLIN RN jl7 Benita Ashby am2 Corrections: (The following items were deleted from the chart) 17:27 14:30 BP 149 / 60; Pulse 79bpm; Resp 15bpm; Pulse Ox 93%; jl7 jl7
[2021-08-18 17:36] VITALS: BP 149/60; O2SAT 93
--- NOTE | 2021-08-19 10:05 | EKG ---
Test Date: 2021-08-18 Test Time: 13:50:07 [employer]: RIANA MEASUREMENT RESULTS: Intervals: Rate: 84 NC: 154 QRSD: 90 QT: 388 QTc: 458 Alexander: P: 9 NC: 154 QRS: 53 T: 12 INTERPRETIVE STATEMENTS: Normal sinus rhythm Normal ECG Compared to ECG 01/08/2021 12:13:53 No significant changes Electronically Signed On 08-19-21 10:02:40 CDT by Jovany Sweet
== END 2021-08-18 17:28 | disposition home or self-care (01) ==
LOC: ER 12:06
DX: J20.9 Acute bronchitis, unspecified (principal); Z20.822 Contact with and (suspected) exposure to COVID-19; E11.9 Type 2 diabetes mellitus without complications; I10 Essential (primary) hypertension; E78.00 Pure hypercholesterolemia, unspecified; Z91.030 Bee allergy status
CPT/HCPCS: 93005; 87070; 85025; 80048; 36415; 83735; 85610; 85379; 80076; 87081; 84484; 83880; 87804 ×2; 71275; 71046; 93970; 94640; 96374; 99284; U0003; Q9967

== ENCOUNTER 2022-03-21 09:53 | Emergency (ER) | payer OTHER ==
[2022-03-21] MEDS ORDERED: METHYLPREDNISOLONE 125 MG INJ ONE (10:17)
[2022-03-21] MEDS ORDERED: ACETAMINOPHEN 500 MG TAB ONE (10:17)
[2022-03-21] MEDS ORDERED: KETOROLAC 30 MG/ML INJ ONE (10:18)
[2022-03-21] MEDS ORDERED: ALBUTEROL 2.5 MG/3 ML NEB SOL ONE (10:18)
[2022-03-21] MEDS ORDERED: IPRATROPIUM BROM 0.5MG/2.5ML ONE (10:18)
[2022-03-21 10:55] LABS: Absolute Lymphocytes (CBC) 1.3 K/uL (0.7-4.9); Hematocrit 39.5 % (36.0-45.0); Lymphocytes % 21.5 % (15.3-44.8); MCV 87.8 fL (80-100); MPV 9.2 fL (7.6-11.3)
[2022-03-21 11:05] LABS: Albumin 3.4 g/dL (3.4-5.0); Bilirubin Total 1.4 mg/dL (0.2-1.0); Potassium 3.7 mmol/L (3.5-5.1); Protein, Total 7.7 g/dL (6.4-8.2); Troponin High Sensitivity 14.7 pg/mL (<58.9)
--- NOTE | 2022-03-21 12:06 | RAD REPORT ---
EXAM DESCRIPTION: [place] Single View03/21/2022 11:42 am CLINICAL HISTORY: Cough COMPARISON: August 2021 FINDINGS: The lungs appear clear of acute infiltrate. The heart is mildly enlarged IMPRESSION: No acute abnormalities displayed
--- NOTE | 2022-03-21 12:52 | ER ---
Nurse's Notes [facility] Name: Josette Pimentel Age: 71 yrs Sex: Female : 1950 Arrival Date: 03/21/2022 Time: 09:57 Bed 3 Private MD: Patricio Jones Diagnosis: Acute upper respiratory infection, unspecified;Acute bronchospasm Presentation: 03/21 10:00 Chief complaint: Patient's son or daughter states: cough, chest pain, back pain since iw yesterday , she also lost her voice yesterday. 10:00 Coronavirus screen: Client presents with at least one sign or symptom that may indicate iw coronavirus-19. Ebola Screen: Patient negative for fever greater than or equal to 101.5 degrees Fahrenheit, and additional compatible Ebola Virus Disease symptoms Patient denies exposure to infectious person. Patient denies travel to an Ebola-affected area in the 21 days before illness onset. No symptoms or risks identified at this time. 10:00 Method Of Arrival: Wheelchair iw 10:45 Initial Sepsis Screen: Does the patient meet any 2 criteria? No. Patient's initial iw sepsis screen is negative. Does the patient have a suspected source of infection? No. Patient's initial sepsis screen is negative. Risk Assessment: Do you want to hurt yourself or someone else? Patient reports no desire to harm self or others. Onset of symptoms was March 20, 2022. 10:45 Acuity: BARAK 3 iw Historical: - Allergies: 11:59 Bees; iw - Home Meds: 11:59 hydralazine 50 mg Oral tab 1 tab 2 times per day [Active]; levothyroxine oral once iw daily [Active]; lisinopril-hydrochlorothiazide 20-25 mg Oral tab twice a day [Active]; metformin 500 mg Oral tab 1 tab daily [Active]; metoprolol tartrate 50 mg Oral tab 1 tab 2 times per day [Active]; simvastatin 10 mg Oral tab 1 tab once daily [Active]; - PMHx: 11:59 Diabetes - NIDDM; Hypercholesterolemia; Hypertension; iw - PSHx: 11:59 right knee; left knee; tubal ligation; Tonsillectomy; iw - Immunization history:: Adult Immunizations up to date. - Family history:: not pertinent. - Social history:: Smoking status: Patient denies any tobacco usage or history of. Screenin:00 [facility] ED Fall Risk Assessment (Adult) History of falling in the last 3 months, ko1 including since admission No falls in past 3 months (0 pts) Confusion or Disorientation No (0 pts) Intoxicated or Sedated No (0 pts) Impaired Gait No (0 pts) Mobility Assist Device Used No (0 pt) Altered Elimination No (0 pt) Score/Fall Risk Level 0 - 2 = Low Risk Oriented to surroundings, Maintained a safe environment, Educated pt \T\ family on fall prevention, incl call for assistance when getting out of bed, Provided non-skid footwear, Hourly rounding (assess needs \T\ fall precautionary measures) done, Used gait belt as appropriate. Humpty Dumpty Scale Fall Assessment Tool (age< 18yrs) Age 13 years and above (1 pt) Gender Female (1 pt) Diagnosis Alteration in oxygenation (respiratory diagnosis, dehydration, anemia, anorexia, syncope/dizziness, etc) (3 pts) Cognitive Impairments Oriented to own ability (1 pt) Environmental Factors Outpatient area (1 pt) Response to Surgery/Sedation/Anesthesia Medication Usage Other medications/ None (1 pt) Fall Risk Score/ Level Low Fall Risk: </= 11 points Oriented to surroundings, Maintained a safe environment: Age specific bed with railing, Bed in low position\T\ wheels locked, Assess need for siderail use, Locks on, Rm \T\ paths clutter \T\ obstacle free, Proper lighting, Call light, personal item w/in reach, Alarms as needed, Educated pt \T\ family on fall prevention, incl. call for assistance when getting out of bed, Assessed \T\ reinforced patient's understanding of fall precautions, Provided non-skid footwear, Hourly rounding (assess needs \T\ fall precautionary measures). 12:00 Abuse screen: Denies threats or abuse. Denies injuries from another. Nutritional ko1 screening: No deficits noted. Tuberculosis screening: No symptoms or risk factors identified. Fall Risk No fall in past 12 months (0 pts). Assessment: 10:15 General: Appears distressed, uncomfortable, ill, Behavior is calm, cooperative, ko1 appropriate for age. Pain: Complains of pain in chest Pain does not radiate. Pain began gradually, 1 day ago. Neuro: No deficits noted. Cardiovascular: Reports chest pain. Respiratory: Reports shortness of breath at rest on exertion cough that is productive, pain with cough pain with respiration Breath sounds are coarse bilaterally. Breath sounds are diminished bilaterally. GI: No deficits noted. : No deficits noted. EENT: No deficits noted. Derm: No deficits noted. Musculoskeletal: No deficits noted. Vital Signs: 11:57 BP 156 / 58; Pulse 60; Resp 16 S; Pulse Ox 94% on R/A; iw 12:15 BP 121 / 58; Pulse 58; Pulse Ox 99% on Nebulizer Mask; ko1 12:30 BP 140 / 59; Pulse 60; Pulse Ox 96% on R/A; ko1 12:45 BP 154 / 74; Pulse 63; Pulse Ox 96% on R/A; ko1 ED Course: 09:57 Patient arrived in ED. mr 09:57 Patricio Jones DO is Private Physician. mr 10:00 Orlando Whatley MD is Attending Physician. rt 10:01 Sandra Cortez, RN is Primary Nurse. ko1 10:25 EKG done, by ED staff, reviewed by Orlando Whatley MD. mm9 10:26 Patient has correct armband on for positive identification. Placed in gown. Bed in low mm9 position. Call light in reach. Side rails up X2. Adult w/ patient. Warm blanket given. teletypesetter monitor on. Pulse ox on. NIBP on. 10:45 Triage completed. iw 11:43 Chest Single View XRAY In Process Unspecified. EDMS 12:00 No provider procedures requiring assistance completed. Inserted saline lock: 20 gauge ko1 in right antecubital area, using aseptic technique. Blood collected. Oxygen administered via a nebulizer mask. Response to oxygen therapy: symptoms improved. 12:56 IV discontinued, intact, bleeding controlled, No redness/swelling at site. Pressure ko1 dressing applied. Administered Medications: 10:33 Drug: Tylenol 1000 mg Route: PO; ko1 10:51 Follow up: Response: No adverse reaction ko1 10:34 Drug: SOLU-Medrol (methylPrednisoLONE) 125 mg Route: IVP; Site: right forearm; ko1 10:52 Follow up: Response: No adverse reaction ko1 10:34 Drug: DuoNeb (albuterol 2.5 mg, ipratropium 0.5 mg) (3:1) (2.5 mg - 0.5 mg) 3 ml Route: ko1 Nebulizer; 10:52 Follow up: Response: No adverse reaction ko1 10:34 Drug: Ketorolac 15 mg Route: IVP; Site: right forearm; ko1 10:52 Follow up: Response: No adverse reaction; Pain is decreased ko1 Medication: 12:45 VIS not applicable for this client. ko1 Outcome: 12:51 Discharge ordered by MD. rt 12:56 Discharged to home via wheelchair, with family. ko1 12:56 Condition: improved 12:56 Discharge instructions given to patient, family, Instructed on discharge instructions, follow up and referral plans. medication usage, Demonstrated understanding of instructions, follow-up care, medications, Prescriptions given X 3. 13:12 Patient left the ED. ko1 Signatures: Dispatcher [employer] ARIELA GilbertNathalie Xiomy Perez, RN RN Sandra Villasenor RN RN ko1 Martinez, Maria mm9 Orlando Whatley MD MD rt Corrections: (The following items were deleted from the chart) 10:45 09:45 Chief complaint: Patient's son or daughter states: cough, chest pain, back pain iw since yesterday , she also lost her voice yesterday iw
--- NOTE | 2022-03-21 12:52 | EDPHYS ---
Physician Documentation [facility] Name: Josette Pimentel Age: 71 yrs Sex: Female : 1950 Arrival Date: 03/21/2022 Time: 09:57 Bed 3 Private MD: Patricio Jones ED Physician Orlando Whatley HPI: 03/21 10:46 This 71 yrs old Female presents to ER via Wheelchair with complaints of Chest rt Pain, Shortness Of Breath, Weakness. 10:46 The patient or guardian reports chest pain that is located primarily in the anterior rt chest wall. Onset: yesterday. The pain does not radiate. Associated signs and symptoms: Pertinent positives: cough, shortness of breath. The chest pain is described as aching. Duration: The patient or guardian reports a single episode. Modifying factors: The symptoms are alleviated by nothing. the symptoms are aggravated by nothing. To the ED with cough, sore throat, hoarse voice, chest pain, shortness of breath starting yesterday. Patient was seen at [place] yesterday, subsequently discharged. Symptoms have persisted to today. Denies other acute complaints at this time, symptoms are moderate in severity, no other aggravating alleviating factors.. Historical: - Allergies: 11:59 Bees; iw - Home Meds: 11:59 hydralazine 50 mg Oral tab 1 tab 2 times per day [Active]; levothyroxine oral once iw daily [Active]; lisinopril-hydrochlorothiazide 20-25 mg Oral tab twice a day [Active]; metformin 500 mg Oral tab 1 tab daily [Active]; metoprolol tartrate 50 mg Oral tab 1 tab 2 times per day [Active]; simvastatin 10 mg Oral tab 1 tab once daily [Active]; - PMHx: 11:59 Diabetes - NIDDM; Hypercholesterolemia; Hypertension; iw - PSHx: 11:59 right knee; left knee; tubal ligation; Tonsillectomy; iw - Immunization history:: Adult Immunizations up to date. - Family history:: not pertinent. - Social history:: Smoking status: Patient denies any tobacco usage or history of. ROS: 10:46 Constitutional: Negative for fever, chills, and weight loss, Eyes: Negative for injury, rt pain, redness, and discharge, Neck: Negative for injury, pain, and swelling, Abdomen/GI: Negative for abdominal pain, nausea, vomiting, diarrhea, and constipation, MS/Extremity: Negative for injury and deformity, Skin: Negative for injury, rash, and discoloration, Neuro: Negative for headache, weakness, numbness, tingling, and seizure, Psych: Negative for depression, anxiety, suicide ideation, homicidal ideation, and hallucinations. 10:46 ENT: Positive for rhinorrhea, sore throat. 10:46 Cardiovascular: Positive for chest pain, Negative for edema. 10:46 Respiratory: Positive for cough, shortness of breath. Exam: 10:46 Constitutional: This is a well developed, well nourished patient who is awake, alert, rt and in no acute distress. Head/Face: Normocephalic, atraumatic. Eyes: Pupils equal round and reactive to light, extra-ocular motions intact. Lids and lashes normal. Conjunctiva and sclera are non-icteric and not injected. Cornea within normal limits. Periorbital areas with no swelling, redness, or edema. ENT: Nares patent. No nasal discharge, no septal abnormalities noted. Tympanic membranes are normal and external auditory canals are clear. Oropharynx with no redness, swelling, or masses, exudates, or evidence of obstruction, uvula midline. Mucous membranes moist. Neck: Trachea midline, no thyromegaly or masses palpated, and no cervical lymphadenopathy. Supple, full range of motion without nuchal rigidity, or vertebral point tenderness. No Meningismus. Chest/axilla: Normal chest wall appearance and motion. Nontender with no deformity. No lesions are appreciated. Cardiovascular: Regular rate and rhythm with a normal S1 and S2. No gallops, murmurs, or rubs. Normal PMI, no JVD. No pulse deficits. Respiratory: Lungs have equal breath sounds bilaterally, clear to auscultation and percussion. No rales, rhonchi or wheezes noted. No increased work of breathing, no retractions or nasal flaring. Abdomen/GI: Soft, non-tender, with normal bowel sounds. No distension or tympany. No guarding or rebound. No evidence of tenderness throughout. Skin: Warm, dry with normal turgor. Normal color with no rashes, no lesions, and no evidence of cellulitis. MS/ Extremity: Pulses equal, no cyanosis. Neurovascular intact. Full, normal range of motion. Neuro: Awake and alert, GCS 15, oriented to person, place, time, and situation. Cranial nerves II-XII grossly intact. Motor strength 5/5 in all extremities. Sensory grossly intact. Cerebellar exam normal. Normal gait. Psych: Awake, alert, with orientation to person, place and time. Behavior, mood, and affect are within normal limits. 10:50 ECG was reviewed by the Attending Physician. rt Vital Signs: 11:57 BP 156 / 58; Pulse 60; Resp 16 S; Pulse Ox 94% on R/A; iw 12:15 BP 121 / 58; Pulse 58; Pulse Ox 99% on Nebulizer Mask; ko1 12:30 BP 140 / 59; Pulse 60; Pulse Ox 96% on R/A; ko1 12:45 BP 154 / 74; Pulse 63; Pulse Ox 96% on R/A; ko1 MDM: 10:12 Patient medically screened. rt 13:45 Differential diagnosis: pancreatitis, pericarditis, pleurisy, pneumonia, pneumothorax. rt HEART Score: History: Slightly Suspicious (0), ECG: Normal (0), Age: > or = 65 years (2), Risk Factors: 1 or 2 risk factors (1), Troponin: < or = 1 x Normal Limit (0), Total Score = 3. Data reviewed: vital signs, nurses notes. ED course: Patient presents to the ED with cough, dyspnea, pleuritic chest pain for several days. Given chronicity of symptoms, this is sufficient to rule out an acute coronary syndrome. Symptoms are improved with bronchodilators, NSAIDs in the ED. She has stable vital signs, do not suspect pulmonary embolism. Chest x-ray, labs are unremarkable, is stable for outpatient care, return precautions discussed.. 03/21 10:12 Order name: CBC with Diff; Complete Time: 11:52 rt 03/21 10:12 Order name: CMP; Complete Time: 11:52 rt 03/21 10:12 Order name: Troponin High Sensitivity; Complete Time: 11:52 rt 03/21 10:12 Order name: Chest Single View XRAY; Complete Time: 12:23 rt 03/21 10:12 Order name: EKG; Complete Time: 10:12 rt 03/21 10:12 Order name: EKG - Nurse/Tech; Complete Time: 10:12 rt EC:50 Rate is 60 beats/min. Rhythm is regular, Normal Sinus Rhythm with No ectopy. QRS [place] rt is Normal. OR interval is normal. QRS interval is normal. QT interval is normal. No Q waves. T waves are Inverted in lead III. No ST changes noted. Interpreted by me. Administered Medications: 10:33 Drug: Tylenol 1000 mg Route: PO; ko1 10:51 Follow up: Response: No adverse reaction ko1 10:34 Drug: SOLU-Medrol (methylPrednisoLONE) 125 mg Route: IVP; Site: right forearm; ko1 10:52 Follow up: Response: No adverse reaction ko1 10:34 Drug: DuoNeb (albuterol 2.5 mg, ipratropium 0.5 mg) (3:1) (2.5 mg - 0.5 mg) 3 ml Route: ko1 Nebulizer; 10:52 Follow up: Response: No adverse reaction ko1 10:34 Drug: Ketorolac 15 mg Route: IVP; Site: right forearm; ko1 10:52 Follow up: Response: No adverse reaction; Pain is decreased ko1 Disposition Summary: 03/21/22 12:51 Discharge Ordered Location: Home rt Problem: an ongoing problem rt Symptoms: have improved rt Condition: Stable rt Diagnosis - Acute upper respiratory infection, unspecified rt - Acute bronchospasm rt Followup: rt - With: Private Physician - When: 2 - 3 days - Reason: Discharge Instructions: - Discharge Summary Sheet rt - Upper Respiratory Infection, Adult rt Forms: - Medication Reconciliation Form rt - Thank You Letter rt - Antibiotic Education rt - Prescription Opioid Use rt Prescriptions: - Prednisone 20 mg Oral Tablet - take 2 tablets by ORAL route once daily for 5 days; 10 tablet; Refills: 0, rt Product Selection Permitted - albuterol sulfate 90 mcg/actuation Inhalation HFA aerosol inhaler - inhale 2 puff by INHALATION route every 4 hours; 1 Pump; Refills: 0, Product jmm Selection Permitted - ALBUTEROL-ipratropium 2.5-5 nebulize - inhale 1 ampule by NEBULIZATION route every 4 hours; 30 ampule; Refills: 0, rt Product Selection Permitted Signatures: Dispatcher [employer] Xiomy Flores RN RN iw Oliver, Kathy, RN RN ko1 Orlando Whatley MD MD rt
[2022-03-21 13:21] VITALS: O2SAT 96
[2022-03-21 13:22] VITALS: BP 154/74
== END 2022-03-21 13:12 | disposition home or self-care (01) ==
LOC: ER 09:53
DX: J98.01 Acute bronchospasm (principal); J06.9 Acute upper respiratory infection, unspecified; E11.9 Type 2 diabetes mellitus without complications; I10 Essential (primary) hypertension; Z91.030 Bee allergy status
CPT/HCPCS: 85025; 36415; 84484; 80053; 71045; 94640; 96375; 96374; 99285; J7613; J7644; J2930; 93005

== ENCOUNTER 2022-05-10 15:57 | Emergency (ER) | payer OTHER ==
--- OUTSIDE RECORDS SUMMARY | 2022-05-10 16:07 | XMS REPORT | Continuity of Care Document ---
:1950 Author Organization [facility] t Address [address] [place] [address] Care Team Providers Name Role Phone Patricio Jones Attending Clinician Unavailable Fredrick Torres Admitting Clinician Unavailable Payers Payer Name Policy Type Policy Number Effective Date Expiration Date S ourflaquita [employer] MEDICARE 53 [id number] 2021 Common Sp yasir 00:00:00 - [facility] MEDICARE MB [id number] [facility] MEDICARE MB [id number] [facility] MEDICARE MB [id number] [facility] MEDICARE MB [id number] [facility] MEDICARE MB [id number] [facility] [employer] MEDICARE C1 [id number] Common Sp yasir - [facility] Problems Condition Condition Condition Status Onset Resolution Last Treating Co mments Source Name Details Category Date Date Treatment Clinician Date Adrenal Adrenal Problem Common adenoma adenoma [facility] Essential Essential Problem Com mon hypertensi hypertensi Sp yasir on on [facility] 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 - [facility] [id number] Hypothyroi Problem Co mmon dism Spirit (acquired) - [facility] [id number] Mixed Problem Common hyperlipid Spirit emia - [facility] [id number] Pain, Problem Common joint, Spirit knee, left - [facility] [id number] Body mass Problem Com mon index [facility] [BMI] - [facility] 40.0-44.9, [facility] [id number] Sciatica Problem Commo n of left Spirit side - [facility] [id number] Primary Problem Comm on osteoarthr Spirit itis of - [facility] left knee [facility] [id number] Primary Problem Comm on osteoarthr Spirit itis of - [facility] right knee [facility] History of Aftercare Problem Co mmon musculoske following Spi rit letal joint - [facility] operation [facility] [id number] Type 2 Problem Common diabetes [facility] mellitus - [facility] with [facility] long-term current use of insulin Arthritis Arthritis Problem Com mon of right of knee, [facility] knee right - [facility] [id number] Status Problem Commo n 105 post total Spirit right knee - [facility] [id number] Type 2 [place] [id number] diabetes [facility] mellitus - [facility] with other [facility] kidney Medical complicati Center on Endometria Endometria Problem C ommon l l Spirit hyperplasi hyperplasi - [facility] a a [facility] Diverticul Diverticul Problem C ommon a of a of [facility] intestine intestine - [facility] Fatty Fatty Problem Common liver liver [facility] Disorder Adrenal Problem Common of adrenal nodule [facility] gland [facility] Allergies, Adverse Reactions, Alerts This patient has no known allergies or adverse reactions. Social History Social Habit Start Date Stop Date Quantity Comments Source History of Tobacco Use Co mmon [facility] Sex Assigned At Com mon [facility] Smoking Status Start Date Stop Date Source Never Smoker Common [facility] Medications Ordered Filled Start Stop Current Ordering Indication Dosage Frequency Signature Comments Components Source Medication Medication Date Date Medication? Clinician (SIG) Name Name hydrALAZINE hydrALAZINE 2020-04 No 1{table BID hydrALAZIN HCl 25 MG HCl 25 MG 04-09 t_with_ E HCl 25 00:00: food} MG 00 hydrALAZINE hydrALAZINE 2020-04 No 1{table BID HCl 25 MG HCl 25 MG 1-04 t_with_ 00:00: food} 00 hydrALAZINE hydrALAZINE 2020-04 No 1{table BID hydrALAZIN HCl 50 MG HCl 50 MG 1-04 t_with_ E HCl 50 00:00: food} MG 00 hydrALAZINE hydrALAZINE 2020-04 No 1{table BID hydrALAZIN HCl 50 MG HCl 50 MG 1-04 t_with_ E HCl 50 00:00: food} MG 00 hydrALAZINE hydrALAZINE 2020-04 No 1{table BID hydrALAZIN HCl 50 MG HCl 50 MG 1-04 t_with_ E HCl 50 00:00: food} MG 00 hydrALAZINE hydrALAZINE 2020-04 No 1{table BID hydrALAZIN HCl 50 MG HCl 50 MG 1-04 t_with_ E HCl 50 00:00: food} MG 00 hydrALAZINE hydrALAZINE 2020-04 No 1{table BID HCl 50 MG HCl 50 MG 1-04 t_with_ 00:00: food} 00 hydrALAZINE hydrALAZINE 2020-04 No 1{table BID HCl 50 MG HCl 50 MG 1-04 t_with_ 00:00: food} 00 amLODIPine amLODIPine 2020-04 No 1{table QD amLODIPine Besylate 5 Besylate 5 0-13 t} Besylate 5 MG MG 00:00: MG 00 Simvastatin Simvastatin 2020- No 1{table QD Simvastati 10 MG 10 MG 8-05 t_in_ n 10 MG 00:00: e_eveni 00 ng} Zofran 4 MG Zofran 4 MG 2020-0 No 1{table Zofran 4 7-08 t} MG 00:00: 00 Zofran 4 MG Zofran 4 MG 2020-0 No 1{table Zofran 4 7-08 t} MG 00:00: 00 Zofran 4 MG Zofran 4 MG 2020-0 No 1{table Zofran 4 7-08 t} MG 00:00: 00 Zofran 4 MG Zofran 4 MG 2020-0 No 1{table Zofran 4 7-08 t} MG 00:00: 00 Zofran 4 MG Zofran 4 MG 2021-0 No 1{table Zofran 4 7-08 t} MG 00:00: 00 Zofran 4 MG Zofran 4 MG 2021-0 No 1{table Zofran 4 7-08 t} MG 00:00: 00 Zofran 4 MG Zofran 4 MG 2021-0 No 1{table Zofran 4 7-08 t} MG 00:00: 00 Zofran 4 MG Zofran 4 MG 2021-0 No 1{table Zofran 4 7-08 t} MG 00:00: 00 Zofran 4 MG Zofran 4 MG 2021-0 No 1{table Zofran 4 7-08 t} MG 00:00: 00 Zofran 4 MG Zofran 4 MG 2021-0 No 1{table Zofran 4 7-08 t} MG 00:00: 00 Zofran 4 MG Zofran 4 MG 2021-0 No 1{table Zofran 4 7-08 t} MG 00:00: 00 Zofran 4 MG Zofran 4 MG 2021-0 No 1{table Zofran 4 7-08 t} MG 00:00: 00 Zofran 4 MG Zofran 4 MG 2021-0 No 1{table Zofran 4 7-08 t} MG 00:00: 00 Zofran 4 MG Zofran 4 MG 2021-0 No 1{table Zofran 4 7-08 t} MG 00:00: 00 Zofran 4 MG Zofran 4 MG 2021-0 No 1{table Zofran 4 7-08 t} MG 00:00: 00 Zofran 4 MG Zofran 4 MG 2021-0 No 1{table Zofran 4 7-08 t} MG 00:00: 00 Zofran 4 MG Zofran 4 MG 2021-0 No 1{table Zofran 4 7-08 t} MG 00:00: 00 Zofran 4 MG Zofran 4 MG 2021-0 No 1{table Zofran 4 7-08 t} MG 00:00: 00 Zofran 4 MG Zofran 4 MG 2021-0 No 1{table Zofran 4 7-08 t} MG 00:00: 00 Zofran 4 MG Zofran 4 MG 2021-0 No 1{table Zofran 4 7-08 t} MG 00:00: 00 Zofran 4 MG Zofran 4 MG 2021-0 No 1{table Zofran 4 7-08 t} MG 00:00: 00 Zofran 4 MG Zofran 4 MG 2021-0 No 1{table Zofran 4 7-08 t} MG 00:00: 00 Zofran 4 MG Zofran 4 MG 2021-0 No 1{table 7-08 t} 00:00: 00 Zofran 4 MG Zofran 4 MG 2021-0 No 1{table Zofran 4 7-08 t} MG 00:00: 00 Zofran 4 MG Zofran 4 MG 2021-0 No 1{table Zofran 4 7-08 t} MG 00:00: 00 Zofran 4 MG Zofran 4 MG 2021-0 No 1{table Zofran 4 7-08 t} MG 00:00: 00 Zofran 4 MG Zofran 4 MG 2021-0 No 1{table Zofran 4 7-08 t} MG 00:00: 00 Zofran 4 MG Zofran 4 MG 2021-0 No 1{table 7-08 t} 00:00: 00 Zofran 4 MG Zofran 4 MG 2021-0 No 1{table 7-08 t} 00:00: 00 Zofran 4 MG Zofran 4 MG 2021-0 No 1{table Zofran 4 7-08 t} MG 00:00: 00 Zofran 4 MG Zofran 4 MG 2021-0 No 1{table Zofran 4 7-08 t} MG 00:00: 00 Zofran 4 MG Zofran 4 MG 2021-0 No 1{table Zofran 4 7-08 t} MG 00:00: 00 Zofran 4 MG Zofran 4 MG 2021-0 No 1{table Zofran 4 7-08 t} MG 00:00: 00 Zofran 4 MG Zofran 4 MG 2021-0 No 1{table Zofran 4 7-08 t} MG 00:00: 00 Zofran 4 MG Zofran 4 MG 2021-0 No 1{table Zofran 4 7-08 t} MG 00:00: 00 Zofran 4 MG Zofran 4 MG 2021-0 No 1{table Zofran 4 7-08 t} MG 00:00: 00 Zofran 4 MG Zofran 4 MG 2021-0 No 1{table Zofran 4 7-08 t} MG 00:00: 00 Zofran 4 MG Zofran 4 MG 2021-0 No 1{table Zofran 4 7-08 t} MG 00:00: 00 Xarelto 10 Xarelto 10 2021-0 No 1{table QD Xarelto 10 MG MG 7-01 t} MG 00:00: 00 Xarelto 10 Xarelto 10 2021-0 No 1{table QD Xarelto 10 MG MG 7-01 t} MG 00:00: 00 Xarelto 10 Xarelto 10 2021-0 No 1{table QD Xarelto 10 MG MG 7-01 t} MG 00:00: 00 Xarelto 10 Xarelto 10 2021-0 No 1{table QD MG MG 7-01 t} 00:00: 00 Xarelto 10 Xarelto 10 2021-0 No 1{table QD Xarelto 10 MG MG 7-01 t} MG 00:00: 00 Xarelto 10 Xarelto 10 2021-0 No 1{table QD Xarelto 10 MG MG 7-01 t} MG 00:00: 00 Xarelto 10 Xarelto 10 2021-0 No 1{table QD Xarelto 10 MG MG 7-01 t} MG 00:00: 00 Xarelto 10 Xarelto 10 2021-0 No 1{table QD Xarelto 10 MG MG 7-01 t} MG 00:00: 00 Xarelto 10 Xarelto 10 2021-0 No 1{table QD MG MG 7-01 t} 00:00: 00 Xarelto 10 Xarelto 10 2021-0 No 1{table QD MG MG 7-01 t} 00:00: 00 traMADol traMADol 2019-1 No 1{table traMADol HCl 50 MG HCl 50 MG 2-17 t_as_ne HCl 50 MG 00:00: eded} 00 traMADol traMADol 2019-1 No 1{table traMADol HCl 50 MG HCl 50 MG 2-17 t_as_ne HCl 50 MG 00:00: eded} 00 traMADol traMADol 2019- No 1{table traMADol HCl 50 MG HCl 50 MG 2-17 t_as_ne HCl 50 MG 00:00: eded} 00 traMADol traMADol 2019- No 1{table HCl 50 MG HCl 50 MG 2-17 t_as_ne 00:00: eded} 00 traMADol traMADol 2019- No 1{table traMADol HCl 50 MG HCl 50 MG 2-17 t_as_ne HCl 50 MG 00:00: eded} 00 traMADol traMADol 2019- No 1{table traMADol HCl 50 MG HCl 50 MG 2-17 t_as_ne HCl 50 MG 00:00: eded} traMADol traMADol 2019- No 1{table traMADol HCl 50 MG HCl 50 MG 2-17 t_as_ne HCl 50 MG 00:00: eded} 00 traMADol traMADol 2019- No 1{table traMADol HCl 50 MG HCl 50 MG 2-17 t_as_ne HCl 50 MG 00:00: eded} 00 traMADol traMADol 2019- No 1{table HCl 50 MG HCl 50 MG 2-17 t_as_ne 00:00: eded} 00 traMADol traMADol 2019- No 1{table HCl 50 MG HCl 50 MG 2-17 t_as_ne 00:00: eded} 00 Provencal Provencal 2019-04 No Provencal 7.5-325 MG 7.5-325 MG 1-24 7.5-325 MG 00:00: 00 Xarelto 10 Xarelto 10 2019-04 No 1{table QD Xarelto 10 MG MG 1-24 t} MG 00:00: 00 Xarelto 10 Xarelto 10 2019- No 1{table QD Xarelto 10 MG MG 1-24 t} MG 00:00: 00 Provencal Provencal 2019-04 No Provencal 7.5-325 MG 7.5-325 MG 1-24 7.5-325 MG 00:00: 00 Xarelto 10 Xarelto 10 2019- No 1{table QD Xarelto 10 MG MG 1-24 t} MG 00:00: 00 Provencal Provencal 2019-04 No Provencal 7.5-325 MG 7.5-325 MG 1-24 7.5-325 MG 00:00: 00 Provencal Provencal 2019-1 No 7.5-325 MG 7.5-325 MG 1-24 00:00: 00 Xarelto 10 Xarelto 10 2019- No 1{table QD MG MG 1-24 t} 00:00: 00 Provencal Provencal 2019- No Provencal 7.5-325 MG 7.5-325 MG 1-24 7.5-325 MG 00:00: 00 Xarelto 10 Xarelto 10 2019- No 1{table QD Xarelto 10 MG MG 1-24 t} MG 00:00: 00 Provencal Provencal 2019- No Provencal 7.5-325 MG 7.5-325 MG 1-24 7.5-325 MG 00:00: 00 Xarelto 10 Xarelto 10 2019- No 1{table QD Xarelto 10 MG MG 1-24 t} MG 00:00: 00 Provencal Provencal 2019- No Provencal 7.5-325 MG 7.5-325 MG 1-24 7.5-325 MG 00:00: 00 Xarelto 10 Xarelto 10 2019- No 1{table QD Xarelto 10 MG MG 1-24 t} MG 00:00: 00 Xarelto 10 Xarelto 10 2019- No 1{table QD Xarelto 10 MG MG 1-24 t} MG 00:00: 00 Provencal Provencal 2019- No Provencal 7.5-325 MG 7.5-325 MG 1-24 7.5-325 MG 00:00: 00 Xarelto 10 Xarelto 10 2019- No 1{table QD MG MG 1-24 t} 00:00: 00 Provencal Provencal 2019- No 7.5-325 MG 7.5-325 MG 1-24 00:00: 00 Xarelto 10 Xarelto 10 2019- No 1{table QD MG MG 1-24 t} 00:00: 00 Provencal Provencal 2019- No 7.5-325 MG 7.5-325 MG 1-24 00:00: 00 Hyalgan 20 Hyalgan 20 2019-0 No 20mg C ommon mg mg 6-06 Spirit 00:00: - [facility] 00 [facility] Hyalgan 20 Hyalgan 20 2019-0 No 20mg C ommon mg mg 09-09 Spirit 00:00: - [facility] LIDOCAINE LIDOCAINE 2019-0 No 10mg Com mon HCL 10MG/ML HCL 10MG/ML 6 S pirit 00:00: - [facility] LIDOCAINE LIDOCAINE 2019-0 No 10mg Com mon HCL 10MG/ML HCL 10MG/ML 6 S pirit 00:00: - [facility] Hyalgan 20 Hyalgan 20 2019-0 No 20mg C ommon mg mg 09-09 Spirit 00:00: - [facility] Hyalgan 20 Hyalgan 20 2019-0 No 20mg C ommon mg mg 09-09 Spirit 00:00: - [facility] LIDOCAINE LIDOCAINE 2019-0 No 10mg Com mon HCL 10MG/ML HCL 10MG/ML 09-09 S pirit 00:00: - [facility] LIDOCAINE LIDOCAINE 2019-0 No 10mg Com mon HCL 10MG/ML HCL 10MG/ML 09-09 S pirit 00:00: - [facility] Hyalgan 20 Hyalgan 20 2019-0 No 20mg C ommon mg mg 09-09 Spirit 00:00: - [facility] Hyalgan 20 Hyalgan 20 2019-0 No 20mg C ommon mg mg 09-09 Spirit 00:00: - [facility] LIDOCAINE LIDOCAINE 2019-0 No 10mg Com mon HCL 10MG/ML HCL 10MG/ML 09-09 S pirit 00:00: - [facility] LIDOCAINE LIDOCAINE 2019-0 No 10mg Com mon HCL 10MG/ML HCL 10MG/ML 09-09 S pirit 00:00: - [facility] Hyalgan 20 Hyalgan 20 2019-0 No 20mg C ommon mg mg 09-09 Spirit 00:00: - [facility] Hyalgan 20 Hyalgan 20 2019-0 No 20mg C ommon mg mg 09-09 Spirit 00:00: - [facility] LIDOCAINE LIDOCAINE 2019-0 No 10mg Com mon HCL 10MG/ML HCL 10MG/ML 6-06 S pirit 00:00: - [facility] LIDOCAINE LIDOCAINE 2019-0 No 10mg Com mon HCL 10MG/ML HCL 10MG/ML 6- S pirit 00:00: - [facility] Hyalgan 20 Hyalgan 20 2019-0 No 20mg C ommon mg mg 09-09 Spirit 00:00: - [facility] Hyalgan 20 Hyalgan 20 2019-0 No 20mg C ommon mg mg 09-09 Spirit 00:00: - [facility] LIDOCAINE LIDOCAINE 2019-0 No 10mg Com mon HCL 10MG/ML HCL 10MG/ML 09-09 S pirit 00:00: - [facility] LIDOCAINE LIDOCAINE 2019-0 No 10mg Com mon HCL 10MG/ML HCL 10MG/ML 09-09 S pirit 00:00: - [facility] Hyalgan 20 Hyalgan 20 2019-0 No 20mg C ommon mg mg 09-09 Spirit 00:00: - [facility] Hyalgan 20 Hyalgan 20 2019-0 No 20mg C ommon mg mg 09-09 Spirit 00:00: - [facility] LIDOCAINE LIDOCAINE 2019-0 No 10mg Com mon HCL 10MG/ML HCL 10MG/ML 09-09 S pirit 00:00: - [facility] LIDOCAINE LIDOCAINE 2019-0 No 10mg Com mon HCL 10MG/ML HCL 10MG/ML 09-09 S pirit 00:00: - [facility] Hyalgan 20 Hyalgan 20 2019-0 No 20mg C ommon mg mg 09-09 Spirit 00:00: - [facility] Hyalgan 20 Hyalgan 20 2019-0 No 20mg C ommon mg mg 09-09 Spirit 00:00: - [facility] LIDOCAINE LIDOCAINE 2019-0 No 10mg Com mon HCL 10MG/ML HCL 10MG/ML 09-09 S pirit 00:00: - [facility] LIDOCAINE LIDOCAINE 2019-0 No 10mg Com mon HCL 10MG/ML HCL 10MG/ML 09-09 S pirit 00:00: - [facility] Hyalgan 20 Hyalgan 20 2019-0 No 20mg C ommon mg mg 09-09 Spirit 00:00: - [facility] Hyalgan 20 Hyalgan 20 2019-0 No 20mg C ommon mg mg 09-09 Spirit 00:00: - [facility] LIDOCAINE LIDOCAINE 2019-0 No 10mg Com mon HCL 10MG/ML HCL 10MG/ML 6 S pirit 00:00: - [facility] LIDOCAINE LIDOCAINE 2019-0 No 10mg Com mon HCL 10MG/ML HCL 10MG/ML 09-09 S pirit 00:00: - [facility] Hyalgan 20 Hyalgan 20 2019-0 No 20mg C ommon mg mg 09-09 Spirit 00:00: - [facility] Hyalgan 20 Hyalgan 20 2019-0 No 20mg C ommon mg mg 09-09 Spirit 00:00: - [facility] LIDOCAINE LIDOCAINE 2019-0 No 10mg Com mon HCL 10MG/ML HCL 10MG/ML 09-09 S pirit 00:00: - [facility] LIDOCAINE LIDOCAINE 2019-0 No 10mg Com mon HCL 10MG/ML HCL 10MG/ML 09-09 S pirit 00:00: - [facility] Hyalgan 20 Hyalgan 20 2019-0 No 20mg C ommon mg mg 09-09 Spirit 00:00: - [facility] Hyalgan 20 Hyalgan 20 2019-0 No 20mg C ommon mg mg 09-09 Spirit 00:00: - [facility] LIDOCAINE LIDOCAINE 2019-0 No 10mg Com mon HCL 10MG/ML HCL 10MG/ML 09-09 S pirit 00:00: - [facility] LIDOCAINE LIDOCAINE 2019-0 No 10mg Com mon HCL 10MG/ML HCL 10MG/ML 09-09 S pirit 00:00: - [facility] Hyalgan 20 Hyalgan 20 2019-0 No 20mg C ommon mg mg 09-09 Spirit 00:00: - [facility] Hyalgan 20 Hyalgan 20 2019-0 No 20mg C ommon mg mg 09-09 [facility] 00:00: - [facility] LIDOCAINE LIDOCAINE 2019-0 No 10mg Com mon HCL 10MG/ML HCL 10MG/ML 6- S pirit 00:00: - [facility] LIDOCAINE LIDOCAINE 2019-0 No 10mg Com mon HCL 10MG/ML HCL 10MG/ML 606 S pirit 00:00: - [facility] Hyalgan 20 Hyalgan 20 2019-0 No 20mg C ommon mg mg 09-09 Spirit 00:00: - [facility] Hyalgan 20 Hyalgan 20 2019-0 No 20mg C ommon mg mg 09-09 Spirit 00:00: - [facility] LIDOCAINE LIDOCAINE 2019-0 No 10mg Com mon HCL 10MG/ML HCL 10MG/ML 09-09 S pirit 00:00: - [facility] LIDOCAINE LIDOCAINE 2019-0 No 10mg Com mon HCL 10MG/ML HCL 10MG/ML 09-09 S pirit 00:00: - [facility] Hyalgan 20 Hyalgan 20 2019-0 No 20mg C ommon mg mg 09-09 Spirit 00:00: - [facility] Hyalgan 20 Hyalgan 20 2019-0 No 20mg C ommon mg mg 09-09 [facility] 00:00: - [facility] LIDOCAINE LIDOCAINE 2019-0 No 10mg Com mon HCL 10MG/ML HCL 10MG/ML 09-09 S pirit 00:00: - [facility] LIDOCAINE LIDOCAINE 2019-0 No 10mg Com mon HCL 10MG/ML HCL 10MG/ML 09-09 S pirit 00:00: - [facility] Hyalgan 20 Hyalgan 20 2019-0 No 20mg C ommon mg mg 09-09 Spirit 00:00: - [facility] Hyalgan 20 Hyalgan 20 2019-0 No 20mg C ommon mg mg 09-09 [facility] 00:00: - [facility] LIDOCAINE LIDOCAINE 2019-0 No 10mg Com mon HCL 10MG/ML HCL 10MG/ML 09-09 S pirit 00:00: - [facility] LIDOCAINE LIDOCAINE 2019-0 No 10mg Com mon HCL 10MG/ML HCL 10MG/ML 6 S pirit 00:00: - [facility] Hyalgan 20 Hyalgan 20 2019-0 No 20mg C ommon mg mg 09-09 Spirit 00:00: - [facility] LIDOCAINE LIDOCAINE 2019-0 No 10mg Com mon HCL 10MG/ML HCL 10MG/ML 09-09 S pirit 00:00: - [facility] Hyalgan 20 Hyalgan 20 2019-0 No 20mg C ommon mg mg 09-09 Spirit 00:00: - [facility] LIDOCAINE LIDOCAINE 2019-0 No 10mg Com mon HCL 10MG/ML HCL 10MG/ML 6 S pirit 00:00: - [facility] LIDOCAINE LIDOCAINE 2019-0 No 10mg Com mon HCL 10MG/ML HCL 10MG/ML 6 S pirit 00:00: - [facility] Hyalgan 20 Hyalgan 20 2019-0 No 20mg C ommon mg mg 09-09 [facility] 00:00: - [facility] Hyalgan 20 Hyalgan 20 2019-0 No 20mg C ommon mg mg 09-09 [facility] 00:00: - [facility] LIDOCAINE LIDOCAINE 2019-0 No 10mg Com mon HCL 10MG/ML HCL 10MG/ML 6 S pirit 00:00: - [facility] Hyalgan 20 Hyalgan 20 2019-0 No 20mg C ommon mg mg 09-09 [facility] 00:00: - [facility] LIDOCAINE LIDOCAINE 2019-0 No 10mg Com mon HCL 10MG/ML HCL 10MG/ML 6 S pirit 00:00: - [facility] Hyalgan 20 Hyalgan 20 2019-0 No 20mg C ommon mg mg 09-09 [facility] 00:00: - [facility] Hyalgan 20 Hyalgan 20 2019-0 No 20mg C ommon mg mg 09-09 [facility] 00:00: - [facility] Hyalgan 20 Hyalgan 20 2019-0 No 20mg C ommon mg mg 09-09 [facility] 00:00: - [facility] LIDOCAINE LIDOCAINE 2019-0 No 10mg Com mon HCL 10MG/ML HCL 10MG/ML 6- S pirit 00:00: - [facility] LIDOCAINE LIDOCAINE 2019-0 No 10mg Com mon HCL 10MG/ML HCL 10MG/ML 6- S pirit 00:00: - [facility] LIDOCAINE LIDOCAINE 2019-0 No 10mg Com mon HCL 10MG/ML HCL 10MG/ML 6- S pirit 00:00: - [facility] Hyalgan 20 Hyalgan 20 2019-0 No 20mg C ommon mg mg 09-09 [facility] 00:00: - [facility] Hyalgan 20 Hyalgan 20 2019-0 No 20mg C ommon mg mg 09-09 [facility] 00:00: - [facility] LIDOCAINE LIDOCAINE 2019-0 No 10mg Com mon HCL 10MG/ML HCL 10MG/ML 09-09 S pirit 00:00: - [facility] LIDOCAINE LIDOCAINE 2019-0 No 10mg Com mon HCL 10MG/ML HCL 10MG/ML 09-09 S pirit 00:00: - [facility] Hyalgan 20 Hyalgan 20 2019-0 No 20mg C ommon mg mg 09-09 [facility] 00:00: - [facility] Hyalgan 20 Hyalgan 20 2019-0 No 20mg C ommon mg mg 09-09 [facility] 00:00: - [facility] LIDOCAINE LIDOCAINE 2019-0 No 10mg Com mon HCL 10MG/ML HCL 10MG/ML 09-09 S pirit 00:00: - [facility] LIDOCAINE LIDOCAINE 2019-0 No 10mg Com mon HCL 10MG/ML HCL 10MG/ML 09-09 S pirit 00:00: - [facility] Hyalgan 20 Hyalgan 20 2019-0 No 20mg C ommon mg mg 09-09 [facility] 00:00: - [facility] Hyalgan 20 Hyalgan 20 2019-0 No 20mg C ommon mg mg 09-09 [facility] 00:00: - [facility] LIDOCAINE LIDOCAINE 2019-0 No 10mg Com mon HCL 10MG/ML HCL 10MG/ML 09-09 S pirit 00:00: - [facility] LIDOCAINE LIDOCAINE 2019-0 No 10mg Com mon HCL 10MG/ML HCL 10MG/ML 09-09 S pirit 00:00: - [facility] Hyalgan 20 Hyalgan 20 2019-0 No 20mg C ommon mg mg 09-09 [facility] 00:00: - [facility] Hyalgan 20 Hyalgan 20 2019-0 No 20mg C ommon mg mg 09-09 [facility] 00:00: - [facility] LIDOCAINE LIDOCAINE 2019-0 No 10mg Com mon HCL 10MG/ML HCL 10MG/ML 6- S pirit 00:00: - [facility] LIDOCAINE LIDOCAINE 2019-0 No 10mg Com mon HCL 10MG/ML HCL 10MG/ML 6 S pirit 00:00: - [facility] Hyalgan 20 Hyalgan 20 2019-0 No 20mg C ommon mg mg 09-09 [facility] 00:00: - [facility] Hyalgan 20 Hyalgan 20 2019-0 No 20mg C ommon mg mg 09-09 [facility] 00:00: - [facility] LIDOCAINE LIDOCAINE 2019-0 No 10mg Com mon HCL 10MG/ML HCL 10MG/ML 6 S pirit 00:00: - [facility] LIDOCAINE LIDOCAINE 2019-0 No 10mg Com mon HCL 10MG/ML HCL 10MG/ML 09-09 S pirit 00:00: - [facility] Hyalgan 20 Hyalgan 20 2019-0 No 20mg C ommon mg mg 09-09 [facility] 00:00: - [facility] Hyalgan 20 Hyalgan 20 2019-0 No 20mg C ommon mg mg 09-09 [facility] 00:00: - [facility] LIDOCAINE LIDOCAINE 2019-0 No 10mg Com mon HCL 10MG/ML HCL 10MG/ML 6 S pirit 00:00: - [facility] LIDOCAINE LIDOCAINE 2019-0 No 10mg Com mon HCL 10MG/ML HCL 10MG/ML 09-09 S pirit 00:00: - [facility] Hyalgan 20 Hyalgan 20 2019-0 No 20mg C ommon mg mg 09-09 [facility] 00:00: - [facility] Hyalgan 20 Hyalgan 20 2019-0 No 20mg C ommon mg mg 09-09 [facility] 00:00: - [facility] LIDOCAINE LIDOCAINE 2019-0 No 10mg Com mon HCL 10MG/ML HCL 10MG/ML 09-09 S pirit 00:00: - [facility] LIDOCAINE LIDOCAINE 2019-0 No 10mg Com mon HCL 10MG/ML HCL 10MG/ML 6-06 S pirit 00:00: - [facility] Hyalgan 20 Hyalgan 20 2019-0 No 20mg C ommon mg mg 6 [facility] 00:00: - [facility] Hyalgan 20 Hyalgan 20 2019-0 No 20mg C ommon mg mg 6 [facility] 00:00: - [facility] LIDOCAINE LIDOCAINE 2019-0 No 10mg Com mon HCL 10MG/ML HCL 10MG/ML 6-06 S pirit 00:00: - [facility] LIDOCAINE LIDOCAINE 2019-0 No 10mg Com mon HCL 10MG/ML HCL 10MG/ML 6- S pirit 00:00: - [facility] Hyalgan 20 Hyalgan 20 2019-0 No 20mg C ommon mg mg 6 Spirit 00:00: - [facility] Hyalgan 20 Hyalgan 20 2019-0 No 20mg C ommon mg mg 6 Spirit 00:00: - [facility] LIDOCAINE LIDOCAINE 2019-0 No 10mg Com mon HCL 10MG/ML HCL 10MG/ML 6-06 S pirit 00:00: - [facility] LIDOCAINE LIDOCAINE 2019-0 No 10mg Com mon HCL 10MG/ML HCL 10MG/ML 6-06 S pirit 00:00: - [facility] Hyalgan 20 Hyalgan 20 2019-0 No 20mg C ommon mg mg 5-30 Spirit 00:00: - [facility] [place] 20 Hyalgan 20 2019-0 No 20mg C ommon mg mg 5-30 Spirit 00:00: - [facility] LIDOCAINE LIDOCAINE 2019-0 No 10mg Com mon HCL 10MG/ML HCL 10MG/ML 5-30 S pirit 00:00: - [facility] LIDOCAINE LIDOCAINE 2019-0 No 10mg Com mon HCL 10MG/ML HCL 10MG/ML 5-30 S pirit 00:00: - [facility] 20 Hy[place]gan 20 2019-0 No 20mg C ommon mg mg 5-30 [facility] 00:00: - [facility] [place] 20 [place] 20 2019-0 No 20mg C ommon mg mg 5-30 [facility] 00:00: - [facility] LIDOCAINE LIDOCAINE 2019-0 No 10mg Com mon HCL 10MG/ML HCL 10MG/ML 5-30 S pirit 00:00: - [facility] LIDOCAINE LIDOCAINE 2019-0 No 10mg Com mon HCL 10MG/ML HCL 10MG/ML 5-30 S pirit 00:00: - [facility] [place] 20 [place] 20 2019-0 No 20mg C ommon mg mg 5-30 [facility] 00:00: - [facility] [place] 20 [place] 20 2019-0 No 20mg C ommon mg mg 5-30 [facility] 00:00: - [facility] LIDOCAINE LIDOCAINE 2019-0 No 10mg Com mon HCL 10MG/ML HCL 10MG/ML 5-30 S pirit 00:00: - [facility] LIDOCAINE LIDOCAINE 2019-0 No 10mg Com mon HCL 10MG/ML HCL 10MG/ML 5-30 S pirit 00:00: - [facility] [place] 20 [place] 20 2019-0 No 20mg C ommon mg mg 5-30 [facility] 00:00: - [facility] [place] 20 [place] 20 2019-0 No 20mg C ommon mg mg 5-30 [facility] 00:00: - [facility] LIDOCAINE LIDOCAINE 2019-0 No 10mg Com mon HCL 10MG/ML HCL 10MG/ML 5-30 S pirit 00:00: - [facility] LIDOCAINE LIDOCAINE 2019-0 No 10mg Com mon HCL 10MG/ML HCL 10MG/ML 5-30 S pirit 00:00: - [facility] [place] 20 [place] 20 2019-0 No 20mg C ommon mg mg 5-30 [facility] 00:00: - [facility] [place] 20 [place] 20 2019-0 No 20mg C ommon mg mg 5-30 [facility] 00:00: - [facility] LIDOCAINE LIDOCAINE 2019-0 No 10mg Com mon HCL 10MG/ML HCL 10MG/ML 5-30 S pirit 00:00: - [facility] LIDOCAINE LIDOCAINE 2019-0 No 10mg Com mon HCL 10MG/ML HCL 10MG/ML 5-30 S pirit 00:00: - [facility] [place] 20 [place] 20 2019-0 No 20mg C ommon mg mg 5-30 [facility] 00:00: - [facility] [place] 20 [place] 20 2019-0 No 20mg C ommon mg mg 5-30 [facility] 00:00: - [facility] LIDOCAINE LIDOCAINE 2019-0 No 10mg Com mon HCL 10MG/ML HCL 10MG/ML 5-30 S pirit 00:00: - [facility] LIDOCAINE LIDOCAINE 2019-0 No 10mg Com mon HCL 10MG/ML HCL 10MG/ML 5-30 S pirit 00:00: - [facility] [place] 20 [place] 20 2019-0 No 20mg C ommon mg mg 5-30 [facility] 00:00: - [facility] [place] 20 [place] 20 2019-0 No 20mg C ommon mg mg 5-30 [facility] 00:00: - [facility] LIDOCAINE LIDOCAINE 2019-0 No 10mg Com mon HCL 10MG/ML HCL 10MG/ML 5-30 S pirit 00:00: - [facility] LIDOCAINE LIDOCAINE 2019-0 No 10mg Com mon HCL 10MG/ML HCL 10MG/ML 5-30 S pirit 00:00: - [facility] [place] 20 [place] 20 2019-0 No 20mg C ommon mg mg 5-30 [facility] 00:00: - [facility] [place] 20 [place] 20 2019-0 No 20mg C ommon mg mg 5-30 [facility] 00:00: - [facility] LIDOCAINE LIDOCAINE 2019-0 No 10mg Com mon HCL 10MG/ML HCL 10MG/ML 5-30 S pirit 00:00: - [facility] LIDOCAINE LIDOCAINE 2019-0 No 10mg Com mon HCL 10MG/ML HCL 10MG/ML 5-30 S pirit 00:00: - [facility] [place] 20 [place] 20 2019-0 No 20mg C ommon mg mg 5-30 [facility] 00:00: - [facility] [place] 20 [place] 20 2019-0 No 20mg C ommon mg mg 5-30 [facility] 00:00: - [facility] LIDOCAINE LIDOCAINE 2019-0 No 10mg Com mon HCL 10MG/ML HCL 10MG/ML 5-30 S pirit 00:00: - [facility] LIDOCAINE LIDOCAINE 2019-0 No 10mg Com mon HCL 10MG/ML HCL 10MG/ML 5-30 S pirit 00:00: - [facility] [place] 20 [place] 20 2019-0 No 20mg C ommon mg mg 5-30 [facility] 00:00: - [facility] [place] 20 [place] 20 2019-0 No 20mg C ommon mg mg 5-30 [facility] 00:00: - [facility] LIDOCAINE LIDOCAINE 2019-0 No 10mg Com mon HCL 10MG/ML HCL 10MG/ML 5-30 S pirit 00:00: - [facility] LIDOCAINE LIDOCAINE 2019-0 No 10mg Com mon HCL 10MG/ML HCL 10MG/ML 5-30 S pirit 00:00: - [facility] [place] 20 [place] 20 2019-0 No 20mg C ommon mg mg 5-30 [facility] 00:00: - [facility] [place] 20 [place] 20 2019-0 No 20mg C ommon mg mg 5-30 [facility] 00:00: - [facility] LIDOCAINE LIDOCAINE 2019-0 No 10mg Com mon HCL 10MG/ML HCL 10MG/ML 5-30 S pirit 00:00: - [facility] LIDOCAINE LIDOCAINE 2019-0 No 10mg Com mon HCL 10MG/ML HCL 10MG/ML 5-30 S pirit 00:00: - [facility] [place] 20 [place] 20 2019-0 No 20mg C ommon mg mg 5-30 [facility] 00:00: - [facility] [place] 20 [place] 20 2019-0 No 20mg C ommon mg mg 5-30 [facility] 00:00: - [facility] LIDOCAINE LIDOCAINE 2019-0 No 10mg Com mon HCL 10MG/ML HCL 10MG/ML 5-30 S pirit 00:00: - [facility] LIDOCAINE LIDOCAINE 2019-0 No 10mg Com mon HCL 10MG/ML HCL 10MG/ML 5-30 S pirit 00:00: - [facility] [place] 20 [place] 20 2019-0 No 20mg C ommon mg mg 5-30 [facility] 00:00: - [facility] [place] 20 [place] 20 2019-0 No 20mg C ommon mg mg 5-30 [facility] 00:00: - [facility] LIDOCAINE LIDOCAINE 2019-0 No 10mg Com mon HCL 10MG/ML HCL 10MG/ML 5-30 S pirit 00:00: - [facility] LIDOCAINE LIDOCAINE 2019-0 No 10mg Com mon HCL 10MG/ML HCL 10MG/ML 5-30 S pirit 00:00: - [facility] [place] 20 [place] 20 2019-0 No 20mg C ommon mg mg 5-30 [facility] 00:00: - [facility] [place] 20 [place] 20 2019-0 No 20mg C ommon mg mg 5-30 [facility] 00:00: - [facility] LIDOCAINE LIDOCAINE 2019-0 No 10mg Com mon HCL 10MG/ML HCL 10MG/ML 5-30 S pirit 00:00: - [facility] LIDOCAINE LIDOCAINE 2019-0 No 10mg Com mon HCL 10MG/ML HCL 10MG/ML 5-30 S pirit 00:00: - [facility] LIDOCAINE LIDOCAINE 2019-0 No 10mg Com mon HCL 10MG/ML HCL 10MG/ML 5-30 S pirit 00:00: - [facility] [place] 20 [place] 20 2019-0 No 20mg C ommon mg mg 5-30 [facility] 00:00: - [facility] [place] 20 [place] 20 2019-0 No 20mg C ommon mg mg 5-30 [facility] 00:00: - [facility] LIDOCAINE LIDOCAINE 2019-0 No 10mg Com mon HCL 10MG/ML HCL 10MG/ML 5-30 S pirit 00:00: - [facility] LIDOCAINE LIDOCAINE 2019-0 No 10mg Com mon HCL 10MG/ML HCL 10MG/ML 5-30 S pirit 00:00: - [facility] [place] 20 [place] 20 2019-0 No 20mg C ommon mg mg 5-30 [facility] 00:00: - [facility] [place] 20 [place] 20 2019-0 No 20mg C ommon mg mg 5-30 [facility] 00:00: - [facility] LIDOCAINE LIDOCAINE 2019-0 No 10mg Com mon HCL 10MG/ML HCL 10MG/ML 5-30 S pirit 00:00: - [facility] [place] 20 [place] 20 2019-0 No 20mg C ommon mg mg 5-30 [facility] 00:00: - [facility] LIDOCAINE LIDOCAINE 2019-0 No 10mg Com mon HCL 10MG/ML HCL 10MG/ML 5-30 S pirit 00:00: - [facility] [place] 20 [place] 20 2019-0 No 20mg C ommon mg mg 5-30 [facility] 00:00: - [facility] [place] 20 [place] 20 2019-0 No 20mg C ommon mg mg 5-30 [facility] 00:00: - [facility] LIDOCAINE LIDOCAINE 2019-0 No 10mg Com mon HCL 10MG/ML HCL 10MG/ML 5-30 S pirit 00:00: - [facility] [place] 20 [place] 20 2019-0 No 20mg C ommon mg mg 5-30 [facility] 00:00: - [facility] LIDOCAINE LIDOCAINE 2019-0 No 10mg Com mon HCL 10MG/ML HCL 10MG/ML 5-30 S pirit 00:00: - [facility] LIDOCAINE LIDOCAINE 2019-0 No 10mg Com mon HCL 10MG/ML HCL 10MG/ML 5-30 S pirit 00:00: - [facility] [place] 20 [place] 20 2019-0 No 20mg C ommon mg mg 5-30 [facility] 00:00: - [facility] [place] 20 [place] 20 2019-0 No 20mg C ommon mg mg 5-30 [facility] 00:00: - [facility] LIDOCAINE LIDOCAINE 2019-0 No 10mg Com mon HCL 10MG/ML HCL 10MG/ML 5-30 S pirit 00:00: - [facility] LIDOCAINE LIDOCAINE 2019-0 No 10mg Com mon HCL 10MG/ML HCL 10MG/ML 5-30 S pirit 00:00: - [facility] [place] 20 [place] 20 2019-0 No 20mg C ommon mg mg 5-30 [facility] 00:00: - [facility] [place] 20 [place] 20 2019-0 No 20mg C ommon mg mg 5-30 [facility] 00:00: - [facility] LIDOCAINE LIDOCAINE 2019-0 No 10mg Com mon HCL 10MG/ML HCL 10MG/ML 5-30 S pirit 00:00: - [facility] LIDOCAINE LIDOCAINE 2019-0 No 10mg Com mon HCL 10MG/ML HCL 10MG/ML 5-30 S pirit 00:00: - [facility] [place] 20 [place] 20 2019-0 No 20mg C ommon mg mg 5-30 [facility] 00:00: - [facility] [place] 20 [place] 20 2019-0 No 20mg C ommon mg mg 5-30 [facility] 00:00: - [facility] LIDOCAINE LIDOCAINE 2019-0 No 10mg Com mon HCL 10MG/ML HCL 10MG/ML 5-30 S pirit 00:00: - [facility] LIDOCAINE LIDOCAINE 2019-0 No 10mg Com mon HCL 10MG/ML HCL 10MG/ML 5-30 S pirit 00:00: - [facility] [place] 20 [place] 20 2019-0 No 20mg C ommon mg mg 5-30 [facility] 00:00: - [facility] [place] 20 [place] 20 2019-0 No 20mg C ommon mg mg 5-30 [facility] 00:00: - [facility] LIDOCAINE LIDOCAINE 2019-0 No 10mg Com mon HCL 10MG/ML HCL 10MG/ML 5-30 S pirit 00:00: - [facility] LIDOCAINE LIDOCAINE 2019-0 No 10mg Com mon HCL 10MG/ML HCL 10MG/ML 5-30 S pirit 00:00: - [facility] [place] 20 [place] 20 2019-0 No 20mg C ommon mg mg 5-30 [facility] 00:00: - [facility] [place] 20 [place] 20 2019-0 No 20mg C ommon mg mg 5-30 [facility] 00:00: - [facility] LIDOCAINE LIDOCAINE 2019-0 No 10mg Com mon HCL 10MG/ML HCL 10MG/ML 5-30 S pirit 00:00: - [facility] LIDOCAINE LIDOCAINE 2019-0 No 10mg Com mon HCL 10MG/ML HCL 10MG/ML 5-30 S pirit 00:00: - [facility] [place] 20 [place] 20 2019-0 No 20mg C ommon mg mg 5-30 [facility] 00:00: - [facility] [place] 20 [place] 20 2019-0 No 20mg C ommon mg mg 5-30 [facility] 00:00: - [facility] LIDOCAINE LIDOCAINE 2019-0 No 10mg Com mon HCL 10MG/ML HCL 10MG/ML 5-30 S pirit 00:00: - [facility] LIDOCAINE LIDOCAINE 2019-0 No 10mg Com mon HCL 10MG/ML HCL 10MG/ML 5-30 S pirit 00:00: - [facility] [place] 20 [place] 20 2019-0 No 20mg C ommon mg mg 5-30 [facility] 00:00: - [facility] [place] 20 [place] 20 2019-0 No 20mg C ommon mg mg 5-30 [facility] 00:00: - [facility] LIDOCAINE LIDOCAINE 2019-0 No 10mg Com mon HCL 10MG/ML HCL 10MG/ML 5-30 S pirit 00:00: - [facility] LIDOCAINE LIDOCAINE 2019-0 No 10mg Com mon HCL 10MG/ML HCL 10MG/ML 5-30 S pirit 00:00: - [facility] [place] 20 [place] 20 2019-0 No 20mg C ommon mg mg 5-30 [facility] 00:00: - [facility] [place] 20 [place] 20 2019-0 No 20mg C ommon mg mg 5-30 [facility] 00:00: - [facility] LIDOCAINE LIDOCAINE 2019-0 No 10mg Com mon HCL 10MG/ML HCL 10MG/ML 5-30 S pirit 00:00: - [facility] LIDOCAINE LIDOCAINE 2019-0 No 10mg Com mon HCL 10MG/ML HCL 10MG/ML 5-30 S pirit 00:00: - [facility] [place] 20 [place] 20 2019-0 No 20mg C ommon mg mg 5-30 [facility] 00:00: - [facility] [place] 20 [place] 20 2019-0 No 20mg C ommon mg mg 5-30 [facility] 00:00: - [facility] LIDOCAINE LIDOCAINE 2019-0 No 10mg Com mon HCL 10MG/ML HCL 10MG/ML 5-30 S pirit 00:00: - [facility] LIDOCAINE LIDOCAINE 2019-0 No 10mg Com mon HCL 10MG/ML HCL 10MG/ML 5-30 S pirit 00:00: - [facility] LIDOCAINE LIDOCAINE 2019-0 No 10mg Com mon HCL 10MG/ML HCL 10MG/ML 5-23 S pirit 00:00: - [facility] [place] 20 [place] 20 2019-0 No 20mg C ommon mg mg 5- [facility] 00:00: - [facility] [place] 20 [place] 20 2019-0 No 20mg C ommon mg mg 5- [facility] 00:00: - [facility] LIDOCAINE LIDOCAINE 2019-0 No 10mg Com mon HCL 10MG/ML HCL 10MG/ML 5-23 S pirit 00:00: - [facility] LIDOCAINE LIDOCAINE 2019-0 No 10mg Com mon HCL 10MG/ML HCL 10MG/ML 5-23 S pirit 00:00: - [facility] [place] 20 [place] 20 2019-0 No 20mg C ommon mg mg 5- [facility] 00:00: - [facility] [place] 20 [place] 20 2019-0 No 20mg C ommon mg mg 5- [facility] 00:00: - [facility] LIDOCAINE LIDOCAINE 2019-0 No 10mg Com mon HCL 10MG/ML HCL 10MG/ML 5-23 S pirit 00:00: - [facility] LIDOCAINE LIDOCAINE 2019-0 No 10mg Com mon HCL 10MG/ML HCL 10MG/ML 5-23 S pirit 00:00: - [facility] [place] 20 [place] 20 2019-0 No 20mg C ommon mg mg 5-23 [facility] 00:00: - [facility] [place] 20 [place] 20 2019-0 No 20mg C ommon mg mg 5-23 [facility] 00:00: - [facility] LIDOCAINE LIDOCAINE 2019-0 No 10mg Com mon HCL 10MG/ML HCL 10MG/ML 5-23 S pirit 00:00: - [facility] LIDOCAINE LIDOCAINE 2019-0 No 10mg Com mon HCL 10MG/ML HCL 10MG/ML 5-23 S pirit 00:00: - [facility] [place] 20 [place] 20 2019-0 No 20mg C ommon mg mg 5-23 [facility] 00:00: - [facility] [place] 20 [place] 20 2019-0 No 20mg C ommon mg mg 5- [facility] 00:00: - [facility] LIDOCAINE LIDOCAINE 2019-0 No 10mg Com mon HCL 10MG/ML HCL 10MG/ML 5-23 S pirit 00:00: - [facility] LIDOCAINE LIDOCAINE 2019-0 No 10mg Com mon HCL 10MG/ML HCL 10MG/ML 5-23 S pirit 00:00: - [facility] [place] 20 [place] 20 2019-0 No 20mg C ommon mg mg 5- [facility] 00:00: - [facility] [place] 20 [place] 20 2019-0 No 20mg C ommon mg mg 5- [facility] 00:00: - [facility] LIDOCAINE LIDOCAINE 2019-0 No 10mg Com mon HCL 10MG/ML HCL 10MG/ML 5-23 S pirit 00:00: - [facility] LIDOCAINE LIDOCAINE 2019-0 No 10mg Com mon HCL 10MG/ML HCL 10MG/ML 5-23 S pirit 00:00: - [facility] [place] 20 [place] 20 2019-0 No 20mg C ommon mg mg 5-23 [facility] 00:00: - [facility] [place] 20 [place] 20 2019-0 No 20mg C ommon mg mg 5-23 [facility] 00:00: - [facility] LIDOCAINE LIDOCAINE 2019-0 No 10mg Com mon HCL 10MG/ML HCL 10MG/ML 5-23 S pirit 00:00: - [facility] LIDOCAINE LIDOCAINE 2019-0 No 10mg Com mon HCL 10MG/ML HCL 10MG/ML 5-23 S pirit 00:00: - [facility] [place] 20 [place] 20 2019-0 No 20mg C ommon mg mg 5- [facility] 00:00: - [facility] [place] 20 [place] 20 2019-0 No 20mg C ommon mg mg 5- [facility] 00:00: - [facility] LIDOCAINE LIDOCAINE 2019-0 No 10mg Com mon HCL 10MG/ML HCL 10MG/ML 5-23 S pirit 00:00: - [facility] LIDOCAINE LIDOCAINE 2019-0 No 10mg Com mon HCL 10MG/ML HCL 10MG/ML 5-23 S pirit 00:00: - [facility] [place] 20 [place] 20 2019-0 No 20mg C ommon mg mg 5- [facility] 00:00: - [facility] [place] 20 [place] 20 2019-0 No 20mg C ommon mg mg 5- [facility] 00:00: - [facility] LIDOCAINE LIDOCAINE 2019-0 No 10mg Com mon HCL 10MG/ML HCL 10MG/ML 5-23 S pirit 00:00: - [facility] LIDOCAINE LIDOCAINE 2019-0 No 10mg Com mon HCL 10MG/ML HCL 10MG/ML 5-23 S pirit 00:00: - [facility] [place] 20 [place] 20 2019-0 No 20mg C ommon mg mg 5- [facility] 00:00: - [facility] [place] 20 [place] 20 2019-0 No 20mg C ommon mg mg 5- [facility] 00:00: - [facility] LIDOCAINE LIDOCAINE 2019-0 No 10mg Com mon HCL 10MG/ML HCL 10MG/ML 5-23 S pirit 00:00: - [facility] LIDOCAINE LIDOCAINE 2019-0 No 10mg Com mon HCL 10MG/ML HCL 10MG/ML 5-23 S pirit 00:00: - [facility] [place] 20 [place] 20 2019-0 No 20mg C ommon mg mg 5- [facility] 00:00: - [facility] [place] 20 [place] 20 2019-0 No 20mg C ommon mg mg 5- [facility] 00:00: - [facility] LIDOCAINE LIDOCAINE 2019-0 No 10mg Com mon HCL 10MG/ML HCL 10MG/ML 5-23 S pirit 00:00: - [facility] LIDOCAINE LIDOCAINE 2019-0 No 10mg Com mon HCL 10MG/ML HCL 10MG/ML 5-23 S pirit 00:00: - [facility] [place] 20 [place] 20 2019-0 No 20mg C ommon mg mg 5-23 [facility] 00:00: - [facility] [place] 20 [place] 20 2019-0 No 20mg C ommon mg mg 5-23 [facility] 00:00: - [facility] LIDOCAINE LIDOCAINE 2019-0 No 10mg Com mon HCL 10MG/ML HCL 10MG/ML 5-23 S pirit 00:00: - [facility] LIDOCAINE LIDOCAINE 2019-0 No 10mg Com mon HCL 10MG/ML HCL 10MG/ML 5-23 S pirit 00:00: - [facility] [place] 20 [place] 20 2019-0 No 20mg C ommon mg mg 5-23 [facility] 00:00: - [facility] [place] 20 [place] 20 2019-0 No 20mg C ommon mg mg 5-23 [facility] 00:00: - [facility] LIDOCAINE LIDOCAINE 2019-0 No 10mg Com mon HCL 10MG/ML HCL 10MG/ML 5-23 S pirit 00:00: - [facility] LIDOCAINE LIDOCAINE 2019-0 No 10mg Com mon HCL 10MG/ML HCL 10MG/ML 5-23 S pirit 00:00: - [facility] [place] 20 [place] 20 2019-0 No 20mg C ommon mg mg 5-23 [facility] 00:00: - [facility] [place] 20 [place] 20 2019-0 No 20mg C ommon mg mg 5-23 [facility] 00:00: - [facility] LIDOCAINE LIDOCAINE 2019-0 No 10mg Com mon HCL 10MG/ML HCL 10MG/ML 5-23 S pirit 00:00: - [facility] LIDOCAINE LIDOCAINE 2019-0 No 10mg Com mon HCL 10MG/ML HCL 10MG/ML 5-23 S pirit 00:00: - [facility] [place] 20 [place] 20 2019-0 No 20mg C ommon mg mg 5-23 [facility] 00:00: - [facility] [place] 20 [place] 20 2019-0 No 20mg C ommon mg mg 5-23 [facility] 00:00: - [facility] LIDOCAINE LIDOCAINE 2019-0 No 10mg Com mon HCL 10MG/ML HCL 10MG/ML 5-23 S pirit 00:00: - [facility] LIDOCAINE LIDOCAINE 2019-0 No 10mg Com mon HCL 10MG/ML HCL 10MG/ML 5-23 S pirit 00:00: - [facility] [place] 20 [place] 20 2019-0 No 20mg C ommon mg mg 5-23 [facility] 00:00: - [facility] [place] 20 [place] 20 2019-0 No 20mg C ommon mg mg 5-23 [facility] 00:00: - [facility] LIDOCAINE LIDOCAINE 2019-0 No 10mg Com mon HCL 10MG/ML HCL 10MG/ML 5-23 S pirit 00:00: - [facility] LIDOCAINE LIDOCAINE 2019-0 No 10mg Com mon HCL 10MG/ML HCL 10MG/ML 5-23 S pirit 00:00: - [facility] LIDOCAINE LIDOCAINE 2019-0 No 10mg Com mon HCL 10MG/ML HCL 10MG/ML 5-23 S pirit 00:00: - [facility] [place] 20 [place] 20 2019-0 No 20mg C ommon mg mg 5-23 [facility] 00:00: - [facility] [place] 20 [place] 20 2019-0 No 20mg C ommon mg mg 5-23 [facility] 00:00: - [facility] LIDOCAINE LIDOCAINE 2019-0 No 10mg Com mon HCL 10MG/ML HCL 10MG/ML 5-23 S pirit 00:00: - [facility] LIDOCAINE LIDOCAINE 2019-0 No 10mg Com mon HCL 10MG/ML HCL 10MG/ML 5-23 S pirit 00:00: - [facility] [place] 20 [place] 20 2019-0 No 20mg C ommon mg mg 5-23 [facility] 00:00: - [facility] [place] 20 [place] 20 2019-0 No 20mg C ommon mg mg 5-23 [facility] 00:00: - [facility] [place] 20 [place] 20 2019-0 No 20mg C ommon mg mg 5-23 [facility] 00:00: - [facility] LIDOCAINE LIDOCAINE 2019-0 No 10mg Com mon HCL 10MG/ML HCL 10MG/ML 5-23 S pirit 00:00: - [facility] LIDOCAINE LIDOCAINE 2019-0 No 10mg Com mon HCL 10MG/ML HCL 10MG/ML 5-23 S pirit 00:00: - [facility] [place] 20 [place] 20 2019-0 No 20mg C ommon mg mg 5- [facility] 00:00: - [facility] [place] 20 [place] 20 2019-0 No 20mg C ommon mg mg 5-23 [facility] 00:00: - [facility] [place] 20 [place] 20 2019-0 No 20mg C ommon mg mg 5- [facility] 00:00: - [facility] LIDOCAINE LIDOCAINE 2019-0 No 10mg Com mon HCL 10MG/ML HCL 10MG/ML 5-23 S pirit 00:00: - [facility] LIDOCAINE LIDOCAINE 2019-0 No 10mg Com mon HCL 10MG/ML HCL 10MG/ML 5-23 S pirit 00:00: - [facility] LIDOCAINE LIDOCAINE 2019-0 No 10mg Com mon HCL 10MG/ML HCL 10MG/ML 5-23 S pirit 00:00: - [facility] [place] 20 [place] 20 2019-0 No 20mg C ommon mg mg 5-23 [facility] 00:00: - [facility] [place] 20 [place] 20 2019-0 No 20mg C ommon mg mg 5-23 [facility] 00:00: - [facility] LIDOCAINE LIDOCAINE 2019-0 No 10mg Com mon HCL 10MG/ML HCL 10MG/ML 5-23 S pirit 00:00: - [facility] LIDOCAINE LIDOCAINE 2019-0 No 10mg Com mon HCL 10MG/ML HCL 10MG/ML 5-23 S pirit 00:00: - [facility] [place] 20 [place] 20 2019-0 No 20mg C ommon mg mg 5-23 [facility] 00:00: - [facility] [place] 20 [place] 20 2019-0 No 20mg C ommon mg mg 5-23 [facility] 00:00: - [facility] LIDOCAINE LIDOCAINE 2019-0 No 10mg Com mon HCL 10MG/ML HCL 10MG/ML 5-23 S pirit 00:00: - [facility] LIDOCAINE LIDOCAINE 2019-0 No 10mg Com mon HCL 10MG/ML HCL 10MG/ML 5-23 S pirit 00:00: - [facility] [place] 20 [place] 20 2019-0 No 20mg C ommon mg mg 5- [facility] 00:00: - [facility] [place] 20 [place] 20 2019-0 No 20mg C ommon mg mg 5-23 [facility] 00:00: - [facility] LIDOCAINE LIDOCAINE 2019-0 No 10mg Com mon HCL 10MG/ML HCL 10MG/ML 5-23 S pirit 00:00: - [facility] LIDOCAINE LIDOCAINE 2019-0 No 10mg Com mon HCL 10MG/ML HCL 10MG/ML 5-23 S pirit 00:00: - [facility] [place] 20 [place] 20 2019-0 No 20mg C ommon mg mg 5- [facility] 00:00: - [facility] [place] 20 [place] 20 2019-0 No 20mg C ommon mg mg 5-23 [facility] 00:00: - [facility] LIDOCAINE LIDOCAINE 2019-0 No 10mg Com mon HCL 10MG/ML HCL 10MG/ML 5-23 S pirit 00:00: - [facility] LIDOCAINE LIDOCAINE 2019-0 No 10mg Com mon HCL 10MG/ML HCL 10MG/ML 5-23 S pirit 00:00: - [facility] [place] 20 [place] 20 2019-0 No 20mg C ommon mg mg 5-23 [facility] 00:00: - [facility] [place] 20 [place] 20 2019-0 No 20mg C ommon mg mg 5-23 Spirit 00:00: - [facility] LIDOCAINE LIDOCAINE 2019-0 No 10mg Com mon HCL 10MG/ML HCL 10MG/ML 5-23 S pirit 00:00: - [facility] LIDOCAINE LIDOCAINE 2019-0 No 10mg Com mon HCL 10MG/ML HCL 10MG/ML 5-23 S pirit 00:00: - [facility] Hyalgan 20 Hyalgan 20 2019-0 No 20mg C ommon mg mg 5-23 Spirit 00:00: - [facility] Hyalgan 20 Hyalgan 20 2019-0 No 20mg C ommon mg mg 5-23 Spirit 00:00: - [facility] LIDOCAINE LIDOCAINE 2019-0 No 10mg Com mon HCL 10MG/ML HCL 10MG/ML 5-23 S pirit 00:00: - [facility] LIDOCAINE LIDOCAINE 2019-0 No 10mg Com mon HCL 10MG/ML HCL 10MG/ML 5-23 S pirit 00:00: - [facility] Hyalgan 20 Hyalgan 20 2019-0 No 20mg C ommon mg mg 5-23 [facility] 00:[facility]: - [facility] Hyalgan 20 Hyalgan 20 2019-0 No 20mg C ommon mg mg 5-23 [facility] 00:00: - [facility] LIDOCAINE LIDOCAINE 2019-0 No 10mg Com mon HCL 10MG/ML HCL 10MG/ML 5-23 S pirit 00:00: - [facility] LIDOCAINE LIDOCAINE 2019-0 No 10mg Com mon HCL 10MG/ML HCL 10MG/ML 5-23 S pirit 00:00: - [facility] Hyalgan 20 Hyalgan 20 2019-0 No 20mg C ommon mg mg 5-23 [facility] 00:00: - [facility] Hyalgan 20 Hyalgan 20 2019-0 No 20mg C ommon mg mg 5-23 [facility] 00:00: - [facility] LIDOCAINE LIDOCAINE 2019-0 No 10mg Com mon HCL 10MG/ML HCL 10MG/ML 5-23 S pirit 00:00: - [facility] Bupivicaine Bupivicaine 2018-0 No 5mL Common Lamar Lamar 9-04 [facility] 00:00: - [facility] Bupivicaine Bupivicaine 2018-0 No 5mL Common Lamar Lamar 12-08 [facility] 00:00: - [facility] Depo Medrol Depo Medrol 2018-0 No 1mL Common (40mg) (40mg) 12-08 [facility] 00:[facility]: - [facility] Depo Medrol Depo Medrol 2018-0 No 1mL Common (40mg) (40mg) 12-08 [facility] 00:00: - [facility] Bupivicaine Bupivicaine 2018-0 No 5mL Common Lamar Lamar 12-08 [facility] 00:00: - [facility] Bupivicaine Bupivicaine 2018-0 No 5mL Common Lamar Lamar 12-08 [facility] 00:00: - [facility] Depo Medrol Depo Medrol 2018-0 No 1mL Common (40mg) (40mg) 12-08 [facility] 00:00: - [facility] Depo Medrol Depo Medrol 2018-0 No 1mL Common (40mg) (40mg) 12-08 [facility] 00:00: - [facility] Bupivicaine Bupivicaine 2018-0 No 5mL Common Lamar Lamar 12-08 [facility] 00:00: - [facility] Bupivicaine Bupivicaine 2018-0 No 5mL Common Lamar Lamar 12-08 [facility] 00:00: - [facility] Depo Medrol Depo Medrol 2018-0 No 1mL Common (40mg) (40mg) 12-08 [facility] 00:00: - [facility] Depo Medrol Depo Medrol 2018-0 No 1mL Common (40mg) (40mg) 12-08 [facility] 00:00: - [facility] Bupivicaine Bupivicaine 2018-0 No 5mL Common Lamar Lamar 12-08 [facility] 00:00: - [facility] Bupivicaine Bupivicaine 2018-0 No 5mL Common Lamar Lamar 12-08 [facility] 00:00: - [facility] Depo Medrol Depo Medrol 2018-0 No 1mL Common (40mg) (40mg) 12-08 [facility] 00:00: - [facility] Depo Medrol Depo Medrol 2018-0 No 1mL Common (40mg) (40mg) 12-08 [facility] 00:00: - [facility] Bupivicaine Bupivicaine 2018-0 No 5mL Common Lamar Lamar 12-08 [facility] 00:00: - [facility] Bupivicaine Bupivicaine 2018-0 No 5mL Common Lamar Lamar 12-08 [facility] 00:00: - [facility] Depo Medrol Depo Medrol 2018-0 No 1mL Common (40mg) (40mg) 12-08 [facility] 00:00: - [facility] Depo Medrol Depo Medrol 2018-0 No 1mL Common (40mg) (40mg) 12-08 [facility] 00:00: - [facility] Bupivicaine Bupivicaine 2018-0 No 5mL Common Lamar Lamar 12-08 [facility] 00:00: - [facility] Bupivicaine Bupivicaine 2018-0 No 5mL Common Lamar Lamar 12-08 [facility] 00:00: - [facility] Depo Medrol Depo Medrol 2018-0 No 1mL Common (40mg) (40mg) 12-08 [facility] 00:00: - [facility] Depo Medrol Depo Medrol 2018-0 No 1mL Common (40mg) (40mg) 12-08 [facility] 00:00: - [facility] Bupivicaine Bupivicaine 2018-0 No 5mL Common Lamar Lamar 12-08 [facility] 00:00: - [facility] Bupivicaine Bupivicaine 2018-0 No 5mL Common Lamar Lamar 12-08 [facility] 00:00: - [facility] Depo Medrol Depo Medrol 2018-0 No 1mL Common (40mg) (40mg) 12-08 [facility] 00:00: - [facility] Depo Medrol Depo Medrol 2018-0 No 1mL Common (40mg) (40mg) 12-08 [facility] 00:00: - [facility] Bupivicaine Bupivicaine 2018-0 No 5mL Common Lamar Lamar 12-08 [facility] 00:00: - [facility] Bupivicaine Bupivicaine 2018-0 No 5mL Common Lamar Lamar 12-08 [facility] 00:00: - [facility] Depo Medrol Depo Medrol 2018-0 No 1mL Common (40mg) (40mg) 12-08 [facility] 00:00: - [facility] Depo Medrol Depo Medrol 2018-0 No 1mL Common (40mg) (40mg) 12-08 [facility] 00:00: - [facility] Bupivicaine Bupivicaine 2018-0 No 5mL Common Lamar Lamar 12-08 [facility] 00:00: - [facility] Bupivicaine Bupivicaine 2018-0 No 5mL Common Lamar Lamar 12-08 [facility] 00:00: - [facility] Depo Medrol Depo Medrol 2018-0 No 1mL Common (40mg) (40mg) 12-08 [facility] 00:00: - [facility] Depo Medrol Depo Medrol 2018-0 No 1mL Common (40mg) (40mg) 12-08 [facility] 00:00: - [facility] Bupivicaine Bupivicaine 2018-0 No 5mL Common Lamar Lamar 12-08 [facility] 00:00: - [facility] Bupivicaine Bupivicaine 2018-0 No 5mL Common Lamar Lamar 12-08 [facility] 00:00: - [facility] Depo Medrol Depo Medrol 2018-0 No 1mL Common (40mg) (40mg) 12-08 [facility] 00:00: - [facility] Depo Medrol Depo Medrol 2018-0 No 1mL Common (40mg) (40mg) 12-08 [facility] 00:00: - [facility] Bupivicaine Bupivicaine 2018-0 No 5mL Common Lamar Lamar 12-08 [facility] 00:00: - [facility] Bupivicaine Bupivicaine 2018-0 No 5mL Common Lamar Lamar 12-08 [facility] 00:00: - [facility] Depo Medrol Depo Medrol 2018-0 No 1mL Common (40mg) (40mg) 12-08 [facility] 00:00: - [facility] Depo Medrol Depo Medrol 2018-0 No 1mL Common (40mg) (40mg) 12-08 [facility] 00:00: - [facility] Bupivicaine Bupivicaine 2018-0 No 5mL Common Lamar Lamar 12-08 [facility] 00:00: - [facility] Bupivicaine Bupivicaine 2018-0 No 5mL Common Lamar Lamar 12-08 [facility] 00:00: - [facility] Depo Medrol Depo Medrol 2018-0 No 1mL Common (40mg) (40mg) 12-08 [facility] 00:00: - [facility] Depo Medrol Depo Medrol 2018-0 No 1mL Common (40mg) (40mg) 12-08 [facility] 00:00: - [facility] Bupivicaine Bupivicaine 2018-0 No 5mL Common Lamar Lamar 12-08 [facility] 00:00: - [facility] Bupivicaine Bupivicaine 2018-0 No 5mL Common Lamar Lamar 12-08 [facility] 00:00: - [facility] Depo Medrol Depo Medrol 2018-0 No 1mL Common (40mg) (40mg) 12-08 [facility] 00:00: - [facility] Depo Medrol Depo Medrol 2018-0 No 1mL Common (40mg) (40mg) 12-08 [facility] 00:00: - [facility] Bupivicaine Bupivicaine 2018-0 No 5mL Common Lamar Lamar 12-08 [facility] 00:00: - [facility] Bupivicaine Bupivicaine 2018-0 No 5mL Common Lamar Lamar 12-08 [facility] 00:00: - [facility] Depo Medrol Depo Medrol 2018-0 No 1mL Common (40mg) (40mg) 12-08 [facility] 00:00: - [facility] Depo Medrol Depo Medrol 2018-0 No 1mL Common (40mg) (40mg) 12-08 [facility] 00:00: - [facility] Bupivicaine Bupivicaine 2018-0 No 5mL Common Lamar Lamar 12-08 [facility] 00:00: - [facility] Bupivicaine Bupivicaine 2018-0 No 5mL Common Lamar Lamar 12-08 [facility] 00:00: - [facility] Depo Medrol Depo Medrol 2018-0 No 1mL Common (40mg) (40mg) 12-08 [facility] 00:00: - [facility] Depo Medrol Depo Medrol 2018-0 No 1mL Common (40mg) (40mg) 12-08 [facility] 00:00: - [facility] Depo Medrol Depo Medrol 2018-0 No 1mL Common (40mg) (40mg) 12-08 [facility] 00:00: - [facility] Depo Medrol Depo Medrol 2018-0 No 1mL Common (40mg) (40mg) 12-08 [facility] 00:00: - [facility] Bupivicaine Bupivicaine 2018-0 No 5mL Common Lamar Lamar 12-08 [facility] 00:00: - [facility] Bupivicaine Bupivicaine 2018-0 No 5mL Common Lamar Lamar 12-08 [facility] 00:00: - [facility] Bupivicaine Bupivicaine 2018-0 No 5mL Common Lamar Lamar 12-08 [facility] 00:00: - [facility] Bupivicaine Bupivicaine 2018-0 No 5mL Common Lamar Lamar 12-08 [facility] 00:00: - [facility] Depo Medrol Depo Medrol 2018-0 No 1mL Common (40mg) (40mg) 12-08 [facility] 00:00: - [facility] Depo Medrol Depo Medrol 2018-0 No 1mL Common (40mg) (40mg) 12-08 [facility] 00:00: - [facility] Bupivicaine Bupivicaine 2018-0 No 5mL Common Lamar Lamar 12-08 [facility] 00:00: - [facility] Bupivicaine Bupivicaine 2018-0 No 5mL Common Lamar Lamar 12-08 [facility] 00:00: - [facility] Depo Medrol Depo Medrol 2018-0 No 1mL Common (40mg) (40mg) 12-08 [facility] 00:00: - [facility] Depo Medrol Depo Medrol 2018-0 No 1mL Common (40mg) (40mg) 12-08 [facility] 00:00: - [facility] Bupivicaine Bupivicaine 2018-0 No 5mL Common Lamar Lamar 12-08 [facility] 00:00: - [facility] Bupivicaine Bupivicaine 2018-0 No 5mL Common Lamar Lamar 12-08 [facility] 00:00: - [facility] Depo Medrol Depo Medrol 2018-0 No 1mL Common (40mg) (40mg) 12-08 [facility] 00:00: - [facility] Depo Medrol Depo Medrol 2018-0 No 1mL Common (40mg) (40mg) 12-08 [facility] 00:00: - [facility] Bupivicaine Bupivicaine 2018-0 No 5mL Common Lamar Lamar 12-08 [facility] 00:00: - [facility] Bupivicaine Bupivicaine 2018-0 No 5mL Common Lamar Lamar 12-08 [facility] 00:00: - [facility] Depo Medrol Depo Medrol 2018-0 No 1mL Common (40mg) (40mg) 12-08 [facility] 00:00: - [facility] Depo Medrol Depo Medrol 2018-0 No 1mL Common (40mg) (40mg) 12-08 [facility] 00:00: - [facility] Bupivicaine Bupivicaine 2018-0 No 5mL Common Lamar Lamar 12-08 [facility] 00:00: - [facility] Bupivicaine Bupivicaine 2018-0 No 5mL Common Lamar Lamar 12-08 [facility] 00:00: - [facility] Depo Medrol Depo Medrol 2018-0 No 1mL Common (40mg) (40mg) 12-08 [facility] 00:00: - [facility] Depo Medrol Depo Medrol 2018-0 No 1mL Common (40mg) (40mg) 12-08 [facility] 00:00: - [facility] Bupivicaine Bupivicaine 2018-0 No 5mL Common Lamar Lamar 12-08 [facility] 00:00: - [facility] Bupivicaine Bupivicaine 2018-0 No 5mL Common Lamar Lamar 12-08 [facility] 00:00: - [facility] Depo Medrol Depo Medrol 2018-0 No 1mL Common (40mg) (40mg) 12-08 [facility] 00:00: - [facility] Depo Medrol Depo Medrol 2018-0 No 1mL Common (40mg) (40mg) 12-08 [facility] 00:00: - [facility] Bupivicaine Bupivicaine 2018-0 No 5mL Common Lamar Lamar 12-08 [facility] 00:00: - [facility] Bupivicaine Bupivicaine 2018-0 No 5mL Common Lamar Lamar 12-08 [facility] 00:00: - [facility] Depo Medrol Depo Medrol 2018-0 No 1mL Common (40mg) (40mg) 12-08 [facility] 00:00: - [facility] Depo Medrol Depo Medrol 2018-0 No 1mL Common (40mg) (40mg) 12-08 [facility] 00:00: - [facility] Bupivicaine Bupivicaine 2018-0 No 5mL Common Lamar Lamar 12-08 [facility] 00:00: - [facility] Bupivicaine Bupivicaine 2018-0 No 5mL Common Lamar Lamar 12-08 [facility] 00:00: - [facility] Depo Medrol Depo Medrol 2018-0 No 1mL Common (40mg) (40mg) 12-08 [facility] 00:00: - [facility] Depo Medrol Depo Medrol 2018-0 No 1mL Common (40mg) (40mg) 12-08 [facility] 00:00: - [facility] Bupivicaine Bupivicaine 2018-0 No 5mL Common Lamar Lamar 12-08 [facility] 00:00: - [facility] Bupivicaine Bupivicaine 2018-0 No 5mL Common Lamar Lamar 12-08 [facility] 00:00: - [facility] Depo Medrol Depo Medrol 2018-0 No 1mL Common (40mg) (40mg) 12-08 [facility] 00:00: - [facility] Depo Medrol Depo Medrol 2018-0 No 1mL Common (40mg) (40mg) 12-08 [facility] 00:00: - [facility] Bupivicaine Bupivicaine 2018-0 No 5mL Common Lamar Lamar 12-08 [facility] 00:00: - [facility] Bupivicaine Bupivicaine 2018-0 No 5mL Common Lamar Lamar 12-08 [facility] 00:00: - [facility] Depo Medrol Depo Medrol 2018-0 No 1mL Common (40mg) (40mg) 12-08 [facility] 00:00: - [facility] Depo Medrol Depo Medrol 2018-0 No 1mL Common (40mg) (40mg) 12-08 [facility] 00:00: - [facility] Bupivicaine Bupivicaine 2018-0 No 5mL Common Lamar Lamar 12-08 [facility] 00:00: - [facility] Bupivicaine Bupivicaine 2018-0 No 5mL Common Lamar Lamar 12-08 [facility] 00:00: - [facility] Depo Medrol Depo Medrol 2018-0 No 1mL Common (40mg) (40mg) 12-08 [facility] 00:00: - [facility] Depo Medrol Depo Medrol 2018-0 No 1mL Common (40mg) (40mg) 12-08 [facility] 00:00: - [facility] Fish Oil Fish Oil No Fish Oil Zinc Zinc No Zinc Meclizine Meclizine No 1{table QD Meclizine HCl 25 MG HCl 25 MG t_as_ne HCl 25 MG eded} hydrALAZINE hydrALAZINE No hydrALAZIN HCl 50 MG HCl 50 MG E HCl 50 MG Elderberry Elderberry No Elderberry Metoprolol Metoprolol No 1{table BID Metoprolol Tartrate 50 Tartrate 50 t_with_ Tartrate MG MG food} 50 MG Meclizine Meclizine No 1{table QD Meclizine HCl 25 MG HCl 25 MG t_as_ne HCl 25 MG eded} Calcium Calcium No Calcium Simvastatin Simvastatin No 1{table QD Simvastati 10 MG 10 MG t_in_th n 10 MG e_eveni ng} metFORMIN metFORMIN No 1{table BID metFORMIN HCl 500 MG HCl 500 MG t_with_ HCl 500 MG a_meal} Metoprolol Metoprolol No Metoprolol Tartrate 50 Tartrate 50 Tartrate MG MG 50 MG Vitamin D3 Vitamin D3 No Vitamin D3 Levothyroxi Levothyroxi No Levothyrox ne Sodium ne Sodium ine Sodium 75 MCG 75 MCG 75 MCG Elderberry Elderberry No Elderberry Vitamin B12 Vitamin B12 No Vitamin B12 Simvastatin Simvastatin No 1{table QD Simvastati 10 MG 10 MG t_in_th n 10 MG e_eveni ng} metFORMIN metFORMIN No metFORMIN HCl 500 MG HCl 500 MG HCl 500 MG Aspirin 81 Aspirin 81 No 1{table QD Aspirin 81 81 MG 81 MG t} 81 MG Levothyroxi Levothyroxi No QD Levothyrox ne Sodium ne Sodium ine Sodium 75 MCG 75 MCG 75 MCG Aspirin 81 Aspirin 81 No 1{table QD Aspirin 81 81 MG 81 MG t} 81 MG Lisinopril- Lisinopril- No 2{table QD Lisinopril hydroCHLORO hydroCHLORO ts} -hydroCHLO thiazide thiazide ROthiazide 20-12.5 MG 20-12.5 MG 20-12.5 MG Simvastatin Simvastatin No Simvastati 10 MG 10 MG n 10 MG hydrALAZINE hydrALAZINE No 1{table BID hydrALAZIN HCl 50 MG HCl 50 MG t_with_ E HCl 50 food} MG Fluticasone Fluticasone No Fluticason Propionate Propionate e Propionate Lisinopril- Lisinopril- No Lisinopril hydroCHLORO hydroCHLORO -hydroCHLO thiazide thiazide ROthiazide 20-12.5 MG 20-12.5 MG 20-12.5 MG Vitamin B12 Vitamin B12 No Vitamin B12 Fish Oil Fish Oil No Fish Oil Zinc Zinc No Zinc Vitamin D3 Vitamin D3 No Vitamin D3 hydrALAZINE hydrALAZINE No hydrALAZIN HCl 50 MG HCl 50 MG E HCl 50 MG Elderberry Elderberry No Elderberry Metoprolol Metoprolol No 1{table BID Metoprolol Tartrate 50 Tartrate 50 t_with_ Tartrate MG MG food} 50 MG Meclizine Meclizine No 1{table QD Meclizine HCl 25 MG HCl 25 MG t_as_ne HCl 25 MG eded} Calcium Calcium No Calcium Simvastatin Simvastatin No 1{table QD Simvastati 10 MG 10 MG t_in_th n 10 MG e_eveni ng} metFORMIN metFORMIN No 1{table BID metFORMIN HCl 500 MG HCl 500 MG t_with_ HCl 500 MG a_meal} Metoprolol Metoprolol No Metoprolol Tartrate 50 Tartrate 50 Tartrate MG MG 50 MG Vitamin D3 Vitamin D3 No Vitamin D3 Levothyroxi Levothyroxi No Levothyrox ne Sodium ne Sodium ine Sodium 75 MCG 75 MCG 75 MCG Simvastatin Simvastatin No Simvastati 10 MG 10 MG n 10 MG hydrALAZINE hydrALAZINE No 1{table BID hydrALAZIN HCl 50 MG HCl 50 MG t_with_ E HCl 50 food} MG Lisinopril- Lisinopril- No Lisinopril hydroCHLORO hydroCHLORO -hydroCHLO thiazide thiazide ROthiazide 20-12.5 MG 20-12.5 MG 20-12.5 MG metFORMIN metFORMIN No metFORMIN HCl 500 MG HCl 500 MG HCl 500 MG Levothyroxi Levothyroxi No QD Levothyrox ne Sodium ne Sodium ine Sodium 75 MCG 75 MCG 75 MCG Aspirin 81 Aspirin 81 No 1{table QD Aspirin 81 81 MG 81 MG t} 81 MG Lisinopril- Lisinopril- No 2{table QD Lisinopril hydroCHLORO hydroCHLORO ts} -hydroCHLO thiazide thiazide ROthiazide 20-12.5 MG 20-12.5 MG 20-12.5 MG Simvastatin Simvastatin No Simvastati 10 MG 10 MG n 10 MG hydrALAZINE hydrALAZINE No 1{table BID hydrALAZIN HCl 50 MG HCl 50 MG t_with_ E HCl 50 food} MG Fluticasone Fluticasone No Fluticason Propionate Propionate e Propionate Lisinopril- Lisinopril- No Lisinopril hydroCHLORO hydroCHLORO -hydroCHLO thiazide thiazide ROthiazide 20-12.5 MG 20-12.5 MG 20-12.5 MG Vitamin B12 Vitamin B12 No Vitamin B12 metFORMIN metFORMIN No metFORMIN HCl 500 MG HCl 500 MG HCl 500 MG Fish Oil Fish Oil No Fish Oil Zinc Zinc No Zinc hydrALAZINE hydrALAZINE No hydrALAZIN HCl 50 MG HCl 50 MG E HCl 50 MG Elderberry Elderberry No Elderberry Metoprolol Metoprolol No 1{table BID Metoprolol Tartrate 50 Tartrate 50 t_with_ Tartrate MG MG food} 50 MG Meclizine Meclizine No 1{table QD Meclizine HCl 25 MG HCl 25 MG t_as_ne HCl 25 MG eded} Calcium Calcium No Calcium Simvastatin Simvastatin No 1{table QD Simvastati 10 MG 10 MG t_in_th n 10 MG e_eveni ng} metFORMIN metFORMIN No 1{table BID metFORMIN HCl 500 MG HCl 500 MG t_with_ HCl 500 MG a_meal} Metoprolol Metoprolol No Metoprolol Tartrate 50 Tartrate 50 Tartrate MG MG 50 MG Vitamin D3 Vitamin D3 No Vitamin D3 Levothyroxi Levothyroxi No Levothyrox ne Sodium ne Sodium ine Sodium 75 MCG 75 MCG 75 MCG metFORMIN metFORMIN No metFORMIN HCl 500 MG HCl 500 MG HCl 500 MG Levothyroxi Levothyroxi No QD Levothyrox ne Sodium ne Sodium ine Sodium 75 MCG 75 MCG 75 MCG Aspirin 81 Aspirin 81 No 1{table QD Aspirin 81 81 MG 81 MG t} 81 MG Lisinopril- Lisinopril- No 2{table QD Lisinopril hydroCHLORO hydroCHLORO ts} -hydroCHLO thiazide thiazide ROthiazide 20-12.5 MG 20-12.5 MG 20-12.5 MG Simvastatin Simvastatin No Simvastati 10 MG 10 MG n 10 MG hydrALAZINE hydrALAZINE No 1{table BID hydrALAZIN HCl 50 MG HCl 50 MG t_with_ E HCl 50 food} MG Fluticasone Fluticasone No Fluticason Propionate Propionate e Propionate Lisinopril- Lisinopril- No Lisinopril hydroCHLORO hydroCHLORO -hydroCHLO thiazide thiazide ROthiazide 20-12.5 MG 20-12.5 MG 20-12.5 MG Vitamin B12 Vitamin B12 No Vitamin B12 Fish Oil Fish Oil No Fish Oil Zinc Zinc No Zinc hydrALAZINE hydrALAZINE No hydrALAZIN HCl 50 MG HCl 50 MG E HCl 50 MG Elderberry Elderberry No Elderberry Metoprolol Metoprolol No 1{table BID Metoprolol Tartrate 50 Tartrate 50 t_with_ Tartrate MG MG food} 50 MG Meclizine Meclizine No 1{table QD Meclizine HCl 25 MG HCl 25 MG t_as_ne HCl 25 MG eded} Calcium Calcium No Calcium Simvastatin Simvastatin No 1{table QD Simvastati 10 MG 10 MG t_in_th n 10 MG e_eveni ng} metFORMIN metFORMIN No 1{table BID metFORMIN HCl 500 MG HCl 500 MG t_with_ HCl 500 MG a_meal} Metoprolol Metoprolol No Metoprolol Tartrate 50 Tartrate 50 Tartrate MG MG 50 MG Vitamin D3 Vitamin D3 No Vitamin D3 Levothyroxi Levothyroxi No Levothyrox ne Sodium ne Sodium ine Sodium 75 MCG 75 MCG 75 MCG Zinc Zinc No Zinc Simvastatin Simvastatin No 1{table QD Simvastati 10 MG 10 MG t_in_th n 10 MG e_eveni ng} Calcium Calcium No Calcium Vitamin B12 Vitamin B12 No Vitamin B12 Aspirin 81 Aspirin 81 No 1{table QD Aspirin 81 81 MG 81 MG t} 81 MG Levothyroxi Levothyroxi No QD Levothyrox ne Sodium ne Sodium ine Sodium 75 MCG 75 MCG 75 MCG Meclizine Meclizine No 1{table QD Meclizine HCl 25 MG HCl 25 MG t_as_ne HCl 25 MG eded} metFORMIN metFORMIN No 1{table BID metFORMIN HCl 500 MG HCl 500 MG t_with_ HCl 500 MG a_meal} Lisinopril- Lisinopril- No 2{table QD Lisinopril hydroCHLORO hydroCHLORO ts} -hydroCHLO thiazide thiazide ROthiazide 20-12.5 MG 20-12.5 MG 20-12.5 MG Fish Oil Fish Oil No Fish Oil Vitamin D3 Vitamin D3 No Vitamin D3 Simvastatin Simvastatin No Simvastati 10 MG 10 MG n 10 MG Elderberry Elderberry No Elderberry hydrALAZINE hydrALAZINE No hydrALAZIN HCl 50 MG HCl 50 MG E HCl 50 MG methylPREDN methylPREDN No QD methylPRED ISolone 4 ISolone 4 NISolone 4 MG MG MG Fluticasone Fluticasone No Fluticason Propionate Propionate e Propionate hydrALAZINE hydrALAZINE No 1{table BID hydrALAZIN HCl 50 MG HCl 50 MG t_with_ E HCl 50 food} MG Metoprolol Metoprolol No 1{table BID Metoprolol Tartrate 50 Tartrate 50 t_with_ Tartrate MG MG food} 50 MG Benzonatate Benzonatate No 1{capsu TID Benzonatat 200 MG 200 MG le} e 200 MG metFORMIN metFORMIN No metFORMIN HCl 500 MG HCl 500 MG HCl 500 MG Zinc Zinc No Zinc Simvastatin Simvastatin No 1{table QD Simvastati 10 MG 10 MG t_in_th n 10 MG e_eveni ng} Calcium Calcium No Calcium Vitamin B12 Vitamin B12 No Vitamin B12 Aspirin 81 Aspirin 81 No 1{table QD Aspirin 81 81 MG 81 MG t} 81 MG Levothyroxi Levothyroxi No QD Levothyrox ne Sodium ne Sodium ine Sodium 75 MCG 75 MCG 75 MCG Meclizine Meclizine No 1{table QD Meclizine HCl 25 MG HCl 25 MG t_as_ne HCl 25 MG eded} metFORMIN metFORMIN No 1{table BID metFORMIN HCl 500 MG HCl 500 MG t_with_ HCl 500 MG a_meal} Lisinopril- Lisinopril- No 2{table QD Lisinopril hydroCHLORO hydroCHLORO ts} -hydroCHLO thiazide thiazide ROthiazide 20-12.5 MG 20-12.5 MG 20-12.5 MG Fish Oil Fish Oil No Fish Oil Vitamin D3 Vitamin D3 No Vitamin D3 Simvastatin Simvastatin No Simvastati 10 MG 10 MG n 10 MG Elderberry Elderberry No Elderberry hydrALAZINE hydrALAZINE No hydrALAZIN HCl 50 MG HCl 50 MG E HCl 50 MG methylPREDN methylPREDN No QD methylPRED ISolone 4 ISolone 4 NISolone 4 MG MG MG Fluticasone Fluticasone No Fluticason Propionate Propionate e Propionate hydrALAZINE hydrALAZINE No 1{table BID hydrALAZIN HCl 50 MG HCl 50 MG t_with_ E HCl 50 food} MG Metoprolol Metoprolol No 1{table BID Metoprolol Tartrate 50 Tartrate 50 t_with_ Tartrate MG MG food} 50 MG Benzonatate Benzonatate No 1{capsu TID Benzonatat 200 MG 200 MG le} e 200 MG metFORMIN metFORMIN No metFORMIN HCl 500 MG HCl 500 MG HCl 500 MG Levothyroxi Levothyroxi No QD Levothyrox ne Sodium ne Sodium ine Sodium 75 MCG 75 MCG 75 MCG Metoprolol Metoprolol No 1{table BID Metoprolol Tartrate 50 Tartrate 50 t_with_ Tartrate MG MG food} 50 MG metFORMIN metFORMIN No 1{table QD metFORMIN HCl 500 MG HCl 500 MG t_with_ HCl 500 MG a_meal} Zinc Zinc No Zinc Euthyrox 75 Euthyrox 75 No Euthyrox MCG MCG 75 MCG hydrALAZINE hydrALAZINE No hydrALAZIN HCl 50 MG HCl 50 MG E HCl 50 MG Fish Oil Fish Oil No Fish Oil Fluticasone Fluticasone No Fluticason Propionate Propionate e Propionate Meclizine Meclizine No 1{table QD Meclizine HCl 25 MG HCl 25 MG t_as_ne HCl 25 MG eded} Elderberry Elderberry No Elderberry Vitamin B12 Vitamin B12 No Vitamin B12 Simvastatin Simvastatin No 1{table QD Simvastati 10 MG 10 MG t_in_th n 10 MG e_eveni ng} Aspirin 81 Aspirin 81 No 1{table QD Aspirin 81 81 MG 81 MG t} 81 MG Vitamin D3 Vitamin D3 No Vitamin D3 Simvastatin Simvastatin No Simvastati 10 MG 10 MG n 10 MG hydrALAZINE hydrALAZINE No 1{table BID hydrALAZIN HCl 50 MG HCl 50 MG t_with_ E HCl 50 food} MG Lisinopril- Lisinopril- No Lisinopril hydroCHLORO hydroCHLORO -hydroCHLO thiazide thiazide ROthiazide 20-12.5 MG 20-12.5 MG 20-12.5 MG metFORMIN metFORMIN No metFORMIN HCl 500 MG HCl 500 MG HCl 500 MG Aspirin 81 Aspirin 81 No 1{table QD Aspirin 81 81 MG 81 MG t} 81 MG Fluticasone Fluticasone No Fluticason Propionate Propionate e Propionate Zinc Zinc No Zinc Ibuprofen Ibuprofen No Ibuprofen Euthyrox 75 Euthyrox 75 No Euthyrox MCG MCG 75 MCG Fluticasone Fluticasone No Fluticason Propionate Propionate e Propionate Albuterol Albuterol No Albuterol Sulfate HFA Sulfate HFA Sulfate HFA Vitamin D3 Vitamin D3 No Vitamin D3 methylPREDN methylPREDN No methylPRED ISolone ISolone NISolone Pseudoeph-B Pseudoeph-B No Pseudoeph- romphen-DM romphen-DM Bromphen-D M Vitamin B12 Vitamin B12 No Vitamin B12 Amoxicillin Amoxicillin No Amoxicilli -Pot -Pot n-Pot Clavulanate Clavulanate Clavulanat e Amoxicillin Amoxicillin No Amoxicilli n traMADol traMADol No traMADol HCl HCl HCl Livalo Livalo No Livalo HYDROcodone HYDROcodone No HYDROcodon -Acetaminop -Acetaminop e-Acetamin hen hen ophen Lisinopril- Lisinopril- No 2{table QD Lisinopril hydroCHLORO hydroCHLORO ts} -hydroCHLO thiazide thiazide ROthiazide 20-12.5 MG 20-12.5 MG 20-12.5 MG F06-Ttvnaq F44-Tuyomy No F72-Tbhydt 1 MG 1 MG 1 MG Euthyrox Euthyrox No Euthyrox Methocarbam Methocarbam No Methocarba ol ol mol Cyclobenzap Cyclobenzap No Cyclobenza rine HCl rine HCl rick HCl Oxybutynin Oxybutynin No Oxybutynin Chloride ER Chloride ER Chloride ER Co Q 10 100 Co Q 10 100 No 1{capsu QD Co Q 10 MG MG le_with 100 MG _a_meal } Metoprolol Metoprolol No 1{table BID Metoprolol Tartrate 50 Tartrate 50 t_with_ Tartrate MG MG food} 50 MG metFORMIN metFORMIN No 1{table BID metFORMIN HCl 500 MG HCl 500 MG t_with_ HCl 500 MG a_meal} methylPREDN methylPREDN No methylPRED ISolone ISolone NISolone Levothyroxi Levothyroxi No QD Levothyrox ne Sodium ne Sodium ine Sodium 75 MCG 75 MCG 75 MCG Q52-Nrqpmc O70-Hlixdh No H40-Szpzyo 1 MG 1 MG 1 MG Meclizine Meclizine No 1{table QD Meclizine HCl 25 MG HCl 25 MG t_as_ne HCl 25 MG eded} traMADol traMADol No traMADol HCl HCl HCl Lisinopril- Lisinopril- No 2{table QD Lisinopril hydroCHLORO hydroCHLORO ts} -hydroCHLO thiazide thiazide ROthiazide 20-12.5 MG 20-12.5 MG 20-12.5 MG Co Q 10 100 Co Q 10 100 No 1{capsu QD Co Q 10 MG MG le_with 100 MG _a_meal } Fluticasone Fluticasone No Fluticason Propionate Propionate e Propionate HYDROcodone HYDROcodone No HYDROcodon -Acetaminop -Acetaminop e-Acetamin [facility] ophen Simvastatin Simvastatin No 1{table QD Simvastati 10 MG 10 MG t_in_th n 10 MG e_eveni ng} Livalo Livalo No Livalo Euthyrox Euthyrox No Euthyrox Vitamin D3 Vitamin D3 No Vitamin D3 Amoxicillin Amoxicillin No Amoxicilli n Ibuprofen Ibuprofen No Ibuprofen metFORMIN metFORMIN No 1{table BID metFORMIN HCl 500 MG HCl 500 MG t_with_ HCl 500 MG a_meal} Albuterol Albuterol No Albuterol Sulfate HFA Sulfate HFA Sulfate HFA Pseudoeph-B Pseudoeph-B No Pseudoeph- romphen-DM romphen-DM Bromphen-D M Oxybutynin Oxybutynin No Oxybutynin Chloride ER Chloride ER Chloride ER Metoprolol Metoprolol No 1{table BID Metoprolol Tartrate 50 Tartrate 50 t_with_ Tartrate MG MG food} 50 MG Zinc Zinc No Zinc Methocarbam Methocarbam No Methocarba ol ol mol Fluticasone Fluticasone No Fluticason Propionate Propionate e Propionate Amoxicillin Amoxicillin No Amoxicilli -Pot -Pot n-Pot Clavulanate Clavulanate Clavulanat e Euthyrox 75 Euthyrox 75 No Euthyrox MCG MCG 75 MCG Aspirin 81 Aspirin 81 No 1{table QD Aspirin 81 81 MG 81 MG t} 81 MG Cyclobenzap Cyclobenzap No Cyclobenza rine HCl rine HCl rick HCl Vitamin B12 Vitamin B12 No Vitamin B12 methylPREDN methylPREDN No methylPRED ISolone ISolone NISolone Levothyroxi Levothyroxi No QD Levothyrox ne Sodium ne Sodium ine Sodium 75 MCG 75 MCG 75 MCG D00-Apcnps O98-Ufviyv No X95-Rxvbph 1 MG 1 MG 1 MG Meclizine Meclizine No 1{table QD Meclizine HCl 25 MG HCl 25 MG t_as_ne HCl 25 MG eded} traMADol traMADol No traMADol HCl HCl HCl Lisinopril- Lisinopril- No 2{table QD Lisinopril hydroCHLORO hydroCHLORO ts} -hydroCHLO thiazide thiazide ROthiazide 20-12.5 MG 20-12.5 MG 20-12.5 MG Co Q 10 100 Co Q 10 100 No 1{capsu QD Co Q 10 MG MG le_with 100 MG _a_meal } Fluticasone Fluticasone No Fluticason Propionate Propionate e Propionate HYDROcodone HYDROcodone No HYDROcodon -Acetaminop -Acetaminop e-Acetamin hen hen ophen Simvastatin Simvastatin No 1{table QD Simvastati 10 MG 10 MG t_in_th n 10 MG e_eveni ng} Livalo Livalo No Livalo Euthyrox Euthyrox No Euthyrox Vitamin D3 Vitamin D3 No Vitamin D3 Zinc Zinc No Zinc Ibuprofen Ibuprofen No Ibuprofen metFORMIN metFORMIN No 1{table BID metFORMIN HCl 500 MG HCl 500 MG t_with_ HCl 500 MG a_meal} Fluticasone Fluticasone No Fluticason Propionate Propionate e Propionate Pseudoeph-B Pseudoeph-B No Pseudoeph- romphen-DM romphen-DM Bromphen-D M Oxybutynin Oxybutynin No Oxybutynin Chloride ER Chloride ER Chloride ER Metoprolol Metoprolol No 1{table BID Metoprolol Tartrate 50 Tartrate 50 t_with_ Tartrate MG MG food} 50 MG Albuterol Albuterol No Albuterol Sulfate HFA Sulfate HFA Sulfate HFA Methocarbam Methocarbam No Methocarba ol ol mol Amoxicillin Amoxicillin No Amoxicilli n Amoxicillin Amoxicillin No Amoxicilli -Pot -Pot n-Pot Clavulanate Clavulanate Clavulanat e Euthyrox 75 Euthyrox 75 No Euthyrox MCG MCG 75 MCG Aspirin 81 Aspirin 81 No 1{table QD Aspirin 81 81 MG 81 MG t} 81 MG Cyclobenzap Cyclobenzap No Cyclobenza rine HCl rine HCl rick HCl Vitamin B12 Vitamin B12 No Vitamin B12 Amoxicillin Amoxicillin No traMADol traMADol No HCl HCl HYDROcodone HYDROcodone No -Acetaminop -Acetaminop hen hen Vitamin B12 Vitamin B12 No methylPREDN methylPREDN No ISolone ISolone Vitamin D3 Vitamin D3 No Oxybutynin Oxybutynin No Chloride ER Chloride ER Fluticasone Fluticasone No Propionate Propionate Albuterol Albuterol No Sulfate HFA Sulfate HFA Methocarbam Methocarbam No ol ol Ibuprofen Ibuprofen No Amoxicillin Amoxicillin No -Pot -Pot Clavulanate Clavulanate Livalo Livalo No Euthyrox Euthyrox No Cyclobenzap Cyclobenzap No rine HCl rine HCl Lisinopril- Lisinopril- No 2{table QD hydroCHLORO hydroCHLORO ts} thiazide thiazide 20-12.5 MG 20-12.5 MG Fluticasone Fluticasone No Propionate Propionate Euthyrox 75 Euthyrox 75 No MCG MCG metFORMIN metFORMIN No HCl 500 MG HCl 500 MG Co Q 10 100 Co Q 10 100 No 1{capsu QD MG MG le_with _a_meal } Aspirin 81 Aspirin 81 No 1{table QD 81 MG 81 MG t} Metoprolol Metoprolol No 1{table BID Tartrate 50 Tartrate 50 t_with_ MG MG food} Pseudoeph-B Pseudoeph-B No romphen-DM romphen-DM C10-Oddodp N80-Hnbowo No 1 MG 1 MG Levothyroxi Levothyroxi No QD ne Sodium ne Sodium 75 MCG 75 MCG Simvastatin Simvastatin No 1{table QD 10 MG 10 MG t_in_th e_eveni ng} Meclizine Meclizine No 1{table QD HCl 25 MG HCl 25 MG t_as_ne eded} Zinc Zinc No Simvastatin Simvastatin No 1{table QD Simvastati 10 MG 10 MG t_in_th n 10 MG e_eveni ng} Euthyrox Euthyrox No Euthyrox Albuterol Albuterol No Albuterol Sulfate HFA Sulfate HFA Sulfate HFA Euthyrox 75 Euthyrox 75 No Euthyrox MCG MCG 75 MCG Amoxicillin Amoxicillin No Amoxicilli n Livalo Livalo No Livalo Vitamin B12 Vitamin B12 No Vitamin B12 Lisinopril- Lisinopril- No 2{table QD Lisinopril hydroCHLORO hydroCHLORO ts} -hydroCHLO thiazide thiazide ROthiazide 20-12.5 MG 20-12.5 MG 20-12.5 MG Fluticasone Fluticasone No Fluticason Propionate Propionate e Propionate I79-Lzbjfi Y72-Sjsddv No F21-Oqthop 1 MG 1 MG 1 MG Oxybutynin Oxybutynin No Oxybutynin Chloride ER Chloride ER Chloride ER Co Q 10 100 Co Q 10 100 No 1{capsu QD Co Q 10 MG MG le_with 100 MG _a_meal } Fluticasone Fluticasone No Fluticason Propionate Propionate e Propionate Ibuprofen Ibuprofen No Ibuprofen Amoxicillin Amoxicillin No Amoxicilli -Pot -Pot n-Pot Clavulanate Clavulanate Clavulanat e metFORMIN metFORMIN No metFORMIN HCl 500 MG HCl 500 MG HCl 500 MG Zinc Zinc No Zinc Vitamin D3 Vitamin D3 No Vitamin D3 Pseudoeph-B Pseudoeph-B No Pseudoeph- romphen-DM romphen-DM Bromphen-D M Cyclobenzap Cyclobenzap No Cyclobenza rine HCl rine HCl rick HCl HYDROcodone HYDROcodone No HYDROcodon -Acetaminop -Acetaminop e-Acetamin hen hen ophen Methocarbam Methocarbam No Methocarba ol ol mol Aspirin 81 Aspirin 81 No 1{table QD Aspirin 81 81 MG 81 MG t} 81 MG methylPREDN methylPREDN No methylPRED ISolone ISolone NISolone Meclizine Meclizine No 1{table QD Meclizine HCl 25 MG HCl 25 MG t_as_ne HCl 25 MG eded} metFORMIN metFORMIN No 1{table BID metFORMIN HCl 500 MG HCl 500 MG t_with_ HCl 500 MG a_meal} traMADol traMADol No traMADol HCl HCl HCl Metoprolol Metoprolol No 1{table BID Metoprolol Tartrate 50 Tartrate 50 t_with_ Tartrate MG MG food} 50 MG Levothyroxi Levothyroxi No QD Levothyrox ne Sodium ne Sodium ine Sodium 75 MCG 75 MCG 75 MCG Simvastatin Simvastatin No 1{table QD Simvastati 10 MG 10 MG t_in_th n 10 MG e_eveni ng} Euthyrox Euthyrox No Euthyrox Albuterol Albuterol No Albuterol Sulfate HFA Sulfate HFA Sulfate HFA Euthyrox 75 Euthyrox 75 No Euthyrox MCG MCG 75 MCG Amoxicillin Amoxicillin No Amoxicilli n Livalo Livalo No Livalo Vitamin B12 Vitamin B12 No Vitamin B12 Lisinopril- Lisinopril- No 2{table QD Lisinopril hydroCHLORO hydroCHLORO ts} -hydroCHLO thiazide thiazide ROthiazide 20-12.5 MG 20-12.5 MG 20-12.5 MG Fluticasone Fluticasone No Fluticason Propionate Propionate e Propionate J11-Zfypvi T53-Morlrm No O28-Tesfkd 1 MG 1 MG 1 MG Oxybutynin Oxybutynin No Oxybutynin Chloride ER Chloride ER Chloride ER Co Q 10 100 Co Q 10 100 No 1{capsu QD Co Q 10 MG MG le_with 100 MG _a_meal } Fluticasone Fluticasone No Fluticason Propionate Propionate e Propionate Ibuprofen Ibuprofen No Ibuprofen Amoxicillin Amoxicillin No Amoxicilli -Pot -Pot n-Pot Clavulanate Clavulanate Clavulanat e metFORMIN metFORMIN No metFORMIN HCl 500 MG HCl 500 MG HCl 500 MG Zinc Zinc No Zinc Vitamin D3 Vitamin D3 No Vitamin D3 Pseudoeph-B Pseudoeph-B No Pseudoeph- romphen-DM romphen-DM Bromphen-D M Cyclobenzap Cyclobenzap No Cyclobenza rine HCl rine HCl rick HCl HYDROcodone HYDROcodone No HYDROcodon -Acetaminop -Acetaminop e-Acetamin hen hen ophen Methocarbam Methocarbam No Methocarba ol ol mol Aspirin 81 Aspirin 81 No 1{table QD Aspirin 81 81 MG 81 MG t} 81 MG methylPREDN methylPREDN No methylPRED ISolone ISolone NISolone Meclizine Meclizine No 1{table QD Meclizine HCl 25 MG HCl 25 MG t_as_ne HCl 25 MG eded} metFORMIN metFORMIN No 1{table BID metFORMIN HCl 500 MG HCl 500 MG t_with_ HCl 500 MG a_meal} traMADol traMADol No traMADol HCl HCl HCl Metoprolol Metoprolol No 1{table BID Metoprolol Tartrate 50 Tartrate 50 t_with_ Tartrate MG MG food} 50 MG Levothyroxi Levothyroxi No QD Levothyrox ne Sodium ne Sodium ine Sodium 75 MCG 75 MCG 75 MCG Albuterol Albuterol No Albuterol Sulfate HFA Sulfate HFA Sulfate HFA Euthyrox 75 Euthyrox 75 No Euthyrox MCG MCG 75 MCG Euthyrox Euthyrox No Euthyrox Aspirin 81 Aspirin 81 No 1{table QD Aspirin 81 81 MG 81 MG t} 81 MG Cyclobenzap Cyclobenzap No Cyclobenza rine HCl rine HCl rick HCl Vitamin B12 Vitamin B12 No Vitamin B12 Livalo Livalo No Livalo Lisinopril- Lisinopril- No 2{table QD Lisinopril hydroCHLORO hydroCHLORO ts} -hydroCHLO thiazide thiazide ROthiazide 20-12.5 MG 20-12.5 MG 20-12.5 MG Amoxicillin Amoxicillin No Amoxicilli n W49-Zepxxn Y48-Ykscmy No Z23-Gfxrqd 1 MG 1 MG 1 MG Oxybutynin Oxybutynin No Oxybutynin Chloride ER Chloride ER Chloride ER Co Q 10 100 Co Q 10 100 No 1{capsu QD Co Q 10 MG MG le_with 100 MG _a_meal } Fluticasone Fluticasone No Fluticason Propionate Propionate e Propionate Ibuprofen Ibuprofen No Ibuprofen Amoxicillin Amoxicillin No Amoxicilli -Pot -Pot n-Pot Clavulanate Clavulanate Clavulanat e Pseudoeph-B Pseudoeph-B No Pseudoeph- romphen-DM romphen-DM Bromphen-D M Zinc Zinc No Zinc Vitamin D3 Vitamin D3 No Vitamin D3 Fluticasone Fluticasone No Fluticason Propionate Propionate e Propionate metFORMIN metFORMIN No metFORMIN HCl 500 MG HCl 500 MG HCl 500 MG HYDROcodone HYDROcodone No HYDROcodon -Acetaminop -Acetaminop e-Acetamin hen hen ophen Methocarbam Methocarbam No Methocarba ol ol mol Simvastatin Simvastatin No Simvastati 10 MG 10 MG n 10 MG methylPREDN methylPREDN No methylPRED ISolone ISolone NISolone Meclizine Meclizine No 1{table QD Meclizine HCl 25 MG HCl 25 MG t_as_ne HCl 25 MG eded} metFORMIN metFORMIN No 1{table BID metFORMIN HCl 500 MG HCl 500 MG t_with_ HCl 500 MG a_meal} traMADol traMADol No traMADol HCl HCl HCl Metoprolol Metoprolol No 1{table BID Metoprolol Tartrate 50 Tartrate 50 t_with_ Tartrate MG MG food} 50 MG Levothyroxi Levothyroxi No QD Levothyrox ne Sodium ne Sodium ine Sodium 75 MCG 75 MCG 75 MCG Albuterol Albuterol No Albuterol Sulfate HFA Sulfate HFA Sulfate HFA Lisinopril- Lisinopril- No 2{table QD Lisinopril hydroCHLORO hydroCHLORO ts} -hydroCHLO thiazide thiazide ROthiazide 20-12.5 MG 20-12.5 MG 20-12.5 MG Aspirin 81 Aspirin 81 No 1{table QD Aspirin 81 81 MG 81 MG t} 81 MG Cyclobenzap Cyclobenzap No Cyclobenza rine HCl rine HCl rick HCl Euthyrox Euthyrox No Euthyrox Vitamin B12 Vitamin B12 No Vitamin B12 G84-Tdqbuo D75-Yoqdxs No D64-Yxgnyw 1 MG 1 MG 1 MG Oxybutynin Oxybutynin No Oxybutynin Chloride ER Chloride ER Chloride ER Livalo Livalo No Livalo Co Q 10 100 Co Q 10 100 No 1{capsu QD Co Q 10 MG MG le_with 100 MG _a_meal } Amoxicillin Amoxicillin No Amoxicilli n HYDROcodone HYDROcodone No HYDROcodon -Acetaminop -Acetaminop e-Acetamin hen hen ophen Fluticasone Fluticasone No Fluticason Propionate Propionate e Propionate Ibuprofen Ibuprofen No Ibuprofen Amoxicillin Amoxicillin No Amoxicilli -Pot -Pot n-Pot Clavulanate Clavulanate Clavulanat e Pseudoeph-B Pseudoeph-B No Pseudoeph- romphen-DM romphen-DM Bromphen-D M Zinc Zinc No Zinc Vitamin D3 Vitamin D3 No Vitamin D3 Fluticasone Fluticasone No Fluticason Propionate Propionate e Propionate metFORMIN metFORMIN No metFORMIN HCl 500 MG HCl 500 MG HCl 500 MG Methocarbam Methocarbam No Methocarba ol ol mol Simvastatin Simvastatin No Simvastati 10 MG 10 MG n 10 MG methylPREDN methylPREDN No methylPRED ISolone ISolone NISolone Meclizine Meclizine No 1{table QD Meclizine HCl 25 MG HCl 25 MG t_as_ne HCl 25 MG eded} Euthyrox 75 Euthyrox 75 No Euthyrox MCG MCG 75 MCG traMADol traMADol No traMADol HCl HCl HCl metFORMIN metFORMIN No 1{table BID metFORMIN HCl 500 MG HCl 500 MG t_with_ HCl 500 MG a_meal} Metoprolol Metoprolol No 1{table BID Metoprolol Tartrate 50 Tartrate 50 t_with_ Tartrate MG MG food} 50 MG Albuterol Albuterol No Sulfate HFA Sulfate HFA Lisinopril- Lisinopril- No 2{table QD hydroCHLORO hydroCHLORO ts} thiazide thiazide 20-12.5 MG 20-12.5 MG Aspirin 81 Aspirin 81 No 1{table QD 81 MG 81 MG t} Cyclobenzap Cyclobenzap No rine HCl rine HCl Euthyrox Euthyrox No Vitamin B12 Vitamin B12 No B59-Alorpb K89-Newbvn No 1 MG 1 MG Oxybutynin Oxybutynin No Chloride ER Chloride ER Livalo Livalo No Co Q 10 100 Co Q 10 100 No 1{capsu QD MG MG le_with _a_meal } Amoxicillin Amoxicillin No HYDROcodone HYDROcodone No -Acetaminop -Acetaminop hen hen Fluticasone Fluticasone No Propionate Propionate Ibuprofen Ibuprofen No Amoxicillin Amoxicillin No -Pot -Pot Clavulanate Clavulanate Pseudoeph-B Pseudoeph-B No romphen-DM romphen-DM Zinc Zinc No Vitamin D3 Vitamin D3 No Fluticasone Fluticasone No Propionate Propionate metFORMIN metFORMIN No HCl 500 MG HCl 500 MG Methocarbam Methocarbam No ol ol Simvastatin Simvastatin No 10 MG 10 MG methylPREDN methylPREDN No ISolone ISolone Meclizine Meclizine No 1{table QD HCl 25 MG HCl 25 MG t_as_ne eded} Euthyrox 75 Euthyrox 75 No MCG MCG traMADol traMADol No HCl HCl metFORMIN metFORMIN No 1{table BID HCl 500 MG HCl 500 MG t_with_ a_meal} Metoprolol Metoprolol No 1{table BID Tartrate 50 Tartrate 50 t_with_ MG MG food} Albuterol Albuterol No Sulfate HFA Sulfate HFA Lisinopril- Lisinopril- No 2{table QD hydroCHLORO hydroCHLORO ts} thiazide thiazide 20-12.5 MG 20-12.5 MG Aspirin 81 Aspirin 81 No 1{table QD 81 MG 81 MG t} Cyclobenzap Cyclobenzap No rine HCl rine HCl Euthyrox Euthyrox No Vitamin B12 Vitamin B12 No Y86-Schzut J72-Kowsio No 1 MG 1 MG Oxybutynin Oxybutynin No Chloride ER Chloride ER Livalo Livalo No Co Q 10 100 Co Q 10 100 No 1{capsu QD MG MG le_with _a_meal } Amoxicillin Amoxicillin No HYDROcodone HYDROcodone No -Acetaminop -Acetaminop hen hen Fluticasone Fluticasone No Propionate Propionate Ibuprofen Ibuprofen No Amoxicillin Amoxicillin No -Pot -Pot Clavulanate Clavulanate Pseudoeph-B Pseudoeph-B No romphen-DM romphen-DM Zinc Zinc No Vitamin D3 Vitamin D3 No Fluticasone Fluticasone No Propionate Propionate metFORMIN metFORMIN No HCl 500 MG HCl 500 MG Methocarbam Methocarbam No ol ol Simvastatin Simvastatin No 10 MG 10 MG methylPREDN methylPREDN No ISolone ISolone Meclizine Meclizine No 1{table QD HCl 25 MG HCl 25 MG t_as_ne eded} Euthyrox 75 Euthyrox 75 No MCG MCG traMADol traMADol No HCl HCl metFORMIN metFORMIN No 1{table BID HCl 500 MG HCl 500 MG t_with_ a_meal} Metoprolol Metoprolol No 1{table BID Tartrate 50 Tartrate 50 t_with_ MG MG food} Vitamin D3 Vitamin D3 No Vitamin D3 Aspirin 81 Aspirin 81 No 1{table QD Aspirin 81 81 MG 81 MG t} 81 MG Vitamin B12 Vitamin B12 No Vitamin B12 hydrALAZINE hydrALAZINE No 1{table BID hydrALAZIN HCl 50 MG HCl 50 MG t_with_ E HCl 50 food} MG Fluticasone Fluticasone No Fluticason Propionate Propionate e Propionate Metoprolol Metoprolol No 1{table BID Metoprolol Tartrate 50 Tartrate 50 t_with_ Tartrate MG MG food} 50 MG Simvastatin Simvastatin No Simvastati 10 MG 10 MG n 10 MG metFORMIN metFORMIN No 1{table QD metFORMIN HCl 500 MG HCl 500 MG t_with_ HCl 500 MG a_meal} Fish Oil Fish Oil No Fish Oil metFORMIN metFORMIN No metFORMIN HCl 500 MG HCl 500 MG HCl 500 MG Elderberry Elderberry No Elderberry Levothyroxi Levothyroxi No QD Levothyrox ne Sodium ne Sodium ine Sodium 75 MCG 75 MCG 75 MCG Meclizine Meclizine No 1{table QD Meclizine HCl 25 MG HCl 25 MG t_as_ne HCl 25 MG eded} Simvastatin Simvastatin No 1{table QD Simvastati 10 MG 10 MG t_in_th n 10 MG e_eveni ng} Euthyrox 75 Euthyrox 75 No Euthyrox MCG MCG 75 MCG Lisinopril- Lisinopril- No 2{table QD Lisinopril hydroCHLORO hydroCHLORO ts} -hydroCHLO thiazide thiazide ROthiazide 20-12.5 MG 20-12.5 MG 20-12.5 MG Zinc Zinc No Zinc Vitamin D3 Vitamin D3 No Vitamin D3 Aspirin 81 Aspirin 81 No 1{table QD Aspirin 81 81 MG 81 MG t} 81 MG Vitamin B12 Vitamin B12 No Vitamin B12 hydrALAZINE hydrALAZINE No 1{table BID hydrALAZIN HCl 50 MG HCl 50 MG t_with_ E HCl 50 food} MG Fluticasone Fluticasone No Fluticason Propionate Propionate e Propionate Metoprolol Metoprolol No 1{table BID Metoprolol Tartrate 50 Tartrate 50 t_with_ Tartrate MG MG food} 50 MG Simvastatin Simvastatin No Simvastati 10 MG 10 MG n 10 MG metFORMIN metFORMIN No 1{table QD metFORMIN HCl 500 MG HCl 500 MG t_with_ HCl 500 MG a_meal} Fish Oil Fish Oil No Fish Oil metFORMIN metFORMIN No metFORMIN HCl 500 MG HCl 500 MG HCl 500 MG Elderberry Elderberry No Elderberry Levothyroxi Levothyroxi No QD Levothyrox ne Sodium ne Sodium ine Sodium 75 MCG 75 MCG 75 MCG Meclizine Meclizine No 1{table QD Meclizine HCl 25 MG HCl 25 MG t_as_ne HCl 25 MG eded} Simvastatin Simvastatin No 1{table QD Simvastati 10 MG 10 MG t_in_th n 10 MG e_eveni ng} Euthyrox 75 Euthyrox 75 No Euthyrox MCG MCG 75 MCG Lisinopril- Lisinopril- No 2{table QD Lisinopril hydroCHLORO hydroCHLORO ts} -hydroCHLO thiazide thiazide ROthiazide 20-12.5 MG 20-12.5 MG 20-12.5 MG Zinc Zinc No Zinc Vitamin D3 Vitamin D3 No Vitamin D3 Aspirin 81 Aspirin 81 No 1{table QD Aspirin 81 81 MG 81 MG t} 81 MG Vitamin B12 Vitamin B12 No Vitamin B12 Simvastatin Simvastatin No 1{table QD Simvastati 10 MG 10 MG t_in_th n 10 MG e_eveni ng} Fluticasone Fluticasone No Fluticason Propionate Propionate e Propionate metFORMIN metFORMIN No 1{table QD metFORMIN HCl 500 MG HCl 500 MG t_with_ HCl 500 MG a_meal} Fish Oil Fish Oil No Fish Oil Simvastatin Simvastatin No Simvastati 10 MG 10 MG n 10 MG Euthyrox 75 Euthyrox 75 No Euthyrox MCG MCG 75 MCG metFORMIN metFORMIN No metFORMIN HCl 500 MG HCl 500 MG HCl 500 MG Elderberry Elderberry No Elderberry Metoprolol Metoprolol No 1{table BID Metoprolol Tartrate 50 Tartrate 50 t_with_ Tartrate MG MG food} 50 MG Meclizine Meclizine No 1{table QD Meclizine HCl 25 MG HCl 25 MG t_as_ne HCl 25 MG eded} Lisinopril- Lisinopril- No 2{table QD Lisinopril hydroCHLORO hydroCHLORO ts} -hydroCHLO thiazide thiazide ROthiazide 20-12.5 MG 20-12.5 MG 20-12.5 MG hydrALAZINE hydrALAZINE No hydrALAZIN HCl 50 MG HCl 50 MG E HCl 50 MG Levothyroxi Levothyroxi No QD Levothyrox ne Sodium ne Sodium ine Sodium 75 MCG 75 MCG 75 MCG Zinc Zinc No Zinc Vitamin D3 Vitamin D3 No Vitamin D3 Aspirin 81 Aspirin 81 No 1{table QD Aspirin 81 81 MG 81 MG t} 81 MG Vitamin B12 Vitamin B12 No Vitamin B12 Simvastatin Simvastatin No 1{table QD Simvastati 10 MG 10 MG t_in_th n 10 MG e_eveni ng} Fluticasone Fluticasone No Fluticason Propionate Propionate e Propionate metFORMIN metFORMIN No 1{table QD metFORMIN HCl 500 MG HCl 500 MG t_with_ HCl 500 MG a_meal} Fish Oil Fish Oil No Fish Oil Simvastatin Simvastatin No Simvastati 10 MG 10 MG n 10 MG Euthyrox 75 Euthyrox 75 No Euthyrox MCG MCG 75 MCG metFORMIN metFORMIN No metFORMIN HCl 500 MG HCl 500 MG HCl 500 MG Elderberry Elderberry No Elderberry Metoprolol Metoprolol No 1{table BID Metoprolol Tartrate 50 Tartrate 50 t_with_ Tartrate MG MG food} 50 MG Meclizine Meclizine No 1{table QD Meclizine HCl 25 MG HCl 25 MG t_as_ne HCl 25 MG eded} Lisinopril- Lisinopril- No 2{table QD Lisinopril hydroCHLORO hydroCHLORO ts} -hydroCHLO thiazide thiazide ROthiazide 20-12.5 MG 20-12.5 MG 20-12.5 MG hydrALAZINE hydrALAZINE No hydrALAZIN HCl 50 MG HCl 50 MG E HCl 50 MG Levothyroxi Levothyroxi No QD Levothyrox ne Sodium ne Sodium ine Sodium 75 MCG 75 MCG 75 MCG Zinc Zinc No Zinc Vitamin D3 Vitamin D3 No Vitamin D3 Aspirin 81 Aspirin 81 No 1{table QD Aspirin 81 81 MG 81 MG t} 81 MG Vitamin B12 Vitamin B12 No Vitamin B12 Simvastatin Simvastatin No 1{table QD Simvastati 10 MG 10 MG t_in_th n 10 MG e_eveni ng} Fluticasone Fluticasone No Fluticason Propionate Propionate e Propionate metFORMIN metFORMIN No 1{table QD metFORMIN HCl 500 MG HCl 500 MG t_with_ HCl 500 MG a_meal} Fish Oil Fish Oil No Fish Oil Simvastatin Simvastatin No Simvastati 10 MG 10 MG n 10 MG Euthyrox 75 Euthyrox 75 No Euthyrox MCG MCG 75 MCG metFORMIN metFORMIN No metFORMIN HCl 500 MG HCl 500 MG HCl 500 MG Elderberry Elderberry No Elderberry Metoprolol Metoprolol No 1{table BID Metoprolol Tartrate 50 Tartrate 50 t_with_ Tartrate MG MG food} 50 MG Meclizine Meclizine No 1{table QD Meclizine HCl 25 MG HCl 25 MG t_as_ne HCl 25 MG eded} Lisinopril- Lisinopril- No 2{table QD Lisinopril hydroCHLORO hydroCHLORO ts} -hydroCHLO thiazide thiazide ROthiazide 20-12.5 MG 20-12.5 MG 20-12.5 MG hydrALAZINE hydrALAZINE No hydrALAZIN HCl 50 MG HCl 50 MG E HCl 50 MG Levothyroxi Levothyroxi No QD Levothyrox ne Sodium ne Sodium ine Sodium 75 MCG 75 MCG 75 MCG Zinc Zinc No Zinc Simvastatin Simvastatin No 1{table QD Simvastati 10 MG 10 MG t_in_th n 10 MG e_eveni ng} Zinc Zinc No Zinc Simvastatin Simvastatin No Simvastati 10 MG 10 MG n 10 MG Euthyrox 75 Euthyrox 75 No Euthyrox MCG MCG 75 MCG metFORMIN metFORMIN No metFORMIN HCl 500 MG HCl 500 MG HCl 500 MG metFORMIN metFORMIN No 1{table QD metFORMIN HCl 500 MG HCl 500 MG t_with_ HCl 500 MG a_meal} Metoprolol Metoprolol No 1{table BID Metoprolol Tartrate 50 Tartrate 50 t_with_ Tartrate MG MG food} 50 MG Meclizine Meclizine No 1{table QD Meclizine HCl 25 MG HCl 25 MG t_as_ne HCl 25 MG eded} Aspirin 81 Aspirin 81 No 1{table QD Aspirin 81 81 MG 81 MG t} 81 MG Fluticasone Fluticasone No Fluticason Propionate Propionate e Propionate Vitamin B12 Vitamin B12 No Vitamin B12 Elderberry Elderberry No Elderberry Fish Oil Fish Oil No Fish Oil Lisinopril- Lisinopril- No 2{table QD Lisinopril hydroCHLORO hydroCHLORO ts} -hydroCHLO thiazide thiazide ROthiazide 20-12.5 MG 20-12.5 MG 20-12.5 MG Vitamin D3 Vitamin D3 No Vitamin D3 Levothyroxi Levothyroxi No QD Levothyrox ne Sodium ne Sodium ine Sodium 75 MCG 75 MCG 75 MCG hydrALAZINE hydrALAZINE No hydrALAZIN HCl 50 MG HCl 50 MG E HCl 50 MG Euthyrox 75 Euthyrox 75 No Euthyrox MCG MCG 75 MCG Zinc Zinc No Zinc Aspirin 81 Aspirin 81 No 1{table QD Aspirin 81 81 MG 81 MG t} 81 MG Metoprolol Metoprolol No 1{table BID Metoprolol Tartrate 50 Tartrate 50 t_with_ Tartrate MG MG food} 50 MG Meclizine Meclizine No 1{table QD Meclizine HCl 25 MG HCl 25 MG t_as_ne HCl 25 MG eded} Fluticasone Fluticasone No Fluticason Propionate Propionate e Propionate Levothyroxi Levothyroxi No QD Levothyrox ne Sodium ne Sodium ine Sodium 75 MCG 75 MCG 75 MCG Lisinopril- Lisinopril- No 2{table QD Lisinopril hydroCHLORO hydroCHLORO ts} -hydroCHLO thiazide thiazide ROthiazide 20-12.5 MG 20-12.5 MG 20-12.5 MG Elderberry Elderberry No Elderberry Fish Oil Fish Oil No Fish Oil Vitamin D3 Vitamin D3 No Vitamin D3 Simvastatin Simvastatin No Simvastati 10 MG 10 MG n 10 MG Vitamin B12 Vitamin B12 No Vitamin B12 hydrALAZINE hydrALAZINE No hydrALAZIN HCl 50 MG HCl 50 MG E HCl 50 MG metFORMIN metFORMIN No metFORMIN HCl 500 MG HCl 500 MG HCl 500 MG metFORMIN metFORMIN No 1{table QD metFORMIN HCl 500 MG HCl 500 MG t_with_ HCl 500 MG a_meal} Euthyrox 75 Euthyrox 75 No Euthyrox MCG MCG 75 MCG Zinc Zinc No Zinc Aspirin 81 Aspirin 81 No 1{table QD Aspirin 81 81 MG 81 MG t} 81 MG Metoprolol Metoprolol No 1{table BID Metoprolol Tartrate 50 Tartrate 50 t_with_ Tartrate MG MG food} 50 MG Meclizine Meclizine No 1{table QD Meclizine HCl 25 MG HCl 25 MG t_as_ne HCl 25 MG eded} Fluticasone Fluticasone No Fluticason Propionate Propionate e Propionate Levothyroxi Levothyroxi No QD Levothyrox ne Sodium ne Sodium ine Sodium 75 MCG 75 MCG 75 MCG Lisinopril- Lisinopril- No 2{table QD Lisinopril hydroCHLORO hydroCHLORO ts} -hydroCHLO thiazide thiazide ROthiazide 20-12.5 MG 20-12.5 MG 20-12.5 MG Elderberry Elderberry No Elderberry Fish Oil Fish Oil No Fish Oil Vitamin D3 Vitamin D3 No Vitamin D3 Simvastatin Simvastatin No Simvastati 10 MG 10 MG n 10 MG Vitamin B12 Vitamin B12 No Vitamin B12 hydrALAZINE hydrALAZINE No hydrALAZIN HCl 50 MG HCl 50 MG E HCl 50 MG metFORMIN metFORMIN No metFORMIN HCl 500 MG HCl 500 MG HCl 500 MG metFORMIN metFORMIN No 1{table QD metFORMIN HCl 500 MG HCl 500 MG t_with_ HCl 500 MG a_meal} Simvastatin Simvastatin No 1{table QD Simvastati 10 MG 10 MG t_in_th n 10 MG e_eveni ng} Vitamin D3 Vitamin D3 No Vitamin D3 Euthyrox 75 Euthyrox 75 No Euthyrox MCG MCG 75 MCG Fish Oil Fish Oil No Fish Oil Vitamin B12 Vitamin B12 No Vitamin B12 Lisinopril- Lisinopril- No 2{table QD Lisinopril hydroCHLORO hydroCHLORO ts} -hydroCHLO thiazide thiazide ROthiazide 20-12.5 MG 20-12.5 MG 20-12.5 MG Zinc Zinc No Zinc metFORMIN metFORMIN No 1{table QD metFORMIN HCl 500 MG HCl 500 MG t_with_ HCl 500 MG a_meal} Meclizine Meclizine No 1{table QD Meclizine HCl 25 MG HCl 25 MG t_as_ne HCl 25 MG eded} hydrALAZINE hydrALAZINE No hydrALAZIN HCl 50 MG HCl 50 MG E HCl 50 MG Elderberry Elderberry No Elderberry metFORMIN metFORMIN No metFORMIN HCl 500 MG HCl 500 MG HCl 500 MG Fluticasone Fluticasone No Fluticason Propionate Propionate e Propionate Aspirin 81 Aspirin 81 No 1{table QD Aspirin 81 81 MG 81 MG t} 81 MG Simvastatin Simvastatin No Simvastati 10 MG 10 MG n 10 MG Metoprolol Metoprolol No 1{table BID Metoprolol Tartrate 50 Tartrate 50 t_with_ Tartrate MG MG food} 50 MG Levothyroxi Levothyroxi No QD Levothyrox ne Sodium ne Sodium ine Sodium 75 MCG 75 MCG 75 MCG hydrALAZINE hydrALAZINE No 1{table BID hydrALAZIN HCl 50 MG HCl 50 MG t_with_ E HCl 50 food} MG atorvastati atorvastati Yes Ashish 1 tablet [facility] n n [place] by [facility] at [facility] - [facility] [id number] Yes Ashish as [facility] [place] [facility] Co Q 10 Co Q 10 Yes Ashish 1 capsule C ommon [place] with a [facility] meal [facility] Lisinopril Lisinopril Yes Ashish 1 tablet [facility] [place] [facility] Metoprolol Metoprolol Yes Ashish 1 tablet Common Tartrate Tartrate [place] with food Sp yasir [facility] [place] Metformin Metformin Yes Ashish 1 tablet Common HCl HCl [place] with a [facility] meal [facility] [place] Simvastatin Simvastatin No 1{table QD Simvastati 10 MG 10 MG t_in_th n 10 MG e_eveni ng} Vitamin D3 Vitamin D3 No Vitamin D3 Euthyrox 75 Euthyrox 75 No Euthyrox MCG MCG 75 MCG Fish Oil Fish Oil No Fish Oil Vitamin B12 Vitamin B12 No Vitamin B12 Fluticasone Fluticasone No Fluticason Propionate Propionate e Propionate Zinc Zinc No Zinc metFORMIN metFORMIN No 1{table QD metFORMIN HCl 500 MG HCl 500 MG t_with_ HCl 500 MG a_meal} Meclizine Meclizine No 1{table QD Meclizine HCl 25 MG HCl 25 MG t_as_ne HCl 25 MG eded} hydrALAZINE hydrALAZINE No hydrALAZIN HCl 50 MG HCl 50 MG E HCl 50 MG Elderberry Elderberry No Elderberry metFORMIN metFORMIN No metFORMIN HCl 500 MG HCl 500 MG HCl 500 MG Levothyroxi Levothyroxi No QD Levothyrox ne Sodium ne Sodium ine Sodium 75 MCG 75 MCG 75 MCG Aspirin 81 Aspirin 81 No 1{table QD Aspirin 81 81 MG 81 MG t} 81 MG Simvastatin Simvastatin No Simvastati 10 MG 10 MG n 10 MG Metoprolol Metoprolol No 1{table BID Metoprolol Tartrate 50 Tartrate 50 t_with_ Tartrate MG MG food} 50 MG Lisinopril- Lisinopril- No Lisinopril hydroCHLORO hydroCHLORO -hydroCHLO thiazide thiazide ROthiazide 20-12.5 MG 20-12.5 MG 20-12.5 MG hydrALAZINE hydrALAZINE No 1{table BID hydrALAZIN HCl 50 MG HCl 50 MG t_with_ E HCl 50 food} MG Vitamin D3 Vitamin D3 No Vitamin D3 hydrALAZINE hydrALAZINE No 1{table BID hydrALAZIN HCl 50 MG HCl 50 MG t_with_ E HCl 50 food} MG Vitamin B12 Vitamin B12 No Vitamin B12 Simvastatin Simvastatin No Simvastati 10 MG 10 MG n 10 MG Simvastatin Simvastatin No 1{table QD Simvastati 10 MG 10 MG t_in_th n 10 MG e_eveni ng} Fluticasone Fluticasone No Fluticason Propionate Propionate e Propionate Zinc Zinc No Zinc metFORMIN metFORMIN No 1{table QD metFORMIN HCl 500 MG HCl 500 MG t_with_ HCl 500 MG a_meal} Meclizine Meclizine No 1{table QD Meclizine HCl 25 MG HCl 25 MG t_as_ne HCl 25 MG eded} hydrALAZINE hydrALAZINE No hydrALAZIN HCl 50 MG HCl 50 MG E HCl 50 MG metFORMIN metFORMIN No metFORMIN HCl 500 MG HCl 500 MG HCl 500 MG Fish Oil Fish Oil No Fish Oil Levothyroxi Levothyroxi No QD Levothyrox ne Sodium ne Sodium ine Sodium 75 MCG 75 MCG 75 MCG Euthyrox 75 Euthyrox 75 No Euthyrox MCG MCG 75 MCG Elderberry Elderberry No Elderberry Metoprolol Metoprolol No 1{table BID Metoprolol Tartrate 50 Tartrate 50 t_with_ Tartrate MG MG food} 50 MG Lisinopril- Lisinopril- No Lisinopril hydroCHLORO hydroCHLORO -hydroCHLO thiazide thiazide ROthiazide 20-12.5 MG 20-12.5 MG 20-12.5 MG Aspirin 81 Aspirin 81 No 1{table QD Aspirin 81 81 MG 81 MG t} 81 MG Vitamin B12 Vitamin B12 No Vitamin B12 Simvastatin Simvastatin No 1{table QD Simvastati 10 MG 10 MG t_in_th n 10 MG e_eveni ng} Zinc Zinc No Zinc Fish Oil Fish Oil No Fish Oil Euthyrox 75 Euthyrox 75 No Euthyrox MCG MCG 75 MCG Levothyroxi Levothyroxi No QD Levothyrox ne Sodium ne Sodium ine Sodium 75 MCG 75 MCG 75 MCG Meclizine Meclizine No 1{table QD Meclizine HCl 25 MG HCl 25 MG t_as_ne HCl 25 MG eded} Fluticasone Fluticasone No Fluticason Propionate Propionate e Propionate metFORMIN metFORMIN No 1{table QD metFORMIN HCl 500 MG HCl 500 MG t_with_ HCl 500 MG a_meal} Elderberry Elderberry No Elderberry metFORMIN metFORMIN No metFORMIN HCl 500 MG HCl 500 MG HCl 500 MG Lisinopril- Lisinopril- No Lisinopril hydroCHLORO hydroCHLORO -hydroCHLO thiazide thiazide ROthiazide 20-12.5 MG 20-12.5 MG 20-12.5 MG Aspirin 81 Aspirin 81 No 1{table QD Aspirin 81 81 MG 81 MG t} 81 MG Simvastatin Simvastatin No Simvastati 10 MG 10 MG n 10 MG Metoprolol Metoprolol No 1{table BID Metoprolol Tartrate 50 Tartrate 50 t_with_ Tartrate MG MG food} 50 MG hydrALAZINE hydrALAZINE No hydrALAZIN HCl 50 MG HCl 50 MG E HCl 50 MG Vitamin D3 Vitamin D3 No Vitamin D3 Meclizine Meclizine No 1{table QD Meclizine HCl 25 MG HCl 25 MG t_as_ne HCl 25 MG eded} Lisinopril- Lisinopril- No Lisinopril hydroCHLORO hydroCHLORO -hydroCHLO thiazide thiazide ROthiazide 20-12.5 MG 20-12.5 MG 20-12.5 MG Simvastatin Simvastatin No Simvastati 10 MG 10 MG n 10 MG Vitamin B12 Vitamin B12 No Vitamin B12 Zinc Zinc No Zinc Lisinopril- Lisinopril- No 2{table QD Lisinopril hydroCHLORO hydroCHLORO ts} -hydroCHLO thiazide thiazide ROthiazide 20-12.5 MG 20-12.5 MG 20-12.5 MG Fluticasone Fluticasone No Fluticason Propionate Propionate e Propionate Metoprolol Metoprolol No 1{table BID Metoprolol Tartrate 50 Tartrate 50 t_with_ Tartrate MG MG food} 50 MG Simvastatin Simvastatin No 1{table QD Simvastati 10 MG 10 MG t_in_ n 10 MG e_eveni ng} Levothyroxi Levothyroxi No QD Levothyrox ne Sodium ne Sodium ine Sodium 75 MCG 75 MCG 75 MCG metFORMIN metFORMIN No metFORMIN HCl 500 MG HCl 500 MG HCl 500 MG Vitamin D3 Vitamin D3 No Vitamin D3 Euthyrox 75 Euthyrox 75 No Euthyrox MCG MCG 75 MCG hydrALAZINE hydrALAZINE No hydrALAZIN HCl 50 MG HCl 50 MG E HCl 50 MG Elderberry Elderberry No Elderberry hydrALAZINE hydrALAZINE No 1{table BID hydrALAZIN HCl 50 MG HCl 50 MG t_with_ E HCl 50 food} MG metFORMIN metFORMIN No 1{table QD metFORMIN HCl 500 MG HCl 500 MG t_with_ HCl 500 MG a_meal} Aspirin 81 Aspirin 81 No 1{table QD Aspirin 81 81 MG 81 MG t} 81 MG Fish Oil Fish Oil No Fish Oil Meclizine Meclizine No 1{table QD Meclizine HCl 25 MG HCl 25 MG t_as_ne HCl 25 MG eded} Lisinopril- Lisinopril- No Lisinopril hydroCHLORO hydroCHLORO -hydroCHLO thiazide thiazide ROthiazide 20-12.5 MG 20-12.5 MG 20-12.5 MG Simvastatin Simvastatin No Simvastati 10 MG 10 MG n 10 MG Vitamin B12 Vitamin B12 No Vitamin B12 Zinc Zinc No Zinc Lisinopril- Lisinopril- No 2{table QD Lisinopril hydroCHLORO hydroCHLORO ts} -hydroCHLO thiazide thiazide ROthiazide 20-12.5 MG 20-12.5 MG 20-12.5 MG Fluticasone Fluticasone No Fluticason Propionate Propionate e Propionate Metoprolol Metoprolol No 1{table BID Metoprolol Tartrate 50 Tartrate 50 t_with_ Tartrate MG MG food} 50 MG Simvastatin Simvastatin No 1{table QD Simvastati 10 MG 10 MG t_in_ n 10 MG e_eveni ng} Levothyroxi Levothyroxi No QD Levothyrox ne Sodium ne Sodium ine Sodium 75 MCG 75 MCG 75 MCG metFORMIN metFORMIN No metFORMIN HCl 500 MG HCl 500 MG HCl 500 MG Vitamin D3 Vitamin D3 No Vitamin D3 Euthyrox 75 Euthyrox 75 No Euthyrox MCG MCG 75 MCG hydrALAZINE hydrALAZINE No hydrALAZIN HCl 50 MG HCl 50 MG E HCl 50 MG Elderberry Elderberry No Elderberry hydrALAZINE hydrALAZINE No 1{table BID hydrALAZIN HCl 50 MG HCl 50 MG t_with_ E HCl 50 food} MG metFORMIN metFORMIN No 1{table QD metFORMIN HCl 500 MG HCl 500 MG t_with_ HCl 500 MG a_meal} Aspirin 81 Aspirin 81 No 1{table QD Aspirin 81 81 MG 81 MG t} 81 MG Fish Oil Fish Oil No Fish Oil Fish Oil Fish Oil No Fish Oil Elderberry Elderberry No Elderberry Aspirin 81 Aspirin 81 No 1{table QD Aspirin 81 81 MG 81 MG t} 81 MG hydrALAZINE hydrALAZINE No hydrALAZIN HCl 50 MG HCl 50 MG E HCl 50 MG Fluticasone Fluticasone No Fluticason Propionate Propionate e Propionate Euthyrox 75 Euthyrox 75 No Euthyrox MCG MCG 75 MCG Meclizine Meclizine No 1{table QD Meclizine HCl 25 MG HCl 25 MG t_as_ne HCl 25 MG eded} Metoprolol Metoprolol No 1{table BID Metoprolol Tartrate 50 Tartrate 50 t_with_ Tartrate MG MG food} 50 MG metFORMIN metFORMIN No 1{table QD metFORMIN HCl 500 MG HCl 500 MG t_with_ HCl 500 MG a_meal} Vitamin D3 Vitamin D3 No Vitamin D3 Lisinopril- Lisinopril- No Lisinopril hydroCHLORO hydroCHLORO -hydroCHLO thiazide thiazide ROthiazide 20-12.5 MG 20-12.5 MG 20-12.5 MG Levothyroxi Levothyroxi No QD Levothyrox ne Sodium ne Sodium ine Sodium 75 MCG 75 MCG 75 MCG metFORMIN metFORMIN No metFORMIN HCl 500 MG HCl 500 MG HCl 500 MG Vitamin B12 Vitamin B12 No Vitamin B12 Simvastatin Simvastatin No 1{table QD Simvastati 10 MG 10 MG t_in_th n 10 MG e_eveni ng} Zinc Zinc No Zinc Simvastatin Simvastatin No Simvastati 10 MG 10 MG n 10 MG hydrALAZINE hydrALAZINE No 1{table BID hydrALAZIN HCl 50 MG HCl 50 MG t_with_ E HCl 50 food} MG Fish Oil Fish Oil No Fish Oil Elderberry Elderberry No Elderberry Aspirin 81 Aspirin 81 No 1{table QD Aspirin 81 81 MG 81 MG t} 81 MG hydrALAZINE hydrALAZINE No hydrALAZIN HCl 50 MG HCl 50 MG E HCl 50 MG Fluticasone Fluticasone No Fluticason Propionate Propionate e Propionate Euthyrox 75 Euthyrox 75 No Euthyrox MCG MCG 75 MCG Meclizine Meclizine No 1{table QD Meclizine HCl 25 MG HCl 25 MG t_as_ne HCl 25 MG eded} Metoprolol Metoprolol No 1{table BID Metoprolol Tartrate 50 Tartrate 50 t_with_ Tartrate MG MG food} 50 MG metFORMIN metFORMIN No 1{table QD metFORMIN HCl 500 MG HCl 500 MG t_with_ HCl 500 MG a_meal} Vitamin D3 Vitamin D3 No Vitamin D3 Lisinopril- Lisinopril- No Lisinopril hydroCHLORO hydroCHLORO -hydroCHLO thiazide thiazide ROthiazide 20-12.5 MG 20-12.5 MG 20-12.5 MG Levothyroxi Levothyroxi No QD Levothyrox ne Sodium ne Sodium ine Sodium 75 MCG 75 MCG 75 MCG metFORMIN metFORMIN No metFORMIN HCl 500 MG HCl 500 MG HCl 500 MG Vitamin B12 Vitamin B12 No Vitamin B12 Simvastatin Simvastatin No 1{table QD Simvastati 10 MG 10 MG t_in_th n 10 MG e_eveni ng} Zinc Zinc No Zinc Simvastatin Simvastatin No Simvastati 10 MG 10 MG n 10 MG hydrALAZINE hydrALAZINE No 1{table BID hydrALAZIN HCl 50 MG HCl 50 MG t_with_ E HCl 50 food} MG Fish Oil Fish Oil No Fish Oil Elderberry Elderberry No Elderberry Aspirin 81 Aspirin 81 No 1{table QD Aspirin 81 81 MG 81 MG t} 81 MG hydrALAZINE hydrALAZINE No hydrALAZIN HCl 50 MG HCl 50 MG E HCl 50 MG Fluticasone Fluticasone No Fluticason Propionate Propionate e Propionate Euthyrox 75 Euthyrox 75 No Euthyrox MCG MCG 75 MCG Meclizine Meclizine No 1{table QD Meclizine HCl 25 MG HCl 25 MG t_as_ne HCl 25 MG eded} Metoprolol Metoprolol No 1{table BID Metoprolol Tartrate 50 Tartrate 50 t_with_ Tartrate MG MG food} 50 MG metFORMIN metFORMIN No 1{table QD metFORMIN HCl 500 MG HCl 500 MG t_with_ HCl 500 MG a_meal} Vitamin D3 Vitamin D3 No Vitamin D3 Lisinopril- Lisinopril- No Lisinopril hydroCHLORO hydroCHLORO -hydroCHLO thiazide thiazide ROthiazide 20-12.5 MG 20-12.5 MG 20-12.5 MG Levothyroxi Levothyroxi No QD Levothyrox ne Sodium ne Sodium ine Sodium 75 MCG 75 MCG 75 MCG metFORMIN metFORMIN No metFORMIN HCl 500 MG HCl 500 MG HCl 500 MG Vitamin B12 Vitamin B12 No Vitamin B12 Simvastatin Simvastatin No 1{table QD Simvastati 10 MG 10 MG t_in_th n 10 MG e_eveni ng} Zinc Zinc No Zinc Simvastatin Simvastatin No Simvastati 10 MG 10 MG n 10 MG hydrALAZINE hydrALAZINE No 1{table BID hydrALAZIN HCl 50 MG HCl 50 MG t_with_ E HCl 50 food} MG Levothyroxi Levothyroxi No QD Levothyrox ne Sodium ne Sodium ine Sodium 75 MCG 75 MCG 75 MCG Metoprolol Metoprolol No 1{table BID Metoprolol Tartrate 50 Tartrate 50 t_with_ Tartrate MG MG food} 50 MG metFORMIN metFORMIN No 1{table QD metFORMIN HCl 500 MG HCl 500 MG t_with_ HCl 500 MG a_meal} Zinc Zinc No Zinc Euthyrox 75 Euthyrox 75 No Euthyrox MCG MCG 75 MCG hydrALAZINE hydrALAZINE No hydrALAZIN HCl 50 MG HCl 50 MG E HCl 50 MG Fish Oil Fish Oil No Fish Oil Fluticasone Fluticasone No Fluticason Propionate Propionate e Propionate Meclizine Meclizine No 1{table QD Meclizine HCl 25 MG HCl 25 MG t_as_ne HCl 25 MG eded} Elderberry Elderberry No Elderberry Vitamin B12 Vitamin B12 No Vitamin B12 Simvastatin Simvastatin No 1{table QD Simvastati 10 MG 10 MG t_in_th n 10 MG e_eveni ng} Aspirin 81 Aspirin 81 No 1{table QD Aspirin 81 81 MG 81 MG t} 81 MG Vitamin D3 Vitamin D3 No Vitamin D3 Simvastatin Simvastatin No Simvastati 10 MG 10 MG n 10 MG hydrALAZINE hydrALAZINE No 1{table BID hydrALAZIN HCl 50 MG HCl 50 MG t_with_ E HCl 50 food} MG Lisinopril- Lisinopril- No Lisinopril hydroCHLORO hydroCHLORO -hydroCHLO thiazide thiazide ROthiazide 20-12.5 MG 20-12.5 MG 20-12.5 MG metFORMIN metFORMIN No metFORMIN HCl 500 MG HCl 500 MG HCl 500 MG Levothyroxi Levothyroxi No QD Levothyrox ne Sodium ne Sodium ine Sodium 75 MCG 75 MCG 75 MCG Metoprolol Metoprolol No 1{table BID Metoprolol Tartrate 50 Tartrate 50 t_with_ Tartrate MG MG food} 50 MG metFORMIN metFORMIN No 1{table QD metFORMIN HCl 500 MG HCl 500 MG t_with_ HCl 500 MG a_meal} Zinc Zinc No Zinc Euthyrox 75 Euthyrox 75 No Euthyrox MCG MCG 75 MCG hydrALAZINE hydrALAZINE No hydrALAZIN HCl 50 MG HCl 50 MG E HCl 50 MG Fish Oil Fish Oil No Fish Oil Fluticasone Fluticasone No Fluticason Propionate Propionate e Propionate Meclizine Meclizine No 1{table QD Meclizine HCl 25 MG HCl 25 MG t_as_ne HCl 25 MG eded} Elderberry Elderberry No Elderberry Vitamin B12 Vitamin B12 No Vitamin B12 Simvastatin Simvastatin No 1{table QD Simvastati 10 MG 10 MG t_in_th n 10 MG e_eveni ng} Aspirin 81 Aspirin 81 No 1{table QD Aspirin 81 81 MG 81 MG t} 81 MG Levothyroxi Levothyroxi No QD Levothyrox ne Sodium ne Sodium ine Sodium 75 MCG 75 MCG 75 MCG Vitamin D3 Vitamin D3 No Vitamin D3 Simvastatin Simvastatin No Simvastati 10 MG 10 MG n 10 MG hydrALAZINE hydrALAZINE No 1{table BID hydrALAZIN HCl 50 MG HCl 50 MG t_with_ E HCl 50 food} MG Lisinopril- Lisinopril- No Lisinopril hydroCHLORO hydroCHLORO -hydroCHLO thiazide thiazide ROthiazide 20-12.5 MG 20-12.5 MG 20-12.5 MG metFORMIN metFORMIN No metFORMIN HCl 500 MG HCl 500 MG HCl 500 MG Metoprolol Metoprolol No 1{table BID Metoprolol Tartrate 50 Tartrate 50 t_with_ Tartrate MG MG food} 50 MG metFORMIN metFORMIN No 1{table QD metFORMIN HCl 500 MG HCl 500 MG t_with_ HCl 500 MG a_meal} Levothyroxi Levothyroxi No QD Levothyrox ne Sodium ne Sodium ine Sodium 75 MCG 75 MCG 75 MCG Metoprolol Metoprolol No 1{table BID Metoprolol Tartrate 50 Tartrate 50 t_with_ Tartrate MG MG food} 50 MG metFORMIN metFORMIN No 1{table QD metFORMIN HCl 500 MG HCl 500 MG t_with_ HCl 500 MG a_meal} Zinc Zinc No Zinc Euthyrox 75 Euthyrox 75 No Euthyrox MCG MCG 75 MCG hydrALAZINE hydrALAZINE No hydrALAZIN HCl 50 MG HCl 50 MG E HCl 50 MG Fish Oil Fish Oil No Fish Oil Fluticasone Fluticasone No Fluticason Propionate Propionate e Propionate Meclizine Meclizine No 1{table QD Meclizine HCl 25 MG HCl 25 MG t_as_ne HCl 25 MG eded} Elderberry Elderberry No Elderberry Vitamin B12 Vitamin B12 No Vitamin B12 Simvastatin Simvastatin No 1{table QD Simvastati 10 MG 10 MG t_in_th n 10 MG e_eveni ng} Aspirin 81 Aspirin 81 No 1{table QD Aspirin 81 81 MG 81 MG t} 81 MG Vitamin D3 Vitamin D3 No Vitamin D3 Simvastatin Simvastatin No Simvastati 10 MG 10 MG n 10 MG Zinc Zinc No Zinc hydrALAZINE hydrALAZINE No 1{table BID hydrALAZIN HCl 50 MG HCl 50 MG t_with_ E HCl 50 food} MG Lisinopril- Lisinopril- No Lisinopril hydroCHLORO hydroCHLORO -hydroCHLO thiazide thiazide ROthiazide 20-12.5 MG 20-12.5 MG 20-12.5 MG metFORMIN metFORMIN No metFORMIN HCl 500 MG HCl 500 MG HCl 500 MG Euthyrox 75 Euthyrox 75 No Euthyrox MCG MCG 75 MCG hydrALAZINE hydrALAZINE No hydrALAZIN HCl 50 MG HCl 50 MG E HCl 50 MG Fish Oil Fish Oil No Fish Oil metFORMIN metFORMIN No metFORMIN HCl 500 MG HCl 500 MG HCl 500 MG Fluticasone Fluticasone No Fluticason Propionate Propionate e Propionate Levothyroxi Levothyroxi No QD Levothyrox ne Sodium ne Sodium ine Sodium 75 MCG 75 MCG 75 MCG Aspirin 81 Aspirin 81 No 1{table QD Aspirin 81 81 MG 81 MG t} 81 MG Lisinopril- Lisinopril- No 2{table QD Lisinopril hydroCHLORO hydroCHLORO ts} -hydroCHLO thiazide thiazide ROthiazide 20-12.5 MG 20-12.5 MG 20-12.5 MG Simvastatin Simvastatin No Simvastati 10 MG 10 MG n 10 MG hydrALAZINE hydrALAZINE No 1{table BID hydrALAZIN HCl 50 MG HCl 50 MG t_with_ E HCl 50 food} MG Fluticasone Fluticasone No Fluticason Propionate Propionate e Propionate Lisinopril- Lisinopril- No Lisinopril hydroCHLORO hydroCHLORO -hydroCHLO thiazide thiazide ROthiazide 20-12.5 MG 20-12.5 MG 20-12.5 MG Vitamin B12 Vitamin B12 No Vitamin B12 Immunizations Ordered Immunization Filled Immunization Date Status Commen ts Source Name Name Flucelvax - single Flucelvax - single 2021-12-18 [facility]pleted [facility]:13:[facility] - [facility] Flucelvax - single Flucelvax - single 2021-12-18 Completed [facility] dose [facility] dose syringe 10:13:00 - [facility] Flucelvax - single Flucelvax - single 2021-12-18 Completed [facility] dose [facility] dose syringe 10:13:00 - [facility] Flucelvax - single Flucelvax - single 2021-12-18 Completed [facility] dose [facility] dose syringe 10:13:00 - [facility] Flucelvax - single Flucelvax - single 2021-12-18 Completed [facility] dose [facility] dose syringe 10:13:00 - [facility] Flucelvax - single Flucelvax - single 2021-12-18 Completed [facility] dose [facility] dose syringe 10:13:00 - [facility] Flucelvax - single Flucelvax - single 2021-12-18 Completed [facility] dose syringe dose syringe 10:13:00 - [facility] Flucelvax - single Flucelvax - single 2021-12-18 Completed [facility] dose syringe dose syringe 10:13:00 - [facility] Flucelvax - single Flucelvax - single 2021-12-18 Completed [facility] dose syringe dose syringe 10:13:00 - [facility] Flucelvax - single Flucelvax - single 2021-12-18 Completed [facility] dose syringe dose syringe 10:13:00 - [facility] Flucelvax - single Flucelvax - single 2021-12-18 Completed [facility] dose syringe dose syringe 10:13:00 - [facility] Flucelvax - single Flucelvax - single 2021-12-18 Completed [facility] dose syringe dose syringe 10:13:00 - [facility] Flucelvax - single Flucelvax - single 2021-12-18 Completed [facility] dose syringe dose syringe 10:13:00 - [facility] Flucelvax - single Flucelvax - single 2021-12-18 Completed [facility] dose syringe dose syringe 10:13:00 - [facility] FluAD FluAD 2020-01-04 Completed [facility] 09:49:00 - [facility] FluAD FluAD 2020-01-04 [facility] 09:49:00 - [facility] FluAD FluAD 2020-01-04 [facility] 09:49:00 - [facility] FluAD FluAD 2020-01-04 [facility]pleted [facility] 09:49:00 - [facility] FluAD FluAD 2020-01-04 Completed [facility] 09:49:00 - [facility] FluAD FluAD 2020-01-04 Completed [facility] 09:49:00 - [facility] FluAD FluAD 2020-01-04 Completed [facility] 09:49:00 - [facility] FluAD FluAD 2020-01-04 Completed [facility] 09:49:00 - [facility] FluAD FluAD 2020-01-04 Completed [facility] 09:49:00 - [facility] FluAD FluAD 2020-01-04 Completed [facility] 09:49:00 - [facility] FluAD FluAD 2020-01-04 Completed [facility] 09:49:00 - [facility] FluAD FluAD 2020-01-04 Completed [facility] 09:49:00 - [facility] FluAD FluAD 2020-01-04 Completed [facility] 09:49:00 - [facility] FluAD FluAD 2020-01-04 Completed [facility] 09:49:00 - [facility] FluAD FluAD 2020-01-04 Completed [facility] 09:49:00 - [facility] FluAD FluAD 2020-01-04 Completed [facility] 09:49:00 - [facility] FluAD FluAD 2020-01-04 Completed [facility] 09:49:00 - [facility] FluAD FluAD 2020-01-04 Completed [facility] 09:49:00 - [facility] FluAD FluAD 2020-01-04 Completed [facility] 09:49:00 - [facility] FluAD FluAD 2020-01-04 Completed [facility] 09:49:00 - [facility] FluAD FluAD 2020-01-04 Completed [facility] 09:49:00 - [facility] FluAD FluAD 2020-01-04 Completed [facility] 09:49:00 - [facility] FluAD FluAD 2020-01-04 Completed [facility] 09:49:00 - [facility] FluAD FluAD 2020-01-04 Completed [facility] 09:49:00 - [facility] FluAD FluAD 2020-01-04 Completed [facility] 09:49:00 - [facility] FluAD FluAD 2020-01-04 Completed [facility] 09:49:00 - [facility] FluAD FluAD 2020-01-04 Completed [facility] 09:49:00 - [facility] FluAD FluAD 2020-01-04 Completed [facility] 09:49:00 - [facility] FluAD FluAD 2020-01-04 Completed [facility] 09:49:00 - [facility] FluAD FluAD 2020-01-04 Completed [facility] 09:49:00 - [facility] FluAD FluAD 2020-01-04 Completed [facility] 09:49:00 - [facility] FluAD FluAD 2020-01-04 Completed [facility] 09:49:00 - [facility] FluAD FluAD 2020-01-04 Completed [facility] 09:49:00 - [facility] FluAD FluAD 2020-01-04 Completed [facility] 09:49:00 - [facility] FluAD FluAD 2020-01-04 Completed [facility] 09:49:00 - [facility] FluAD FluAD 2020-01-04 Completed [facility] 09:49:00 - [facility] FluAD FluAD 2020-01-04 Completed [facility] 09:49:00 - [facility] FluAD FluAD 2020-01-04 Completed [facility] 09:49:00 - [facility] LIDOCAINE HCL LIDOCAINE HCL 2018-09-09 Completed [facility] 10MG/ML 10MG/ML 14:37:00 - [facility] LIDOCAINE HCL LIDOCAINE HCL 2018-09-09 Completed [facility] 10MG/ML 10MG/ML 14:37:00 [facility] [place] LIDOCAINE HCL LIDOCAINE HCL 2018-09-09 Completed [facility] 10MG/ML 10MG/ML 14:37:00 [facility] [place] LIDOCAINE HCL LIDOCAINE HCL 2018-09-09 Completed [facility] 10MG/ML 10MG/ML 14:37:00 [facility] Hyalgan 20 mg Hyalgan 20 mg 2018-09-09 Completed [facility] 14:36:00 [facility] [place] Hyalgan 20 mg Hyalgan 20 mg 2018-09-09 Completed [facility] 14:36:00 [facility] [place] Hyalgan 20 mg Hyalgan 20 mg 2018-09-09 Completed [facility] 14:36:00 [facility] [place] Hyalgan 20 mg Hyalgan 20 mg 2018-09-09 Completed [facility] 14:36:00 [facility] [place] LIDOCAINE HCL LIDOCAINE HCL 2018-09-02 Completed [facility] 10MG/ML 10MG/ML 14:58:00 [facility] [place] LIDOCAINE HCL LIDOCAINE HCL 2018-09-02 Completed [facility] 10MG/ML 10MG/ML 14:58:00 [facility] [place] LIDOCAINE HCL LIDOCAINE HCL 2018-09-02 Completed [facility] 10MG/ML 10MG/ML 14:58:00 [facility] [place] LIDOCAINE HCL LIDOCAINE HCL 2018-09-02 Completed [facility] 10MG/ML 10MG/ML 14:58:00 [facility] [place] Hyalgan 20 mg Hyalgan 20 mg 2018-09-02 Completed [facility] 14:48:00 [facility] [place] Hyalgan 20 mg Hyalgan 20 mg 2018-09-02 Completed [facility] 14:48:00 [facility] Hyalgan 20 mg Hyalgan 20 mg 2018-09-02 Completed [facility] 14:47:00 [facility] Hyalgan 20 mg Hyalgan 20 mg 2018-09-02 Completed [facility] 14:47:00 [facility] [place] LIDOCAINE HCL LIDOCAINE HCL 2018-08-26 Completed [facility] 10MG/ML 10MG/ML 09:09: [facility] [place] LIDOCAINE HCL LIDOCAINE HCL 2018-08-26 Completed [facility] 10MG/ML 10MG/ML 09:: [facility] LIDOCAINE HCL LIDOCAINE HCL 2018-08-26 Completed [facility] 10MG/ML 10MG/ML 09:07: [facility] [place] LIDOCAINE HCL LIDOCAINE HCL 2018-08-26 Completed [facility] 10MG/ML 10MG/ML 09:07: [facility] Hyalgan 20 mg Hyalgan 20 mg 2018-08-26 Completed [facility] 09:04:00 [facility] Hyalgan 20 mg Hyalgan 20 mg 2018-08-26 Completed [facility] 09:04:00 [facility] Hyalgan 20 mg Hyalgan 20 mg 2018-08-26 Completed [facility] 09:02:00 [facility] Hyalgan 20 mg Hyalgan 20 mg 2018-08-26 Completed [facility] 09:02:00 [facility] [place] Bupivicaine Lamar Bupivicaine Lamar 2017-12-08 Completed [facility] 08:57:00 [facility] [place] Bupivicaine Lamar Bupivicaine Lamar 2017-12-08 Completed [facility] 08:57:00 [facility] [place] Bupivicaine Lamar Bupivicaine Lamar 2017-12-08 Completed [facility] 08:56:00 [facility] Depo Medrol (40mg) Depo Medrol (40mg) 2017-12-08 Completed [facility] 08:56:00 [facility] [place] Bupivicaine Lamar Bupivicaine Lamar 2017-12-08 Completed [facility] 08:56:00 [facility] Depo Medrol (40mg) Depo Medrol (40mg) 2017-12-08 Completed [facility] 08:56:00 [facility] Depo Medrol (40mg) Depo Medrol (40mg) 2017-12-08 Completed [facility] 08:55:00 [facility] [place] Depo Medrol (40mg) Depo Medrol (40mg) 2017-12-08 Completed [facility] 08:55:00 [facility] Vital Signs Vital Name Observation Time Observation Value Comments Source height 2022-03-19 10:40:00 60.5 [in_i] Common [facility] weight 2022-03-19 10:40:00 220.5 [lb_av] [facility] temperature 2022-03-19 10:40:00 97.5 [degF] Common [facility] bmi 2022-03-19 10:40:00 42.35 kg/m2 [facility] S [facility] oximetry 2022-03-19 10:40:00 97 % [facility] respiratory rate 2022-03-19 10:40:00 18 /min Comm on [facility] blood pressure 2022-03-19 10:40:00 138 mm[Hg] Common [facility] - systolic [facility] blood pressure 2022-03-19 10:40:00 72 mm[Hg] Common [facility] - diastolic [facility] height 2021-12-31 10:30:00 60.5 [in_i] Common [facility] weight 2021-12-31 10:30:00 220 [lb_av] [facility] temperature 2021-12-31 10:30:00 97.2 [degF] [facility] bmi 2021-12-31 10:30:00 42.25 kg/m2 [facility] blood pressure 2021-12-31 10:30:00 126 mm[Hg] [facility] - systolic [facility] blood pressure 2021-12-31 10:30:00 74 mm[Hg] [facility] - diastolic [facility] height 2021-12-18 09:00:00 60.5 [in_i] Common [facility] weight 2021-12-18 09:00:00 216 [lb_av] [facility] temperature 2021-12-18 09:00:00 97.5 [degF] [facility] bmi 2021-12-18 09:00:00 41.49 kg/m2 Common [facility] oximetry 2021-12-18 09:00:00 96 % Common S [facility] respiratory rate 2021-12-18 09:00:00 16 /min Comm on [facility] blood pressure 2021-12-18 09:00:00 124 mm[Hg] Common [facility] - systolic [facility] blood pressure 2021-12-18 09:00:00 60 mm[Hg] Common [facility] - diastolic [facility] height 2021-12-18 09:00:00 60 [in_i] Common [facility] weight 2021-12-18 09:00:00 216 [lb_av] [facility] temperature 2021-12-18 09:00:00 97.5 [degF] Common [facility] bmi 2021-12-18 09:00:00 42.18 kg/m2 Common [facility] oximetry 2021-12-18 09:00:00 96 % Common [facility] respiratory rate 2021-12-18 09:00:00 16 /min Comm on [facility] blood pressure 2021-12-18 09:00:00 124 mm[Hg] Common [facility] - systolic [facility] blood pressure 2021-12-18 09:00:00 60 mm[Hg] Common [facility] - diastolic [facility] height 2021-08-26 10:20:00 60 [in_i] Common S [facility] weight 2021-08-26 10:20:00 211.2 [lb_av] Common [facility] temperature 2021-08-26 10:20:00 97.5 [degF] [facility] bmi 2021-08-26 10:20:00 41.24 kg/m2 Common [facility] oximetry 2021-08-26 10:20:00 94 % [facility] respiratory rate 2021-08-26 10:20:00 17 /min Comm on [facility] blood pressure 2021-08-26 10:20:00 139 mm[Hg] Common [facility] - systolic [facility] blood pressure 2021-08-26 10:20:00 63 mm[Hg] Common [facility] - diastolic [facility] height 2021-07-04 10:00:00 60 [in_i] [facility] weight 2021-07-04 10:00:00 224.2 [lb_av] Common [facility] temperature 2021-07-04 10:00:00 97.5 [degF] Common [facility] bmi 2021-07-04 10:00:00 43.78 kg/m2 [facility] oximetry 2021-07-04 10:00:00 95 % Common [facility] respiratory rate 2021-07-04 10:00:00 17 /min Comm on [facility] blood pressure 2021-07-04 10:00:00 135 mm[Hg] Common [facility] - systolic [facility] blood pressure 2021-07-04 10:00:00 70 mm[Hg] Common [facility] - diastolic [facility] height 2021-05-27 08:50:00 60 [in_i] Common [facility] weight 2021-05-27 08:50:00 221 [lb_av] [facility] temperature 2021-05-27 08:50:00 97.5 [degF] [facility] bmi 2021-05-27 08:50:00 43.16 kg/m2 Common S [facility] oximetry 2021-05-27 08:50:00 96 % Common S [facility] respiratory rate 2021-05-27 08:50:00 18 /min Comm on [facility] blood pressure 2021-05-27 08:50:00 113 mm[Hg] [facility] - systolic [facility] blood pressure 2021-05-27 08:50:00 55 mm[Hg] [facility] - diastolic [facility] height 2021-05-21 10:00:00 60 [in_i] [facility] - [facility] weight 2021-05-21 10:00:00 220 [lb_av] [facility] - [facility] bmi 2021-05-21 10:00:00 42.96 kg/m2 [facility] - [facility] blood pressure 2021-05-21 10:00:00 137 mm[Hg] [facility] - systolic [facility] blood pressure 2021-05-21 10:00:00 85 mm[Hg] [facility] - diastolic [facility] height 2021-02-25 10:40:00 60 [in_i] [facility] weight 2021-02-25 10:40:00 224.0 [lb_av] [facility] temperature 2021-02-25 10:40:00 97.9 [degF] [facility] bmi 2021-02-25 10:40:00 43.74 kg/m2 [facility] S pirit [facility] oximetry 2021-02-25 10:40:00 97 % [facility] S pirit [facility] respiratory rate 2021-02-25 10:40:00 18 /min Comm on [facility] blood pressure 2021-02-25 10:40:00 148 mm[Hg] [facility] - systolic [facility] blood pressure 2021-02-25 10:40:00 85 mm[Hg] [facility] - diastolic [facility] height 2021-02-18 09:00:00 60 [in_i] [facility] weight 2021-02-18 09:00:00 221.4 [lb_av] [facility] temperature 2021-02-18 09:00:00 97.5 [degF] [facility] - [facility] bmi 2021-02-18 09:00:00 43.23 kg/m2 Common [facility] - [facility] blood pressure 2021-02-18 09:00:00 174 mm[Hg] [facility] - systolic [facility] blood pressure 2021-02-18 09:00:00 82 mm[Hg] [facility] - diastolic [facility] height 2021-01-16 11:00:00 60 [in_i] Common [facility] weight 2021-01-16 11:00:00 216.3 [lb_av] Common [facility] - [facility] temperature 2021-01-16 11:00:00 97.5 [degF] Common [facility] bmi 2021-01-16 11:00:00 42.24 kg/m2 [facility] oximetry 2021-01-16 11:00:00 95 % [facility] respiratory rate 2021-01-16 11:00:00 19 /min Comm on [facility] - [facility] blood pressure 2021-01-16 11:00:00 159 mm[Hg] [facility] - systolic [facility] blood pressure 2021-01-16 11:00:00 85 mm[Hg] Common [facility] - diastolic [facility] height 2021-01-08 11:00:00 60 [in_i] [facility] weight 2021-01-08 11:00:00 214 [lb_av] [facility] bmi 2021-01-08 11:00:00 41.79 kg/m2 [facility] blood pressure 2021-01-08 11:00:00 182 mm[Hg] Common [facility] - systolic [facility] blood pressure 2021-01-08 11:00:00 92 mm[Hg] Common [facility] diastolic [facility] Procedures This patient has no known procedures. Encounters Start End Encounter Admission Attending Care Care Encounter Source Date/Time Date/Time Type Type Clinicians Facility Department ID 2022-03-17 Outpatient Jones, [facility] [id number] Common 13:26:01 Patricio [facility] 2021-12-17 Outpatient Jones, STLMLC STLMLC [id number] Common 10:38:00 Patricio [facility] 2021-12-16 Outpatient Jones, STLMLC STLMLC [id number] Common 14:18:01 Patricio [facility] 2021-11-25 Outpatient Jones, STLMLC STLMLC [id number] Common 14:26:00 Patricio [facility] 2021-11-20 Outpatient Jones, STLMLC STLMLC [id number] Common 10:08:00 Patricio [facility] 2021-11-13 Outpatient Jones, STLMLC STLMLC [id number] Common 16:42:00 Patricio [facility] 2021-11-11 Outpatient Jones, STLMLC STLMLC [id number] Common 16:26:00 Patricio [facility] 2021-07-04 Outpatient Jones, STLMLC STLMLC [id number] Common 09:55:00 Patriico [facility] 2021-05-27 Outpatient Jones, STLMLC STLMLC [id number] Common 08:55:00 Patricio [facility] 2021-05-01 Outpatient Jones, STLMLC STLMLC [id number] Common 14:37:08 Patricio [facility] 2021-05-01 Outpatient Jones, STLMLC STLMLC [id number] Common 14:28:55 Patricio [facility] 2021-05-01 Outpatient Jones, STLMLC STLMLC [id number] Common 14:18:36 Patricio [id number] [facility] 2021-05-01 Outpatient Jones, STLMLC STLMLC [id number] Common 14:00:23 Patricio [id number] [facility] 2021-05-01 Outpatient Jones, STLMLC STLMLC [id number] Common 13:57:45 Patricio [facility] 2021-05-01 Outpatient Jones, STLMLC STLMLC [id number] Common 13:34:28 Patricio [id number] [facility] 2021-05-01 Outpatient Jones, STLMLC STLMLC [id number] Common 13:29:12 Patricio [id number] [facility] 2021-05-01 Outpatient Jones, STLMLC STLMLC [id number] Common 12:57:31 Patricio [id number] [facility] 2021-05-01 Outpatient STLMLC STLMLC [id number] Common 12:54:35 [id number] [facility] 2021-05-01 Outpatient STLMLC STLMLC [id number] Common 12:49:25 [id number] [facility] 2021-05-01 Outpatient STLMLC STLMLC [id number] Common 12:48:28 [id number] [facility] 2021-05-01 Outpatient STLMLC STLMLC [id number] Common 12:08:39 [id number] [facility] 2022-05-05 2022-05-05 (TEL) STLMLC STLMLC [id number] Co mmon 00:00:00 00:00:00 [facility] 2022-04-23 2022-04-23 (TEL) STLMLC STLMLC [id number] Co mmon 00:00:00 00:00:00 [facility] 2022-03-24 2022-03-24 (TEL) STLMLC STLMLC [id number] Co mmon 00:00:00 00:00:00 [facility] 2022-03-21 2022-03-21 (TEL) STLMLC STLMLC [id number] Co mmon 00:00:00 00:00:00 [facility] 2022-03-21 2022-03-21 (TEL) STLMLC STLMLC [id number] Co mmon 00:00:00 00:00:00 [facility] 2022-03-19 2022-03-19 OFFICE STLMLC STLMLC [id number] Co mmon 00:00:00 00:00:00 VISIT [facility] PT - CHI LEVEL 4 [facility] 2022-01-06 2022-01-06 (TEL) STLMLC STLMLC [id number] Co mmon 00:00:00 00:00:00 [facility] 2021-12-31 2021-12-31 OFFICE STLMLC STLMLC [id number] Co mmon 00:00:00 00:00:00 VISIT [facility] PT - CHI LEVEL 4 [facility] 2021-12-25 2021-12-25 (TEL) STLMLC STLMLC [id number] Co mmon 00:00:00 00:00:00 [facility] 2021-12-18 2021-12-18 OFFICE STLMLC STLMLC [id number] Co mmon 00:00:00 00:00:00 VISIT [facility] PT - CHI LEVEL 4 [facility] 2021-12-18 2021-12-18 SUB ANNUAL STLMLC STLMLC [id number] Common 00:00:00 00:00:00 MCR [facility] VISIT [facility] 2021-12-05 2021-12-05 (TEL) STLMLC STLMLC [id number] Co mmon 00:00:00 00:00:00 [facility] 2021-12-02 2021-12-02 (TEL) STLMLC STLMLC [id number] Co mmon 00:00:00 00:00:00 [facility] 2021-11-25 2021-11-25 (TEL) STLMLC STLMLC [id number] Co mmon 00:00:00 00:00:00 [facility] 2021-11-19 2021-11-19 (TEL) STLMLC STLMLC [id number] Co mmon 00:00:00 00:00:00 [facility] 2021-11-11 2021-11-11 (TEL) STLMLC STLMLC [id number] Co mmon 00:00:00 00:00:00 [facility] 2021-09-25 2021-09-25 (TEL) STLMLC STLMLC [id number] Co mmon 00:00:00 00:00:00 [facility] 2021-08-26 2021-08-26 OFFICE STLMLC STLMLC [id number] Co mmon 00:00:00 00:00:00 [facility] - CHI LEVEL 4 [facility] 2021-08-20 2021-08-20 (TEL) STLMLC STLMLC [id number] Co mmon 00:00:00 00:00:00 [facility] 2021-07-08 2021-07-08 (TEL) STLMLC STLMLC [id number] Co mmon 00:00:00 00:00:00 [facility] 2021-07-04 2021-07-04 OFFICE STLMLC STLMLC [id number] Co mmon 00:00:00 00:00:00 VISIT [facility] PT - CHI LEVEL 4 [facility] 2021-07-03 2021-07-03 (TEL) STLMLC STLMLC [id number] Co mmon 00:00:00 00:00:00 [facility] 2021-06-27 2021-06-27 (TEL) STLMLC STLMLC [id number] Co mmon 00:00:00 00:00:00 [facility] 2021-06-12 2021-06-12 (TEL) STLMLC STLMLC [id number] Co mmon 00:00:00 00:00:00 [facility] 2021-05-27 2021-05-27 OFFICE STLMLC STLMLC [id number] Co mmon 00:00:00 00:00:00 VISIT [facility] ESTAB PT - CHI LEVEL 4 [facility] 2021-05-21 2021-05-21 OFFICE STLMLC STLMLC [id number] Co mmon 00:00:00 00:00:00 VISIT [facility] ESTAB PT - CHI LEVEL 4 [facility] 2021-04-23 2021-04-23 (TEL) STLMLC STLMLC [id number] Co mmon 00:00:00 00:00:00 [facility] 2021-04-02 2021-04-02 (TEL) STLMLC STLMLC [id number] Co mmon 00:00:00 00:00:00 [facility] 2021-03-21 2021-03-21 (TEL) STLMLC STLMLC [id number] Co mmon 00:00:00 00:00:00 [facility] 2021-03-18 2021-03-18 (TEL) STLMLC STLMLC [id number] Co mmon 00:00:00 00:00:00 [facility] 2021-02-25 2021-02-25 OFFICE STLMLC STLMLC [id number] Co mmon 00:00:00 00:00:00 VISIT [facility] PT - CHI LEVEL 4 [facility] 2021-02-25 2021-02-25 (TEL) STLMLC STLMLC [id number] Co mmon 00:00:00 00:00:00 [facility] 2021-02-18 2021-02-18 OFFICE STLMLC STLMLC [id number] Co mmon 00:00:00 00:00:00 VISIT [facility] PT - CHI LEVEL 4 [facility] 2021-02-04 2021-02-04 (TEL) STLMLC STLMLC [id number] Co mmon 00:00:00 00:00:00 [facility] 2021-01-16 2021-01-16 OFFICE STLMLC STLMLC [id number] Co mmon 00:00:00 00:00:00 VISIT [facility] PT - CHI LEVEL 4 [facility] 2021-01-08 2021-01-08 Postop STLMLC STLMLC [id number] Co mmon 00:00:00 00:00:00 visit [facility] 2020-12-26 2020-12-26 Outpatient STLMLC STLMLC [id number] Common 00:00:00 00:00:00 [facility] 2020-11-26 2020-11-26 Outpatient STLMLC STL[facility]C [id number] Common 00:00:00 00:00:00 [facility] 2020-11-08 2020-11-08 Outpatient STLMLC STLMLC [id number] Common 00:00:00 00:00:00 [facility] 2020-11-08 2020-11-08 Outpatient STLMLC STLMLC [id number] Common 00:00:00 00:00:00 [facility] 2020-10-25 2020-10-25 Outpatient STLMLC STLMLC [id number] Common 00:00:00 00:00:00 [facility] 2020-10-25 2020-10-25 Outpatient STLMLC STLMLC [id number] Common 00:00:00 00:00:00 [facility] 2020-10-17 2020-10-17 Outpatient STLMLC STLMLC [id number] Common 00:00:00 00:00:00 [facility] 2020-10-11 2020-10-11 Outpatient STLMLC STL[facility]C [id number] Common 00:00:00 00:00:00 [facility] 2020-10-05 2020-10-05 Outpatient STLMLC STLMLC [id number] Common 00:00:00 00:00:00 [facility] 2020-10-04 2020-10-04 Outpatient STLMLC STLMLC [id number] Common 00:00:00 00:00:00 [facility] 2020-09-25 2020-09-25 Outpatient STLMLC STL[facility]C [id number] Common 00:00:00 00:00:00 [facility] 2020-09-05 2020-09-05 Outpatient STLMLC STLMLC [id number] Common 00:00:00 00:00:00 [facility] 2020-08-14 2020-08-14 Outpatient STLMLC STLMLC [id number] Common 00:00:00 00:00:00 [facility] 2020-08-10 2020-08-10 Outpatient STLMLC STLMLC [id number] Common 00:00:00 00:00:00 [facility] 2020-08-08 2020-08-08 Outpatient STLMLC STLMLC [id number] Common 00:00:00 00:00:00 [facility] 2020-08-02 2020-08-02 Outpatient STLMLC STLMLC [id number] Common 00:00:00 00:00:00 [facility] 2020-07-30 2020-07-30 Outpatient STLMLC STLMLC [id number] Common 00:00:00 00:00:00 [facility] 2020-05-31 2020-05-31 Outpatient STLMLC STLMLC [id number] Common 00:00:00 00:00:00 [facility] 2020-05-14 2020-05-14 Outpatient STLMLC STLMLC [id number] Common 00:00:00 00:00:00 [facility] 2020-05-04 2020-05-04 Outpatient STLMLC STLMLC [id number] Common 00:00:00 00:00:00 [facility] 2020-04-30 2020-04-30 Outpatient STLMLC STLMLC [id number] Common 00:00:00 00:00:00 [facility] 2020-04-24 2020-04-24 Outpatient STLMLC STLMLC [id number] Common 00:00:00 00:00:00 [facility] 2020-04-19 2020-04-19 Outpatient STLMLC STLMLC [id number] Common 00:00:00 00:00:00 [facility] 2020-03-22 2020-03-22 Outpatient STLMLC STLMLC [id number] Common 00:00:00 00:00:00 [facility] 2020-03-22 2020-03-22 Outpatient STLMLC STLMLC [id number] Common 00:00:00 00:00:00 [facility] 2020-03-09 2020-03-09 Outpatient STLMLC STLMLC [id number] Common 00:00:00 00:00:00 [facility] 2020-02-28 2020-02-28 Outpatient STLMLC STLMLC [id number] Common 00:00:00 00:00:00 [facility] 2020-01-12 2020-01-12 Outpatient STLMLC STLC [id number] Common 00:00:00 00:00:00 [facility] 2019-08-23 2019-08-23 [facility] [id number] Common 13:26:00 13:26:00 [facility] 2019-06-15 2019-06-15 [facility] [id number] Common 12:32:00 12:32:00 [facility] 2019-05-19 2019-05-19 [facility] [id number] Common 11:00:00 11:00:00 [facility] 2018-07-27 2018-07-27 [facility] [id number] Common 10:00:00 10:00:00 [facility] 2017-12-08 2017-12-08 [facility] [id number] Common 08:30:00 08:30:00 t [facility] 2017-11-30 2017-11-30 [facility] [id number] Common 09:30:00 09:30:00 t [facility] Results Test Description Test Time Test Comments Results Result Comments Source HEMOGLOBIN A1C 2021-08-26 00:00:00 Test Item Value Reference Range Interpretation Comme nts A1C (test code = 4548-4) 5.7
[2022-05-10] MEDS ORDERED: MORPHINE 2 MG/ML SYR ONE (16:35)
[2022-05-10 16:54] LABS: Absolute Lymphocytes (CBC) 1.7 K/uL (0.7-4.9); Lymphocytes % 31.1 % (15.3-44.8); MCV 89.6 fL (80-100); MPV 8.9 fL (7.6-11.3); Protime INR 1.01; RBC Red Blood Cell Count 4.36 M/uL (3.86-4.86)
[2022-05-10 16:58] LABS: C-Reactive Protein 9.56 mg/L (<3.00); Potassium 3.5 mmol/L (3.5-5.1); Uric Acid 7.1 mg/dL (2.6-6.0)
--- NOTE | 2022-05-10 17:09 | RAD REPORT ---
EXAM DESCRIPTION: USExtremity Venous Uni Ltd05/10/2022 4:58 pm CLINICAL HISTORY: left leg pain COMPARISON: 2021 FINDINGS: Left common femoral, superficial femoral, greater saphenous, popliteal and posterior tibi al veins are compressible and demonstrate augmentation. Doppler demonstrates good flow. Grayscale, color and spectral analysis performed on all vessels IMPRESSION: No evidence of deep venous thrombosis involving the left lower extremity.
[2022-05-10] MEDS ORDERED: KETOROLAC 30 MG/ML INJ ONE (17:11)
[2022-05-10] MEDS ORDERED: LIDOCAINE 1% MPF 30 ML VIAL ONE (17:20)
--- NOTE | 2022-05-10 18:21 | RAD REPORT ---
EXAM DESCRIPTION: RAD - Ankle Left 3 View -05/10/2022 5:58 pm CLINICAL HISTORY: Left ankle pain FINDINGS: No fracture or dislocation is seen. Mild joint space narrowing. Soft tissue swelling. Large calcaneal spurs. Calcification distal aspect Achilles tendon
[2022-05-10 18:28] LABS: Appearance VERY TURBID (CLEAR); Body Fluid Source SYNOVIAL; Color of fluid Red (COLORLESS)
[2022-05-10 19:05] LABS: Body Fluid WBC 338 /mm^3
--- NOTE | 2022-05-10 19:54 | EDPHYS ---
Physician Documentation [facility] Name: Josette Pimentel Age: 71 yrs Sex: Female : 1950 Arrival Date: 05/10/2022 Time: 15:58 Bed 7 Private MD: Patricio Jones ED Physician Alex Mae HPI: 05/10 16:25 This 71 yrs old Female presents to ER via Wheelchair with complaints of Leg cp Swelling. 16:25 The patient presents with pain, that is acute, swelling, tenderness. The complaints cp affect the left ankle and left lower leg. Context: resulted from an unknown cause, the patient can partially bear weight, the patient is able to ambulate, with moderate difficulty, Problem is a result from a previous injury: No. Onset: The symptoms/episode began/occurred today, 5 hour(s) ago. Modifying factors: the symptoms are aggravated by movement, weight bearing. 16:25 Associated signs and symptoms: Pertinent positives: swelling, warmth, Pertinent cp negatives fever, numbness. Treatment prior to arrival includes: no previous treatment. Historical: - Allergies: 16:05 Bees; hb - PMHx: 16:05 Diabetes - NIDDM; Hypercholesterolemia; Hypertension; hb - PSHx: 16:05 left knee; right knee; Tonsillectomy; tubal ligation; hb - Immunization history:: Adult Immunizations up to date. - Social history:: Smoking status: Patient denies any tobacco usage or history of. ROS: 16:30 Constitutional: Negative for body aches, chills, fever, poor PO intake. cp 16:30 Eyes: Negative for injury, pain, redness, and discharge. cp 16:30 Cardiovascular: Negative for chest pain, edema, palpitations. 16:30 Respiratory: Negative for cough, shortness of breath, wheezing. 16:30 Abdomen/GI: Negative for abdominal pain, nausea, vomiting, and diarrhea. 16:30 Back: Negative for pain at rest, pain with movement. 16:30 MS/extremity: Positive for pain, swelling, tenderness, warmth, of the left lower leg and left ankle, Negative for injury or acute deformity, paresthesias. 16:30 Neuro: Negative for altered mental status, headache, weakness. 16:30 All other systems are negative. Exam: 16:35 Constitutional: The patient appears in no acute distress, alert, awake, non-toxic, well cp developed, well nourished, overweight 16:35 Head/Face: Normocephalic, atraumatic. cp 16:35 Eyes: Periorbital structures: appear normal, Conjunctiva: normal, no exudate, no injection, Sclera: no appreciated abnormality, Lids and lashes: appear normal, bilaterally. 16:35 ENT: External ear(s): are unremarkable, Nose: is normal, Mouth: Lips: moist, Oral mucosa: moist, Posterior pharynx: Airway: no evidence of obstruction, patent. 16:35 Chest/axilla: Inspection: normal. 16:35 Cardiovascular: Rate: normal, Rhythm: regular, Pulses: Pulses are 2+ in left dorsalis pedis artery. Edema: is not appreciated, JVD: is not appreciated. 16:35 Respiratory: the patient does not display signs of respiratory distress, Respirations: normal, no use of accessory muscles, no retractions, labored breathing, is not present, Breath sounds: are clear throughout, no decreased breath sounds, no stridor, no wheezing. 16:35 Abdomen/GI: Exam negative for discomfort, distension, guarding, Inspection: abdomen appears normal. 16:35 Back: pain, is absent, ROM is normal. 16:35 Musculoskeletal/extremity: Extremities: grossly normal except: noted in the left ankle: pain, swelling, tenderness, overlying skin with mild erythema, ROM: limited passive range of motion due to pain, in the left ankle. Vital Signs: 16:02 BP 172 / 52; Pulse 71; Resp 18; Temp 97.2; Pulse Ox 98% on R/A; Weight 99.79 kg; Height hb 5 ft. 1 in. (154.94 cm); Pain 4/10; 17:04 BP 154 / 54; Pulse 64; Resp 17; Pulse Ox 97% on R/A; ll1 17:32 BP 155 / 62; Pulse 66; Pulse Ox 97% on R/A; ll1 18:15 BP 164 / 60; Pulse 63; Resp 17; Pulse Ox 97% ; ll1 19:46 BP 160 / 66; Pulse 62; Resp 18 S; Pulse Ox 96% on R/A; as6 20:02 BP 150 / 67; Pulse 63; Resp 17; Temp 97.1; Pulse Ox 98% on R/A; Pain 0/10; ke1 16:02 Body Mass Index 41.57 (99.79 kg, 154.94 cm) hb Procedures: 17:31 Joint Treatment: Aspiration of left ankle using 27g needle aspiration. Removed yellow rn fluid, bloody fluid, Specimen sent to lab. Dressed with band aid, Patient tolerated well. of left ankle Used bedside ultrasound guidance technique, anesthesia with 1 cc lidocaine without epi, 2 cc joint fluid aspirated, bloody, sent to lab, tolerated well. . MDM: 16:06 Patient medically screened. cp 19:52 Data reviewed: vital signs, nurses notes, lab test result(s), radiologic studies, plain cp films, ultrasound. 19:52 Differential diagnosis: septic joint, gout, inflammatory joint, cellulitis, fracture. cp Consideration of Admission/Observation Escalation of care including admission/observation considered. I considered the following discharge prescriptions or medication management in the emergency department Medications were administered in the Emergency Department. See MAR. Test considered but Not performed: CT: lower extremity. Care significantly affected by the following chronic conditions: Diabetes, Hypertension. Response to treatment: the patient's symptoms have markedly improved after treatment, and as a result, I will discharge patient. 05/10 16:19 Order name: CBC with Diff; Complete Time: 16:59 cp 05/10 17:00 Interpretation: Normal except: PLT 133; RDW 15.3. cp 05/10 16:19 Order name: BMP; Complete Time: 16:59 cp /04 17:00 Interpretation: Normal except: NA 134; GLUC 147; BUN 23; GFR 59. cp /04 16:19 Order name: PT-INR; Complete Time: 16:59 cp 02/04 16:19 Order name: CRP; Complete Time: 16:59 cp /04 17:00 Interpretation: Abnormal: C-REACTIVE PROT 9.56. cp / 16:19 Order name: Uric Acid; Complete Time: 16:59 cp /04 19:51 Interpretation: Abnormal: URIC 7.1. cp / 17:31 Order name: Fluid Cell Count,Body; Complete Time: 19:50 rn 05/10 19:50 Interpretation: Normal except: FLUID COLOR Red; APPEAR VERY TURBID. cp / 16:19 Order name: US Extremity Venous Unilateral Ltd; Complete Time: 17:34 cp 05/10 16:19 Order name: IV; Complete Time: 16:20 cp 05/10 16:20 Order name: XRAY Ankle LEFT 3 view; Complete Time: 18:53 cp 05/10 18:53 Interpretation: Report reviewed. cp 05/10 17:31 Order name: Fluid Crystals; Complete Time: 18:53 rn 05/10 17:31 Order name: Body Fluid Culture rn 05/10 20:08 Order name: Crutches; Complete Time: 20:10 ke1 Administered Medications: 16:37 Drug: morphine 2 mg {Note: pain 4/10, rass 0.} Route: IVP; Infused Over: 4 mins; Site: ll1 right antecubital; 17:32 Follow up: Response: No adverse reaction; RASS: Alert and Calm (0) ll1 17:10 Drug: Ketorolac 15 mg Route: IVP; Site: right antecubital; ll1 20:08 Drug: SOLU-Medrol (methylPrednisoLONE) 80 mg Route: IVP; Site: right hand; ke1 20:19 Follow up: Response: No adverse reaction ke1 Disposition Summary: 05/10/22 19:53 Discharge Ordered Location: Home cp Problem: new cp Symptoms: have improved cp Condition: Stable cp Diagnosis - Pain in joint - left ankle cp Followup: cp - With: Private Physician - When: 2 - 3 days - Reason: Recheck today's complaints Discharge Instructions: - Discharge Summary Sheet cp - Ankle Pain cp Forms: - Medication Reconciliation Form cp - Thank You Letter cp - Antibiotic Education cp - Prescription Opioid Use cp Prescriptions: - Mobic 7.5 mg Oral Tablet - take 1 tablet by ORAL route once daily take with food; 20 tablet; Refills: 0, cp Product Selection Permitted - Tramadol 50 mg Oral Tablet - take 1 tablet by ORAL route every 8 hours as needed; 12 tablet; Refills: 0, cp Product Selection Permitted - Medrol (Abilio) 4 mg Oral Tablets, Dose Pack - take 1 tablet by ORAL route as directed - follow package instructions; 1 cp packet; Refills: 0, Product Selection Permitted Signatures: Dispatcher [employer] EDAlex Mancilla MD MD rn Attema, Lee, SOFÍA-C AUDIOVISUAL PRODUCTION SPECIALIST-Cla1 Jc Carver PA PA cp Megha Witt RN RN Tayla Cardona RN RN ll1 Sal Pelaez RN RN ke1 Corrections: (The following items were deleted from the chart) 05/11 20:04 05/10 19:52 Differential diagnosis: septic joint, gout, inflammatory joint cp cp
--- NOTE | 2022-05-10 19:54 | ER ---
Nurse's Notes [facility] Name: Josette Pimentel Age: 71 yrs Sex: Female : 1950 Arrival Date: 05/10/2022 Time: 15:58 Bed 7 Private MD: Patricio Jones Diagnosis: Pain in joint-left ankle Presentation: 05/10 16:02 Chief complaint: Left lower leg swelling and pain x 3 hours. Denies injury. Coronavirus hb screen: At this time, the client does not indicate any symptoms associated with coronavirus-19. Ebola Screen: No symptoms or risks identified at this time. Initial Sepsis Screen: Does the patient meet any 2 criteria? No. Patient's initial sepsis screen is negative. Does the patient have a suspected source of infection? No. Patient's initial sepsis screen is negative. Risk Assessment: Do you want to hurt yourself or someone else? Patient reports no desire to harm self or others. Onset of symptoms was May 10, 2022. 16:02 Method Of Arrival: Wheelchair hb 16:02 Acuity: BARAK 3 hb Historical: - Allergies: 16:05 Bees; hb - PMHx: 16:05 Diabetes - NIDDM; Hypercholesterolemia; Hypertension; hb - PSHx: 16:05 left knee; right knee; Tonsillectomy; tubal ligation; hb - Immunization history:: Adult Immunizations up to date. - Social history:: Smoking status: Patient denies any tobacco usage or history of. Screenin:05 Abuse screen: Denies threats or abuse. Nutritional screening: No deficits noted. ll1 Tuberculosis screening: No symptoms or risk factors identified. 17:06 [facility] ED Fall Risk Assessment (Adult) Impaired Gait Yes (1 pt) Score/Fall Risk Level ll1 0 - 2 = Low Risk Oriented to surroundings, Maintained a safe environment, Educated pt \T\ family on fall prevention, incl call for assistance when getting out of bed, Hourly rounding (assess needs \T\ fall precautionary measures) done. Assessment: 16:35 General: Appears uncomfortable, Behavior is calm, cooperative, appropriate for age. ll1 Pain: Complains of pain in left foot Quality of pain is described as aching. Neuro: No deficits noted. Cardiovascular: No deficits noted. Musculoskeletal: Circulation, motion, and sensation intact. Capillary refill < 3 seconds, Reports pain in left leg. 17:31 Reassessment: No changes from previously documented assessment. tolerated needle ll1 aspiration well. 18:06 Reassessment: No changes from previously documented assessment. Patient and/or family ll1 updated on plan of care and expected duration. Pain level reassessed. Patient is alert, oriented x 3, equal unlabored respirations, skin warm/dry/pink. 19:46 General: pt and family updated on awaiting lab results. pt c/o intermittent sharp pain as6 to left ankle . Vital Signs: 16:02 BP 172 / 52; Pulse 71; Resp 18; Temp 97.2; Pulse Ox 98% on R/A; Weight 99.79 kg; Height hb 5 ft. 1 in. (154.94 cm); Pain 4/10; 17:04 BP 154 / 54; Pulse 64; Resp 17; Pulse Ox 97% on R/A; ll1 17:32 BP 155 / 62; Pulse 66; Pulse Ox 97% on R/A; ll1 18:15 BP 164 / 60; Pulse 63; Resp 17; Pulse Ox 97% ; ll1 19:46 BP 160 / 66; Pulse 62; Resp 18 S; Pulse Ox 96% on R/A; as6 20:02 BP 150 / 67; Pulse 63; Resp 17; Temp 97.1; Pulse Ox 98% on R/A; Pain 0/10; ke1 16:02 Body Mass Index 41.57 (99.79 kg, 154.94 cm) hb ED Course: 15:58 Patient arrived in ED. am2 15:58 Patricio Jones DO is Private Physician. am2 16:00 Jc Carver PA is PHCP. cp 16:00 Alex Mae MD is Attending Physician. cp 16:05 Triage completed. hb 16:05 Arm band placed on. hb 16:16 Tayla Cardona, JAYLIN is Primary Nurse. ll1 16:16 Patient placed in an exam room, on a stretcher. ll1 16:44 Inserted saline lock: 22 gauge in right hand, using aseptic technique. Blood collected. ll1 17:00 US Extremity Venous Unilateral Ltd In Process Unspecified. EDMS 17:05 Patient has correct armband on for positive identification. Bed in low position. Call ll1 light in reach. Side rails up X 1. Client placed on continuous cardiac and pulse oximetry monitoring. NIBP monitoring applied. 17:59 XRAY Ankle LEFT 3 view In Process Unspecified. EDMS 20:19 No provider procedures requiring assistance completed. IV discontinued. ke1 Administered Medications: 16:37 Drug: morphine 2 mg {Note: pain 4/10, rass 0.} Route: IVP; Infused Over: 4 mins; Site: ll1 right antecubital; 17:32 Follow up: Response: No adverse reaction; RASS: Alert and Calm (0) ll1 17:10 Drug: Ketorolac 15 mg Route: IVP; Site: right antecubital; ll1 20:08 Drug: SOLU-Medrol (methylPrednisoLONE) 80 mg Route: IVP; Site: right hand; ke1 20:19 Follow up: Response: No adverse reaction ke1 Medication: 17:06 VIS not applicable for this client. ll1 Outcome: 19:53 Discharge ordered by . jina 20:19 Discharged to home with crutches. ke1 20:19 Condition: good 20:19 Discharge instructions given to patient. 20:20 Patient left the ED. ke1 Signatures: Dispatcher [employer] EDMS Jc Carver PA PA cp Megha Witt, RN RN Benita Ashby am2 Tayla Cardona RN RN ll1 [place] Vega RN RN as6 Sal Pelaez RN RN ke1
[2022-05-10] MEDS ORDERED: METHYLPREDNISOLONE 40 MG INJ ONE (20:08)
[2022-05-10 21:18] VITALS: BP 150/67; TEMP 97.1; O2SAT 98
== END 2022-05-10 20:20 | disposition home or self-care (01) ==
LOC: ER 15:57
PROC: 0S9G3ZX Drainage of Left Ankle Joint, Percutaneous Approach, Diagnostic (ICD-10-PCS; principal; 2022-05-10)
DX: M25.572 Pain in left ankle and joints of left foot (principal)
CPT/HCPCS: 87070; 85025; 80048; 36415; 89050; 85610; 84550; 89060; 86140; 73610; 93971; 99284; 20606; J2001; J2270; J2920